=== PATIENT | male | born 2005 | race Two or more races ===

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

== ENCOUNTER 2024-02-04 14:55 | Outpatient (REF) | payer OTHER, SELFPAY ==
[2024-02-04 18:02] LABS: TSH reflex Free T4 2.79 uIU/mL (0.32-4.0)
== END 2024-02-04 14:56 | disposition home or self-care (01) ==
LOC: HO.HHCL 14:55
PROVIDERS: Visit Provider Registered Nurse
DX: R79.89 Other specified abnormal findings of blood chemistry (principal)
CPT/HCPCS: 36415; 84443

== ENCOUNTER 2024-09-30 15:37 | Outpatient (REF) | payer MEDICAID, SELFPAY ==
--- OUTSIDE RECORDS SUMMARY | 2024-09-30 16:35 | XMS_ITS | Clinical Summary ---
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 Name Role Phone Unavailable Primary Care Provider Unavailabl e Medications No known medications Social History Tobacco Use Types Packs/Day Years Used Date Smoking Tobacco: Never Assessed Sex and Gender Information Value Date Recorded Sex Assigned at Male 04/19/2023 2:28 AM EST Gender Identity Not on file Sexual Orientation Not on file Job Start Date Occupation Industry Not on file Not on file Not on file Last Filed Vital Signs Vital Sign Reading Time Taken Comments Blood Pressure 122/72 04/19/2023 12:30 AM EST Pulse 98 04/19/2023 12:30 AM EST Temperature 36.6 C (97.8 F) 04/19/2023 12:30 AM EST Respiratory Rate 18 04/19/2023 12:30 AM EST Oxygen Saturation 98% 04/19/2023 12:30 AM EST Inhaled Oxygen Concentration - - Weight - - Height - - Body Mass Index - - Plan of Treatment Not on file
--- OUTSIDE RECORDS SUMMARY | 2024-09-30 16:35 | XMS_ITS | Clinical Summary ---
Author Organization [employer] Address [address] [facility] [address] [place] [address] Care Team Providers Care Charger Tester Name Role Phone [place] Primary Care Provider [phone] Allergies Active Allergy Reactions Criticality Noted Date Comments Blueberry Flavoring Agent (Non-Screening) Unknown 12/14/2023 Triana Unknown 12/14/2023 Fish Allergy Unknown 12/14/2023 [place]aton Extract Unknown 12/14/2023 Medications * This document contains information received from the source organization and may not represent a complete record from that organization. Vraylar 3 MG capsule Take 3 mg by mouth with breakfast. 4 Active divalproex (Depakote ER) 500 MG 24 hr tablet Take 1,500 mg by mouth with evening meal. 4 Active hydrOXYzine pamoate (Vistaril) 50 MG capsule Take 50 mg by mouth every 8 (eight) hours if needed for anxiety. 4 Active lithium ER (Lithobid) 300 MG 12 hr tablet Take 1,200 mg by mouth with evening meal. 4 Active mirtazapine (Remeron) 30 MG tablet Take 30 mg by mouth at bedtime. 4 Active nicotine polacrilex (Nicorette) 2 MG gum Chew 2 mg if needed. 4 Active acetaminophen (Tylenol) 325 MG tablet Take 2 tablets (650 mg) by mouth every 8 (eight) hours if needed for fever, mild pain or moderate pain (for pain or fever over 100F). 30 tablet 3 5 Active docusate sodium (Colace) 100 MG capsule TAKE 1 CAPSULE (100 MG) BY MOUTH IN THE MORNING 90 capsule 1 5 Active docusate sodium (Colace) 100 MG capsule Take 1 capsule (100 mg) by mouth in the morning. 30 capsule 3 5 025 Discontinued Active Problems Problem Noted Date Diagnosed Date Gender dysphoria 02/04/2024 Hypothyroidism 12/17/2023 Mood disorder 10/05/2023 Suicidal ideation 10/05/2023 Homicidal ideation 10/05/2023 Cannabis use disorder 10/05/2023 Dietary counseling 09/25/2023 Class 2 obesity due to exces s calories without serious comorbidity with body mass index (BMI) of 39.0 to 39.9 in adult 09/25/2023 Assessment & Plan (09/25/2023 1:03 PM EDT): Discussed re weight reduction options including exercise, life style modifications, and diet Recommended to decrease soda and sugary beverage consumption, increase protein intake with meals (at least 1 portion of protein with each meal) to assist with satiety, increase dietary fiber Recommended at least 150 min/week of moderate intensity exercise. Exercise counseling 09/25/2023 Encounters * This document contains information received from the source organization and may not represent a complete record from that organization. Date Type Department Care Team Description 09/22/2024 Refill [facility] [address] [place] [address] YucaipaThelma FNP 09/12/2024 Telephone [facility] [address] [place] [address] YucaipaThelma FNP Results from Last 3 Months Immunizations Immunization Administration Dates Next Due DTaP / Hep B / IPV 2004,2004, 005 DTaP, 5 pertussis antigens 03/04/2008,09/01/2005 HPV 9-Valent 08/02/2016,10/06/2015,08/02/2015 Hep A, ped/adol, 2 dose 07/29/2014,07/28/2013 Hep B, Adolescent or Pediatric 2004 Hib (HbOC) 2004,2004,2004 Hib (PRP-T) 05/26/2005 IPV 03/04/2008 Influenza injectable quadriv alent IIV4 with preservative 08/02/2015 Influenza injectable quadriv alent preservative free 05/15/2022,12/15/2020,02/04/2020 Influenza, IIV3, injectable 03/31/2009,1 05/05/2007,02/18/2007,01/19,01/27/2005 Influenza, Split (incl. zachary fied surface antigen) 02/01/2012,01/11/2011,05/11/2010 MMR 03/04/2008,01/27/2005 Meningococcal MCV4P ACYW-135 12/15/2020,08/02/19 16 Novel Tbtackoyt-[id number], all formulations 04/22/2009 Pneumococcal Conjugate PCV 7 05/26/2005, 2004,2004,03/31 Tdap 04/09/2022,08/02/2015 Varicella 03/04/2008,01/27/2005 Social History Tobacco Use Types Packs/Day Years Used Date Smoking Tobacco: Former Smokeless Tobacco: Never Tobacco Cessation:Counseling Given: Not Answered Alcohol Use Standard Drinks/Week Comments Never 0 (1 standard drink = 0.6 oz pur e alcohol) Depression Answer Date Recorded Patient Health Questionnaire-9 Score 0 03/21/2024 Patient Health Questionnaire-9 Score 0 03/21/2024 Last PHQ-9: Questionnaire Data Not on file 0 03/21/2024 Housing Stability Answer Date Recorded What is your housing situation today? I have desiree spencer 12/06/[address] you li ve. Do you have problems with any of the following? None of the above 12/06/2023 Food Insecurity Answer Date Recorded Within the past 12 months, y ou worried that your food would run out before you got money to buy more: Never True 12/06/2023 Within the past 12 months,th e food you bought just didn't last and you didn't have enough money to get more: Never True Transportation Answer Date Recorded In the past 12 months, has l ack of transportation kept you from medical appts, meetings, work or from getting things needed for daily living? No 12/06/2023 Utilities Answer Date Recorded In the past 12 months, has t he electric, gas, oil or water company threatened to shut off services in your home? No 12/06/2023 Depression Answer Date Recorded Patient Health Questionnaire-2 Score 0 03/21/2024 Internet Access Answer Date Recorded Internet Access Q1 Yes 12/06/2023 Internet Access Q2 Not on file 12/06/2023 Sex and Gender Information Value Date Recorded Sex Assigned at Male 09/25/2023 9:19 AM EDT Legal Sex Male 9:29 AM EST Gender Identity Transgender Female 12/03/2023 3: 30 PM EDT Sexual Orientation Don't know 09/25/2023 9 :19 AM EDT Last Filed Vital Signs Vital Sign Reading Time Taken Comments Blood Pressure 126/80 03/27/2024 1:05 PM EST Pulse 89 03/27/2024 1:05 PM EST Temperature 36.5 C (97.7 F) 03/27/2024 1:05 PM EST Respiratory Rate 16 03/27/2024 1:05 PM EST Oxygen Saturation 98% 03/27/2024 1:05 PM EST Inhaled Oxygen Concentration - - Weight 121 kg (266 lb 9.6 oz) 03/27/2024 1:05 PM EST Height 172.7 cm (5' 8 ) 03/27/2024 1:05 PM EST Body Mass Index 40.54 03/27/2024 1:05 PM EST Plan of Treatment Upcoming Encounters Date Type Department Care Team (Late st Contact Info) Description 11/03/2024 10:00 AM EDT Office Visit [facility] [address] [place] [address] [facility] [address] [place] [address] Health Maintenance Due Date Last Done Comments Disability Screening 2004 Alcohol/Substance Use Screening 2016 Meningococcal B Vaccine (1 of 2 - Standard) 2020 COVID-19 Vaccine (3 - season) 2023 09/24/2020, 09/03/2020 Influenza Vaccine (#1) 2024 3, 12/15/2020, 02/04/2020, Additional history exists SDOH Screening 12/05/2024 12/06/2023 Chlamydia and Gonorrhea Screening 12/13/2024 12/14/2023, 05/15/2022 Family Planning (PISQ) 02/24/2025 02/25/2024 Depression Screening 03/21/2025 03/21/2024, 03/21/19 Tobacco Screening 03/27/2025 03/27/2024 Lipid Panel 12/13/2028 12/14/2023 DTaP/Tdap/Td Vaccines (8 - Td or Tdap) 04/09/2032 04/09/2022, 08/02/2015, 03/04/2008, Additional history exists Zoster Vaccines (1 of 2) 01/22/2054 RSV Patients and Patients Aged 60 years or older (1 - 1-dose 75+ series) 01/22/2079 Hepatitis B Vaccines Completed 2004, 2004, 2004, Additional history exists HIB Vaccines Completed 05/26/2005, 08/18, 2004, Additional history exists Pneumococcal Vaccine: Pediatrics (0 to 5 Years) and At-Risk Patients (6 to 49) Years Aged Out 05/26/2005, 2004, 2004, Additional history exists No longer eligible based on patient's age to complete this topic IPV Vaccines Completed 03/04/2008, 08/18, 2004, Additional history exists Hepatitis A Vaccines Completed 07/29/2014, 07/29/19 14 HPV Vaccines Completed 08/02/2016, 09/17, 08/02/2015 Meningococcal Vaccine Completed 12/15/2020, 016 HIV Screening Completed 12/14/2023 Hepatitis C Screening Completed 12/14/2023, 024 RSV under 20 months Aged Out No longe r eligible based on patient's age to complete this topic Rotavirus Vaccines Aged Out No longer eligible based on patient's age to complete this topic Procedures Procedure Name Priority Date/Time Associated Diagnosis Comments HEPATITIS C AB W/REFL TO HCV RNA, QN, PCR Routine 12/14/2023 12:34 PM EDT Screening for STD (sexually transmitted disease) HIV 1/2 ANTIGEN/ANTIBODY, FOURTH GENERATION W/RFL Routine 12/14/2023 12:34 PM EDT Bipolar disorder in partial remission, most recent episode unspecified type (CMS/HCC) LIPID PANEL WITH REFLEX TO DIRECT LDL Routine 12/14/2023 12:34 PM EDT Class 2 obesity due to excess calories without serious comorbidity with body mass index (BMI) of 39.0 to 39.9 in adult CHLAMYDIA/N. GONORRHOEAE RNA, TMA, UROGENITAL Routine 12/14/2023 12:34 PM EDT Screening for STD (sexually transmitted disease) from Last 3 Months or Most Recently Relevant to Health Maintenance Results * (ABNORMAL) Lipid Panel with Reflex to Direct LDL (12/14/2023 12:34 PM EDT) Triglycerides 350(H) <150 mg/dL [facility] Comment:Desirable Triglyceri de: less than 90 mg/dLBorderline High Triglyceride: 90-129 mg/dLHigh Triglyceride: greater than 130 mg/dL Cholesterol 166 <200 mg/dL [facility] Comment:Desirable Cholestero l: less than 170 mg/dLBorderline High Cholesterol: 170-199 mg/dLHigh Cholesterol: greater than 200 mg/dL LDL Cholesterol Calculated 70 <100 mg/dL [facility] Comment:Desirable LDL: less than 110 mg/dLBorderline LDL: 110-129 mg/dLHigh LDL: greater than or equal to 130 mg/dL HDL Cholesterol 26(L) >40 mg/dL [facility] Comment:Desirable HDL: great er than 45 mg/dLBorderline HDL: 40-45 mg/dLLow HDL: less than 40 mg/dL Note: This HDL assay may give artificially low results in patients with liver disease. Blood 12/14/2023 12:3 4 PM EDT 12/14/2023 1:19 PM EDT us Willow Butterfield MD LAB BLOOD ORDERABLES Fin al Result [facility] [address] [place] [phone] * Hepatitis C Antibody with Reflex to HCV, RNA, Quantitative, Real-Time PCR (12/14/2023 12:34 PM EDT) [facility] Hepatitis C Antibody Nonreactive Nonreactive [facility] Comment:Antibodies to HCV no t detected; does not exclude early acuteHCV infection. Blood Venous blood specimen / Unknown 12/14/2023 12:34 PM EDT 12/14/2023 1:19 PM EDT [facility] LAB BLOOD ORDERABLES Final Re sult [facility] [address] [place] [address] [phone] * Chlamydia/N. Gonorrhoeae RNA, TMA, Urogenitial (12/14/2023 12:34 PM EDT) [facility] CT PCR NOT DETECTED Not Detect. [facility] Comment:A not detected test result does not exclude the possibilityof infection because test results can be affected byimproper specimen collection, concurrent antibiotic therapy,or the number of organisms in the specimen which may bebelow the sensitivity of the test. As with many diagnostictests, results from the Xpert CT/NG assay should beinterpreted in conjunction with other laboratory andclinical data available to the clinician.Xpert CT/NG performance has not been evaluated in patientsless than 14 years of age. The assay should not be used forthe evaluationof suspected sexual abuse or for other medico-legalindications. Additional testing is recommended in anycircumstance when false positive or false negative resultscould lead to adverse medical, social or psychologicalconsequences. NG PCR NOT DETECTED Not Detect. [facility] Comment:A not detected test result does not exclude the possibilityof infection because test results can be affected byimproper specimen collection, concurrent antibiotic therapy,or the number of organisms in the specimen which may bebelow the sensitivity of the test. As with many diagnostictests, results from the Xpert CT/NG assay should beinterpreted in conjunction with other laboratory andclinical data available to the clinician.Xpert CT/NG performance has not been evaluated in patientsless than 14 years of age. The assay should not be used forthe evaluationof suspected sexual abuse or for other medico-legalindications. Additional testing is recommended in anycircumstance when false positive or false negative resultscould lead to adverse medical, social or psychologicalconsequences. Urine (Urine, Random) 12/14/2023 12:34 PM EDT 12/14/2023 1:10 PM EDT Narrative [facility] - 12/14/2023 2:52 PM EDT Urine [facility] LAB MICROBIOLOGY - GENERAL OR DERABLES Final Result Performing Organization Address [facility]/ZIP Co de Phone Number [facility] [address] [place] [address] [phone] * HIV-1/2 Antigen and Antibodies, Fourth Generation, with Reflexes (12/14/2023 12:34 PM EDT) HIV AB/AG Nonreactive Nonreactive [facility] Comment:HIV-1 p24 Ag and/or HIV-1/HIV-2 Ab not detected.A test result that is nonreactive does not exclude thepossibility of exposure to or infection with HIV-1 and/orHIV-2. Nonreactive results in this assay for individualswith prior exposure to HIV-1 and/or HIV-2 may be due toantigen and antibody levels that are below the limit ofdetection of this assay.The [employer] (now [employer]) HIV Ag/Ab Combo assay result andsupplemental assay results should be interpreted inconjunction with the patient's clinical presentation,history and other laboratory results. If the results areinconsistent with clinical evidence, additional testing issuggested to confirm the result. Blood Venous blood specimen / Unknown 12/14/2023 12:34 PM EDT 12/14/2023 1:19 PM EDT Willow Butterfield MD LAB BLOOD ORDERABLES Fin al Result [facility] [address] [place] [phone] from Last 3 Months or Most Recently Relevant to Health Maintenance Insurance [facility] Care Teams Charger Tester Relationship Specialty Start Date End Date Thelma Fatima FNP [address] [place] [phone] PCP - General Family Medicine 12/14/23
--- OUTSIDE RECORDS SUMMARY | 2024-09-30 16:35 | XMS_ITS | Clinical Summary ---
Author Organization [facility] it Address [address] [place] [address] Care Team Providers Care Guest Relations Representative Name Role Phone Unavailable Primary Care Provider Unavailabl e Social History Tobacco Use Types Packs/Day Years Used Date Smoking Tobacco: Never Assessed Sex and Gender Information Value Date Recorded Sex Assigned at Not on file Legal Sex Male 4:57 PM EDT Gender Identity Not on file Sexual Orientation Not on file Obstetrics History Plan of Treatment Health Maintenance Due Date Last Done Comments Varicella Vaccines (1 of 2 - 13+ 2-dose series) 01/22/2017 HPV Vaccines (1 - Male 3-dos e series) 01/22/2019 Meningococcal B Vaccine (1 o f 2 - Standard) 2020 DTaP,Tdap,and Td Vaccines (1 - Tdap) 01/22/2023 Hepatitis B Vaccines (1 of 3 - 19+ 3-dose series) 01/22/2023 Annual Well Child Visit (3-2 1 years old) 10/17/2023 Depression Screening 10/17/2023 HIV Screening 10/17/2023 Hepatitis C Screening 10/17/2023 Social Influencers of Health Screening 10/17/2023 COVID-19 Vaccine (1 - 2023-2 5 season) 2023 Influenza Vaccine (#1) 2024 HIB Vaccines Aged Out No longer eligi ble based on patient's age to complete this topic Hepatitis A Vaccines Aged Out No long er eligible based on patient's age to complete this topic IPV Vaccines Aged Out No longer eligi ble based on patient's age to complete this topic MMR Vaccines Aged Out No longer eligi ble based on patient's age to complete this topic Meningococcal ACWY Vaccine Aged Out N o longer eligible based on patient's age to complete this topic Pneumococcal Vaccine: Pediat rics (0 to 5 Years) and At-Risk Patients (6 to 49 Years) Aged Out No longer eligible b ased on patient's age to complete this topic RSV Immunization Patients Un brayden 20 months Aged Out No longer eligible b ased on patient's age to complete this topic
--- OUTSIDE RECORDS SUMMARY | 2024-09-30 16:35 | XMS_ITS | Encounter Summary ---
Author Organization [facility] Address [address] [place] [address] Phone Care Team Providers Care Bituminous Distributor Operator Name Role Phone Julia Blood NP Primary Care Provider [phone] Encounter Details Date Type Department Care Team (Late st Contact Info) Description 11/02/2016 Conversion Encounter [facility] [address] [place] [address] Social History Tobacco Use Types Packs/Day Years Used Date Smoking Tobacco: Never Assessed Sex and Gender Information Value Date Recorded Sex Assigned at Not on file Legal Sex Male 5:06 PM EDT Gender Identity Not on file Sexual Orientation Not on file documented as of this encounter Plan of Treatment Not on file documented as of this encounter Visit Diagnoses Not on filedocumented in this encounter Care Teams Bituminous Distributor Operator Relationship Specialty Start Date End Date Julia Blood NP [address] [place] [address] PCP - General Pediatrics 08/13/24 documented as of this encounter
[2024-09-30 18:10] LABS: Cannabinoid Screen Urine Not Detected (Not Detect)
[2024-09-30 18:17] LABS: Hemoglobin A1C 121.7792 umol/L; NRBC Abs Auto 0.000 X10*3/uL (0.0-0.012); NRBC Pct Auto 0.0 /100WBC (0.0-0.2); SCAN SMEAR FLAG 1; Total Hemoglobin (HGBA1C) 4096.9761 umol/L
[2024-09-30 18:19] LABS: Hematocrit 47.6 % (42.0-52.0); Hemoglobin 15.9 g/dl (14.0-18.0); Imm Gran Abs Auto 0.04 X10*3/uL (0.00-0.03); Imm Gran Pct Auto 0.4 % (0.0-0.4); Lymphocytes Absolute Auto 3.1 X10*3/uL (1.2-4.9); MANUAL DIFF FLAG SCAN; Mean Corpuscular HGB Conc 33.4 g/dl (31.0-36.0); Mean Corpuscular Hemoglobin 29.1 pg (27.0-33.0); Mean Corpuscular Volume 87.2 fL (80.0-98.0); PLT CLUMP 1; Red Blood Count 5.46 X10*6/uL (4.60-5.80)
[2024-09-30 18:22] LABS: PLT ABN DIST 1; White Blood Count 9.3 X10*3/uL (4.8-10.8)
[2024-09-30 18:30] LABS: Alanine Aminotransferase 23 U/L (0-40); Albumin Level 4.7 g/dL (3.5-5.0); Alkaline Phosphatase 51 U/L (39-117); Anion Gap 11 (12-20); Aspartate Amino Transferase 25 U/L (5-37); Blood Urea Nitrogen 8 mg/dL (9-16); Calcium 9.3 mg/dL (8.4-10.2); Carbon Dioxide 24 mmol/L (22-29); Chloride 111 mmol/L (96-108); Estimated Glomerular Filt Rate > 60; Potassium 3.4 mmol/L (3.3-5.1); Sodium 143 mmol/L (135-145); Total Protein 7.5 g/dL (6.5-8.0)
[2024-09-30 18:37] LABS: Platelet Count 179 X10*3/uL (160-400)
== END 2024-09-30 15:38 | disposition home or self-care (01) ==
LOC: HO.HHCL 15:37
PROVIDERS: PCP Internal Medicine; Visit Provider Nurse Practitioner Psychiatric/Mental Health
DX: F90.1 Attention-deficit hyperactivity disorder, predominantly hyperactive type (principal); F41.9 Anxiety disorder, unspecified; F32.A Depression, unspecified
CPT/HCPCS: 80053; 80164; 80307; 82248; 83036; 84146; 85025

== ENCOUNTER 2024-11-03 11:00 | Outpatient (REF) | payer MEDICAID, SELFPAY ==
--- OUTSIDE RECORDS SUMMARY | 2024-11-03 12:14 | XMS_ITS | Clinical Summary ---
Author Organization [employer] Address [address] [place] [address] [address] [place] [address] Care Team Providers Care Smash Piecer Name Role Phone Thelma Fatima METAL TURNER Primary Care Provider [phone] Allergies Active Allergy Reactions Criticality Noted Date Comments Blueberry Flavoring Agent (Non-Screening) Unknown 12/14/2023 Triana Unknown 12/14/2023 Fish Allergy Unknown 12/14/2023 Leggett Extract Unknown 12/14/2023 Medications * This document contains information received from the source organization and may not represent a complete record from that organization. Vraylar 3 MG capsule Take 3 mg by mouth with breakfast. 09/22/2023 Active divalproex (Depakote ER) 500 MG 24 hr tablet Take 1,500 mg by mouth with evening meal. 09/18/2023 Active hydrOXYzine pamoate (Vistaril) 50 MG capsule Take 50 mg by mouth every 8 (eight) hours if needed for anxiety. 09/18/2023 Active lithium ER (Lithobid) 300 MG 12 hr tablet Take 1,200 mg by mouth with evening meal. 09/18/2023 Active mirtazapine (Remeron) 30 MG tablet Take 30 mg by mouth at bedtime. 09/18/2023 Active nicotine polacrilex (Nicorette) 2 MG gum Chew 2 mg if needed. 09/18/2023 Active acetaminophen (Tylenol) 325 MG tablet Take 2 tablets (650 mg) by mouth every 8 (eight) hours if needed for fever, mild pain or moderate pain (for pain or fever over 100F). 30 tablet 3 04/04/2024 Active docusate sodium (Colace) 100 MG capsule TAKE 1 CAPSULE (100 MG) BY MOUTH IN THE MORNING 90 capsule 1 09/22/2024 Active Active Problems Problem Noted Date Diagnosed Date [...] organization. Date Type Department Care Team Description 11/03/2024 10:00 AM EDT Office Visit [address] [address] Thelma Fatima FNP Intention tremor (Primary Dx); Witnessed seizure-like activity (CMS/HCC); Foul smelling urine; Mood disorder (CMS/HCC); Thyroid dysfunction; Class 3 severe obesity due to excess calories with serious comorbidity and body mass index (BMI) of 40.0 to 44.9 in adult; Encounter for screening for infections with a predominantly sexual mode of transmission; Routine eye exam; Encounter for hearing examination, unspecified whether abnormal findings; Dietary counseling; Exercise counseling 11/03/2024 Travel 10/31/[address] [address] Thelma Fatima FNP Chart Prep 10/24/2024 Patient Outreach [address] [address] Thelma Fatima FNP Pre-visit Planning ((Unable to reach for PVP screening or LVM) to be completed in office ) 09/22/2024 Refill [facility] [address] [place] [address] [place] 09/12/2024 Telephone [facility] [address] [place] [address] [place], [facility] Results from Last 3 Months Immunizations Immunization [...] 03/04/2008,01/27/2005 Meningococcal MCV4P ACYW-135 12/15/2020,08/02/19 16 Novel [id number], all formulations 04/22/2009 Pneumococcal Conjugate PCV 7 05/26/2005, 2004,2004,03/31 Tdap 04/09/2022,08/02/2015 Varicella 03/04/2008,01/27/2005 Social History Tobacco Use Types Packs/Day Years Used Date Smoking Tobacco: Former Smokeless Tobacco: Never Tobacco Cessation:Counseling Given: Not Answered Alcohol Use Standard Drinks/Week Comments Never 0 (1 standard drink = 0.6 oz pur e alcohol) Alcohol Answer Date Recorded How often do you have a drink containing alcohol ? 4 11/03/2024 How many drinks containing a lcohol do you have on a typical day when you are drinking? 2 11/03/2024 Frequency of Binge Drinking Not on file 10/17 Depression Answer Date Recorded Patient Health Questionnaire-9 [...] PM EDT Sexual Orientation Don't know 09/25/2023 9: 19 AM EDT Last Filed Vital Signs Vital Sign Reading Time Taken Comments Blood Pressure 128/86 11/03/2024 10:16 AM EDT Pulse 90 11/03/2024 10:16 AM EDT Temperature 37.2 C (99 F) 11/03/2024 10:16 AM EDT Respiratory Rate 20 11/03/2024 10:16 AM EDT Oxygen Saturation 98% 03/27/2024 1:05 PM EST Inhaled Oxygen Concentration - - Weight 121 kg (267 lb 6.4 oz) 11/03/2024 10:16 A M EDT Height 172.7 cm (5' 8 ) 11/03/2024 10:16 AM EDT Body Mass Index 40.66 11/03/2024 10:16 AM EDT Plan of Treatment Health Maintenance Due Date Last Done Comments Disability Screening 2004 Alcohol/Substance Use Screening 2016 Meningococcal B Vaccine (1 of 2 - Standard) 2020 COVID-19 Vaccine (3 - 2023- season) 2023 09/24/2020, 09/03/2020 Influenza Vaccine (#1) 2024 , 12/15/2020, 02/04/2020, Additional history exists SDOH Screening 12/05/2024 12/06/2023 Chlamydia and Gonorrhea Screening 12/13/2024 12/14/2023, 05/15/2022 Family Planning (PISQ) 02/24/2025 02/25/2024 Depression Screening 03/21/2025 03/21/2024, 03/21/19 Tobacco Screening 11/03/2025 11/03/2024 Lipid Panel 12/13/2028 12/14/2023 DTaP/Tdap/Td Vaccines (8 [...] 12:34 PM EDT) Triglycerides 350(H) <150 mg/dL [facility] Comment:Desirable Triglyceri de: less than 90 mg/dLBorderline High Triglyceride: 90-129 mg/dLHigh Triglyceride: greater than 130 mg/dL Cholesterol 166 <200 mg/dL [facility] Comment:Desirable Cholestero l: less than 170 mg/dLBorderline High Cholesterol: 170-199 mg/dLHigh Cholesterol: greater than 200 mg/dL LDL Cholesterol Calculated 70 <100 mg/dL [facility] Comment:Desirable LDL: less than 110 mg/dLBorderline LDL: 110-129 mg/dLHigh LDL: greater than or equal to 130 mg/dL HDL Cholesterol 26(L) >40 mg/dL [facility] Comment:Desirable HDL: great er than 45 mg/dLBorderline HDL: 40-45 mg/dLLow HDL: less than 40 mg/dL Note: This HDL assay may give artificially low results in patients with liver disease. Blood 12/14/2023 12:3 4 PM EDT 12/14/2023 1:19 PM EDT Willow Butterfield MD LAB BLOOD ORDERABLES Fin al Result Performing Organization Address [facility] Co de Phone Number [facility] [address] [place] [phone] * Hepatitis C Antibody with Reflex to HCV, RNA, Quantitative, Real-Time PCR (12/14/2023 12:34 PM EDT) [facility] Hepatitis C Antibody Nonreactive Nonreactive [facility] Comment:Antibodies to HCV no t detected; does not exclude early acuteHCV infection. Blood Venous blood specimen / Unknown 12/14/2023 12:34 PM EDT 12/14/2023 1:19 PM EDT [facility] LAB BLOOD ORDERABLES Final Re sult Performing Organization Address [facility] Co de Phone Number [facility] [address] [place] [phone] * Chlamydia/N. Gonorrhoeae RNA, TMA, Urogenitial (12/14/2023 12:34 PM EDT) Pathologist [facility] CT PCR NOT DETECTED Not Detect. [facility] Comment:A not detected test result does [...] psychologicalconsequences. NG PCR NOT DETECTED Not Detect. [facility] Comment:A not detected test result does [...] PM EDT 12/14/2023 1:10 PM EDT Narrative [facility] - 12/14/2023 2:52 PM EDT Urine [facility] LAB MICROBIOLOGY - GENERAL OR DERABLES Final Result [facility] [address] [place] [phone] * HIV-1/2 Antigen and Antibodies, Fourth Generation, with Reflexes (12/14/2023 12:34 PM EDT) HIV AB/AG Nonreactive Nonreactive [facility] Comment:HIV-1 p24 Ag and/or HIV-1/HIV-2 Ab not detected.A test result that is nonreactive does not exclude thepossibility of exposure to or infection with HIV-1 and/orHIV-2. Nonreactive results in this assay for individualswith prior exposure to HIV-1 and/or HIV-2 may be due toantigen and antibody levels that are below the limit ofdetection of this assay.The DreamDrynity HIV Ag/Ab Combo assay result andsupplemental assay results should be interpreted inconjunction with the patient's clinical presentation,history and other laboratory results. If the results areinconsistent with clinical evidence, additional testing issuggested to confirm the result. Blood Venous blood specimen / Unknown 12/14/2023 12:34 PM EDT 12/14/2023 1:19 PM EDT Willow Butterfield MD LAB BLOOD ORDERABLES Fin al Result [facility] [address] [place] [phone] from Last 3 Months or Most Recently Relevant to Health Maintenance Insurance [facility] STANDARD MEDICARE Care Teams Smash Piecer Relationship Specialty Start Date End Date Thelma Fatima FNP [address] [place] [phone] PCP - General Family Medicine 12/14/23
--- OUTSIDE RECORDS SUMMARY | 2024-11-03 12:14 | XMS_ITS | Clinical Summary ---
Author Organization [employer] [facility] it Address [address] [place] [address] Care Team Providers Care Casting Inspector Name Role Phone Unavailable Primary Care Provider [...] Child Visit (3-2 1 years old) 10/17/2023 HIV Screening 10/17/2023 Hepatitis C Screening 10/17/2023 Social Influencers of Health Screening 10/17/2023 COVID-19 Vaccine (1 - 2023-2 5 season) 2023 Depression Screening 03/19/2024 Influenza Vaccine (#1) 2024 HIB Vaccines Aged [...]
--- OUTSIDE RECORDS SUMMARY | 2024-11-03 12:14 | XMS_ITS | Encounter Summary ---
Author Organization [facility] Address [address] [place] [address] Phone Care Team Providers Care Rug Layer Name Role Phone Julia Blood NP Primary Care Provider [phone] Encounter Details Date Type Department Care Team (Late st Contact Info) Description 11/02/2016 Conversion Encounter [facility] [address] [place] [address] Social History Tobacco Use Types Packs/Day Years [...] on filedocumented in this encounter Care Teams Rug Layer Relationship Specialty Start Date End Date Julia Blood NP [address] [place] [address] PCP - General Pediatrics 08/13/24 documented as of this encounter
--- OUTSIDE RECORDS SUMMARY | 2024-11-03 12:14 | XMS_ITS | Clinical Summary ---
Author Organization [facility] Address [address] [place] [address] Care Team Providers Care Supervisor [employer] Vault Name Role Phone Unavailable Primary Care Provider [...]
[2024-11-03 13:00] LABS: Appearance Urine Clear; Glucose Urine UA Negative (Negative); PH 8.0 (5.0-9.0); Specific Gravity - Urine <= 1.005 (1.005-1.025); UMIC TRIGGER UACC YES
[2024-11-03 13:03] LABS: Hematocrit 41.9 % (42.0-52.0); Hemoglobin 13.9 g/dl (14.0-18.0); Imm Gran Abs Auto 0.07 X10*3/uL (0.00-0.03); Imm Gran Pct Auto 0.7 % (0.0-0.4); Lymphocytes Absolute Auto 1.8 X10*3/uL (1.2-4.9); Mean Corpuscular HGB Conc 33.2 g/dl (31.0-36.0); Mean Corpuscular Hemoglobin 28.8 pg (27.0-33.0); Mean Corpuscular Volume 86.9 fL (80.0-98.0); NRBC Abs Auto 0.000 X10*3/uL (0.0-0.012); NRBC Pct Auto 0.0 /100WBC (0.0-0.2); Red Blood Count 4.82 X10*6/uL (4.60-5.80); UACC Culture Trigger YES
[2024-11-03 13:10] LABS: Platelet Count 270 X10*3/uL (160-400); White Blood Count 10.6 X10*3/uL (4.8-10.8)
[2024-11-03 13:26] LABS: Alanine Aminotransferase 15 U/L (0-40); Albumin Level 4.1 g/dL (3.5-5.0); Alkaline Phosphatase 72 U/L (39-117); Anion Gap 13 (12-20); Aspartate Amino Transferase 19 U/L (5-37); Blood Urea Nitrogen 13 mg/dL (9-16); Calcium 10.1 mg/dL (8.4-10.2); Carbon Dioxide 22 mmol/L (22-29); Chloride 110 mmol/L (96-108); Cholesterol 158 mg/dL (<200); Estimated Glomerular Filt Rate > 60; HDL Cholesterol 18 mg/dL (>40); Potassium 4.0 mmol/L (3.3-5.1); Sodium 141 mmol/L (135-145); Total Protein 7.6 g/dL (6.5-8.0); Triglycerides 221 mg/dL (<150)
[2024-11-03 13:42] LABS: HIV Num 1 0.10 S/CO (0.00-0.99)
[2024-11-03 13:53] LABS: Lithium 1.63 mmol/L (0.60-1.20)
[2024-11-03 14:12] LABS: Free T4 (Free Thyroxine) 0.98 ng/dL (0.71-1.85)
== END 2024-11-03 11:01 | disposition home or self-care (01) ==
LOC: HO.HHCL 11:00
PROVIDERS: PCP Internal Medicine; Visit Provider Registered Nurse
DX: Z11.3 Encounter for screening for infections with a predominantly sexual mode of transmission (principal); G25.2 Other specified forms of tremor; R82.90 Unspecified abnormal findings in urine; R79.89 Other specified abnormal findings of blood chemistry; E07.9 Disorder of thyroid, unspecified; E66.813 Obesity, class 3; Z68.41 Body mass index [BMI] 40.0-44.9, adult; Z79.899 Other long term (current) drug therapy
CPT/HCPCS: 36415; 80053; 80061; 80164; 80178; 81001; 84439; 84443; 85025; 86592; 87086; 87389

== ENCOUNTER 2024-11-03 15:59 | Emergency (ER) | payer MEDICARE, MEDICAID, SELFPAY ==
[2024-11-03 16:48] VITALS: BP 134/68; PULSE 103; RESP 18; TEMP 37; O2SAT 96; BMI 36.3
--- NOTE | 2024-11-03 16:49 | ED.GENADULT ---
HPI - General Adult General Chief complaint: Recheck/Abnormal Lab/Rx Stated complaint: irregular lab test (high lithium level) sent by dr Blue Seen by Provider: 11/03/24 17:59 Source: patient Limitations: no limitations History of Present Illness ED Provider: Makayla Paige PA-C HPI narrative: 19-year-old male with a history of bipolar disorder, anxiety, ADHD who presents from senior care with concern for lithium toxicity. Patient had routine labs drawn as an outpatient, his lithium level was noted to be 1.63. He was advised to come to the emergency room for assessment. Associated resting tremor and nausea. Denies new medication, change in dosage, or taking medications inappropriately. Related Data Home Medications ?Medication ?Instructions ?Recorded ?Confirmed guanfacine 2 mg tablet 1 tab PO BID 01/09/21 01/09/21 melatonin 5 mg tablet 5 mg PO BEDTIME 01/09/21 01/09/21 risperidone 0.5 mg tablet 0.5 mg PO BID 01/09/21 01/09/21 Previous Rx's ?Medication ?Instructions ?Recorded cephalexin 500 mg tablet 500 mg PO Q6H 7 days #28 tabs 04/09/22 amoxicillin 875 mg-potassium 1 tab PO BID 7 days #14 tabs 03/26/23 clavulanate 125 mg tablet Allergies Allergy/AdvReac Type Severity Reaction Status Date / Time blueberry Allergy Unknown Verified 11/03/24 16:49 liu (cherries) Allergy Unknown Verified 11/03/24 16:49 fish derived (fish) Allergy Unknown Verified 11/03/24 16:49 strawberry Allergy Unknown Verified 11/03/24 16:49 Review of Systems Review of Systems: Yes all other systems are reviewed and are negative Constitutional: Constitutional: Denies fatigue and Denies fever(s) Cardiovascular: Cardiovascular: Denies chest pain and Denies dyspnea Respiratory: Respiratory: Denies dyspnea Gastrointestinal: Gastrointestinal: Denies abdominal pain, Denies diarrhea, Reports nausea and Denies vomiting Endocrine: Endocrine: Denies fatigue PMFSH Past Medical History Attestation statement: The following information was validated with the patient. Medical History (Updated 11/04/24 @ 03:41 by MITCHELL Her) ADHD Social History Social History (System 04/18/23 @ 12:23 by Sinai Paz) Smoked in Last 30 Days: No Use of substances other than those prescribed or required for medical reasons: No Advance Directives: No Advance Directives Information Provided: No Physical Exam ED Exam Exam: Alert well-appearing Vital Signs: Vital Signs - 24 hr 11/03/24 16:48 11/03/24 17:07 11/03/24 18:36 Temperature 98.6 F Pulse Rate 103 H 97 82 Respiratory Rate 18 12 18 Blood Pressure 134/68 110/74 103/68 Pulse Oximetry 96 96 98 Oxygen Delivery Method Room Air Room Air Room Air BMI result Body Mass Index 36.3 Const Orientation/consciousness: patient oriented x3 Resp Effort & Inspection: normal respiratory effort Cardio Other: Normal peripheral perfusion Skin Other: Warm dry no rash Neuro General: patient oriented x3, gait normal, no focal motor deficits and CN's II-XI intact bilaterally Psych Other: Somewhat uncooperative at times Course Course Course Narrative: This is a Rapid Medical Examination (RME) performed by Derick De La Cruz PA-C in triage. Full HPI, ROS, assessment and treatment plan per primary provider in the Main ED. Hx: 19 yo M here after receiving call of elevated lithium levels (1.63). takes 1350mg lithium ER every night. no recent dose adjustments. reports increasing diffuse tremors over the last week. Plan: labs, repeat lithium levels Reevaluation(s) Reevaluation #1: calling poison control, we should repeat the lithium level every 2 hours until it is under 1, his treatment consists of supportive care, I am giving a normal saline bolus, then will give 200 cc/hour, we should repeat the EKG in 2 hours, I will report back to poison control once repeat labs are completed Time: 18:16 Reevaluation #2: Speaking with the patient's guardian, who is his mother, Connie Ortiz, she is aware that the patient had to seek medical attention in the emergency room due to his elevated lithium levels. I will reach back out to her with a more information once labs result.......[phone] Time: 19:18 Reevaluation #3: reporting back to poison control.... I relayed repeat labs, that they are improving, no further recommendation Time: 19:30 Additional Reevaluation(s): 2332 Poison control had called back, after the 3rd lithium level, the repeat can be drawn after 4 hours, it just resulted at 1.2 337 am spoke with poison control, relayed the 4th lithium level, the patient is cleared for discharge. Calling his mother again to let her know he will be discharged back to senior care, she is pleased, she will reach out to his doctor this morning. Medications Administered Discontinued Medications Generic Name Dose Route Start Last Admin Trade Name Kayla PRN Reason Stop Dose Admin Sodium Chloride 1,000 mls @ 999 mls/hr 11/03/24 18:15 11/03/24 21:00 Ns IV 11/03/24 19:15 Infused .Q1H1M HEMANT Infusion Sodium Chloride 1,000 mls @ 200 mls/hr 11/03/24 20:30 11/03/24 21:00 Ns IVCONT 11/04/24 01:29 200 mls/hr .Q5H HEMANT Administration Medical Decision Making Medical Decision Making MDM Narrative: 19-year-old male with a history of bipolar disorder, anxiety, ADHD who presents from senior care with concern for lithium toxicity. Patient had routine labs drawn as an outpatient, his lithium level was noted to be 1.63. He was advised to come to the emergency room for assessment. Associated resting tremor and nausea. Denies new medication, change in dosage, or taking medications inappropriately. Problem: The use of lithium History: Per patient caregiver I have considered the following differential diagnoses: [place] toxicity, acute kidney injury, toxic ingestion, SI, HI, decompensated psychiatric illness, drug/alcohol intoxication Plan: Patient is here due to lithium toxicity, he has a minimal symptoms. I spoke with poison control, in addition to screening labs, we should repeat the lithium level at 2:00 a.m. intervals, we should obtain a EKG, repeat it at the 2 hour shaista. I am giving a normal saline bolus, this can be followed by 200 mL/hour of normal saline. The patient was found to have elevated lithium levels on a routine basis, there was no concern for SI or HI at this time, there was no known concern for medication nonadherence. In addition to screening labs, drug screening was obtained. I have independently reviewed the following tests: EKG: Normal sinus rhythm, rate 87, no ischemic changes no ectopy QTC 452 Repeat EKG: Normal sinus rhythm, rate 88, no ischemic changes no ectopy Labs: Leukocytosis of 11.3, no anemia, creatinine subtly improved from earlier today it is 1.16, with the initial lab studies this morning it was 1.22, lithium level further improved to 1.38, earlier this morning it was 1.63, 3rd lithium level 1.2, 4th 1.12, U tox negative, Lab Data 11/03/24 18:16 11/03/24 21:09 Labs: Lab Results 11/03/24 11/03/24 11/03/24 Range/Units 18:16 18:51 19:19 WBC 11.3 H (4.8-10.8) X10*3/uL RBC 4.59 L (4.60-5.80) X10*6/uL Hgb 13.4 L (14.0-18.0) g/dl Hct 39.9 L (42.0-52.0) % MCV 86.9 (80.0-98.0) fL MCH 29.2 (27.0-33.0) pg MCHC 33.6 (31.0-36.0) g/dl RDW 12.9 (11.0-16.0) % Plt Count 287 (160-400) X10*3/uL MPV 13.0 H (9.4-12.4) fL Immature Gran % (Auto) 0.5 H (0.0-0.4) % Neut % (Auto) 63.9 (45-73) % Lymph % (Auto) 18.2 L (20-40) % [place] % (Auto) 12.0 H (2-11) % Eos % (Auto) 4.8 H (0-4) % Baso % (Auto) 0.6 (0-2) % Lymph # (Auto) 2.1 (1.2-4.9) X10*3/uL [place] # (Auto) 1.4 H (0.1-1.2) X10*3/uL Eos # (Auto) 0.5 H (0.0-0.4) X10*3/uL Baso # (Auto) 0.1 (0.0-0.2) X10*3/uL Abs Immat Gran (auto) 0.06 H (0.00-0.03) X10*3/uL Absolute Neuts (auto) 7.2 (2.0-8.3) x10*3/uL Absolute Nucleated RBC 0.000 (0.0-0.012) X10*3/uL Nucleated RBC % (auto) 0.0 (0.0-0.2) /100WBC Sodium 140 (135-145) mmol/L Potassium 3.8 (3.3-5.1) mmol/L Chloride 109 H (96-108) mmol/L Carbon Dioxide 22 (22-29) mmol/L Anion Gap 13 (12-20) BUN 12 (9-16) mg/dL Creatinine 1.16 (0.5-1.4) mg/dL Estim Creat Clear Calc 136.6 Estimated GFR > 60 Random Glucose 98 (60-115) mg/dL Calcium 9.9 (8.4-10.2) mg/dL Magnesium 2.1 (1.6-2.6) mg/dL Total Bilirubin 0.2 (0.0-1.0) mg/dL AST 17 (5-37) U/L ALT 13 (0-40) U/L Alkaline Phosphatase 71 (39-117) U/L Total Protein 7.5 (6.5-8.0) g/dL Albumin 4.1 (3.5-5.0) g/dL Hold Yellow Top See Note Urine Opiates Screen Not Detected (Not Detect) Ur Buprenorphine Scrn Not Detected (Not Detect) ng/mL Ur Oxycodone Screen Not Detected (Not Detect) ng/mL Urine Methadone Screen Not Detected (Not Detect) ng/mL Urine Fentanyl Screen Not Detected (Not Detect) Ur Barbiturates Screen Not Detected (Not Detect) Ur Phencyclidine Scrn Not Detected (Not Detect) Ur Amphetamines Screen Not Detected (Not Detect) U Benzodiazepines Scrn Not Detected (Not Detect) [place] 1.38 H (0.60-1.20) mmol/L Urine Cocaine Screen Not Detected (Not Detect) U Marijuana (THC) Screen Not Detected (Not Detect) 11/03/24 11/03/24 11/04/24 Range/Units 21:09 23:11 03:03 WBC (4.8-10.8) X10*3/uL RBC (4.60-5.80) X10*6/uL Hgb (14.0-18.0) g/dl Hct (42.0-52.0) % MCV (80.0-98.0) fL MCH (27.0-33.0) pg MCHC (31.0-36.0) g/dl RDW (11.0-16.0) % Plt Count (160-400) X10*3/uL MPV (9.4-12.4) fL Immature Gran % (Auto) (0.0-0.4) % Neut % (Auto) (45-73) % Lymph % (Auto) (20-40) % [place] % (Auto) (2-11) % Eos % (Auto) (0-4) % Baso % (Auto) (0-2) % Lymph # (Auto) (1.2-4.9) X10*3/uL [place] # (Auto) (0.1-1.2) X10*3/uL Eos # (Auto) (0.0-0.4) X10*3/uL Baso # (Auto) (0.0-0.2) X10*3/uL Abs Immat Gran (auto) (0.00-0.03) X10*3/uL Absolute Neuts (auto) (2.0-8.3) x10*3/uL Absolute Nucleated RBC (0.0-0.012) X10*3/uL Nucleated RBC % (auto) (0.0-0.2) /100WBC Sodium 141 (135-145) mmol/L Potassium 3.7 (3.3-5.1) mmol/L Chloride 110 H (96-108) mmol/L Carbon Dioxide 22 (22-29) mmol/L Anion Gap 13 (12-20) BUN 11 (9-16) mg/dL Creatinine 1.15 (0.5-1.4) mg/dL Estim Creat Clear Calc 137.7 Estimated GFR > 60 Random Glucose 112 (60-115) mg/dL Calcium 9.5 (8.4-10.2) mg/dL Magnesium (1.6-2.6) mg/dL Total Bilirubin (0.0-1.0) mg/dL AST (5-37) U/L ALT (0-40) U/L Alkaline Phosphatase (39-117) U/L Total Protein (6.5-8.0) g/dL Albumin (3.5-5.0) g/dL Hold Yellow Top Urine Opiates Screen (Not Detect) Ur Buprenorphine Scrn (Not Detect) ng/mL Ur Oxycodone Screen (Not Detect) ng/mL Urine Methadone Screen (Not Detect) ng/mL Urine Fentanyl Screen (Not Detect) Ur Barbiturates Screen (Not Detect) Ur Phencyclidine Scrn (Not Detect) Ur Amphetamines Screen (Not Detect) U Benzodiazepines Scrn (Not Detect) [place] 1.20 1.12 (0.60-1.20) mmol/L Urine Cocaine Screen (Not Detect) U Marijuana (THC) Screen (Not Detect) Critical Care Time Critical Care Time Critical Care Time: Yes Total Critical Care Time: 35 Attestation: I Makayla Paige PA-C have performed 35 minutes of critical care time not including lines and procedures; lithium toxicity, need for IV fluid therapy, repeat labs, consult with poison control Discharge Plan Discharge Clinical Impression: [place] toxicity Patient Disposition: Home, Self-Care Instructions: [place] Toxicity (ED) Additional Instructions: Your lithium level normalized prior to discharge. DO NOT TAKE ANY ADDITIONAL LITHIUM UNTIL YOU FOLLOW UP WITH YOUR PRESCRIBER, YOU MAY REQUIRE DOSE MODIFICATION. Prescriptions: No Action guanfacine 2 mg tablet 1 tab PO BID risperidone 0.5 mg tablet 0.5 mg PO BID melatonin 5 mg tablet 5 mg PO BEDTIME cephalexin 500 mg tablet 500 mg PO Q6H 7 Days Qty: 28 0RF amoxicillin-pot clavulanate 875-125 mg tablet 1 tab PO BID 7 Days Qty: 14 0RF Print Language: New Zealander
[2024-11-03 17:07] VITALS: BP 110/74; PULSE 97; RESP 12; O2SAT 96
--- NOTE | 2024-11-03 17:12 | PC.NURSE ---
19 m presents to ED with high lithium level at PCP, no other complaints. RR even and unlabored. Pt denies SOB or CP. Pt agitated and refusing IV, originally refusing labs but sts will do labs only. Pt refusing to wear gown.
--- NOTE | 2024-11-03 18:19 | ECG_ITS ---
Test Reason : ABNORMAL LABS Blood Pressure : */* mmHG Vent. Rate : 87 BPM Atrial Rate : 87 BPM P-R Int : 142 ms QRS Dur : 94 ms QT Int : 376 ms P-R-T Axes : 35 40 41 degrees QTcB Int : 452 ms Normal sinus rhythm Normal ECG No previous ECGs available Referred By: Makayla Paige Electronically Signed By: IRVING NIETO MD
[2024-11-03 18:22] LABS: MANUAL DIFF FLAG NO
[2024-11-03 18:30] LABS: Hematocrit 39.9 % (42.0-52.0); Hemoglobin 13.4 g/dl (14.0-18.0); Imm Gran Abs Auto 0.06 X10*3/uL (0.00-0.03); Imm Gran Pct Auto 0.5 % (0.0-0.4); Lymphocytes Absolute Auto 2.1 X10*3/uL (1.2-4.9); Mean Corpuscular HGB Conc 33.6 g/dl (31.0-36.0); Mean Corpuscular Hemoglobin 29.2 pg (27.0-33.0); Mean Corpuscular Volume 86.9 fL (80.0-98.0); NRBC Abs Auto 0.000 X10*3/uL (0.0-0.012); NRBC Pct Auto 0.0 /100WBC (0.0-0.2); Platelet Count 287 X10*3/uL (160-400); Red Blood Count 4.59 X10*6/uL (4.60-5.80); White Blood Count 11.3 X10*3/uL (4.8-10.8)
[2024-11-03 18:36] VITALS: BP 103/68; PULSE 82; RESP 18; O2SAT 98
[2024-11-03 18:38] LABS: Alanine Aminotransferase 13 U/L (0-40); Albumin Level 4.1 g/dL (3.5-5.0); Alkaline Phosphatase 71 U/L (39-117); Anion Gap 13 (12-20); Aspartate Amino Transferase 17 U/L (5-37); Blood Urea Nitrogen 12 mg/dL (9-16); Calcium 9.9 mg/dL (8.4-10.2); Carbon Dioxide 22 mmol/L (22-29); Chloride 109 mmol/L (96-108); Creatinine Clr Calc Pharmacy 136.6; Estimated Glomerular Filt Rate > 60; Magnesium 2.1 mg/dL (1.6-2.6); Potassium 3.8 mmol/L (3.3-5.1); Sodium 140 mmol/L (135-145); Total Protein 7.5 g/dL (6.5-8.0)
[2024-11-03 19:14] LABS: Lithium 1.38 mmol/L (0.60-1.20)
[2024-11-03 19:38] LABS: Cannabinoid Screen Urine Not Detected (Not Detect)
--- NOTE | 2024-11-03 19:38 | PC.NURSE ---
Report received and care assumed at 1900. The pt is noted to be in his room/bed awake, alert, oriented, and with a flat/odd affect. The pt offers no complaints at this time, is inquiring about when he will be able to leave. Pt was advised on the plan multiple times, IVF continue to infuse without s/s of complications noted to the LA. staff remains at bedside with patient.
--- NOTE | 2024-11-03 20:46 | ECG_ITS ---
Test Reason : arrythimia Blood Pressure : */* mmHG Vent. Rate : 88 BPM Atrial Rate : 88 BPM P-R Int : 172 ms QRS Dur : 96 ms QT Int : 366 ms P-R-T Axes : 44 40 49 degrees QTcB Int : 442 ms Normal sinus rhythm Normal ECG When compared with ECG of 03-Nov-2024 18:53, No significant change was found Referred By: Makayla Paige Electronically Signed By: IRVING NIETO MD
[2024-11-03 21:29] LABS: Anion Gap 13 (12-20); Blood Urea Nitrogen 11 mg/dL (9-16); Calcium 9.5 mg/dL (8.4-10.2); Carbon Dioxide 22 mmol/L (22-29); Chloride 110 mmol/L (96-108); Creatinine Clr Calc Pharmacy 137.7; Estimated Glomerular Filt Rate > 60; Potassium 3.7 mmol/L (3.3-5.1); Sodium 141 mmol/L (135-145)
--- NOTE | 2024-11-03 21:47 | PC.NURSE ---
RN received a call from poison control requesting an update on the pt's repeat blood work. per poison control the pt's lithium level can be drawn every 4 hours until level is below 1, with next lithium level due at 2300. Orders have been placed. The pt was provided with food and beverage per his request. [facility] staff member remains at bedside
--- NOTE | 2024-11-03 23:18 | PC.NURSE ---
RN to bedside to redraw the pt's lithium level per poison control recommendation/request. The pt was noted to get upset and began to curse at this RN threatening to take this shit out referencing his IV line. DICK made aware and came to bedside with this RN to discuss the plan of care further with the patient. He refused to make eye contact, continued to state that he wanted to leave and would not stay however the pt is not his own guardian. Per DICK, a conversation was had with the pt's mother/guardian who gave the DICK full authority to conduct and complete any interventions/tests necessary to ensure that the pt's needs are met and his wellbeing is taking into consider. The pt continued to report that he would remove the IV line, would not stay and wanted to go home. Security was called to bedside for safety in the event the pt began to escalate. He was advised that he is unable to make that decision to leave and/or dc treatment. DICK explained to the pt the plan and he seemed to remain calm and cooperative, education provided, and staff will re-evaluate the plan s/p lithium result. staff remains at bedside
[2024-11-03 23:26] LABS: Lithium 1.20 mmol/L (0.60-1.20)
[2024-11-04 03:23] LABS: Lithium 1.12 mmol/L (0.60-1.20)
--- NOTE | 2024-11-04 03:42 | PC.NURSE ---
RN spoke with DICK regarding the pt's most recent lithium level. RN placed a call to poison control to make them aware of the lab result and additional questions/concerns addressed. Per poison control the pt is cleared to be discharged home or back to his with the advisement that he should not resume his lithium until seen by his prescribing provider. DICK made aware and is outreaching mom via phone
[2024-11-04 04:30] VITALS: BP 103/68; PULSE 82; RESP 18; TEMP -17.7; TEMP 0; O2SAT 98
== END 2024-11-04 04:00 | disposition home or self-care (01) ==
PROVIDERS: Physician Assistant Medical; Emergency Provider Emergency Medicine; PCP Internal Medicine
DX: T56.891A Toxic effect of other metals, accidental (unintentional), initial encounter (principal); I49.9 Cardiac arrhythmia, unspecified; Y92.9 Unspecified place or not applicable; Z79.899 Other long term (current) drug therapy
CPT/HCPCS: 36415; 80048; 80053; 80178; 80307; 83735; 85025; 93005; 96360; 96361; 99284; 99285

== ENCOUNTER → 2024-11-03 18:19 | Outpatient (BNV) | payer MEDICARE, MEDICAID, SELFPAY | PROVIDERS: Emergency Provider Emergency Medicine; PCP Internal Medicine; Visit Provider Internal Medicine Cardiovascular Disease | DX: R79.9 Abnormal finding of blood chemistry, unspecified (principal); I49.9 Cardiac arrhythmia, unspecified | CPT/HCPCS: 93010 ==

== ENCOUNTER 2024-11-12 14:59 | Outpatient (REF) | payer MEDICARE, MEDICAID, SELFPAY ==
[2024-11-12 15:30] LABS: MANUAL DIFF FLAG NO
[2024-11-12 16:09] LABS: Hematocrit 37.2 % (42.0-52.0); Hemoglobin 12.5 g/dl (14.0-18.0); Imm Gran Abs Auto 0.02 X10*3/uL (0.00-0.03); Imm Gran Pct Auto 0.2 % (0.0-0.4); Lymphocytes Absolute Auto 2.8 X10*3/uL (1.2-4.9); Mean Corpuscular HGB Conc 33.6 g/dl (31.0-36.0); Mean Corpuscular Hemoglobin 28.3 pg (27.0-33.0); Mean Corpuscular Volume 84.4 fL (80.0-98.0); NRBC Abs Auto 0.000 X10*3/uL (0.0-0.012); NRBC Pct Auto 0.0 /100WBC (0.0-0.2); Platelet Count 249 X10*3/uL (160-400); Red Blood Count 4.41 X10*6/uL (4.60-5.80); White Blood Count 8.8 X10*3/uL (4.8-10.8)
--- OUTSIDE RECORDS SUMMARY | 2024-11-12 16:21 | XMS_ITS | Clinical Summary ---
Author Organization [facility] Address [address] [place] [address] Phone Care Team Providers Care Flame Hardening Machine Operator Name Role Phone Julia Blood NP Primary Care Provider [phone] Allergies No known active allergies Medications guanFACINE 2 MG tablet TOME KENDRICK TABLETA TODOS LOS D? EN LA MA?LIZZ 1 07/13/2017 Active risperiDONE 0.5 MG tablet Take 0.5 mg by mouth daily. 0 07/09/2017 Active Melatonin 5 MG tablet 11/16/2020 Active FLUoxetine 10 MG capsule Take 10 mg by mouth. 09/01/2021 Active risperiDONE 1 MG tablet 03/27/2022 Active Active Problems Problem Noted Date Diagnosed Date Psychosocial stressors 06/18/2020 Overview (06/18/2020): Silvana from [facility] is calling on an active 51 A. Update given. 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 Zoloft & Tenex 08/2018: Pt now on Risperidone, tenex. Zoloft stopped 3 months ago & Risperadone was started . Melatonin for sleep 07/28/21: Psych admission for SI & Auditory command hallucinations 09/02/21: Pt discharged from the hospital yesterday. He was in the hospital for SI. Pt has an apt with [facility] 09/02/21. 09/06/21: Admitted to [facility] Assessment & Plan (05/15/2022 10:42 AM EST): Followed by Shyann Shell at [facility]. Patient is on risperidone, fluoxetine and guanfacine. To see new psych provider tomorrow Therapist = patient does not know if he sees anyone Assessment & Plan (12/15/2020 11:14 AM EDT): Sees Shyann Gonzalez Q 2-3 mos. Risperidone, tenex. & melatonin patient reports that [facility] does his metabolic labs yearly - he declined them today [place] [employer]. IEP in place. Does well Assessment & Plan (09/14/2019 10:37 AM EDT): Followed at [facility] by Shyann Shell She checks routine labs on him per patient & GM On Risperidone & guanfacine - doing well Behavior much better Assessment & Plan (08/29/2018 10:58 AM EDT): Labs done on 08/24/18 by Shyann Shell & abstracted into the chart Sees Shyann Shell Q month Sees Therapist - Q 2 weeks Assessment & Plan (08/06/2017 2:45 PM EDT): In 45 day dx program at [facility] due to behavior issues. Doing better Supposed to go back to [place] but his Gmom does not want him to go back Seeing Shyann Shell monthly. On Tenex, zoloft & respiradone (added 2 months ago) No therapist while in 45 day program. Will reconnect when returns to [place] - sees therapist there from [facility] Immunizations Immunization Administration Dates Next Due DTaP / Hep B / IPV 2004,2004, 005 DTaP 5 03/04/2008,09/01/2005 H1N1 04/22/2009 HPV Vaccine 9 Valent 08/02/2016,10/06/2015,08/01 Hep A, ped/adol 07/29/2014,07/28/2013 Hep B, ped/adol 2004 Hib (HbOC) 2004,2004,2004 Hib (PRP-T) 05/26/2005 IPV 03/04/2008 Influenza Split 02/01/2012,01/11/2011,05/11/2010 Influenza, injectable, quadrivalent 08/02/2015 Influenza, injectable, quadr ivalent, preservative free 05/15/2022,12/15/2020,02/04/2020 Influenza, injectable, trivalent 010,03/04/2008,02/18/2007,01/19,01/27/2005 MMR 03/04/2008,01/27/2005 Meningococcal Conj (Menactra) MCV4P 12/15/2020,0 08/02/2015 Pneumococcal Conjugate 05/26/2005,2004,2004,03/31 Tdap 04/09/2022,08/02/2015 Varicella 03/04/2008,01/27/2005 Family History * Patient is adopted Relation Name Status Comments Brother Darren Alive Brother: Alive and well Father Alive Paternal Grandmother arthur PGGM Alive Social History Tobacco Use Types Packs/Day Years Used Date Smoking Tobacco: Never Smokeless Tobacco: Never Alcohol Use Standard Drinks/Week Comments No 0 (1 standard drink = 0.6 oz pur e alcohol) Hunger/Food Answer Date Recorded In the last 12 months, did y ou or your family ever eat less than you felt you should because there wasn't enough money for food? No 05/15/2022 Stable Housing Answer Date Recorded Are you worried that in the next 2 months you may not have stable housing? No 05/15/2022 Transportation Concerns Answer Date Rec orded In the last 12 months, have you or your family ever had to go without healthcare because you didn't have a way to get there? No 05/15/2022 Hazards in Home Answer Date Recorded Think about the place you li ve. Do you have problems with any of the following? Pests (mice or roaches), mold, no/not working smoke detectors, water leaks, no window guards. No 2022 Financing Utilities Answer Date Recorde d In the last 12 months, has t he electric, gas, oil, or water company threatened to shut off your services in your home? No 05/15/2022 Safety at Home Answer Date Recorded Are you or your family worried about feeling saf e in your home? No 05/15/2022 Outside Support Answer Date Recorded Do you feel that you need mo re support from other people or programs to help you care for yourself or your family? No 05/15/2022 Understanding Health Concerns Answer Da te Recorded Do you need help understandi ng your or your child's healthcare needs (diagnosis, medications, plan, etc.)? No 05/15/2022 Financing Health Concerns Answer Date R ecorded In the last 12 months, was t here a time when your child needed to see a doctor or get medications or supplies but could not because of cost? No 05/15/2022 Missing School or Work Answer Date Kareem rded Did you or your child miss s chool or work because of a health problem that could have been avoided? No 05/15/2022 Sex and Gender Information Value Date Recorded Sex Assigned at Not on file Legal Sex Male 5:06 PM EDT Gender Identity Not on file Sexual Orientation Not on file Last Filed Vital Signs Vital Sign Reading Time Taken Comments Blood Pressure 117/81 05/15/2022 10:13 AM EST Pulse 81 05/15/2022 10:13 AM EST Temperature 36.7 C (98.1 F) 06/27/2022 1:08 PM EDT Respiratory Rate - - Oxygen Saturation - - Inhaled Oxygen Concentration - - Weight 116 kg (256 lb) 06/27/2022 1:08 PM EDT Height 180.3 cm (5' 11 ) 05/15/2022 10:13 AM EST Body Mass Index 35.7 05/15/2022 10:13 AM EST Plan of Treatment Health Maintenance Due Date Last Done Comments Men B Vaccine (1 of 2 - Standard) 2020 Glucose/HbA1C 05/15/2023 05/15/2022, 04/20, 12/15/2019, Additional history exists COVID-19 Vaccine (3 - 2023-2 5 season) 2023 09/24/2020, 09/03/2020 LDL-C/Cholesterol 07/25/2024 07/26/2023, , 12/15/2019, Additional history exists Influenza Vaccines (#1) 2024 05/15/19 23, 12/15/2020, 02/04/2020, Additional history exists DTaP,Tdap,and Td Vaccines (8 - Td or Tdap) 04/09/2032 04/09/2022, 08/02/2015, 03/04/2008, Additional history exists Hepatitis B Vaccines Completed 2004, 2004, 2004, Additional history exists HIB Vaccines Completed 05/26/2005, 08/18, 2004, Additional history exists Pneumococcal Vaccine Completed 05/26/2005, 2004, 2004, Additional history exists IPV Vaccines Completed 03/04/2008, 08/18, 2004, Additional history exists MMR Vaccines Completed 03/04/2008, 01/27/2005 Varicella Vaccines Completed 03/04/2008, 01/27/2005 Hepatitis A Vaccines Completed 07/29/2014, 07/29/19 14 HPV Vaccines Completed 08/02/2016, 09/17, 08/02/2015 Meningococcal Vaccine Completed 12/15/2020, 016 Procedures * Due to [facility] law, this organization might not be sharing sensitive test results. Procedure Name Priority Date/Time Associated Diagnosis Comments LIPID PANEL Routine 05/15/2022 11:30 AM EST BMI greater than 95% for age [Z68.54] HEMOGLOBIN A1C Routine 05/15/2022 11:30 AM EST BMI greater than 95% for age [Z68.54] from Last 3 Months or Most Recently Relevant to Health Maintenance Results * Due to [facility] law, this organization might not be sharing sensitive test results. * Hemoglobin A1c (05/15/2022 11:30 AM EST) Hemoglobin A1C 5.1 (4.0-5.6) % [facility] Comment: MONITORING: In known diabetic patients, hemoglobin A1c targets should be discussed with health care provider. DIAGNOSTIC USE: The [place] Diabetes Association (ADA) and the World Health Organization (WHO) recommend the use of HbA1c to diagnose diabetes using a threshold of 6.5%. Patients who have an HbA1c between 5.7% and 6.4% are considered at increased risk for developing diabetes in the future. CAUTION: Falsely low HbA1c results may be observed in patients with hemolytic anemia, homozygous forms of abnormal hemoglobin (e.g. SS, CC, SC), , recent blood loss or hemoglobin F greater than 7%. Fructosamine may be used as an alternate test in these cases. REFERENCE: ADA: Standards of Medical Care in Diabetes 2020, The Journal of Clinical and Applied Research and Education Volume 43, Supplement 1 Testing performed or reported by [facility], a Service of [address] [address] Jonn Kay MD, [employer] Hand CLIA# [id number] Blood 05/15/2022 11:3 0 AM EST 05/15/2022 12:24 PM EST Kelley Arora MD LAB BLOOD ORDERABLES Final Resul t Performing Organization Address [facility] Co de Phone Number [facility] * (ABNORMAL) Lipid panel (05/15/2022 11:30 AM EST) [facility] Cholesterol, Total 145 (<170) MG/DL [facility] HDL 30(L) (>45) MG/DL [facility] Non-HDL Cholesterol 115 (<120) MG/DL [facility] Comment: Testing performed or reported by [facility], a Service of [facility], [address] [place] [address] Jonn Kay MD, [employer] Hand CLIA# [id number] Blood 05/15/2022 11:3 0 AM EST 05/15/2022 12:24 PM EST Kelley Arora MD LAB BLOOD ORDERABLES Final Resul t Performing Organization Address [facility] Co de Phone Number [facility] from Last 3 Months or Most Recently Relevant to Health Maintenance Insurance [facility] NON PCC [facility] Care Teams Flame Hardening Machine Operator Relationship Specialty Start Date End Date Julia Blood NP [address] [place] [address] PCP - General Pediatrics 08/13/24
--- OUTSIDE RECORDS SUMMARY | 2024-11-12 16:21 | XMS_ITS | Encounter Summary ---
Author Organization [employer] Address [address] [facility] [address]t [place] [address] Care Team Providers Care Drainage Inspector Name Role Phone Thelma Fatima SENIOR HEALTH CONSULTANT Primary Care Provider [phone] Reason for Visit * Reason Comments Med Refill Encounter Details Date Type Department Care Team ([facility] st Contact Info) Description 12/18/2023 Refill [facility] [address] [place], [place] [phone] Willow Butterfield MD [address] [place], [place] [phone] Social History Tobacco Use Types Packs/Day Years Used Date Smoking Tobacco: Former Cigarettes Smokeless Tobacco: Never Alcohol Use Standard Drinks/Week Comments Never 0 (1 standard drink = 0.6 oz pur e alcohol) Depression Answer Date Recorded Patient Health Questionnaire-9 Score 21 12/14/2023 Patient Health Questionnaire-9 Score 21 12/14/2023 Last PHQ-9: Questionnaire Data Not on file 0 12/14/2023 Housing Stability Answer Date Recorded What is your housing situation today? I have desiree tj 12/06/[address] you li [...] Answer Date Recorded Patient Health Questionnaire-2 Score 5 12/14/2023 Internet Access Answer Date Recorded Internet Access Q1 Yes 12/06/2023 Internet Access Q2 Not on file 12/06/2023 Sex and Gender Information Value Date Recorded Sex Assigned at Male 09/25/2023 9:19 AM EDT Legal Sex Male 9:29 AM EST Gender Identity Male 11/04/2024 9:39 AM EDT Sexual Orientation Straight 11/04/2024 9: 39 AM EDT documented as of this encounter Plan of Treatment Upcoming Encounters Date Type Department Care Team (Late st Contact Info) Description 02/19/2025 2:00 PM EST Office Visit [facility] [address] [place] [address] Tarka, Katheryn, OD [address] [place] [address] documented as of this encounter Visit Diagnoses Not on filedocumented in this encounter Additional Health Concerns Assessment Noted Time PHQ-9 Depression Total Score: 21 024 12:37 PM EDT documented as of this encounter Care Teams Drainage Inspector Relationship Specialty Start Date End Date Thelma Fatima FNP [address] [place] [address] PCP - General Family Medicine 12/14/23 documented as of this encounter
--- OUTSIDE RECORDS SUMMARY | 2024-11-12 16:21 | XMS_ITS | Encounter Summary ---
Author Organization [employer] Address [address] [facility] [address] [place] [address] Care Team Providers Care Intelligence Operations Specialist Name Role Phone Thelma Fatima GRAVES REGISTRATION SPECIALIST Primary Care Provider [phone] Reason for Visit * Reason Comments Med Change Request Encounter Details Date Type Department Care Team ([facility] st Contact Info) Description 03/23/2024 Refill [facility] [address] [place], [place] [phone] Virginia Box CNM [address] [place], [place] [phone] Social History Tobacco Use Types Packs/Day Years [...] is your housing situation today? I have desireelyle spencer 12/06/[address] you [...] AM EDT documented as of this encounter Miscellaneous Notes * Telephone Encounter - Virginia Box CNM - 03/24/2024 12:06 PM EST I received message from PCP that Declan does not want to take estradiol at this time, so rx denied.Thanks! documented in this encounter Plan of Treatment Upcoming Encounters Date Type Department Care Team (Late st Contact Info) Description 02/19/2025 2:00 PM EST Office Visit [facility] [address] [place], [place] [phone] Katheryn Duran, OD [address] [place] [address] documented as of this encounter Visit Diagnoses Not on filedocumented in this encounter Additional Health Concerns Assessment Noted Time PHQ-9 Depression Total Score: 0 03/21/19 25 2:22 PM EST documented as of this encounter Care Teams Intelligence Operations Specialist Relationship Specialty Start Date End Date Thelma Fatima FNP [address] [place] [address] PCP - General Family Medicine 12/14/23 documented as of this encounter
--- OUTSIDE RECORDS SUMMARY | 2024-11-12 16:21 | XMS_ITS | Clinical Summary ---
Author Organization [employer] [facility] it Address [address] [place] [address] Care Team Providers Care Metal Leaf Layer Name Role Phone Unavailable Primary Care Provider [...]
--- OUTSIDE RECORDS SUMMARY | 2024-11-12 16:21 | XMS_ITS | Encounter Summary ---
Author Organization [facility] Address [address] [place] [address] Phone Care Team Providers Care Inker And Opaquer Name Role Phone Julia Blood NP Primary Care Provider Encounter Details Date Type Department Care Team (Late st Contact Info) Description 11/02/2016 Conversion Encounter [facility] [address] [place] [address] Social History Tobacco Use Types Packs/Day Years [...] on filedocumented in this encounter Care Teams Inker And Opaquer Relationship Specialty Start Date End Date Julia Blood NP [address] [place] [address] PCP - General Pediatrics 08/13/24 documented as of this encounter
--- OUTSIDE RECORDS SUMMARY | 2024-11-12 16:21 | XMS_ITS | Clinical Summary ---
Author Organization [employer] [facility] Address [address] [place] [address] Care Team Providers Care Client Analyst Name Role Phone Unavailable Primary Care Provider [...]
--- OUTSIDE RECORDS SUMMARY | 2024-11-12 16:21 | XMS_ITS | Encounter Summary ---
Author Organization [employer] Address [address] [facility] [address] [place] [address] Care Team Providers Care Direct Marketing Intern Name Role Phone [facility] Primary Care Provider [phone] Reason for Visit * Reason Onset Date Comments Nurse Triage 03/14/2024 Encounter Details Date Type Department Care Team ([facility] st Contact Info) Description 03/14/2024 Telephone [facility] [address] [place], [place] [phone] [facility] [address] [place], [place] [phone] Nurse Triage Social History Tobacco Use Types Packs/Day Years [...] encounter Miscellaneous Notes * Telephone Encounter - Alissa Arroyo - 03/14/2024 2:45 PM EST Tc from provider retail account manager Symptom: Earache Outcome: Schedule a same-day appointment or talk to a nurse or provider today Reason: Caller denied all higher acuity questions The caller accepted this outcome. [phone] documented in this encounter Plan of Treatment Upcoming Encounters Date Type Department Care Team (Late st Contact Info) Description 02/19/2025 2:00 PM EST Office Visit [facility] [address] [place] [address] Katheryn Duran, OD [address] [place] [address] documented as of this encounter Visit Diagnoses Not on filedocumented in this encounter Additional Health Concerns Assessment Noted Time PHQ-9 Depression Total Score: 21 024 12:37 PM EDT documented as of this encounter Care Teams Direct Marketing Intern Relationship Specialty Start Date End Date Thelma Fatima FNP [address] [place], [place] [phone] PCP - General Family Medicine 12/14/23 documented as of this encounter
--- OUTSIDE RECORDS SUMMARY | 2024-11-12 16:21 | XMS_ITS | Encounter Summary ---
Author Organization [facility] Address [address] [place] [address] Phone Care Team Providers Care Drop Hammer Pile Driver Operator Name Role Phone Julia Blood NP Primary Care Provider [phone] Encounter Details Date Type Department Care Team (Late st Contact Info) Description 02/01/2012 Documentation [facility] Family Medicine [address] [place], [place] [phone] Family Medicine, Physician [address] [place], [place] [address] Social History Tobacco Use Types Packs/Day Years [...] on filedocumented in this encounter Care Teams Drop Hammer Pile Driver Operator Relationship Specialty Start Date End Date Julia Blood NP [address] [place] [address] PCP - General Pediatrics 08/13/24 documented as of this encounter
--- OUTSIDE RECORDS SUMMARY | 2024-11-12 16:21 | XMS_ITS | Encounter Summary ---
Author Organization [employer] Address [address] [facility] [address] [place] [address] Care Team Providers Care Domestic Maid Name Role Phone Thelma Fatima POWER GENERATION ENGINEER Primary Care Provider [phone] Reason for Visit * Reason Comments Med Refill Encounter Details Date Type Department Care Team ([facility] st Contact Info) Description 01/18/2024 Refill [facility] [address] [place], [place] [phone] Willow Butterfield MD [address] [place], [place] [phone] Social History Tobacco Use Types Packs/Day Years [...] PM EST Office Visit [facility] [address] [place] [address] Tarka, Katheryn, OD [address] [place] [address] documented as of this encounter Visit Diagnoses Not on filedocumented in this encounter Additional Health Concerns Assessment Noted Time PHQ-9 Depression Total Score: 21 024 12:37 PM EDT documented as of this encounter Care Teams Domestic Maid Relationship Specialty Start Date End Date Thelma Fatima FNP [address] [place] [address] PCP - General Family Medicine 12/14/23 documented as of this encounter
--- OUTSIDE RECORDS SUMMARY | 2024-11-12 16:21 | XMS_ITS | Encounter Summary ---
Author Organization [email or web address] Address [address] [facility] [address] [place] [address] Care Team Providers Care Food Service Name Role Phone [facility] Primary Care Provider [phone] Encounter Details Date Type Department Care Team ([facility] st Contact Info) Description 11/03/2024 Results Follow-Up [facility] [address], [place] [id number] [facility] [address] [place] [address] [place], Valproic Acid Total, CBC auto differential, Additional followed-up results: 6 Social History Tobacco Use Types Packs/Day Years Used Date Smoking Tobacco: Former Smokeless Tobacco: Never Alcohol Use Standard Drinks/Week [...] AM EDT documented as of this encounter Functional Status * Over the last 2 weeks, how often have you been bothered by any of the following problems? Question Answer Date of Assessment Author Feeling nervous, anxious, or on edge 0 11/03/2024 11:28 AM EDT Zoraida Vasquez MA Not being able to stop or control worrying 0 11/03/2024 11:28 AM EDT Zoraida Vasquez MA Worrying too much about different things 0 11/03/2024 11:28 AM EDT Zoraida Vasquez MA Trouble relaxing 0 11/03/2024 11:28 AM EDT Zoraida Vasquez MA Being so restless that it is hard to sit still 0 11/03/2024 11:28 AM EDT Zoraida Vasquez MA Becoming easily annoyed or irritable 0 11/03/2024 11:28 AM EDT Zoraida Vasquez MA Feeling afraid as if something awful might happen 0 11/03/2024 11:28 AM EDT Zoraida Perez MA KAVITHA-7 Total Score 0 11/03/2024 11:28 AM EDT Zoraida Vasquez MA documented as of this encounter Miscellaneous Notes * Addendum Note - Willow Butterfield MD - 11/07/2024 4:38 PM EDTAddended by: WILLOW BUTTERFIELD on: 11/07/2024 04:38 PM Modules accepted: Orders * Result Encounter Note - Willow Butterfield MD - 11/07/2024 4:38 PM EDT labs on 11/06/2024 show high lithium levels of 1.63 and high TSH. I called listed #[id number] (spokewith Cira, home care manager) and she tells me that lithium was held 2 days ago as he ran out of medications and psychiatry will see him in 3 days (they told her to continue off med until they see him). She tells me patient is doing much better, is more alert, has less tremor and is eating well. Hedenies having any seizure, hallucinations and sleeping well. I explained to Cira that lithium levels were high and he may need to address this with psychiatry next week so they can adjust medication dose. That that he does not have medication allergy or side effect. I told her to repeat TSH within 6 to 8 weeks and follow-up with PCP. Sent to PCP as FYI documented in this encounter Plan of Treatment Upcoming Encounters Date Type Department Care Team (Late st Contact Info) Description 02/19/2025 2:00 PM EST Office Visit [facility] [address] [place] [address] Katheryn Duran, OD [address] [place] [address] Scheduled Orders Name Type Priority Associated Diagnoses Orde r Schedule TSH with Reflex to Free T4 Lab Routine Acquired hypothyroidism Expected: 12/31/2024 (Approximate), Expires: 11/07/2025 documented as of this encounter Visit Diagnoses Diagnosis Acquired hypothyroidism- Primary Unspecified hypothyroidism documented in this encounter Additional Health Concerns Assessment Noted Time PHQ-9 Depression Total Score: 0 03/21/19 25 2:22 PM EST documented as of this encounter Care Teams Food Service Relationship Specialty Start Date End Date Thelma Fatima FNP [address] [place] [id number] PCP - General Family Medicine 12/14/23 documented as of this encounter
--- OUTSIDE RECORDS SUMMARY | 2024-11-12 16:21 | XMS_ITS | Clinical Summary ---
Author Organization [employer] Address [address] [place] [address] [address] [place] [address] Care Team Providers Care Unisaw Operator Name Role Phone Thelma Fatima HANDLE ATTACHER Primary Care Provider [phone] Allergies Active Allergy Reactions Criticality Noted Date Comments Blueberry Flavoring Agent (Non-Screening) Unknown 12/14/2023 Triana Unknown 12/14/2023 Fish Allergy Unknown 12/14/2023 Jackson Extract Unknown 12/14/2023 Medications * This document [...] organization. Date Type Department Care Team Description 11/12/2024 Orders Only [address] [address] Willow Butterfield MD 11/12/[address] [phone] Thelma Fatima FNP Call Back Request 11/05/[address] [address] Thelma Fatima FNP Care Coordination 11/04/2024 Orders Only GENERIC EXTERNAL DATA DEPARTMENT Provider, Generic External Data 11/03/2024 10:00 AM EDT Office Visit [facility] [place] [address] Thelma Fatima FNP Intention tremor (Primary Dx); [...] abnormal findings; Dietary counseling; Exercise counseling 11/03/2024 Results Follow-Up [facility] [address] [place] [phone] Thelma Fatima FNP [place], Valproic Acid Total, CBC auto differential, Additional followed-up results: 6 11/03/2024 Orders Only [facility] [address] [place] [phone] Thelma Fatima FNP 11/03/2024 Telephone [facility] [address] [place] [phone] Thelma Fatima FNP Critical [place] level 11/03/2024 Travel 10/31/[address] [address] Thelma Fatima FNP Chart Prep 10/24/2024 Patient Outreach [address] [address] Thelma Fatima FNP Pre-visit Planning ((Unable to reach for PVP screening or LVM) to be completed in office ) 09/22/[address] [address] Thelma Fatima FNP 09/12/[address] [address] Thelma Fatima FNP Results from Last 3 Months Immunizations [...] 03/04/2008,01/27/2005 Meningococcal MCV4P ACYW-135 12/15/2020,08/02/19 16 Novel [id number], all formulations 04/22/2009 Pneumococcal Conjugate PCV 7 [...] your housing situation today? I have desiree sing 12/06/[address] you li [...] Orientation Straight 11/04/2024 9: 39 AM EDT Last Filed Vital Signs Vital [...] 11/03/2024 10:16 AM EDT Plan of Treatment Upcoming Encounters Date Type Department Care Team (Late st Contact Info) Description 02/19/2025 2:00 PM EST Office Visit [facility] [address] [place] [address] Katheryn Duran, OD [address] [place] [address] Health Maintenance Due Date Last Done Comments Disability Screening 2004 Meningococcal B Vaccine (1 of 2 - Standard) 2020 COVID-19 Vaccine ( season) 2023 09/24/2020, 09/03/2020 Influenza Vaccine (#1) 2024 , 12/15/2020, 02/04/2020, Additional history exists SDOH Screening 12/05/2024 12/06/2023 Chlamydia and Gonorrhea Screening 12/13/2024 12/14/2023, 05/15/2022 Family Planning (PISQ) 02/24/2025 02/25/2024 Depression Screening 03/21/2025 03/21/2024, 03/21/19 Alcohol/Substance Use Screening 11/03/2025 11/03/2024 Tobacco Screening 11/03/2025 11/03/2024 Lipid Panel 11/03/2029 11/03/2024, 12/14/2023 DTaP/Tdap/Td Vaccines (8 - Td or [...] 09/17, 08/02/2015 Meningococcal Vaccine Completed 12/15/2020, 016 Hepatitis C Screening Completed 12/14/2023, 024 HIV Screening Completed 11/03/2024, 12/14/2023 RSV under 20 months Aged Out No longe r eligible based on patient's age to complete this topic Rotavirus Vaccines Aged Out No longer eligible based on patient's age to complete this topic Procedures Procedure Name Priority Date/Time Associated Diagnosis Comments CBC WITH AUTO DIFFERENTIAL Routine 11/12/2024 3:28 PM EDT LITHIUM Routine 11/04/2024 3:03 AM EDT LITHIUM Routine 11/03/2024 11:11 PM EDT BASIC METABOLIC PANEL Routine 11/03/2024 9:09 PM EDT DRUG MONITOR, PANEL 1, SCREEN, URINE Routine 11/03/2024 7:19 PM EDT LITHIUM Routine 11/03/2024 6:51 PM EDT MAGNESIUM Routine 11/03/2024 6:16 PM EDT COMPREHENSIVE METABOLIC PANEL Routine 11/03/2024 6:16 PM EDT SST GOLD TOP TO HOLD Routine 11/03/2024 6:16 PM EDT CBC WITH AUTO DIFFERENTIAL Routine 11/03/2024 6:16 PM EDT T4, FREE Routine 11/03/2024 11:08 AM EDT RPR (MONITOR) W/REFL TITER Routine 11/03/2024 11:08 AM EDT Encounter for screening for infections with a predominantly sexual mode of transmission HIV 1/2 ANTIGEN/ANTIBODY, FOURTH GENERATION W/RFL Routine 11/03/2024 11:08 AM EDT Encounter for screening for infections with a predominantly sexual mode of transmission URINALYSIS, COMPLETE, WITH REFLEX TO CULTURE Routine 11/03/2024 11:08 AM EDT Foul smelling urine LIPID PANEL, STANDARD Routine 11/03/2024 11:08 AM EDT Class 3 severe obesity due to excess calories with serious comorbidity and body mass index (BMI) of 40.0 to 44.9 in adult TSH W/REFLEX TO FT4 Routine 11/03/2024 1 1:08 AM EDT Thyroid dysfunction COMPREHENSIVE METABOLIC PANEL Routine 11/03/2024 11:08 AM EDT Intention tremor CBC WITH AUTO DIFFERENTIAL Routine 11/03/2024 11:08 AM EDT Intention tremor VALPROIC ACID Routine 11/03/2024 11:08 AM EDT Intention tremor LITHIUM Routine 11/03/2024 11:08 AM EDT Intention tremor CULTURE, URINE, ROUTINE Routine 11/03/2024 12:00 AM EDT HEPATITIS C AB W/REFL TO HCV RNA, QN, PCR Routine 12/14/2023 12:34 PM EDT Screening for STD (sexually transmitted disease) CHLAMYDIA/N. GONORRHOEAE RNA, TMA, UROGENITAL Routine 12/14/2023 12:34 PM EDT Screening for STD (sexually transmitted disease) from Last 3 Months or Most Recently Relevant to Health Maintenance Results * (ABNORMAL) CBC auto differential (11/12/2024 3:28 PM EDT) Only the most recent of3 resultswithin the time period is included. White Blood Count 8.8 4.8 - 10.8 X10*3/uL [facility] Red Blood Count 4.41(L) 4.60 - 5.80 X10*6/uL [facility] Hemoglobin 12.5(L) 14.0 - 18.0 g/dl [facility] Hematocrit 37.2(L) 42.0 - 52.0 % [facility] Mean Corpuscular Volume 84.4 80.0 - 98.0 fL [facility] Mean Corpuscular Hemoglobin 28.3 27.0 - 33.0 pg [facility] Mean Corpuscular HGB Conc 33.6 31.0 - 36.0 g/dl [facility] Red Cell Distribution Width 13.2 11.0 - 16.0 % [facility] Platelet Count 249 160 - 400 X10*3/uL [facility] Mean Platelet Volume 12.4 9.4 - 12.4 fL [facility] Neutrophils Percent Auto 57.0 45 - 73 % [facility] Imm Gran Pct Auto 0.2 0.0 - 0.4 % [facility] Lymphocytes Percent Auto 31.7 20 - 40 % [facility] Monocytes Percent Auto 7.7 2 - 11 % [facility] Eosinophils Percent Auto 3.1 0 - 4 % [facility] Basophils Percent Auto 0.3 0 - 2 % [facility] NRBC Pct Auto 0.0 0.0 - 0.2 /100WBC [facility] Neutrophils Absolute Auto 5.0 2.0 - 8.3 x10*3/uL [facility] Imm Gran Abs Auto 0.02 0.00 - 0.03 X10*3/uL [facility] Lymphocytes Absolute Auto 2.8 1.2 - 4.9 X10*3/uL [facility] Monocytes Absolute Auto 0.7 0.1 - 1.2 X10*3/uL [facility] Eosinophils Absolute Auto 0.3 0.0 - 0.4 X10*3/uL [facility] Basophils Absolute Auto 0.0 0.0 - 0.2 X10*3/uL [facility] NRBC Abs Auto 0.000 0.0 - 0.012 X10*3/uL [facility] 11/12/2024 3:28 PM EDT 11/12/2024 3:28 PM EDT us Willow Butterfield MD LAB BLOOD ORDERABLES Fin al Result [facility] [address] [place] [address] [phone] * [place] (11/04/2024 3:03 AM EDT) Only the most recent of4 resultswithin the time period is included. [place] 1.12 0.60 - 1.20 mmol/L [facility] 11/04/2024 3:03 AM EDT 11/04/2024 3:06 AM EDT us Generic External Data Provider LAB BLOOD ORDERAB LES Final Result [facility] [address] [place] [address] [phone] * (ABNORMAL) Basic Metabolic Panel (11/03/2024 9:09 PM EDT) Sodium 141 135 - 145 mmol/L [facility] Potassium 3.7 3.3 - 5.1 mmol/L [facility] Chloride 110(H) 96 - 108 mmol/L [facility] Carbon Dioxide 22 22 - 29 mmol/L [facility] Anion Gap 13 12 - 20 [facility] Urea Nitrogen (BUN) 11 9 - 16 mg/dL [facility] Creatinine, Serum 1.15 0.5 - 1.4 mg/dL [facility] Creatinine Clr Calc Pharmacy 137.7 [facility] Comment:eGFR (calculated fro m the MDRD study equation) and eCrCl(calculated from the Cockcroft-Gault equation) are based ondifferent parameters and may not yield comparable results.If eCrCl result is absurd, please check patient'sheight/weight. Estimated Glomerular Filt Rate >60 [facility] Comment:Chronic Kidney Disea se: Estimated GFR < 60 mL/min/[id number] Kidney Disease: Estimated GFR < 15 mL/min/1.73m2 Glucose 112 60 - 115 mg/dL [facility] Calcium 9.5 8.4 - 10.2 mg/dL [facility] 11/03/2024 9:09 PM EDT 11/03/2024 9:12 PM EDT us Generic External Data Provider LAB BLOOD ORDERAB LES Final Result [facility] [address] [place] [address] [phone] * Drug Monitoring, Panel 1, Screen, Urine (11/03/2024 7:19 PM EDT) Opiate Screen Urine Not Detected Not Detect [facility] Comment:Opiate cut-off is 30 0 ng/mL.Positive results are unconfirmed and should not be used fornon-medical purposes. Barbiturates, Urine Not Detected Not Detect [facility] Comment:Barbiturate cut-off is 200 ng/mL.Positive results are unconfirmed and should not be used fornon-medical purposes. Phencyclidine Screen Urine Not Detected Not Detect [facility] Comment:Phencyclidine cut-of f is 25 ng/mL.Positive results are unconfirmed and should not be used fornon-medical purposes. Amphetamine Screen Urine Not Detected Not Detect [facility] Comment:Amphetamine cut-off is 1000 ng/mL.Positive results are unconfirmed and should not be used fornon-medical purposes. Benzodiazepines Screen Urine Not Detected Not Detect [facility] Comment:Benzodiazepine cut-o ff is 200 ng/mL.Positive results are unconfirmed and should not be used fornon-medical purposes. Cocaine Screen Urine Not Detected Not Detect [facility] Comment:Cocaine cut-off is 3 00 ng/mL.Positive results are unconfirmed and should not be used fornon-medical purposes. Cannabinoid Screen Urine Not Detected Not Detect [facility] Comment:Cannabinoid cut-off is 50 ng/mL.Positive results are unconfirmed and should not be used fornon-medical purposes. Methadone Screen, Urine Not Detected Not Detect ng/mL [facility] Comment:Methadone cut-off is 300 ng/mL.Positive results are unconfirmed and should not be used fornon-medical purposes. FENTANYL URINE Not Detected Not Detect [facility] Comment:Fentanyl cut-off is 1 ng/mL.Positive results are unconfirmed and should not be used fornon-medical purposes. Oxycodone Urine Screen Not Detected Not Detect ng/mL [facility] Comment:Oxycodone cut-off is 100 ng/mL.Positive results are unconfirmed and should not be used fornon-medical purposes. Buprenorphine Screen Not Detected Not Detect ng/mL [facility] Comment:Buprenorphine cut-of f is 5 ng/mL.Positive results are unconfirmed and should not be used fornon-medical purposes. 11/03/2024 7:19 PM EDT 11/03/2024 7:23 PM EDT us Generic External Data Provider LAB URINE ORDERAB LES Final Result Performing Organization Address [facility] Co de Phone Number [facility] [address] [place] [phone] * SST GOLD TOP TO HOLD (11/03/2024 6:16 PM EDT) Hold Gold See Note [facility] Comment:Specimen held untest ed for 24 hours; Call to requestChemistry testing. 11/03/2024 6:16 PM EDT 11/03/2024 6:31 PM EDT Generic External Data Provider LAB BLOOD ORDERAB LES Final Result Performing Organization Address [facility] de Phone Number [facility] [address] [place] [phone] * Magnesium (11/03/2024 6:16 PM EDT) Magnesium 2.1 1.6 - 2.6 mg/dL [facility] 11/03/2024 6:16 PM EDT 11/03/2024 6:21 PM EDT Generic External Data Provider LAB BLOOD ORDERAB LES Final Result Performing Organization Address [facility] Co de Phone Number [facility] [address] [place] [phone] * (ABNORMAL) Comprehensive Metabolic Panel (11/03/2024 6:16 PM EDT) Only the most recent of2 resultswithin the time period is included. Sodium 140 135 - 145 mmol/L [facility] Potassium 3.8 3.3 - 5.1 mmol/L [facility] Chloride 109(H) 96 - 108 mmol/L [facility] Carbon Dioxide 22 22 - 29 mmol/L [facility] Anion Gap 13 12 - 20 [facility] Urea Nitrogen (BUN) 12 9 - 16 mg/dL [facility] Creatinine, Serum 1.16 0.5 - 1.4 mg/dL [facility] Creatinine Clr Calc Pharmacy 136.6 [facility] Comment:eGFR (calculated fro m the MDRD study equation) and eCrCl(calculated from the Cockcroft-Gault equation) are based ondifferent parameters and may not yield comparable results.If eCrCl result is absurd, please check patient'sheight/weight. Estimated Glomerular Filt Rate >60 [facility] Comment:Chronic Kidney Disea se: Estimated GFR < 60 mL/min/1.57j8Cgvdry Kidney Disease: Estimated GFR < 15 mL/min/1.73m2 Glucose 98 60 - 115 mg/dL [facility] Calcium 9.9 8.4 - 10.2 mg/dL [facility] Bilirubin, Total 0.2 0.0 - 1.0 mg/dL [facility] Aspartate Amino Transferase 17 5 - 37 U/L [facility] Alanine Aminotransferase 13 0 - 40 U/L [facility] Total Protein 7.5 6.5 - 8.0 g/dL [facility] Albumin Level 4.1 3.5 - 5.0 g/dL [facility] Alkaline Phosphatase 71 39 - 117 U/L [facility] 11/03/2024 6:16 PM EDT 11/03/2024 6:21 PM EDT us Generic External Data Provider LAB BLOOD ORDERAB LES Final Result [facility] [address] [place] [address] [phone] * (ABNORMAL) Urinalysis, Complete, with Reflex to Culture (11/03/2024 11:08 AM EDT) Color Urine Yellow [facility] Appearance Urine Clear [facility] PH 8.0 5.0 - 9.0 [facility] Glucose Urine UA Negative Negative mg/dL [facility] Urine Blood Negative Negative [facility] Specific Guston - Urine <=1.005 1.005 - 1.025 [facility] Urine Protein Trace Neg-Trace mg/dL [facility] Urine Ketones Negative Negative mg/dL [facility] Nitrite Urine Negative Negative [facility] Leukocyte Esterase Urine Moderate (2+)(A) Negative [facility] RBC Urine 0-2 0 - 2 /HPF [facility] Urine WBC 11-20(A) 0 - 5 /HPF [facility] Urine Squamous Epithelial Cell 0-2 0 - 2 /HPF [facility] Urine Bacteria None Seen None Seen [facility] Hyaline Casts, Urine 3-5 0 - 2 /LPF [facility] Urine 11/03/2024 11:0 8 AM EDT 11/03/2024 12:49 PM EDT Narrative [facility] - 11/03/2024 1:04 PM EDT Urine, Clean Catch [facility] HANDLE ATTACHER LAB URINE ORDERABLES Final Re sult [facility] [address] [place] [address] [phone] * (ABNORMAL) TSH W/Reflex to FT4 (11/03/2024 11:08 AM EDT) TSH reflex Free T4 7.90(H) 0.32 - 4.0 uIU/mL [facility] Blood Venous blood specimen / Unknown 11/03/2024 11:08 AM EDT 11/03/2024 12:55 PM EDT [employer] [facility] [employer] LAB BLOOD ORDERABLES Final Re sult Performing Organization Address [facility] Co de Phone Number [facility] [address] [place] [address] [phone] * RPR (Monitor) with Reflex to??Titer (11/03/2024 11:08 AM EDT) RPR (Monitor) w/Refl Titer NON-REACTI VE NON-REACT JAX [facility] Comment:THIS TEST WAS PERFOR MED AT:[email or web address] [place] [phone] CISNEROS MD Rapid Plasma Reagin Ab Titer TNP [facility] Blood Venous blood specimen / Unknown 11/03/2024 11:08 AM EDT 11/03/2024 12:55 PM EDT [facility] [employer] [facility] LAB BLOOD ORDERABLES Final Re sult Performing Organization Address [facility] Co de Phone Number [facility] [address] [place] [address] [phone] * HIV-1/2 Antigen and Antibodies, Fourth Generation, with Reflexes (11/03/2024 11:08 AM EDT) HIV AB/AG Nonreactive Nonreactive [facility] Comment:HIV-1 p24 Ag and/or HIV-1/HIV-2 Ab not detected.A test result that is nonreactive does not exclude thepossibility of exposure to or infection with HIV-1 and/orHIV-2. Nonreactive results in this assay for individualswith prior exposure to HIV-1 and/or HIV-2 may be due toantigen and antibody levels that are below the limit ofdetection of this assay.The [employer] HIV Ag/Ab Combo assay result andsupplemental assay results should be interpreted inconjunction with the patient's clinical presentation,history and other laboratory results. If the results areinconsistent with clinical evidence, additional testing issuggested to confirm the result. Blood Venous blood specimen / Unknown 11/03/2024 11:08 AM EDT 11/03/2024 12:55 PM EDT [facility] LAB BLOOD ORDERABLES Final Re sult Performing Organization Address [facility] Co de Phone Number [facility] [address] [place] [phone] * T4, Free (11/03/2024 11:08 AM EDT) Free T4 (Free Thyroxine) 0.98 0.71 - 1.85 ng/dL [facility] 11/03/2024 11:0 8 AM EDT 11/03/2024 12:55 PM EDT [facility] LAB BLOOD ORDERABLES Final Re sult Performing Organization Address [facility] Co de Phone Number [facility] [address] [place] [phone] * Valproic Acid Total (11/03/2024 11:08 AM EDT) Pathologist [facility] Valproate 57.4 50.0 - 100.0 mcg/mL [facility] Blood Venous blood specimen / Unknown 11/03/2024 11:08 AM EDT 11/03/2024 12:55 PM EDT [facility] LAB BLOOD ORDERABLES Final Re sult Performing Organization Address [facility] Co de Phone Number [facility] [address] [place] [phone] * (ABNORMAL) Lipid Panel, Standard (11/03/2024 11:08 AM EDT) Triglycerides 221(H) <150 mg/dL [facility] Comment:Desirable Triglyceri de: less than 150 mg/dLBorderline High Triglyceride 150-199 mg/dLHigh Triglyceride: 200-499 mg/dLVery High Triglyceride: greater than or equal to 5OO mg/dL Cholesterol 158 <200 mg/dL [facility] Comment:Desirable Cholestero l: less than 200 mg/dLBorderline High Cholesterol: 200-239 mg/dLHigh Cholesterol: greater than 239 mg/dL LDL Cholesterol Calculated 96 <100 mg/dL [facility] Comment:Desirable LDL: less than 100 mg/dLNear Optimal/Above Optimal LDL: 110- 129 mg/dLBorderline High LDL: 130-159 mg/dLHigh LDL: 160-189 mg/dLVery High LDL: greater than or equal to 190 mg/dL HDL Cholesterol 18(L) >40 mg/dL [facility] Comment:Desirable HDL: great er than 40 mg/dL Note: This HDL assay may give artificially low results in patients with liver disease. Blood Venous blood specimen / Unknown 11/03/2024 11:08 AM EDT 11/03/2024 12:55 PM EDT [employer] [employer] [facility] [employer] LAB BLOOD ORDERABLES Final Re sult Performing Organization Address City/[facility]/ZIP Co de Phone Number [facility] [address] [place] [phone] * Culture, Urine, Routine (11/03/2024 12:00 AM EDT) Urine Urine specimen obtained by clean catch procedure / Unknown 11/03/2024 11/03/2024 Comment:UACC Narrative [facility] - 11/04/2024 8:53 AM EDT Urine Culture No growth. Specimen Source: Urine clean catch [facility] MICROBIOLOGY - GENERAL OR DERABLES Final Result Performing Organization Address City/[facility]/ZIP Co de Phone Number [facility] [address] [place] [phone] * Hepatitis C Antibody with Reflex to HCV, RNA, Quantitative, Real-Time PCR (12/14/2023 12:34 PM EDT) Hepatitis C Antibody Nonreactive Nonreactive [facility] Comment:Antibodies to HCV no t detected; does not exclude early acuteHCV infection. Blood Venous blood specimen / Unknown 12/14/2023 12:34 PM EDT 12/14/2023 1:19 PM EDT [facility] LAB BLOOD ORDERABLES Final Re sult [facility] [address] [place] [phone] * Chlamydia/N. Gonorrhoeae RNA, TMA, Urogenitial (12/14/2023 12:34 PM EDT) [facility] CT PCR NOT DETECTED Not Detect. [facility] Comment:A not detected test result does [...] psychologicalconsequences. NG PCR NOT DETECTED Not Detect. [facility] Comment:A not detected test result does [...] PM EDT 12/14/2023 1:10 PM EDT Narrative [facility] - 12/14/2023 2:52 PM EDT Urine [facility] MICROBIOLOGY - GENERAL OR DERABLES Final Result [facility] [address] [place] [phone] from Last 3 Months or Most Recently Relevant to Health Maintenance Insurance [facility] STANDARD MEDICARE Care Teams Unisaw Operator Relationship Specialty Start Date End Date Thelma Fatima FNP [address] [place] [phone] PCP - General Family Medicine 12/14/23
--- OUTSIDE RECORDS SUMMARY | 2024-11-12 16:21 | XMS_ITS | Encounter Summary ---
Author Organization [employer] Address [address] [place] [address] 7t [place] [address] Care Team Providers Care Drying And Winding Supervisor Name Role Phone [facility] Primary Care Provider [phone] Reason for Visit * Reason Onset Date Comments Call Back Request 11/12/2024 Encounter Details Date Type Department Care Team ([facility] st Contact Info) Description 11/12/[address] [facility] MEDICINE [address] [place], [place] [phone] [facility] [address] [place], [place] [phone] Call Back Request Social History Tobacco Use Types Packs/Day Years [...] encounter Miscellaneous Notes * Telephone Encounter - Li Alexis RN - 11/12/2024 12:43 PM EDT TC placed to [facility] neuropsych office at [phone], transferred to direct office at [phone], no answer, and left VM inquiring on status of referral from (Office confirmed receipt at that time). Will reattempt Sunday if no c/b * Telephone Encounter - Yudi Issa - 11/12/2024 10:52 AM EDT Tc from Miley luncheonette manager at [facility] pt resides in , requesting a call back to discuss neuropsychology referral . Wants to ge clarification on what next steps are Contact Miley at [phone] documented in this encounter Plan of Treatment Upcoming Encounters Date Type Department Care Team (Late st Contact Info) Description 02/19/2025 2:00 PM EST Office Visit [facility] OPTOMETRY [address] [place] [address] Renee Katheryn, OD [address] [place] [address] documented as of this encounter Visit Diagnoses Not on filedocumented in this encounter Additional Health Concerns Assessment Noted Time PHQ-9 Depression Total Score: 0 03/21/19 25 2:22 PM EST documented as of this encounter Care Teams Drying And Winding Supervisor Relationship Specialty Start Date End Date Thelma Fatima FNP [address] [place] [address] PCP - General Family Medicine 12/14/23 documented as of this encounter
--- OUTSIDE RECORDS SUMMARY | 2024-11-12 16:21 | XMS_ITS | Encounter Summary ---
Author Organization [employer] Address [address] [facility] 7t [place] [address] Care Team Providers Care Graphics Software Engineer Name Role Phone Thelma Fatima ASSET MANAGEMENT ANALYST Primary Care Provider [phone] Reason for Visit * Reason Onset Date Comments Med Refill 02/25/2024 Encounter Details Date Type Department Care Team (Late st Contact Info) Description 02/25/2024 Refill [facility] MEDICINE [address] [place], [place] [phone] [address] [place], [place] [phone] Social History Tobacco Use Types Packs/Day Years [...] PM EST Office Visit [facility]RY [address] [place] [address] Katheryn Duran, OD [address] [place] [address] documented as of this encounter Visit Diagnoses Not on filedocumented in this encounter Additional Health Concerns Assessment Noted Time PHQ-9 Depression Total Score: 21 024 12:37 PM EDT documented as of this encounter Care Teams Graphics Software Engineer Relationship Specialty Start Date End Date Thelma Fatima FNP [address] [place] [id number] PCP - General Family Medicine 12/14/23 documented as of this encounter
--- OUTSIDE RECORDS SUMMARY | 2024-11-12 16:21 | XMS_ITS | Encounter Summary ---
Author Organization [facility] Address [address] [place] [address] Phone Care Team Providers Care Senior Data Warehouse Architect Name Role Phone Julia Blood NP Primary Care Provider [phone] Encounter Details Date Type Department Care Team (Late st Contact Info) Description 09/01/2015 Documentation [facility] Family Medicine [address] [place], [place] [phone] Family Medicine, Physician [address] [place], [place] [address] Social History Tobacco Use Types Packs/Day Years [...] on filedocumented in this encounter Care Teams Senior Data Warehouse Architect Relationship Specialty Start Date End Date Julia Blood NP [address] [place] [address] PCP - General Pediatrics 08/13/24 documented as of this encounter
[2024-11-12 17:06] LABS: Alanine Aminotransferase 25 U/L (0-40); Albumin Level 3.9 g/dL (3.5-5.0); Alkaline Phosphatase 56 U/L (39-117); Anion Gap 14 (12-20); Aspartate Amino Transferase 26 U/L (5-37); Blood Urea Nitrogen 6 mg/dL (9-16); Calcium 9.5 mg/dL (8.4-10.2); Carbon Dioxide 27 mmol/L (22-29); Chloride 104 mmol/L (96-108); Estimated Glomerular Filt Rate > 60; Potassium 3.5 mmol/L (3.3-5.1); Sodium 141 mmol/L (135-145); Total Protein 6.6 g/dL (6.5-8.0)
[2024-11-12 17:14] LABS: Thyroid Stimulating Hormone 4.67 uIU/mL (0.32-4.0)
[2024-11-12 18:20] LABS: Lithium 0.19 mmol/L (0.60-1.20)
[2024-11-12 19:02] LABS: Free T4 (Free Thyroxine) 0.79 ng/dL (0.71-1.85)
[2024-11-12 20:39] LABS: Renal w Reflex Lab Use Only Order verified
== END 2024-11-12 15:00 | disposition home or self-care (01) ==
LOC: HO.LAB 14:59
PROVIDERS: PCP Internal Medicine
DX: F31.81 Bipolar II disorder (principal)
CPT/HCPCS: 36415; 80051; 80053; 80164; 80178; 82248; 82310; 82565; 84100; 84439; 84443; 84481; 84520; 85025

== ENCOUNTER 2024-11-13 10:36 | Outpatient (REF) | payer MEDICARE, MEDICAID, SELFPAY ==
[2024-11-13 11:07] LABS: Appearance Urine Clear; Glucose Urine UA Negative (Negative); PH 7.0 (5.0-9.0); Specific Gravity - Urine <= 1.005 (1.005-1.025); UMIC TRIGGER UACC YES
[2024-11-13 11:10] LABS: UACC Culture Trigger YES
--- OUTSIDE RECORDS SUMMARY | 2024-11-13 12:08 | XMS_ITS | Encounter Summary ---
Author Organization [facility] Address [address] [place] [address] Phone Care Team Providers Care Industrial Engineering Manager Name Role Phone Julia Blood NP Primary Care Provider [phone] Encounter Details Date Type Department Care Team (Late st Contact Info) Description 11/02/2016 Conversion Encounter [facility] [address] [place] [address] Social History Tobacco Use Types Packs/Day Years [...] on filedocumented in this encounter Care Teams Industrial Engineering Manager Relationship Specialty Start Date End Date Julia Blood NP [address] [place] [address] PCP - General Pediatrics 08/13/24 documented as of this encounter
--- OUTSIDE RECORDS SUMMARY | 2024-11-13 12:08 | XMS_ITS | Clinical Summary ---
Author Organization [employer] [facility] it Address [address] [place] [address] Care Team Providers Care Pneumatic Systems Operator Name Role Phone Unavailable Primary Care Provider [...]
--- OUTSIDE RECORDS SUMMARY | 2024-11-13 12:08 | XMS_ITS | Encounter Summary ---
Author Organization [employer] Address [address] [place] [address] 7[address] [place] [address] Care Team Providers Care Combiner Name Role Phone [facility] Primary Care Provider [phone] Reason for Visit * Reason Onset Date Comments Call Back Request 11/12/2024 Encounter Details Date Type Department Care Team ([facility] st Contact Info) Description 11/12/2024 Telephone [facility] MEDICINE [address] [place], [place] [phone] [facility] [address] [place], [place] [phone] Call Back Request Social History Tobacco Use [...] 11/12/2024 12:43 PM EDT TC placed to [facility] neuropsych office at [phone], transferred to direct office at [phone], no answer, and left VM inquiring on status of referral from (Office confirmed receipt at that time). Will reattempt Sunday if no c/b * Telephone Encounter - Yudi Issa - 11/12/2024 10:52 AM EDT Tc from Miley manager video games at [facility] pt resides in , requesting a call back to discuss neuropsychology referral . Wants to ge clarification on what next steps are Contact Miley at [phone] documented in this encounter Plan of Treatment Upcoming Encounters Date Type Department Care Team (Late st Contact Info) Description 02/19/2025 2:00 PM EST Office Visit [facility] OPTOMETRY [address] [place] [address] Renee Katheryn, OD [address] [place] [address] documented as of this encounter Visit Diagnoses Not on filedocumented in this encounter Additional Health Concerns Assessment Noted Time PHQ-9 Depression Total Score: 0 03/21/19 25 2:22 PM EST documented as of this encounter Care Teams Combiner Relationship Specialty Start Date End Date Thelma Fatima FNP [address] [place] [address] PCP - General Family Medicine 12/14/23 documented as of this encounter
--- OUTSIDE RECORDS SUMMARY | 2024-11-13 12:08 | XMS_ITS | Encounter Summary ---
Author Organization [facility] Address [address] [place] [address] Phone Care Team Providers Care Sales And Marketing Assistant Name Role Phone Jluia Blood NP Primary Care Provider [phone] Encounter Details Date Type Department Care Team (Late st Contact Info) Description 09/01/2015 Documentation [facility] Family Medicine [address] [place], [place] [phone] Family Medicine, Physician [address] [place], [place] [address] Social History Tobacco Use Types Packs/Day Years [...] on filedocumented in this encounter Care Teams Sales And Marketing Assistant Relationship Specialty Start Date End Date Julia Blood NP [address] [place] [address] PCP - General Pediatrics 08/13/24 documented as of this encounter
--- OUTSIDE RECORDS SUMMARY | 2024-11-13 12:08 | XMS_ITS | Clinical Summary ---
Author Organization [employer] Address [address] [place] [address] [address] [place] [address] Care Team Providers Care Nylon Winder Name Role Phone Thelma Fatima TRACTOR TRAILER OPERATOR Primary Care Provider [phone] Allergies Active Allergy Reactions Criticality Noted Date Comments Blueberry Flavoring Agent (Non-Screening) Unknown 12/14/2023 Triana Unknown 12/14/2023 Fish Allergy Unknown 12/14/2023 Fentress Extract Unknown 12/14/2023 Medications * This document [...] Department Care Team Description 11/12/2024 Orders Only [address] [address] Willow Butterfield MD 11/12/[address] [address] Thelma Fatima FNP Call Back Request 11/05/[address] [address] Thelma Fatima FNP Care Coordination 11/04/2024 Orders Only GENERIC EXTERNAL DATA DEPARTMENT Provider, Generic External Data 11/03/2024 10:00 AM EDT Office Visit [facility] [place] [address] Thelma Fatima FNP Intention tremor (Primary Dx); [...] Dietary counseling; Exercise counseling 11/03/2024 Results Follow-Up [facility] [address] [place] [address] Thelma Fatima FNP [place], Valproic Acid Total, CBC auto differential, Additional followed-up results: 6 11/03/2024 Orders Only [facility] [address] [place] [phone] Thelma Fatima FNP 11/03/2024 Telephone [facility] [address] [place] [phone] Thelma Fatima FNP Critical [place] level 11/03/2024 Travel 10/31/[address] [address] Thelma Fatima FNP Chart Prep 10/24/2024 Patient Outreach [address] [address] Thelma Fatima FNP Pre-visit Planning ((Unable to reach for PVP screening or LVM) to be completed in office ) 09/22/[address] [address] Thelma Fatima FNP 09/12/[address] [address] Thelma Fatima FNP Results from Last 3 [...] 03/04/2008,01/27/2005 Meningococcal MCV4P ACYW-135 12/15/2020,08/02/19 16 Novel Icxvsvzod-[id number], all formulations 04/22/2009 Pneumococcal Conjugate PCV 7 [...] Description 02/19/2025 2:00 PM EST Office Visit [facility] [address] [place] [address] Katheryn Duran, OD [address] [place] [address] Health Maintenance Due Date Last Done Comments [...] Procedure Name Priority Date/Time Associated Diagnosis Comments T3, FREE Routine 11/12/2024 3:28 PM EDT T4, FREE Routine 11/12/2024 3:28 PM EDT VALPROIC ACID Routine 11/12/2024 3:28 PM EDT LITHIUM Routine 11/12/2024 3:28 PM EDT TSH Routine 11/12/2024 3:28 PM EDT RENAL PANEL W/REFLEX Routine 11/12/2024 3:28 PM EDT HEPATIC FUNCTION PANEL Routine 11/12/2024 3:28 PM EDT COMPREHENSIVE METABOLIC PANEL Routine 11/12/2024 3:28 PM EDT CBC WITH AUTO DIFFERENTIAL Routine 11/12/2024 3:28 [...] Recently Relevant to Health Maintenance Results * Renal Panel w/Reflex (11/12/2024 3:28 PM EDT) Pathologist [facility] Phosphorus 4.2 2.7 - 4.5 mg/dL [facility] 11/12/2024 3:28 PM EDT 11/12/2024 3:28 PM EDT us Willow Butterfield MD LAB BLOOD ORDERABLES Fin al Result [facility] [address] [place] [phone] * (ABNORMAL) CBC auto differential (11/12/2024 3:28 PM EDT) Only the most recent of3 resultswithin the time period is included. [facility] White Blood Count 8.8 4.8 - 10.8 X10*3/uL [facility] Red Blood Count 4.41(L) 4.60 - 5.80 X10*6/uL [facility] Hemoglobin 12.5(L) 14.0 - 18.0 g/dl [facility] Hematocrit 37.2(L) 42.0 - 52.0 % [facility] Mean Corpuscular Volume 84.4 80.0 - 98.0 fL [facility] Mean Corpuscular Hemoglobin 28.3 27.0 - 33.0 pg [facility] Mean Corpuscular HGB Conc 33.6 31.0 - 36.0 g/dl [facility] Red Cell Distribution Width 13.2 11.0 - 16.0 % [facility] Platelet Count 249 160 - 400 X10*3/uL [facility] Mean Platelet Volume 12.4 9.4 - 12.4 fL [facility] Neutrophils Percent Auto 57.0 45 - 73 % [facility] Imm Gran Pct Auto 0.2 0.0 - 0.4 % [facility] Lymphocytes Percent Auto 31.7 20 - 40 % [facility] Monocytes Percent Auto 7.7 2 - 11 % [facility] Eosinophils Percent Auto 3.1 0 - 4 % [facility] Basophils Percent Auto 0.3 0 - 2 % [facility] NRBC Pct Auto 0.0 0.0 - 0.2 /100WBC [facility] Neutrophils Absolute Auto 5.0 2.0 - 8.3 x10*3/uL [facility] Imm Gran Abs Auto 0.02 0.00 - 0.03 X10*3/uL [facility] Lymphocytes Absolute Auto 2.8 1.2 - 4.9 X10*3/uL [facility] Monocytes Absolute Auto 0.7 0.1 - 1.2 X10*3/uL [facility] Eosinophils Absolute Auto 0.3 0.0 - 0.4 X10*3/uL [facility] Basophils Absolute Auto 0.0 0.0 - 0.2 X10*3/uL [facility] NRBC Abs Auto 0.000 0.0 - 0.012 X10*3/uL [facility] 11/12/2024 3:28 PM EDT 11/12/2024 3:28 PM EDT Willow Butterfield MD LAB BLOOD ORDERABLES Fin al Result [facility] [address] [place] [phone] * T3, Free (11/12/2024 3:28 PM EDT) T3, Free 3.9 3.0 - 4.7 pg/mL [facility] Comment:THIS TEST WAS PERFOR MED AT:[employer] [place] [phone] CISNEROS MD 11/12/2024 3:28 PM EDT 11/12/2024 3:28 PM EDT Willow Butterfield MD LAB BLOOD ORDERABLES Fin al Result Performing Organization Address [facility] de Phone Number [facility] [address] [place] [phone] * (ABNORMAL) TSH (11/12/2024 3:28 PM EDT) Thyroid Stimulating Hormone 4.67(H) 0.32 - 4.0 uIU/mL [facility] Comment:Note: A sustained TS H level above 2.5 uIU/mL may warrant further investigation. TSH 3rd Generation ([facility]) 11/12/2024 3:28 PM EDT 11/12/2024 3:28 PM EDT Willow Butterfield MD LAB BLOOD ORDERABLES Fin al Result Performing Organization Address [facility] de Phone Number [facility] [address] [place] [phone] * T4, Free (11/12/2024 3:28 PM EDT) Only the most recent of2 resultswithin the time period is included. Free T4 (Free Thyroxine) 0.79 0.71 - 1.85 ng/dL [facility] 11/12/2024 3:28 PM EDT 11/12/2024 3:28 PM EDT Willow Butterfield MD LAB BLOOD ORDERABLES Fin al Result Performing Organization Address [facility] Co de Phone Number [facility] [address] [place] [phone] * (ABNORMAL) [place] (11/12/2024 3:28 PM EDT) Only the most recent of5 resultswithin the time period is included. [place] 0.19(L) 0.60 - 1.20 mmol/L [facility] 11/12/2024 3:28 PM EDT 11/12/2024 3:28 PM EDT Willow Butterfield MD LAB BLOOD ORDERABLES Fin al Result Performing Organization Address [facility] de Phone Number [facility] [address] [place] [phone] * Valproic Acid Total (11/12/2024 3:28 PM EDT) Only the most recent of2 resultswithin the time period is included. Valproate 79.0 50.0 - 100.0 mcg/mL [facility] 11/12/2024 3:28 PM EDT 11/12/2024 3:28 PM EDT Willow Butterfield MD LAB BLOOD ORDERABLES Fin al Result Performing Organization Address [facility] Number [facility] [address] [place] [phone] * Hepatic Function Panel (11/12/2024 3:28 PM EDT) Pathologist [facility] Bilirubin, Direct <0.2 0.0 - 0.5 mg/dL [facility] 11/12/2024 3:28 PM EDT 11/12/2024 3:28 PM EDT Willow Butterfield MD LAB BLOOD ORDERABLES Fin al Result Performing Organization Address [facility] de Phone Number [facility] [address] [place] [phone] * (ABNORMAL) Comprehensive Metabolic Panel (11/12/2024 3:28 PM EDT) Only the most recent of3 resultswithin the time period is included. Sodium 141 135 - 145 mmol/L [facility] Potassium 3.5 3.3 - 5.1 mmol/L [facility] Chloride 104 96 - 108 mmol/L [facility] Carbon Dioxide 27 22 - 29 mmol/L [facility] Anion Gap 14 12 - 20 [facility] Urea Nitrogen (BUN) 6(L) 9 - 16 mg/dL [facility] Creatinine, Serum 0.78 0.5 - 1.4 mg/dL [facility] Estimated Glomerular Filt Rate >60 [facility] Comment:Chronic Kidney Disea se: Estimated GFR < 60 mL/min/[id number] Kidney Disease: Estimated GFR < 15 mL/min/1.73m2 Glucose 91 60 - 115 mg/dL [facility] Calcium 9.5 8.4 - 10.2 mg/dL [facility] Bilirubin, Total 0.2 0.0 - 1.0 mg/dL [facility] Aspartate Amino Transferase 26 5 - 37 U/L [facility] Alanine Aminotransferase 25 0 - 40 U/L [facility] Total Protein 6.6 6.5 - 8.0 g/dL [facility] Albumin Level 3.9 3.5 - 5.0 g/dL [facility] Alkaline Phosphatase 56 39 - 117 U/L [facility] 11/12/2024 3:28 PM EDT 11/12/2024 3:28 PM EDT us Willow Butterfield MD LAB BLOOD ORDERABLES Fin al Result [facility] [address] [place] [phone] * (ABNORMAL) Basic Metabolic Panel (11/03/2024 9:09 PM EDT) Sodium 141 135 - 145 mmol/L [facility] Potassium 3.7 3.3 - 5.1 mmol/L [facility] Chloride 110(H) 96 - 108 mmol/L [facility] Carbon Dioxide 22 22 - 29 mmol/L [facility] Anion Gap 13 12 - 20 [facility] Urea Nitrogen (BUN) 11 9 - 16 mg/dL [facility] Creatinine, Serum 1.15 0.5 - 1.4 mg/dL [facility] Creatinine Clr Calc Pharmacy 137.7 [facility] Comment:eGFR (calculated fro m the MDRD study equation) and eCrCl(calculated from the Cockcroft-Gault equation) are based ondifferent parameters and may not yield comparable results.If eCrCl result is absurd, please check patient'sheight/weight. Estimated Glomerular Filt Rate >60 [facility] Comment:Chronic Kidney Disea se: Estimated GFR < 60 mL/min/1.07t5Eghwwh Kidney Disease: Estimated GFR < 15 mL/min/1.73m2 Glucose 112 60 - 115 mg/dL [facility] Calcium 9.5 8.4 - 10.2 mg/dL [facility] 11/03/2024 9:09 PM EDT 11/03/2024 9:12 PM EDT us Generic External Data Provider LAB BLOOD ORDERAB LES Final Result [facility] [address] [place] [phone] * Drug Monitoring, Panel 1, Screen, Urine (11/03/2024 7:19 PM EDT) Opiate Screen Urine Not Detected Not Detect [facility] Comment:Opiate cut-off is 30 0 ng/mL.Positive results are unconfirmed and should not be used fornon-medical purposes. Barbiturates, Urine Not Detected Not Detect [facility] Comment:Barbiturate cut-off is 200 ng/mL.Positive results are unconfirmed and should not be used fornon-medical purposes. Phencyclidine Screen Urine Not Detected Not Detect [facility] Comment:Phencyclidine cut-of f is 25 ng/mL.Positive results are unconfirmed and should not be used fornon-medical purposes. Amphetamine Screen Urine Not Detected Not Detect [facility] Comment:Amphetamine cut-off is 1000 ng/mL.Positive results are unconfirmed and should not be used fornon-medical purposes. Benzodiazepines Screen Urine Not Detected Not Detect [facility] Comment:Benzodiazepine cut-o ff is 200 ng/mL.Positive results are unconfirmed and should not be used fornon-medical purposes. Cocaine Screen Urine Not Detected Not Detect [facility] Comment:Cocaine cut-off is 3 00 ng/mL.Positive results are unconfirmed and should not be used fornon-medical purposes. Cannabinoid Screen Urine Not Detected Not Detect [facility] Comment:Cannabinoid cut-off is 50 ng/mL.Positive results are unconfirmed and should not be used fornon-medical purposes. Methadone Screen, Urine Not Detected Not Detect ng/mL [facility] Comment:Methadone cut-off is 300 ng/mL.Positive results are unconfirmed and should not be used fornon-medical purposes. FENTANYL URINE Not Detected Not Detect [facility] Comment:Fentanyl cut-off is 1 ng/mL.Positive results are unconfirmed and should not be used fornon-medical purposes. Oxycodone Urine Screen Not Detected Not Detect ng/mL [facility] Comment:Oxycodone cut-off is 100 ng/mL.Positive results are unconfirmed and should not be used fornon-medical purposes. Buprenorphine Screen Not Detected Not Detect ng/mL [facility] Comment:Buprenorphine cut-of f is 5 ng/mL.Positive results are unconfirmed and should not be used fornon-medical purposes. 11/03/2024 7:19 PM EDT 11/03/2024 7:23 PM EDT Generic External Data Provider LAB URINE ORDERAB LES Final Result [facility] [address] [place] [phone] * SST GOLD TOP TO HOLD (11/03/2024 6:16 PM EDT) Hold Gold See Note [facility] Comment:Specimen held untest ed for 24 hours; Call to requestChemistry testing. 11/03/2024 6:16 PM EDT 11/03/2024 6:31 PM EDT us Generic External Data Provider LAB BLOOD ORDERAB LES Final Result Performing Organization Address City/[facility]/ZIP Co de Phone Number [facility] [address] [place] [phone] * Magnesium (11/03/2024 6:16 PM EDT) Magnesium 2.1 1.6 - 2.6 mg/dL [facility] 11/03/2024 6:16 PM EDT 11/03/2024 6:21 PM EDT Generic External Data Provider LAB BLOOD ORDERAB LES Final Result Performing Organization Address [facility] Co de Phone Number [facility] [address] [place] [phone] * (ABNORMAL) Urinalysis, Complete, with Reflex to Culture (11/03/2024 11:08 AM EDT) Color Urine Yellow [facility] Appearance Urine Clear [facility] PH 8.0 5.0 - 9.0 [facility] Glucose Urine UA Negative Negative mg/dL [facility] Urine Blood Negative Negative [facility] Specific [place] - Urine <=1.005 1.005 - 1.025 [facility] Urine Protein Trace Neg-Trace mg/dL [facility] Urine Ketones Negative Negative mg/dL [facility] Nitrite Urine Negative Negative [facility] Leukocyte Esterase Urine Moderate (2+)(A) Negative [facility] RBC Urine 0-2 0 - 2 /HPF [facility] Urine WBC 11-20(A) 0 - 5 /HPF [facility] Urine Squamous Epithelial Cell 0-2 0 - 2 /HPF [facility] Urine Bacteria None Seen None Seen [facility] Hyaline Casts, Urine 3-5 0 - 2 /LPF [facility] Urine 11/03/2024 11:0 8 AM EDT 11/03/2024 12:49 PM EDT Narrative [facility] - 11/03/2024 1:04 PM EDT Urine, Clean Catch [facility] LAB URINE ORDERABLES Final Re sult Performing Organization Address [facility]/ZIP Co de Phone Number [facility] [address] [place] [phone] [phone] * (ABNORMAL) TSH W/Reflex to FT4 (11/03/2024 11:08 AM EDT) TSH reflex Free T4 7.90(H) 0.32 - 4.0 uIU/mL [facility] Blood Venous blood specimen / Unknown 11/03/2024 11:08 AM EDT 11/03/2024 12:55 PM EDT [facility] LAB BLOOD ORDERABLES Final Re sult Performing Organization Address [facility] Co de Phone Number [facility] [address] [place] [phone] * RPR (Monitor) with Reflex to??Titer (11/03/2024 11:08 AM EDT) RPR (Monitor) w/Refl Titer NON-REACTI VE NON-REACT JAX [facility] Comment:THIS TEST WAS PERFOR MED AT:[employer] [address] [phone] CISNEROS MD Rapid Plasma Reagin Ab Titer TNP [facility] Blood Venous blood specimen / Unknown 11/03/2024 11:08 AM EDT 11/03/2024 12:55 PM EDT [facility] LAB BLOOD ORDERABLES Final Re sult Performing Organization Address [facility] Co de Phone Number [facility] [address] [place] [phone] * HIV-1/2 Antigen and Antibodies, Fourth Generation, with Reflexes (11/03/2024 11:08 AM EDT) HIV AB/AG Nonreactive Nonreactive [facility] Comment:HIV-1 p24 Ag and/or HIV-1/HIV-2 Ab not detected.A test result that is nonreactive does not exclude thepossibility of exposure to or infection with HIV-1 and/orHIV-2. Nonreactive results in this assay for individualswith prior exposure to HIV-1 and/or HIV-2 may be due toantigen and antibody levels that are below the limit ofdetection of this assay.[employer] HIV Ag/Ab Combo assay result andsupplemental assay results should be interpreted inconjunction with the patient's clinical presentation,history and other laboratory results. If the results areinconsistent with clinical evidence, additional testing issuggested to confirm the result. Blood Venous blood specimen / Unknown 11/03/2024 11:08 AM EDT 11/03/2024 12:55 PM EDT [facility] TRACTOR TRAILER OPERATOR LAB BLOOD ORDERABLES Final Re sult [facility] [address] [place] [phone] * (ABNORMAL) Lipid Panel, Standard (11/03/2024 11:08 AM EDT) Triglycerides 221(H) <150 mg/dL [facility] Comment:Desirable Triglyceri de: less than 150 mg/dLBorderline High Triglyceride 150-199 mg/dLHigh Triglyceride: 200-499 mg/dLVery High Triglyceride: greater than or equal to 5OO mg/dL Cholesterol 158 <200 mg/dL [facility] Comment:Desirable Cholestero l: less than 200 mg/dLBorderline High Cholesterol: 200-239 mg/dLHigh Cholesterol: greater than 239 mg/dL LDL Cholesterol Calculated 96 <100 mg/dL [facility] Comment:Desirable LDL: less than 100 mg/dLNear Optimal/Above Optimal LDL: 110- 129 mg/dLBorderline High LDL: 130-159 mg/dLHigh LDL: 160-189 mg/dLVery High LDL: greater than or equal to 190 mg/dL HDL Cholesterol 18(L) >40 mg/dL [facility] Comment:Desirable HDL: great er than 40 mg/dL Note: This HDL assay may give artificially low results in patients with liver disease. Blood Venous blood specimen / Unknown 11/03/2024 11:08 AM EDT 11/03/2024 12:55 PM EDT [facility] LAB BLOOD ORDERABLES Final Re sult Performing Organization Address [facility] Co de Phone Number [facility] [address] [place] [phone] * Culture, Urine, Routine (11/03/2024 12:00 AM EDT) Urine Urine specimen obtained by clean catch procedure / Unknown 11/03/2024 11/03/2024 Comment:UACC Narrative [facility] - 11/04/2024 8:53 AM EDT Urine Culture No growth. Specimen Source: Urine clean catch [facility] LAB MICROBIOLOGY - GENERAL OR DERABLES Final Result Performing Organization Address [facility] de Phone Number [facility] [address] [place] [phone] * Hepatitis C Antibody with Reflex to HCV, RNA, Quantitative, Real-Time PCR (12/14/2023 12:34 PM EDT) Hepatitis C Antibody Nonreactive Nonreactive [facility] Comment:Antibodies to HCV no t detected; does not exclude early acuteHCV infection. Blood Venous blood specimen / Unknown 12/14/2023 12:34 PM EDT 12/14/2023 1:19 PM EDT [facility] LAB BLOOD ORDERABLES Final Re sult Performing Organization Address [facility] Co de Phone Number [facility] [address] [place] [phone] * Chlamydia/N. Gonorrhoeae RNA, TMA, Urogenitial (12/14/2023 12:34 PM EDT) CT PCR NOT DETECTED Not Detect. [facility] Comment:A not detected test result [...] psychologicalconsequences. NG PCR NOT DETECTED Not Detect. [facility] Comment:A not detected test result [...] PM EDT 12/14/2023 1:10 PM EDT Narrative [facility] - 12/14/2023 2:52 PM EDT Urine [facility] LAB MICROBIOLOGY - GENERAL OR DERABLES Final Result [facility] [address] [place] [phone] from Last 3 Months or Most Recently Relevant to Health Maintenance Insurance [facility] MEDICARE Care Teams Nylon Winder Relationship Specialty Start Date End Date Thelma Fatima FNP [address] [place] [phone] PCP - General Family Medicine 12/14/23
--- OUTSIDE RECORDS SUMMARY | 2024-11-13 12:09 | XMS_ITS | Clinical Summary ---
Author Organization [employer] [facility] Address [address] [place] [address] Care Team Providers Care Loader Operator Name Role Phone Unavailable Primary Care [...]
--- OUTSIDE RECORDS SUMMARY | 2024-11-13 12:09 | XMS_ITS | Clinical Summary ---
Author Organization [facility] Address [address] [place] [phone] Phone Care Team Providers Care Car Refinisher Name Role Phone Julia Blood NP Primary Care Provider [phone] Allergies No known active allergies Medications guanFACINE [...] Psychosocial stressors 06/18/2020 Overview (06/18/2020): Silvana from [facility] is calling on an active 51 A. Update given. 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 Zoloft & Tenex 08/2018: Pt now on Risperidone, tenex. Zoloft stopped 3 months ago & Risperadone was started . Melatonin for sleep 07/28/21: Psych admission for SI & Auditory command hallucinations 09/02/21: Pt discharged from the hospital yesterday. He was in the hospital for SI. Pt has an apt with [facility] 09/02/21. 09/06/21: Admitted to [facility] Assessment & Plan (05/15/2022 10:42 AM EST): Followed by Shyann Shell at [facility]. Patient is on risperidone, fluoxetine and guanfacine. To see new psych provider tomorrow Therapist = patient does not know if he sees anyone Assessment & Plan (12/15/2020 11:14 AM EDT): Sees Shyann Gonzalez Q 2-3 mos. Risperidone, tenex. & melatonin patient reports that [facility] does his metabolic labs yearly - he declined them today [place]. IEP in place. Does well Assessment & Plan (09/14/2019 10:37 AM EDT): Followed at [facility] by Shyann Shell She checks routine labs [...] EDT): In 45 day dx program at [facility] due to behavior issues. Doing better Supposed to go back to [place] but his Gmom does not want him to go back Seeing Shyann Shell monthly. On Tenex, zoloft & respiradone (added 2 months ago) No therapist while in 45 day program. Will reconnect when returns to [place] - sees therapist there from [facility] Immunizations Immunization Administration Dates Next Due DTaP [...] Completed 12/15/2020, 016 Procedures * Due to [facility] law, this organization might not be sharing sensitive test results. Procedure Name Priority Date/Time Associated Diagnosis Comments LIPID PANEL Routine 05/15/2022 11:30 AM EST BMI greater than 95% for age [Z68.54] HEMOGLOBIN A1C Routine 05/15/2022 11:30 AM EST BMI greater than 95% for age [Z68.54] from Last 3 Months or Most Recently Relevant to Health Maintenance Results * Due to [facility] law, this organization might not be sharing sensitive test results. * Hemoglobin A1c (05/15/2022 11:30 AM EST) Hemoglobin A1C 5.1 (4.0-5.6) % [facility] Comment: MONITORING: In known diabetic patients, hemoglobin A1c targets should be discussed with health care provider. DIAGNOSTIC USE: The [place] Diabetes Association (ADA) and the World Health [...] Supplement 1 Testing performed or reported by [facility], a Service of [address] [address] Jonn Kay MD, Ict Teacher CLIA# [id number] Blood 05/15/2022 11:3 0 AM EST 05/15/2022 12:24 PM EST Kelley Arora MD LAB BLOOD ORDERABLES Final Resul t Performing Organization Address [facility] Co de Phone Number [facility] * (ABNORMAL) Lipid panel (05/15/2022 11:30 AM EST) [facility] Cholesterol, Total 145 (<170) MG/DL [facility] HDL 30(L) (>45) MG/DL [facility] Non-HDL Cholesterol 115 (<120) MG/DL [facility] Comment: Testing performed or reported by [facility], a Service of [facility], [address] [place] [address] Jonn Kay MD, Ict Teacher CLIA# [id number] Blood 05/15/2022 11:3 0 AM EST 05/15/2022 12:24 PM EST Kelley Arora MD LAB BLOOD ORDERABLES Final Resul t Performing Organization Address City/[facility] Co de Phone Number [facility] from Last 3 Months or Most Recently Relevant to Health Maintenance Insurance [facility] NON PCC [facility] Care Teams Car Refinisher Relationship Specialty Start Date End Date Julia Blood NP [address] [place] [address] PCP - General Pediatrics 08/13/24
--- OUTSIDE RECORDS SUMMARY | 2024-11-13 12:09 | XMS_ITS | Encounter Summary ---
Author Organization [employer] Address [address] [facility] 7t [place] [address] Care Team Providers Care Circle Shear Operator Name Role Phone Thelma Fatima EMPLOYMENT ADVISOR Primary Care Provider [phone] Reason for Visit * Reason Comments Med Change Request Encounter Details Date Type Department Care Team ([facility] st Contact Info) Description 03/23/2024 Refill [facility] MEDICINE [address] [place], [place] [phone] Virginia Box CNM [address] [place], [place] [phone] Social History Tobacco Use Types Packs/Day Years [...] Description 02/19/2025 2:00 PM EST Office Visit [facility] OPTOMETRY [address] [place], [place] [phone] Katheryn Duran, OD [address] [place] [address] documented as of this encounter Visit Diagnoses Not on filedocumented in this encounter Additional Health Concerns Assessment Noted Time PHQ-9 Depression Total Score: 0 03/21/19 25 2:22 PM EST documented as of this encounter Care Teams Circle Shear Operator Relationship Specialty Start Date End Date Thelma Fatima FNP [address] [place] [address] PCP - General Family Medicine 12/14/23 documented as of this encounter
--- OUTSIDE RECORDS SUMMARY | 2024-11-13 12:09 | XMS_ITS | Encounter Summary ---
Author Organization [employer] Address [address] [facility] 7t [place] [address] Care Team Providers Care Ivf Embryologist Name Role Phone Thelma Fatima PHOTO MANAGER Primary Care Provider [phone] Reason for Visit * Reason Comments Med Refill Encounter Details Date Type Department Care Team ([facility] st Contact Info) Description 01/18/2024 Refill [facility] MEDICINE [address] [place], [place] [phone] Willow Butterfield MD [address] [place], [place] [phone] Social History Tobacco Use Types Packs/Day Years [...] PM EST Office Visit [facility] OPTOMETRY [address] [place] [address] Tarka, Katheryn, OD [address] [place] [address] documented as of this encounter Visit Diagnoses Not on filedocumented in this encounter Additional Health Concerns Assessment Noted Time PHQ-9 Depression Total Score: 21 024 12:37 PM EDT documented as of this encounter Care Teams Ivf Embryologist Relationship Specialty Start Date End Date Thelma Fatima FNP [address] [place] [address] PCP - General Family Medicine 12/14/23 documented as of this encounter
--- OUTSIDE RECORDS SUMMARY | 2024-11-13 12:09 | XMS_ITS | Encounter Summary ---
Author Organization [facility] Address [address] [place] [address] Phone Care Team Providers Care Guard Dance Hall Name Role Phone Julia Blood NP Primary Care Provider [phone] Encounter Details Date Type Department Care Team (Late st Contact Info) Description 02/01/2012 Documentation [facility] Family Medicine [address] [place], [place] [phone] Family Medicine, Physician [address] [place], [place] [phone] Social History Tobacco Use Types Packs/Day Years [...] on filedocumented in this encounter Care Teams Guard Dance Hall Relationship Specialty Start Date End Date Julia Blood NP [address] [place] [address] PCP - General Pediatrics 08/13/24 documented as of this encounter
--- OUTSIDE RECORDS SUMMARY | 2024-11-13 12:09 | XMS_ITS | Encounter Summary ---
Author Organization [employer] Address 75 [facility] 7t [place] [address] Care Team Providers Care Shellfish Bed Worker Name Role Phone Thelma Fatima WOOD SCALER Primary Care Provider [phone] Reason for Visit * Reason Onset Date Comments Med Refill 02/25/2024 Encounter Details Date Type Department Care Team (Late st Contact Info) Description 02/25/2024 Refill [facility] MEDICINE [address] [place], [place] [phone] Virginia Box CN [address] [place], [place] [phone] Social History Tobacco Use Types Packs/Day Years [...] PM EST Office Visit [facility] [address] [place] [address] Katheryn Duran, OD [address] [place] [address] documented as of this encounter Visit Diagnoses Not on filedocumented in this encounter Additional Health Concerns Assessment Noted Time PHQ-9 Depression Total Score: 21 024 12:37 PM EDT documented as of this encounter Care Teams Shellfish Bed Worker Relationship Specialty Start Date End Date Thelma Fatima FNP [address] [place] [phone] PCP - General Family Medicine 12/14/23 documented as of this encounter
--- OUTSIDE RECORDS SUMMARY | 2024-11-13 12:09 | XMS_ITS | Encounter Summary ---
Author Organization [employer] Address 75 [facility] 7t [place] [address] Care Team Providers Care Apartment Leasing Agent Name Role Phone Thelma Fatima EP SPECIALIST Primary Care Provider [phone] Reason for Visit * Reason Comments Med Refill Encounter Details Date Type Department Care Team ([facility] st Contact Info) Description 12/18/2023 Refill [facility] [address] [place], [place] [phone] Willow Butterfield MD [address] [place], [place] [phone] Social History Tobacco Use Types Packs/Day Years [...] PM EST Office Visit [facility] OPT[facility]ETRY [address] [place] [address] Tarka, Katheryn, OD [address] [place] [address] documented as of this encounter Visit Diagnoses Not on filedocumented in this encounter Additional Health Concerns Assessment Noted Time PHQ-9 Depression Total Score: 21 024 12:37 PM EDT documented as of this encounter Care Teams Apartment Leasing Agent Relationship Specialty Start Date End Date Thelma Fatima FNP [address] [place] [address] PCP - General Family Medicine 12/14/23 documented as of this encounter
--- OUTSIDE RECORDS SUMMARY | 2024-11-13 12:09 | XMS_ITS | Encounter Summary ---
Author Organization [employer] Address 75 [facility] 7t [place] [address] Care Team Providers Care Home Worker Name Role Phone Thelma Fatima COSMETOLOGY TEACHER Primary Care Provider [phone] Encounter Details Date Type Department Care Team ([facility] st Contact Info) Description 11/12/2024 Orders Only [facility] MEDICINE [address] [place], [place] [phone] Willow Butterfield MD [address] [place], [place] [phone] Social History Tobacco Use Types Packs/Day Years [...] the past 12 months, has t he [employer]ledgest[employer], gas, oil or water company threatened to [...] Description 02/19/2025 2:00 PM EST Office Visit [facility] OPTOMETRY [address] [place] [address] Katheryn Duran, OD [address] [place] [address] documented as of this encounter Procedures Procedure Name Priority Date/Time Associated Diagnosis Comments RENAL PANEL W/REFLEX Routine 11/12/2024 3:28 PM EDT CBC WITH AUTO DIFFERENTIAL Routine 11/12/2024 3:28 PM EDT T3, FREE Routine 11/12/2024 3:28 PM EDT TSH Routine 11/12/2024 3:28 PM EDT T4, FREE Routine 11/12/2024 3:28 PM EDT LITHIUM Routine 11/12/2024 3:28 PM EDT VALPROIC ACID Routine 11/12/2024 3:28 PM EDT HEPATIC FUNCTION PANEL Routine 3:28 PM EDT COMPREHENSIVE METABOLIC PANEL Routine 11/12/2024 3:28 PM EDT documented in this encounter Results * T3, Free (11/12/2024 3:28 PM EDT) T3, Free 3.9 3.0 - 4.7 pg/mL [facility] Comment:THIS TEST WAS PERFOR MED AT:[employer] [place] [id number] CISNEROS MD 11/12/2024 3:28 PM EDT 11/12/2024 3:28 PM EDT us Willow Butterfield MD LAB BLOOD ORDERABLES Fin al Result Performing Organization Address City/[facility]/ZIP Co de Phone Number [facility] [address] [place] [address] [phone] * T4, Free (11/12/2024 3:28 PM EDT) Free T4 (Free Thyroxine) 0.79 0.71 - 1.85 ng/dL [facility] 11/12/2024 3:28 PM EDT 11/12/2024 3:28 PM EDT Willow Butterfield MD LAB BLOOD ORDERABLES Fin al Result Performing Organization Address City/[facility]/ZIP Co de Phone Number [facility] [address] [place] [address] [phone] * Valproic Acid Total (11/12/2024 3:28 PM EDT) Pathologist [facility] Valproate 79.0 50.0 - 100.0 mcg/mL [facility] 11/12/2024 3:28 PM EDT 11/12/2024 3:28 PM EDT Willow Butterfield MD LAB BLOOD ORDERABLES Fin al Result Performing Organization Address [facility] de Phone Number [facility] [address] [place] [phone] * (ABNORMAL) Pella (11/12/2024 3:28 PM EDT) Pathologist [facility] Pella 0.19(L) 0.60 - 1.20 mmol/L [facility] 11/12/2024 3:28 PM EDT 11/12/2024 3:28 PM EDT Willow Butterfield MD LAB BLOOD ORDERABLES Fin al Result Performing Organization Address [facility] de Phone Number [facility] [address] [place] [phone] * (ABNORMAL) TSH (11/12/2024 3:28 PM EDT) Pathologist [facility] Thyroid Stimulating Hormone 4.67(H) 0.32 - 4.0 uIU/mL [facility] Comment:Note: A sustained TS H level above 2.5 uIU/mL may warrant further investigation. TSH 3rd Generation ([facility]) 11/12/2024 3:28 PM EDT 11/12/2024 3:28 PM EDT Willow Butterfield MD LAB BLOOD ORDERABLES Fin al Result Performing Organization Address [facility] Co de Phone Number [facility] [address] [place] [phone] * Renal Panel w/Reflex (11/12/2024 3:28 PM EDT) Phosphorus 4.2 2.7 - 4.5 mg/dL [facility] 11/12/2024 3:28 PM EDT 11/12/2024 3:28 PM EDT Willow Butterfield MD LAB BLOOD ORDERABLES Fin al Result Performing Organization Address [facility] Co de Phone Number [facility] [address] [place] [phone] * Hepatic Function Panel (11/12/2024 3:28 PM EDT) Bilirubin, Direct <0.2 0.0 - 0.5 mg/dL [facility] 11/12/2024 3:28 PM EDT 11/12/2024 3:28 PM EDT us Willow Butterfield MD LAB BLOOD ORDERABLES Fin al Result Performing Organization Address [facility] de Phone Number [facility] [address] [place] [phone] * (ABNORMAL) Comprehensive Metabolic Panel (11/12/2024 3:28 PM EDT) Sodium 141 135 - 145 mmol/L [facility] Potassium 3.5 3.3 - 5.1 mmol/L [facility] Chloride 104 96 - 108 mmol/L [facility] Carbon Dioxide 27 22 - 29 mmol/L [facility] Anion Gap 14 12 - 20 [facility] Urea Nitrogen (BUN) 6(L) 9 - 16 mg/dL [facility] Creatinine, Serum 0.78 0.5 - 1.4 mg/dL [facility] Estimated Glomerular Filt Rate >60 [facility] Comment:Chronic Kidney Disea se: Estimated GFR < 60 mL/min/1.29q1Rklacu Kidney Disease: Estimated GFR < 15 mL/min/1.73m2 Glucose 91 60 - 115 mg/dL [facility] Calcium 9.5 8.4 - 10.2 mg/dL [facility] Bilirubin, Total 0.2 0.0 - 1.0 mg/dL [facility] Aspartate Amino Transferase 26 5 - 37 U/L [facility] Alanine Aminotransferase 25 0 - 40 U/L [facility] Total Protein 6.6 6.5 - 8.0 g/dL [facility] Albumin Level 3.9 3.5 - 5.0 g/dL [facility] Alkaline Phosphatase 56 39 - 117 U/L [facility] 11/12/2024 3:28 PM EDT 11/12/2024 3:28 PM EDT us Willow Butterfield MD LAB BLOOD ORDERABLES Fin al Result [facility] [address] [place] [phone] * (ABNORMAL) CBC auto differential (11/12/2024 3:28 PM EDT) White Blood Count 8.8 4.8 - 10.8 X10*3/uL [facility] Red Blood Count 4.41(L) 4.60 - 5.80 X10*6/uL [facility] Hemoglobin 12.5(L) 14.0 - 18.0 g/dl [facility] Hematocrit 37.2(L) 42.0 - 52.0 % [facility] Mean Corpuscular Volume 84.4 80.0 - 98.0 fL [facility] Mean Corpuscular Hemoglobin 28.3 27.0 - 33.0 pg [facility] Mean Corpuscular HGB Conc 33.6 31.0 - 36.0 g/dl [facility] Red Cell Distribution Width 13.2 11.0 - 16.0 % [facility] Platelet Count 249 160 - 400 X10*3/uL [facility] Mean Platelet Volume 12.4 9.4 - 12.4 fL [facility] Neutrophils Percent Auto 57.0 45 - 73 % [facility] Imm Gran Pct Auto 0.2 0.0 - 0.4 % [facility] Lymphocytes Percent Auto 31.7 20 - 40 % [facility] Monocytes Percent Auto 7.7 2 - 11 % [facility] Eosinophils Percent Auto 3.1 0 - 4 % [facility] Basophils Percent Auto 0.3 0 - 2 % [facility] NRBC Pct Auto 0.0 0.0 - 0.2 /100WBC [facility] Neutrophils Absolute Auto 5.0 2.0 - 8.3 x10*3/uL [facility] Imm Gran Abs Auto 0.02 0.00 - 0.03 X10*3/uL [facility] Lymphocytes Absolute Auto 2.8 1.2 - 4.9 X10*3/uL [facility] Monocytes Absolute Auto 0.7 0.1 - 1.2 X10*3/uL [facility] Eosinophils Absolute Auto 0.3 0.0 - 0.4 X10*3/uL [facility] Basophils Absolute Auto 0.0 0.0 - 0.2 X10*3/uL [facility] NRBC Abs Auto 0.000 0.0 - 0.012 X10*3/uL [facility] 11/12/2024 3:28 PM EDT 11/12/2024 3:28 PM EDT us Willow Butterfield MD LAB BLOOD ORDERABLES Fin al Result Performing Organization Address City/State/[facility] Co de Phone Number [facility] [address] [place] [phone] documented in this encounter Visit Diagnoses Not on filedocumented in this encounter Additional Health Concerns Assessment Noted Time PHQ-9 Depression Total Score: 0 03/21/19 25 2:22 PM EST documented as of this encounter Care Teams Home Worker Relationship Specialty Start Date End Date Thelma Fatima FNP [address] [place] [address] PCP - General Family Medicine 12/14/23 documented as of this encounter
--- OUTSIDE RECORDS SUMMARY | 2024-11-13 12:09 | XMS_ITS | Encounter Summary ---
Author Organization [employer] Address 75 [facility] 7t [place] [address] Care Team Providers Care Lead Sql Developer Name Role Phone [facility] Primary Care Provider [phone] Reason for Visit * Reason Onset Date Comments Nurse Triage 03/14/2024 Encounter Details Date Type Department Care Team ([facility] st Contact Info) Description 03/14/2024 Telephone [facility] MEDICINE [address] [place], [place] [phone] [facility] [address] [place], [place] [phone] Nurse Triage Social History Tobacco Use Types [...] 03/14/2024 2:45 PM EST Tc from provider publications manager Symptom: Earache Outcome: Schedule a same-day appointment or talk to a nurse or provider today Reason: Caller denied all higher acuity questions The caller accepted this outcome. documented in this encounter Plan of Treatment Upcoming Encounters Date Type Department Care Team (Late st Contact Info) Description 02/19/2025 2:00 PM EST Office Visit [facility] OPTOMETRY [address] [place] [address] Katheryn Duran, OD [address] [place] [address] documented as of this encounter Visit Diagnoses Not on filedocumented in this encounter Additional Health Concerns Assessment Noted Time PHQ-9 Depression Total Score: 21 024 12:37 PM EDT documented as of this encounter Care Teams Lead Sql Developer Relationship Specialty Start Date End Date Thelma Fatima FNP [address] [place], [place] [phone] PCP - General Family Medicine 12/14/23 documented as of this encounter
== END 2024-11-13 10:37 | disposition home or self-care (01) ==
LOC: HO.LNP 10:36
DX: F31.81 Bipolar II disorder (principal)
CPT/HCPCS: 81001; 81003; 87086

== ENCOUNTER 2024-11-27 09:53 | Outpatient (REF) | payer MEDICARE, MEDICAID, SELFPAY ==
--- NOTE | 2024-11-27 10:02 | EEG_ITS ---
[facility] REASON: SEIZURE-LIKE ACTIVITY HISTORY; MEDICATIONS; TECHNICAL COMMENTS: PHOTIC STIMUALTION: COMPLETED HYPERVENTIATION: COMPLETED BEHAVORIAL STATE STATE OF CONCIOUSNESS: AWAKE SKULL DEECT: SEDATION: NONE HANDEDNESS: UNKNOWN This is a 16 channel EEG with an EKG lead. Patient is reported awake during the tracing. Background EEG rhythm is 7-8 hertz 5-50 microvolt posteriorly and lower amplitude fast anteriorly. Photic stimulation does not produce any significant driving. Hyperventilation is unremarkable. Cardiac lead does not reveal any significant abnormality. One possible bifrontal sharp wave was noted. Impression: Mildly abnormal EEG. If seizure disorder is strongly suspected further EEG monitoring with 48 hour EEG is recommended. MTDD
--- OUTSIDE RECORDS SUMMARY | 2024-11-27 11:46 | XMS_ITS | Clinical Summary ---
Author Organization [employer] Address [address] [place] [address] 7[address] [place] [address] Care Team Providers Care Cad Design Engineer Name Role Phone [facility] Primary Care Provider [phone] Allergies Active Allergy Reactions Criticality Noted Date Comments Blueberry Flavoring Agent (Non-Screening) Unknown 12/14/2023 Triana Unknown 12/14/2023 Fish Allergy Unknown 12/14/2023 Sutherland Extract Unknown 12/14/2023 Medications * This document [...] organization. Date Type Department Care Team Description 11/21/2024 Telephone [facility] [place] [address] Thelma Fatima FNP Care Coordination 11/20/2024 Telephone [facility] [place] [address] [place] [facility] Telephone Call 11/19/2024 Results Follow-Up [facility] [place] [address] Willow Butterfield MD CBC auto differential, Comprehensive Metabolic Panel, Hepatic Function Panel, Additional followed-up results: 6 11/12/2024 Orders Only [facility] [place] [address] Willow Butterfield MD 11/12/2024 Telephone [facility] [place] [address] BrazilThe[place]ma [facility] Call Back Request 11/05/[address] [place] [address] Thelma Fatima FNP Care Coordination 11/04/2024 Orders Only GENERIC EXTERNAL DATA DEPARTMENT Provider, Generic External Data 11/03/2024 10:00 AM EDT Office Visit [facility] [place] [address] Thelma Fatima FNP Intention tremor (Primary Dx); [...] Dietary counseling; Exercise counseling 11/03/2024 Results Follow-Up [facility] [address] [place] [phone] Thelma Fatima FNP [place], Valproic Acid Total, CBC auto differential, Additional followed-up results: 6 11/03/2024 Orders Only [address] [place] [address] Thelma Fatima FNP 11/03/2024 Telephone [facility] [address] [place] [address] Thelma Fatima FNP Critical [place] level 11/03/2024 Travel 10/31/[address] [address] Thelma Fatima FNP Chart Prep 10/24/2024 Patient Outreach [address] [address] Thelma Fatima FNP Pre-visit Planning ((Unable to reach for PVP screening or LVM) to be completed in office ) 09/22/20[address] [facility] [place] [address] Thelma Fatima FNP 09/12/[address] [address] Thelma Fatima FNP Results from Last 3 [...] 03/04/2008,01/27/2005 Meningococcal MCV4P [id number]-135 12/15/2020,08/02/19 16 Novel Asisvbdod-[id number], all formulations 04/22/2009 Pneumococcal Conjugate PCV 7 [...] is your housing situation today? I have desriee spencer 12/06/[address] you [...] Description 02/19/2025 2:00 PM EST Office Visit [facility] OPTOMETRY [address] [place] [address] Katheryn Duran, OD [address] [place] [address] Health Maintenance Due Date Last Done Comments Disability Screening 2004 Meningococcal B Vaccine (1 of 2 - Standard) 2020 COVID-19 Vaccine (3 - season) 2024 09/24/2020, 09/03/2020 Influenza Vaccine (#1) 2024 , [...] Renal Panel w/Reflex (11/12/2024 3:28 PM EDT) [facility] Phosphorus 4.2 2.7 - 4.5 mg/dL [facility] 11/12/2024 3:28 PM EDT 11/12/2024 3:28 PM EDT us Willow Butterfield MD LAB BLOOD ORDERABLES Fin al Result [facility] [address] [place] [phone] * (ABNORMAL) CBC auto differential (11/12/2024 3:28 PM EDT) Only the most recent of3 resultswithin the time period is included. [facility] White Blood Count 8.8 4.8 - 10.8 X10*3/uL [facility] Red Blood Count 4.41(L) 4.60 - 5.80 X10*6/uL [facility] Hemoglobin 12.5(L) 14.0 - 18.0 g/dl [facility] Hematocrit 37.2(L) 42.0 - 52.0 % [facility] Mean Corpuscular Volume 84.4 80.0 - 98.0 fL [facility] Mean Corpuscular Hemoglobin 28.3 27.0 - 33.0 pg [facility] Mean Corpuscular HGB Conc 33.6 31.0 - 36.0 g/dl [facility] Red Cell Distribution Width 13.2 11.0 - 16.0 % [facility] Platelet Count 249 160 - 400 X10*3/uL [facility] Mean Platelet Volume 12.4 9.4 - 12.4 fL [facility] Neutrophils Percent Auto 57.0 45 - 73 % [facility] Imm Gran Pct Auto 0.2 0.0 - 0.4 % [facility] Lymphocytes Percent Auto 31.7 20 - 40 % [facility] Monocytes Percent Auto 7.7 2 - 11 % [facility] Eosinophils Percent Auto 3.1 0 - 4 % [facility] Basophils Percent Auto 0.3 0 - 2 % [facility] NRBC Pct Auto 0.0 0.0 - 0.2 /100WBC [facility] Neutrophils Absolute Auto 5.0 2.0 - 8.3 x10*3/uL [facility] Imm Gran Abs Auto 0.02 0.00 - 0.03 X10*3/uL [facility] Lymphocytes Absolute Auto 2.8 1.2 - 4.9 X10*3/uL [facility] Monocytes Absolute Auto 0.7 0.1 - 1.2 X10*3/uL [facility] Eosinophils Absolute Auto 0.3 0.0 - 0.4 X10*3/uL [facility] Basophils Absolute Auto 0.0 0.0 - 0.2 X10*3/uL [facility] NRBC Abs Auto 0.000 0.0 - 0.012 X10*3/uL [facility] 11/12/2024 3:28 PM EDT 11/12/2024 3:28 PM EDT us Willow Butterfield MD LAB BLOOD ORDERABLES Fin al Result [facility] [address] [place] [address] [phone] * T3, Free (11/12/2024 3:28 PM EDT) T3, Free 3.9 3.0 - 4.7 pg/mL [facility] Comment:THIS TEST WAS PERFOR MED AT:[facility] [place] [phone] CISNEROS MD 11/12/2024 3:28 PM EDT 11/12/2024 3:28 PM EDT Willow Butterfield MD LAB BLOOD ORDERABLES Fin al Result Performing Organization Address [facility]/ZIP Co de Phone Number [facility] [address] [place] [phone] * (ABNORMAL) TSH (11/12/2024 3:28 PM EDT) Thyroid Stimulating Hormone 4.67(H) 0.32 - 4.0 uIU/mL [facility] Comment:Note: A sustained TS H level above 2.5 uIU/mL may warrant further investigation. TSH 3rd Generation ([facility]) 11/12/2024 3:28 PM EDT 11/12/2024 3:28 PM EDT Willow Butterfield MD LAB BLOOD ORDERABLES Fin al Result [facility] [address] [place] [phone] * T4, Free (11/12/2024 3:28 PM EDT) Only the most recent of2 resultswithin the time period is included. Free T4 (Free Thyroxine) 0.79 0.71 - 1.85 ng/dL [facility] 11/12/2024 3:28 PM EDT 11/12/2024 3:28 PM EDT Willow Butterfield MD LAB BLOOD ORDERABLES Fin al Result Performing Organization Address [facility] de Phone Number [facility] [address] [place] [phone] * (ABNORMAL) [place] (11/12/2024 3:28 PM EDT) Only the most recent of5 resultswithin the time period is included. [place] 0.19(L) 0.60 - 1.20 mmol/L [facility] 11/12/2024 3:28 PM EDT 11/12/2024 3:28 PM EDT Willow Butterfield MD LAB BLOOD ORDERABLES Fin al Result Performing Organization Address [facility] de Phone Number [facility] [address] [place] [phone] * Valproic Acid Total (11/12/2024 3:28 PM EDT) Only the most recent of2 resultswithin the time period is included. Valproate 79.0 50.0 - 100.0 mcg/mL [facility] 11/12/2024 3:28 PM EDT 11/12/2024 3:28 PM EDT Willow Butterfield MD LAB BLOOD ORDERABLES Fin al Result Performing Organization Address [facility] de Phone Number [facility] [address] [place] [phone] * Hepatic Function Panel (11/12/2024 3:28 PM EDT) Bilirubin, Direct <0.2 0.0 - 0.5 mg/dL [facility] 11/12/2024 3:28 PM EDT 11/12/2024 3:28 PM EDT Willow Butterfield MD LAB BLOOD ORDERABLES Fin al Result Performing Organization Address [facility]/ZIP Co de Phone Number [facility] [address] [place] [address] [phone] * (ABNORMAL) Comprehensive Metabolic Panel (11/12/2024 3:28 PM EDT) Only the most recent of3 resultswithin the time period is included. Sodium 141 135 - 145 mmol/L [facility] Potassium 3.5 3.3 - 5.1 mmol/L [facility] Chloride 104 96 - 108 mmol/L [facility] Carbon Dioxide 27 22 - 29 mmol/L [facility] Anion Gap 14 12 - 20 [facility] Urea Nitrogen (BUN) 6(L) 9 - 16 mg/dL [facility] Creatinine, Serum 0.78 0.5 - 1.4 mg/dL [facility] Estimated Glomerular Filt Rate >60 [facility] Comment:Chronic Kidney Disea se: Estimated GFR < 60 mL/min/[id number] Kidney Disease: Estimated GFR < 15 mL/min/1.73m2 Glucose 91 60 - 115 mg/dL [facility] Calcium 9.5 8.4 - 10.2 mg/dL [facility] Bilirubin, Total 0.2 0.0 - 1.0 mg/dL [facility] Aspartate Amino Transferase 26 5 - 37 U/L [facility] Alanine Aminotransferase 25 0 - 40 U/L [facility] Total Protein 6.6 6.5 - 8.0 g/dL [facility] Albumin Level 3.9 3.5 - 5.0 g/dL [facility] Alkaline Phosphatase 56 39 - 117 U/L [facility] 11/12/2024 3:28 PM EDT 11/12/2024 3:28 PM EDT us Willow Butterfield MD LAB BLOOD ORDERABLES Fin al Result Performing Organization Address City/[facility]/ZIP Co de Phone Number [facility] [address] [place] [phone] [phone] * (ABNORMAL) Basic Metabolic Panel (11/03/2024 9:09 PM EDT) Sodium 141 135 - 145 mmol/L [facility] Potassium 3.7 3.3 - 5.1 mmol/L [facility] Chloride 110(H) 96 - 108 mmol/L [facility] Carbon Dioxide 22 22 - 29 mmol/L [facility] Anion Gap 13 12 - 20 [facility] Urea Nitrogen (BUN) 11 9 - 16 mg/dL [facility] Creatinine, Serum 1.15 0.5 - 1.4 mg/dL [facility] Creatinine Clr Calc Pharmacy 137.7 [facility] Comment:eGFR (calculated fro m the MDRD study equation) and eCrCl(calculated from the Cockcroft-Gault equation) are based ondifferent parameters and may not yield comparable results.If eCrCl result is absurd, please check patient'sheight/weight. Estimated Glomerular Filt Rate >60 [facility] Comment:Chronic Kidney Disea se: Estimated GFR < 60 mL/min/[id number] Kidney Disease: Estimated GFR < 15 mL/min/1.73m2 Glucose 112 60 - 115 mg/dL [facility] Calcium 9.5 8.4 - 10.2 mg/dL [facility] 11/03/2024 9:09 PM EDT 11/03/2024 9:12 PM EDT Generic External Data Provider LAB BLOOD ORDERAB LES Final Result [facility] [address] [place] [address] [phone] * Drug Monitoring, Panel 1, Screen, Urine (11/03/2024 7:19 PM EDT) Opiate Screen Urine Not Detected Not Detect [facility] Comment:Opiate cut-off is 30 0 ng/mL.Positive results are unconfirmed and should not be used fornon-medical purposes. Barbiturates, Urine Not Detected Not Detect [facility] Comment:Barbiturate cut-off is 200 ng/mL.Positive results are unconfirmed and should not be used fornon-medical purposes. Phencyclidine Screen Urine Not Detected Not Detect [facility] Comment:Phencyclidine cut-of f is 25 ng/mL.Positive results are unconfirmed and should not be used fornon-medical purposes. Amphetamine Screen Urine Not Detected Not Detect [facility] Comment:Amphetamine cut-off is 1000 ng/mL.Positive results are unconfirmed and should not be used fornon-medical purposes. Benzodiazepines Screen Urine Not Detected Not Detect [facility] Comment:Benzodiazepine cut-o ff is 200 ng/mL.Positive results are unconfirmed and should not be used fornon-medical purposes. Cocaine Screen Urine Not Detected Not Detect [facility] Comment:Cocaine cut-off is 3 00 ng/mL.Positive results are unconfirmed and should not be used fornon-medical purposes. Cannabinoid Screen Urine Not Detected Not Detect [facility] Comment:Cannabinoid cut-off is 50 ng/mL.Positive results are unconfirmed and should not be used fornon-medical purposes. Methadone Screen, Urine Not Detected Not Detect ng/mL [facility] Comment:Methadone cut-off is 300 ng/mL.Positive results are unconfirmed and should not be used fornon-medical purposes. FENTANYL URINE Not Detected Not Detect [facility] Comment:Fentanyl cut-off is 1 ng/mL.Positive results are unconfirmed and should not be used fornon-medical purposes. Oxycodone Urine Screen Not Detected Not Detect ng/mL [facility] Comment:Oxycodone cut-off is 100 ng/mL.Positive results are unconfirmed and should not be used fornon-medical purposes. Buprenorphine Screen Not Detected Not Detect ng/mL [facility] Comment:Buprenorphine cut-of f is 5 ng/mL.Positive results are unconfirmed and should not be used fornon-medical purposes. 11/03/2024 7:19 PM EDT 11/03/2024 7:23 PM EDT us Generic External Data Provider LAB URINE ORDERAB LES Final Result [facility] [address] [place] [phone] * SST GOLD TOP TO HOLD (11/03/2024 6:16 PM EDT) Hold Gold See Note [facility] Comment:Specimen held untest ed for 24 hours; Call to requestChemistry testing. 11/03/2024 6:16 PM EDT 11/03/2024 6:31 PM EDT Generic External Data Provider LAB BLOOD ORDERAB LES Final Result Performing Organization Address [facility] Co de Phone Number [facility] [address] [place] [phone] * Magnesium (11/03/2024 6:16 PM EDT) Magnesium 2.1 1.6 - 2.6 mg/dL [facility] 11/03/2024 6:16 PM EDT 11/03/2024 6:21 PM EDT Generic External Data Provider LAB BLOOD ORDERAB LES Final Result Performing Organization Address [facility] de Phone Number [facility] [address] [place] [phone] * (ABNORMAL) Urinalysis, Complete, with Reflex to Culture (11/03/2024 11:08 AM EDT) Color Urine Yellow [facility] Appearance Urine Clear [facility] PH 8.0 5.0 - 9.0 [facility] Glucose Urine UA Negative Negative mg/dL [facility] Urine Blood Negative Negative [facility] Specific Dickinson - Urine <=1.005 1.005 - 1.025 [facility] Urine Protein Trace Neg-Trace mg/dL [facility] Urine Ketones Negative Negative mg/dL [facility] Nitrite Urine Negative Negative [facility] Leukocyte Esterase Urine Moderate (2+)(A) Negative [facility] RBC Urine 0-2 0 - 2 /HPF [facility] Urine WBC 11-20(A) 0 - 5 /HPF [facility] Urine Squamous Epithelial Cell 0-2 0 - 2 /HPF [facility] Urine Bacteria None Seen None Seen [facility] Hyaline Casts, Urine 3-5 0 - 2 /LPF [facility] Urine 11/03/2024 11:0 8 AM EDT 11/03/2024 12:49 PM EDT Narrative [facility] - 11/03/2024 1:04 PM EDT Urine, Clean Catch [facility] LAB URINE ORDERABLES Final Re sult Performing Organization Address [facility] Co de Phone Number [facility] [address] [place] [phone] * (ABNORMAL) TSH W/Reflex to FT4 (11/03/2024 11:08 AM EDT) TSH reflex Free T4 7.90(H) 0.32 - 4.0 uIU/mL [facility] Blood Venous blood specimen / Unknown 11/03/2024 11:08 AM EDT 11/03/2024 12:55 PM EDT [facility] LAB BLOOD ORDERABLES Final Re sult Performing Organization Address [facility] de Phone Number [facility] [address] [place] [phone] * RPR (Monitor) with Reflex to??Titer (11/03/2024 11:08 AM EDT) RPR (Monitor) w/Refl Titer NON-REACTI VE NON-REACT JAX [facility] Comment:THIS TEST WAS PERFOR MED AT:[address] [place] [phone] CISNEROS MD Rapid Plasma Reagin Ab Titer TNP [facility] Blood Venous blood specimen / Unknown 11/03/2024 11:08 AM EDT 11/03/2024 12:55 PM EDT [facility] LAB BLOOD ORDERABLES Final Re sult Performing Organization Address [facility]/ZIP Co de Phone Number [facility] [address] [place] [address] [phone] * HIV-1/2 Antigen and Antibodies, Fourth Generation, with Reflexes (11/03/2024 11:08 AM EDT) HIV AB/AG Nonreactive Nonreactive [facility] Comment:HIV-1 p24 Ag and/or HIV-1/HIV-2 Ab not detected.A test result that is nonreactive does not exclude thepossibility of exposure to or infection with HIV-1 and/orHIV-2. Nonreactive results in this assay for individualswith prior exposure to HIV-1 and/or HIV-2 may be due toantigen and antibody levels that are below the limit ofdetection of this assay.The [employer] HIV Ag/Ab Combo assay result andsupplemental assay results should be interpreted inconjunction with the patient's clinical presentation,history and other laboratory results. If the results areinconsistent with clinical evidence, additional testing issuggested to confirm the result. Blood Venous blood specimen / Unknown 11/03/2024 11:08 AM EDT 11/03/2024 12:55 PM EDT [facility] LAB BLOOD ORDERABLES Final Re sult Performing Organization Address City/[facility]/ZIP Co de Phone Number [facility] [address] [place] [address] [phone] * (ABNORMAL) Lipid Panel, Standard (11/03/2024 11:08 AM EDT) Triglycerides 221(H) <150 mg/dL [facility] Comment:Desirable Triglyceri de: less than 150 mg/dLBorderline High Triglyceride 150-199 mg/dLHigh Triglyceride: 200-499 mg/dLVery High Triglyceride: greater than or equal to 5OO mg/dL Cholesterol 158 <200 mg/dL [facility] Comment:Desirable Cholestero l: less than 200 mg/dLBorderline High Cholesterol: 200-239 mg/dLHigh Cholesterol: greater than 239 mg/dL LDL Cholesterol Calculated 96 <100 mg/dL [facility] Comment:Desirable LDL: less than 100 mg/dLNear Optimal/Above Optimal LDL: 110- 129 mg/dLBorderline High LDL: 130-159 mg/dLHigh LDL: 160-189 mg/dLVery High LDL: greater than or equal to 190 mg/dL HDL Cholesterol 18(L) >40 mg/dL [facility] Comment:Desirable HDL: great er than 40 mg/dL Note: This HDL assay may give artificially low results in patients with liver disease. Blood Venous blood specimen / Unknown 11/03/2024 11:08 AM EDT 11/03/2024 12:55 PM EDT [facility] LAB BLOOD ORDERABLES Final Re sult [facility] [address] [place] [phone] * Culture, Urine, Routine (11/03/2024 12:00 AM EDT) Urine Urine specimen obtained by clean catch procedure / Unknown 11/03/2024 11/03/2024 Comment:UACC Narrative [facility] - 11/04/2024 8:53 AM EDT Urine Culture No growth. Specimen Source: Urine clean catch [facility] LAB MICROBIOLOGY - GENERAL OR DERABLES Final Result Performing Organization Address City/[facility]/ZIP Co de Phone Number [facility] [address] [place] [phone] * Hepatitis C Antibody with Reflex to HCV, RNA, Quantitative, Real-Time PCR (12/14/2023 12:34 PM EDT) Hepatitis C Antibody Nonreactive Nonreactive [facility] Comment:Antibodies to HCV no t detected; does not exclude early acuteHCV infection. Blood Venous blood specimen / Unknown 12/14/2023 12:34 PM EDT 12/14/2023 1:19 PM EDT [facility] LAB BLOOD ORDERABLES Final Re sult [facility] [address] [place] [address] [phone] * Chlamydia/N. Gonorrhoeae RNA, TMA, Urogenitial (12/14/2023 12:34 PM EDT) [facility] CT PCR NOT DETECTED Not Detect. [facility] Comment:A not detected test result [...] psychologicalconsequences. NG PCR NOT DETECTED Not Detect. [facility] Comment:A not detected test result [...] PM EDT 12/14/2023 1:10 PM EDT Narrative [facility] - 12/14/2023 2:52 PM EDT Urine [facility] LAB MICROBIOLOGY - GENERAL OR DERABLES Final Result [facility] [address] [place] [address] [phone] from Last 3 Months or Most Recently Relevant to Health Maintenance Insurance [facility] STANDARD MEDICARE Care Teams Cad Design Engineer Relationship Specialty Start Date End Date Thelma Fatima FNP [address] [place] [phone] PCP - General Family Medicine 12/14/23
--- OUTSIDE RECORDS SUMMARY | 2024-11-27 11:46 | XMS_ITS | Encounter Summary ---
Author Organization [employer] Address [address] [facility] [address] [place] [address] Care Team Providers Care Turbine Operator Name Role Phone [facility] Primary Care Provider [phone] Reason for Visit * Reason Onset Date Comments Med Refill 02/25/2024 Encounter Details Date Type Department Care Team (Late st Contact Info) Description 02/25/[address] [facility] MEDICINE [address] [place], [place] [phone] Virginia Box CNM [address] [place], [place] [phone] Social History Tobacco Use Types Packs/Day Years [...] Description 02/19/2025 2:00 PM EST Office Visit [facility] [address] [place] [address] Katheryn Duran, OD [address] [place] [address] documented as of this encounter Visit Diagnoses Not on filedocumented in this encounter Additional Health Concerns Assessment Noted Time PHQ-9 Depression Total Score: 21 024 12:37 PM EDT documented as of this encounter Care Teams Turbine Operator Relationship Specialty Start Date End Date Thelma Fatima FNP [address] [place] [phone] PCP - General Family Medicine 12/14/23 documented as of this encounter
--- OUTSIDE RECORDS SUMMARY | 2024-11-27 11:46 | XMS_ITS | Encounter Summary ---
Author Organization [employer] Address [address] [facility] [address] [place] [address] Care Team Providers Care Metal Sponge Making Machine Operator Name Role Phone [facility] Primary Care Provider Reason for Visit * Reason Comments Med Refill Encounter Details Date Type Department Care Team ([facility] st Contact Info) Description 01/18/2024 Refill [facility] MEDICINE [address] [place], [place] [phone] Willow Butterfield MD [address] [place], [place] [phone] Social History Tobacco Use Types Packs/Day Years [...] PM EST Office Visit [facility] [address] [place] [address] Tarka, Katheryn, OD [address] [place] [address] documented as of this encounter Visit Diagnoses Not on filedocumented in this encounter Additional Health Concerns Assessment Noted Time PHQ-9 Depression Total Score: 21 024 12:37 PM EDT documented as of this encounter Care Teams Metal Sponge Making Machine Operator Relationship Specialty Start Date End Date Thelma Fatima FNP [address] [place] [phone] PCP - General Family Medicine 12/14/23 documented as of this encounter
--- OUTSIDE RECORDS SUMMARY | 2024-11-27 11:46 | XMS_ITS | Clinical Summary ---
Author Organization [facility] Address [address] [place] [phone] Phone Care Team Providers Care Chief Solution Architect Name Role Phone Julia Blood NP Primary Care Provider Allergies No known active allergies Medications guanFACINE [...] Psychosocial stressors 06/18/2020 Overview (06/18/2020): Silvana from [facility] is calling on an active 50 A. Update given. 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 Zoloft & Tenex 08/2018: Pt now on Risperidone, tenex. Zoloft stopped 3 months ago & Risperadone was started . Melatonin for sleep 07/28/21: Psych admission for SI & Auditory command hallucinations 09/02/21: Pt discharged from the hospital yesterday. He was in the hospital for SI. Pt has an apt with [facility] 09/02/21. 09/06/21: Admitted to [facility] Assessment & Plan (05/15/2022 10:42 AM EST): Followed by Shyann Shell at [facility]. Patient is on risperidone, fluoxetine and guanfacine. To see new psych provider tomorrow Therapist = patient does not know if he sees anyone Assessment & Plan (12/15/2020 11:14 AM EDT): Sees Shyann Gonzalez Q 2-3 mos. Risperidone, tenex. & melatonin patient reports that [facility] does his metabolic labs yearly - he declined them today [place] [employer]. IEP in place. Does well Assessment & Plan (09/14/2019 10:37 AM EDT): Followed at [facility] by Shyann Shell She checks routine labs [...] EDT): In 45 day dx program at [facility] due to behavior issues. Doing better Supposed to go back to [place] but his Gmom does not want him to go back Seeing Shyann Shell monthly. On Tenex, zoloft & respiradone (added 2 months ago) No therapist while in 45 day program. Will reconnect when returns to [place] - sees therapist there from [facility] Immunizations Immunization Administration Dates Next Due DTaP [...] 05/15/2023 05/15/2022, 04/20, 12/15/2019, Additional history exists LDL-C/Cholesterol 07/25/2024 07/26/2023, , 12/15/2019, Additional history exists Influenza Vaccines (#1) 2024 05/15/19 23, 12/15/2020, 02/04/2020, Additional history exists COVID-19 Vaccine (3 - 2024-2 6 season) 2024 09/24/2020, 09/03/2020 DTaP,Tdap,and Td Vaccines (8 - Td or [...] Completed 12/15/2020, 016 Procedures * Due to [facility] law, this organization might not be sharing sensitive test results. Procedure Name Priority Date/Time Associated Diagnosis Comments LIPID PANEL Routine 05/15/2022 11:30 AM EST BMI greater than 95% for age [Z68.54] HEMOGLOBIN A1C Routine 05/15/2022 11:30 AM EST BMI greater than 95% for age [Z68.54] from Last 3 Months or Most Recently Relevant to Health Maintenance Results * Due to [facility] law, this organization might not be sharing sensitive test results. * Hemoglobin A1c (05/15/2022 11:30 AM EST) Hemoglobin A1C 5.1 (4.0-5.6) % [facility] Comment: MONITORING: In known diabetic patients, hemoglobin A1c targets should be discussed with health care provider. DIAGNOSTIC USE: The [place] Diabetes Association (ADA) and the World Health [...] Supplement 1 Testing performed or reported by [facility], a Service of [address] [address] Jonn Kay MD, Ore Puncher CLIA# [id number] Blood 05/15/2022 11:3 0 AM EST 05/15/2022 12:24 PM EST Kelley Arora MD LAB BLOOD ORDERABLES Final Resul t Performing Organization Address [facility] Co de Phone Number [facility] * (ABNORMAL) Lipid panel (05/15/2022 11:30 AM EST) [facility] Cholesterol, Total 145 (<170) MG/DL [facility] HDL 30(L) (>45) MG/DL [facility] Non-HDL Cholesterol 115 (<120) MG/DL [facility] Comment: Testing performed or reported by [facility], a Service of [facility], [address] [place] [address] Jonn Kay MD, Ore Puncher CLIA# [id number] Blood 05/15/2022 11:3 0 AM EST 05/15/2022 12:24 PM EST Kelley Arora MD LAB BLOOD ORDERABLES Final Resul t Performing Organization Address City/[facility] Co de Phone Number [facility] from Last 3 Months or Most Recently Relevant to Health Maintenance Insurance [facility] NON PCC [facility] A[facility] Care Teams Chief Solution Architect Relationship Specialty Start Date End Date Julia Blood NP [address] [place] [address] PCP - General Pediatrics 08/13/24
--- OUTSIDE RECORDS SUMMARY | 2024-11-27 11:46 | XMS_ITS | Encounter Summary ---
Author Organization [employer] Address [address] [facility] 7t [place] [address] Care Team Providers Care Barrel Straightener Name Role Phone [facility] Primary Care Provider [phone] Reason for Visit * Reason Onset Date Comments Nurse Triage 03/14/2024 Encounter Details Date Type Department Care Team (Late st Contact Info) Description 03/14/2024 Telephone [facility] MEDICINE [address] [place], [place] [phone] [facility] [address] [place], [place] [phone] Nurse Triage Social History Tobacco Use Types [...] 03/14/2024 2:45 PM EST Tc from provider manager statistics Symptom: Earache Outcome: Schedule a same-day appointment or talk to a nurse or provider today Reason: Caller denied all higher acuity questions The caller accepted this outcome. documented in this encounter Plan of Treatment Upcoming Encounters Date Type Department Care Team (Late st Contact Info) Description 02/19/2025 2:00 PM EST Office Visit [facility] OPTOMETRY [address] [place] [address] TarKatheryn shannon, OD [address] [place] [address] documented as of this encounter Visit Diagnoses Not on filedocumented in this encounter Additional Health Concerns Assessment Noted Time PHQ-9 Depression Total Score: 21 024 12:37 PM EDT documented as of this encounter Care Teams Barrel Straightener Relationship Specialty Start Date End Date Thelma Fatima FNP [address] [place] [address] PCP - General Family Medicine 12/14/23 documented as of this encounter
--- OUTSIDE RECORDS SUMMARY | 2024-11-27 11:46 | XMS_ITS | Encounter Summary ---
Author Organization [facility] Address [address] [place] [address] Phone Care Team Providers Care Public Health Officer Name Role Phone Julia Blood NP Primary Care Provider [phone] Encounter Details Date Type Department Care Team (Late st Contact Info) Description 02/01/2012 Documentation [facility] Family Medicine [address] [place], [place] [phone] Family Medicine, Physician [address] [place], [place] [phone] Social History Tobacco Use Types Packs/Day Years [...] on filedocumented in this encounter Care Teams Public Health Officer Relationship Specialty Start Date End Date Julia Blood NP [address] [place] [address] PCP - General Pediatrics 08/13/24 documented as of this encounter
--- OUTSIDE RECORDS SUMMARY | 2024-11-27 11:46 | XMS_ITS | Encounter Summary ---
Author Organization [email or web address] Address [address] [facility] 7t [place] [address] Care Team Providers Care Census Enumerator Name Role Phone Akua [facility] Primary Care Provider [phone] Reason for Visit * Reason Comments Med Change Request Encounter Details Date Type Department Care Team ([facility] st Contact Info) Description 03/23/2024 Refill [facility] MEDICINE [address] [place], [place] [phone] Virginia Box CNM [address] [place], [place] [phone] Social History Tobacco Use Types Packs/Day Years [...] Description 02/19/2025 2:00 PM EST Office Visit [facility] OPTOMETRY [address] [place] [address] Katheryn Duran, OD [address] [place] [address] documented as of this encounter Visit Diagnoses Not on filedocumented in this encounter Additional Health Concerns Assessment Noted Time PHQ-9 Depression Total Score: 0 03/21/19 25 2:22 PM EST documented as of this encounter Care Teams Census Enumerator Relationship Specialty Start Date End Date Thelma Fatima FNP [address] [place] [address] PCP - General Family Medicine 12/14/23 documented as of this encounter
--- OUTSIDE RECORDS SUMMARY | 2024-11-27 11:46 | XMS_ITS | Encounter Summary ---
Author Organization [facility] Address [address] [place] [address] Phone Care Team Providers Care Healthcare Analyst Name Role Phone Julia Blood NP Primary Care Provider [phone] Encounter Details Date Type Department Care Team (Late st Contact Info) Description 09/01/2015 Documentation [facility] Medicine [address] [place], [place] [phone] Family Medicine, Physician [address] [place], [place] [address] Social History Tobacco Use Types Packs/Day Years [...] on filedocumented in this encounter Care Teams Healthcare Analyst Relationship Specialty Start Date End Date Julia Blood NP [address] [place] [address] PCP - General Pediatrics 08/13/24 documented as of this encounter
--- OUTSIDE RECORDS SUMMARY | 2024-11-27 11:46 | XMS_ITS | Encounter Summary ---
Author Organization [employer] Address [address] [facility] 7t [place] [address] Care Team Providers Care Fraud Analyst Name Role Phone Thelma Fatima [facility] Primary Care Provider [phone] Encounter Details Date Type Department Care Team (Latest Contact Info) Description 11/19/2024 Results Follow-Up [facility] MEDICINE [address] [place] [address] Willow Butterfield MD 230 [place] [address] CBC auto differential, Comprehensive Metabolic Panel, Hepatic Function Panel, Additional followed-up results: 6 Social History Tobacco [...] as of this encounter Miscellaneous Notes * Result Encounter Note - Willow Butterfield MD - 11/19/2024 1:52 PM EDT Patient has minimal elevation of TSH, he's on lithium. I will continue to monitor levels and fu at next appt, no need to start meds for now. documented in this encounter Plan of Treatment Upcoming Encounters Date Type Department Care Team (Late st Contact Info) Description 02/19/2025 2:00 PM EST Office Visit [facility] OPTOMETRY [address] [place], [place] [phone] TarkaKatheryn, OD [address] [place] [address] documented as of this encounter Visit Diagnoses Not on filedocumented in this encounter Additional Health Concerns Assessment Noted Time PHQ-9 Depression Total Score: 0 03/21/19 25 2:22 PM EST documented as of this encounter Care Teams Fraud Analyst Relationship Specialty Start Date End Date Thelma Fatima FNP [address] [place] [phone] PCP - General Family Medicine 12/14/23 documented as of this encounter
--- OUTSIDE RECORDS SUMMARY | 2024-11-27 11:46 | XMS_ITS | Encounter Summary ---
Author Organization [facility] Address [address] [place] [address] Phone Care Team Providers Care Etcher Electrolytic Name Role Phone Julia Blood NP Primary Care Provider [phone] Encounter Details Date Type Department Care Team (Late st Contact Info) Description 11/02/2016 Conversion Encounter [facility] [address] [place] [address] Social History Tobacco Use Types Packs/Day Years [...] on filedocumented in this encounter Care Teams Etcher Electrolytic Relationship Specialty Start Date End Date Julia Blood NP [address] [place] [address] PCP - General Pediatrics 08/13/24 documented as of this encounter
--- OUTSIDE RECORDS SUMMARY | 2024-11-27 11:46 | XMS_ITS | Encounter Summary ---
Author Organization [employer] Address [address] [facility] 7t [place] [address] Care Team Providers Care Wood Machinist Name Role Phone [facility] Primary Care Provider [phone] Reason for Visit * Reason Comments Med Refill Encounter Details Date Type Department Care Team ([facility] st Contact Info) Description 12/18/2023 Refill [facility] MEDICINE 230 [place], [place] [phone] Willow Butterfield MD [address] [place], [place] [phone] Social History Tobacco Use Types Packs/Day Years [...] PM EST Office Visit [facility] OPT[facility]ETRY [address] [place] [address] Tarka, Katheryn, OD [address] [place] [address] documented as of this encounter Visit Diagnoses Not on filedocumented in this encounter Additional Health Concerns Assessment Noted Time PHQ-9 Depression Total Score: 21 024 12:37 PM EDT documented as of this encounter Care Teams Wood Machinist Relationship Specialty Start Date End Date Thelma Fatima FNP [address] [place] [address] PCP - General Family Medicine 12/14/23 documented as of this encounter
== END 2024-11-27 09:54 | disposition home or self-care (01) ==
LOC: HO.NEURO 09:53
PROVIDERS: PCP Internal Medicine; Visit Provider Registered Nurse
DX: R56.9 Unspecified convulsions (principal); R94.01 Abnormal electroencephalogram [EEG]
CPT/HCPCS: 95816

== ENCOUNTER → 2024-11-27 10:02 | Outpatient (BNV) | payer MEDICARE, MEDICAID, SELFPAY | PROVIDERS: PCP Internal Medicine; Visit Provider Psychiatry & Neurology Neurology | DX: R56.9 Unspecified convulsions (principal) | CPT/HCPCS: 95816 ==

== ENCOUNTER 2024-12-09 17:21 | Outpatient (REF) | payer MEDICARE, MEDICAID, SELFPAY ==
--- OUTSIDE RECORDS SUMMARY | 2024-12-09 11:45 | XMS_ITS | Encounter Summary ---
Author Organization [employer] Address [address] [facility] 7t [place] [address] Care Team Providers Care Aviation Project Manager Name Role Phone [employer] [facility] Primary Care Provider [phone] Reason for Visit * Reason Comments sick visit Encounter Details Date Type Department Care Team (Late st Contact Info) Description 12/09/2024 11:45 AM EDT Office Visit [facility] MEDICINE 230 [place], [place] [phone] Niki Bar DO [address] [place], [place] [phone] Dysuria Social History Tobacco Use Types Packs/Day [...] Description 02/19/2025 2:00 PM EST Office Visit [facility] OPTOMETRY [address] [place] [address] Katheryn Duran, OD [address] [place] [address] Scheduled Orders Name Type Priority Associated Diagnoses Orde r Schedule Culture, Urine, Routine Microbiology Routine Dysuria Ordered: 12/09/2024 Chlamydia/N. Gonorrhoeae, PCR, Urine Lab Routine Dysuria Ordered: 12/09/2024 documented as of this encounter Procedures Procedure Name Priority Date/Time Associated Diagnosis Comments POCT URINALYSIS DIPSTICK Routine 12/09/2024 12:01 PM EDT Dysuria documented in this encounter Results [...] CARE TEST ENTER/LOIS T ORDERABLES Final Result documented in this encounter Visit Diagnoses Diagnosis Dysuria documented in this encounter Additional Health Concerns Assessment Noted Time PHQ-9 Depression Total Score: 0 03/21/19 25 2:22 PM EST documented as of this encounter Care Teams Aviation Project Manager Relationship Specialty Start Date End Date Thelma Fatima FNP [address] [place] [address] PCP - General Family Medicine 12/14/23 documented as of this encounter
--- OUTSIDE RECORDS SUMMARY | 2024-12-09 18:49 | XMS_ITS | Clinical Summary ---
Author Organization [facility] Address [address] [place] [address] Phone Care Team Providers Care Bush And Vine Fruit Crop Farmer Name Role Phone Julia Blood NP Primary Care Provider [phone] Allergies No known active allergies Medications guanFACINE [...] Psychosocial stressors 06/18/2020 Overview (06/18/2020): Silvana from [facility] is calling on an active 51 A. Update given. 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 Zoloft & Tenex 08/2018: Pt now on Risperidone, tenex. Zoloft stopped 3 months ago & Risperadone was started . Melatonin for sleep 07/28/21: Psych admission for SI & Auditory command hallucinations 09/02/21: Pt discharged from the hospital yesterday. He was in the hospital for SI. Pt has an apt with [facility] 09/02/21. 09/06/21: Admitted to [facility] Assessment & Plan (05/15/2022 10:42 AM EST): Followed by Shyann Shell at [facility]. Patient is on risperidone, fluoxetine and guanfacine. To see new psych provider tomorrow Therapist = patient does not know if he sees anyone Assessment & Plan (12/15/2020 11:14 AM EDT): Sees Shyann Gonzalez Q 2-3 mos. Risperidone, tenex. & melatonin patient reports that [facility] does his metabolic labs yearly - he declined them today [place]. IEP in place. Does well Assessment & Plan (09/14/2019 10:37 AM EDT): Followed at [facility] by Shyann Shell She checks routine labs [...] EDT): In 45 day dx program at [facility] due to behavior issues. Doing better Supposed to go back to [place] but his Gmom does not want him to go back Seeing Shyann Shell monthly. On Tenex, zoloft & respiradone (added 2 months ago) No therapist while in 45 day program. Will reconnect when returns to [place] - sees therapist there from [facility] Immunizations Immunization Administration Dates Next Due DTaP [...] Completed 12/15/2020, 016 Procedures * Due to [facility] law, this organization might not be sharing sensitive test results. Procedure Name Priority Date/Time Associated Diagnosis Comments LIPID PANEL Routine 05/15/2022 11:30 AM EST BMI greater than 95% for age [Z68.54] HEMOGLOBIN A1C Routine 05/15/2022 11:30 AM EST BMI greater than 95% for age [Z68.54] from Last 3 Months or Most Recently Relevant to Health Maintenance Results * Due to [facility] law, this organization might not be sharing sensitive test results. * Hemoglobin A1c (05/15/2022 11:30 AM EST) Hemoglobin A1C 5.1 (4.0-5.6) % [facility] Comment: MONITORING: In known diabetic patients, hemoglobin A1c targets should be discussed with health care provider. DIAGNOSTIC USE: The [place] Diabetes Association (ADA) and the World Health [...] Supplement 1 Testing performed or reported by [facility], a Service of [address] [address] Jonn Kay MD, Head Of English CLIA# [id number] Blood 05/15/2022 11:3 0 AM EST 05/15/2022 12:24 PM EST Kelley Arora MD LAB BLOOD ORDERABLES Final Resul t Performing Organization Address [facility] Co de Phone Number [facility] * (ABNORMAL) Lipid panel (05/15/2022 11:30 AM EST) [facility] Cholesterol, Total 145 (<170) MG/DL [facility] HDL 30(L) (>45) MG/DL [facility] Non-HDL Cholesterol 115 (<120) MG/DL [facility] Comment: Testing performed or reported by [facility], a Service of [facility], [address] [place] [address] Jonn Kay MD, Head Of English CLIA# [id number] Blood 05/15/2022 11:3 0 AM EST 05/15/2022 12:24 PM EST Kelley Arora MD LAB BLOOD ORDERABLES Final Resul t Performing Organization Address City/[facility] Co de Phone Number [facility] from Last 3 Months or Most Recently Relevant to Health Maintenance Insurance [facility] NON PCC [facility] ACO Care Teams Bush And Vine Fruit Crop Farmer Relationship Specialty Start Date End Date Julia Blood NP [address] [place] [address] PCP - General Pediatrics 08/13/24
--- OUTSIDE RECORDS SUMMARY | 2024-12-09 18:49 | XMS_ITS | Encounter Summary ---
Author Organization [employer] Address [address] [facility] 7t [place] [address] Care Team Providers Care Media Monitor Name Role Phone [facility] Primary Care Provider Reason for Visit * Reason Onset Date Comments Nurse Triage 03/14/2024 Encounter Details Date Type Department Care Team (Late st Contact Info) Description 03/14/2024 Telephone [facility] MEDICINE [address] [place], [place] [phone] [facility] [address] [place], [place] [phone] Nurse Triage Social History Tobacco Use Types [...] 03/14/2024 2:45 PM EST Tc from provider cadd manager Symptom: Earache Outcome: Schedule a same-day appointment or talk to a nurse or provider today Reason: Caller denied all higher acuity questions The caller accepted this outcome. [phone] documented in this encounter Plan of Treatment Upcoming Encounters Date Type Department Care Team (Late st Contact Info) Description 02/19/2025 2:00 PM EST Office Visit [facility] OPTOMETRY [address] [place] [address] TarKatheryn shannon, OD [address] [place] [address] documented as of this encounter Visit Diagnoses Not on filedocumented in this encounter Additional Health Concerns Assessment Noted Time PHQ-9 Depression Total Score: 21 024 12:37 PM EDT documented as of this encounter Care Teams Media Monitor Relationship Specialty Start Date End Date Thelma Fatima FNP [address] [place] [address] PCP - General Family Medicine 12/14/23 documented as of this encounter
--- OUTSIDE RECORDS SUMMARY | 2024-12-09 18:49 | XMS_ITS | Encounter Summary ---
Author Organization [employer] Address [address] [facility] 7t [place] [address] Care Team Providers Care Flux Core Welder Name Role Phone [employer] [facility] Primary Care Provider [phone] Reason for Visit * Reason Onset Date Comments Med Refill 02/25/2024 Encounter Details Date Type Department Care Team (Late st Contact Info) Description 02/25/2024 Refill [facility] MEDICINE [address] [place], [place] [phone] Virginia Box CNM [address] [place], [place] [phone] Social History Tobacco Use Types Packs/Day Years [...] PM EST Office Visit [facility] OPTOMETRY [address] [place] [address] Katheryn Duran, OD [address] [place] [address] documented as of this encounter Visit Diagnoses Not on filedocumented in this encounter Additional Health Concerns Assessment Noted Time PHQ-9 Depression Total Score: 21 024 12:37 PM EDT documented as of this encounter Care Teams Flux Core Welder Relationship Specialty Start Date End Date Thelma Fatima FNP [address] [place] [address] PCP - General Family Medicine 12/14/23 documented as of this encounter
--- OUTSIDE RECORDS SUMMARY | 2024-12-09 18:49 | XMS_ITS | Encounter Summary ---
Author Organization [employer] Address [address] [facility] 7t [place] [address] Care Team Providers Care Fisher Net Name Role Phone [facility] Primary Care Provider [phone] Reason for Visit * Reason Comments Med Refill Encounter Details Date Type Department Care Team ([facility] st Contact Info) Description 12/18/2023 Refill [facility] MEDICINE [address] [place], [place] [phone] Willow Butterfield MD [address] [place], [place] [phone] Social History Tobacco Use Types Packs/Day Years [...] PM EST Office Visit [facility] OPTOMETRY [address] [place] [address] Tarka, Katheryn, OD [address] [place] [address] documented as of this encounter Visit Diagnoses Not on filedocumented in this encounter Additional Health Concerns Assessment Noted Time PHQ-9 Depression Total Score: 21 024 12:37 PM EDT documented as of this encounter Care Teams Fisher Net Relationship Specialty Start Date End Date Thelma Fatima FNP [address] [place] [address] PCP - General Family Medicine 12/14/23 documented as of this encounter
--- OUTSIDE RECORDS SUMMARY | 2024-12-09 18:49 | XMS_ITS | Encounter Summary ---
Author Organization [employer] Address [address] [facility] 7t [place] [address] Care Team Providers Care Meteorology Instructor Name Role Phone Akua [facility] Primary Care Provider [phone] Reason for Visit * Reason Comments Med Refill Encounter Details Date Type Department Care Team ([facility] st Contact Info) Description 01/18/2024 Refill [facility] MEDICINE [address] [place], [place] [phone] Willow Butterfield MD [address] [place], [place] [phone] Social History Tobacco Use Types Packs/Day Years [...] PM EST Office Visit [facility] OPTOMETRY [address] [place] [address] Tarka, Katheryn, OD [address] [place] [address] documented as of this encounter Visit Diagnoses Not on filedocumented in this encounter Additional Health Concerns Assessment Noted Time PHQ-9 Depression Total Score: 21 024 12:37 PM EDT documented as of this encounter Care Teams Meteorology Instructor Relationship Specialty Start Date End Date Thelma Fatima FNP [address] [place] [address] PCP - General Family Medicine 12/14/23 documented as of this encounter
--- OUTSIDE RECORDS SUMMARY | 2024-12-09 18:49 | XMS_ITS | Encounter Summary ---
Author Organization [employer] Address [address] [facility] 7t [place] [address] Care Team Providers Care Consumer Recruiter Name Role Phone Akua [facility] Primary Care Provider [phone] Encounter Details Date Type Department Care Team (Latest Contact Info) Description 12/09/2024 Travel Social History Tobacco Use Types Packs/Day Years [...] Description 02/19/2025 2:00 PM EST Office Visit [facility] OPTOMETRY [address] [place] [address] Tarka, Katheryn, OD [address] [place] [address] documented as of this encounter Visit Diagnoses Not on filedocumented in this encounter Additional Health Concerns Assessment Noted Time PHQ-9 Depression Total Score: 0 03/21/19 25 2:22 PM EST documented as of this encounter Care Teams Consumer Recruiter Relationship Specialty Start Date End Date Thelma Fatima FNP [address] [place] [address] PCP - General Family Medicine 12/14/23 documented as of this encounter
--- OUTSIDE RECORDS SUMMARY | 2024-12-09 18:49 | XMS_ITS | Encounter Summary ---
Author Organization [employer] Address [address] [facility] 7t [place] [address] Care Team Providers Care Chemical Treatment Plant Technician Name Role Phone Akua [facility] Primary Care Provider [phone] Reason for Visit * Reason Comments Med Change Request Encounter Details Date Type Department Care Team ([facility] st Contact Info) Description 03/23/2024 Refill [facility] MEDICINE [address] [place], [place] [phone] Virginia Box CNM [address] [place], [place] [phone] Social History Tobacco Use Types Packs/Day Years [...] Visit [facility] OPTOMETRY [address] [place] [address] Katheryn Duran, OD [address] [place] [address] documented as of this encounter Visit Diagnoses Not on filedocumented in this encounter Additional Health Concerns Assessment Noted Time PHQ-9 Depression Total Score: 0 03/21/19 25 2:22 PM EST documented as of this encounter Care Teams Chemical Treatment Plant Technician Relationship Specialty Start Date End Date Thelma Fatima FNP [address] [place] [address] PCP - General Family Medicine 12/14/23 documented as of this encounter
--- OUTSIDE RECORDS SUMMARY | 2024-12-09 18:49 | XMS_ITS | Encounter Summary ---
Author Organization [employer] Address [address] [facility] 7t [place] [address] Care Team Providers Care Casino Manager Name Role Phone [facility] Primary Care Provider [phone] Reason for Visit * Reason Onset Date Comments Nurse Triage 12/03/2024 Encounter Details Date Type Department Care Team (Late st Contact Info) Description 12/03/2024 Telephone [facility] MEDICINE [address] [place], [place] [phone] [facility] [address] [place], [place] [phone] Nurse Triage Social History Tobacco Use Types [...] Telephone Encounter - Li Alexis RN - 12/04/2024 9:46 AM EDT TC returned to mom. Mom reports from what she has learned from the program, UTI symptoms have been for a few days now. Recommended to come to walk in clinic as UTI can progress into a kidney infection however she reports the program needs a set appt date and time. Mom agrees to appt. 12/09/24 at 11:45am with Dr. Bar. Advised mom if symptoms were to worsen or for blood in urine, fever/ chills or flank pain, pt. Should seek emergency care in the meantime and mom verbalizes understanding. * Telephone Encounter - Kaci Jackson RN - 12/03/2024 2:42 PM EDT Triage call Pt mother reports that Pt is in a [facility] and there is concern that Pt is incontinentof urine and possibly has a UTI. Pt had some blood work done at recent apt [place] [facility] [place]. sutton requested that Pt follow up with PCP due to WBC count is higher than normal. Neg for pain with urination. Pt has obvious incontinence and strong odor to the urine and neg for blood. Pt is reported to be drinking plenty of liquid. Pt does report some abdominal pain at times neg for low back pain. Pt mother lives in [place] and will transport Pt for apt. [facility] is offered but, declined requesting an apt in Office. Pt mother is advised feature writer will forward this request to team nurses to follow up prn.Mother agrees with this plan and disposition. Protocol Used: Urinary Symptoms (Adult) Protocol-Based Disposition: See in Office or Video Visit within 2 Weeks Positive Triage Questions: * Can't control passage of urine (i.e., urinary incontinence, wetting self) and present > 2 weeks * Dribbling (losing urine) just after finishing urination (i.e., post-void dribbling) * All other urine symptoms * All higher-acuity triage questions were negative Care Advice Discussed: * Reasons To Call Back - Fever occurs - Pain or burning with urination - You become worse * Telephone Encounter - John Turcios - 12/03/2024 2:13 PM EDT Symptom: Urination Pain Outcome: Schedule a same-day appointment or talk to a nurse or provider today Reason: Caller denied all higher acuity questions Please contact mom at [phone]. documented in this encounter Plan of Treatment Upcoming Encounters Date Type Department Care Team (Late st Contact Info) Description 02/19/2025 2:00 PM EST Office Visit [facility] OPTOMETRY [address] [place] [address] Katheryn Duran, OD [address] [place] [address] documented as of this encounter Visit Diagnoses Not on filedocumented in this encounter Additional Health Concerns Assessment Noted Time PHQ-9 Depression Total Score: 0 03/21/19 25 2:22 PM EST documented as of this encounter Care Teams Casino Manager Relationship Specialty Start Date End Date Thelma Fatima FNP [address] [place] [address] PCP - General Family Medicine 12/14/23 documented as of this encounter
--- OUTSIDE RECORDS SUMMARY | 2024-12-09 18:49 | XMS_ITS | Encounter Summary ---
Author Organization [facility] Address [address] [place] [address] Phone Care Team Providers Care Gallery Or Museum Guide Name Role Phone Julia Blood NP Primary Care Provider [phone] Encounter Details Date Type Department Care Team (Late st Contact Info) Description 09/01/2015 Documentation [facility] Family Medicine [address] [place], [place] [phone] Family Medicine, Physician [address] [place], [place] [address] Social History Tobacco Use Types Packs/Day Years [...] on filedocumented in this encounter Care Teams Gallery Or Museum Guide Relationship Specialty Start Date End Date Julia Blood NP [address] [place] [address] PCP - General Pediatrics 08/13/24 documented as of this encounter
--- OUTSIDE RECORDS SUMMARY | 2024-12-09 18:49 | XMS_ITS | Encounter Summary ---
Author Organization [facility] Address [address] [place] [address] Phone Care Team Providers Care Dog Behaviorist Name Role Phone Julia Blood NP Primary Care Provider [phone] Encounter Details Date Type Department Care Team (Late st Contact Info) Description 02/01/2012 Documentation [facility] Family Medicine [address] [place], [place] [phone] Family Medicine, Physician [address] [place], [place] [address] Social History Tobacco Use Types Packs/Day Years [...] on filedocumented in this encounter Care Teams Dog Behaviorist Relationship Specialty Start Date End Date Julia Blood NP [address] [place] [address] PCP - General Pediatrics 08/13/24 documented as of this encounter
--- OUTSIDE RECORDS SUMMARY | 2024-12-09 18:49 | XMS_ITS | Clinical Summary ---
Author Organization [employer] Address [address] [place] [address] [address] [place] [address] Care Team Providers Care [employer]ide [employer]or Name Role Phone [place] [facility] Primary Care Provider Allergies Active Allergy Reactions Criticality Noted Date Comments Blueberry Flavoring Agent (Non-Screening) Unknown 12/14/2023 Triana Unknown 12/14/2023 Fish Allergy Unknown 12/14/2023 [place] Extract Unknown 12/14/2023 Medications * This document contains information received from the source organization and may not represent a complete record from that organization. divalproex (Depakote ER) 500 MG 24 hr tablet Take 1,500 mg by mouth with evening meal. 09/18/19 24 Active hydrOXYzine pamoate (Vistaril) 50 MG capsule Take 50 mg by mouth every 8 (eight) hours if needed for anxiety. 09/18/19 24 Active nicotine polacrilex (Nicorette) 2 MG gum Chew 2 mg if needed. 09/18/19 24 Active acetaminophen (Tylenol) 325 MG tablet Take 2 tablets (650 mg) by mouth every 8 (eight) hours if needed for fever, mild pain or moderate pain (for pain or fever over 100F). 30 tablet 3 04/04/19 25 Active docusate sodium (Colace) 100 MG capsule TAKE 1 CAPSULE (100 MG) BY MOUTH IN THE MORNING 90 capsule 1 09/23/19 25 Active cloZAPine (Clozaril) 50 MG tablet 12/03/19 25 Active mirtazapine (Remeron) 45 MG tablet 12/05/19 Active Vraylar 3 MG capsule Take 3 mg by mouth with breakfast. 09/22/19 025 Discontinued(Me d list cleanup (will not trigger notification to Pharmacy)) lithium ER (Lithobid) 300 MG 12 hr tablet Take 1,200 mg by mouth with evening meal. 09/18/19 025 Discontinued(Si de effects) mirtazapine (Remeron) 30 MG tablet Take 30 mg by mouth at bedtime. 09/18/19 025 Discontinued(Do se adjustment) Active Problems Problem Noted Date Diagnosed Date [...] moderate intensity exercise. Exercise counseling 09/25/2023 Encounters Date Type Department Care Team Description 12/09/2024 11:45 AM EDT Office Visit [facility] [address] [place] [address] Niki Bar DO Dysuria 12/09/2024 Travel 12/03/2024 Telephone [facility] [address] [place] [address] Thelma Fatima FNP Nurse Triage 12/01/2024 Telephone [facility] [address], [place] [phone] Thelma Fatima FNP 11/21/2024 Telephone [facility] [address] [place] [address] Thelma Fatima FNP Care Coordination 11/20/2024 Telephone [facility] [place] [address] Thelma Fatima FNP Telephone Call 11/19/2024 Results Follow-Up [facility] [place] [place] [address] Willow Butterfield MD CBC auto differential, Comprehensive Metabolic Panel, Hepatic Function Panel, Additional followed-up results: 6 11/12/2024 Orders Only [facility] [place] [address] Willow Butterfield MD 11/12/2024 Telephone [facility] [place] [address] Thelma Fatima FNP Call Back Request 11/05/2024 Telephone [facility] [place] [address] Thelma Fatima FNP Care Coordination 11/04/2024 Orders Only GENERIC EXTERNAL DATA DEPARTMENT Provider, Generic External Data 11/03/2024 10:00 AM EDT Office Visit [facility] [place] [address] Thelma Fatima FNP Intention tremor (Primary Dx); [...] Dietary counseling; Exercise counseling 11/03/2024 Results Follow-Up [facility] [place] [address] Thelma Fatima FNP [place], Valproic Acid Total, CBC auto differential, Additional followed-up results: 6 11/03/2024 Orders Only [facility] [place] [address] Thelma Fatima FNP 11/03/2024 Telephone [facility] [place] [address] Thelma Fatima FNP Critical [place] level 11/03/2024 Travel 10/31/2024 Telephone [facility] [address] [place] [address] Thelma Fatima FNP Chart Prep 10/24/2024 Patient Outreach [facility] [address] [place] [address] Thelma Fatima FNP Pre-visit Planning ((Unable to reach for PVP screening or LVM) to be completed in office ) 09/22/2024 Refill [facility] [address] [place] [address] Thelma Fatima FNP 09/12/[address] [address] Thelma Fatima FNP Results from Last 3 [...] 03/04/2008,01/27/2005 Meningococcal MCV4P [id number]-135 12/15/2020,08/02/19 16 Novel [id number], all formulations 04/22/2009 Pneumococcal Conjugate PCV 7 [...] Mass Index 40.6 12/09/2024 12:07 PM EDT Plan of Treatment Upcoming Encounters Date Type Department Care Team (Late st Contact Info) Description 02/19/2025 2:00 PM EST Office Visit [facility] OPTOMETRY [address], [place] [phone] Katheryn Duran, OD [address] [place] [address] Health Maintenance Due Date Last Done Comments Disability Screening 2004 Meningococcal B Vaccine (1 of 2 - Standard) 2020 COVID-19 Vaccine (3 - season) 2024 09/24/2020, 09/03/2020 Influenza Vaccine (#1) 2024 , 12/15/2020, 02/04/2020, Additional history exists SDOH Screening 12/05/2024 12/06/2023 Chlamydia and Gonorrhea Screening 12/13/2024 12/14/2023, 05/15/2022, 09/14/2019 Family Planning (PISQ) 02/24/2025 02/25/2024 Depression Screening 03/21/2025 03/21/2024, 03/21/19 25 Alcohol/Substance Use Screening 11/03/2025 11/03/2024 Tobacco Screening 12/09/2025 12/09/2024 Lipid Panel 11/03/2029 11/03/2024, 12/14/2023 DTaP/Tdap/Td Vaccines [...] DIPSTICK Routine 12/09/2024 12:01 PM EDT Dysuria T3, FREE Routine 11/12/2024 3:28 PM EDT [...] Recently Relevant to Health Maintenance Results * POCT Urinalysis (12/09/2024 12:01 PM [...] clear Urine 12/09/2024 12:0 1 PM EDT us Niki Bar DO POINT OF CARE TEST ENTER/LOIS T ORDERABLES Final Result * Renal Panel w/Reflex (11/12/2024 3:28 PM EDT) Pathologist [facility] Phosphorus 4.2 2.7 - 4.5 mg/dL [facility] 11/12/2024 3:28 PM EDT 11/12/2024 3:28 PM EDT us Willow Butterfield MD LAB BLOOD ORDERABLES Fin al Result [facility] [address] [place] [phone] * (ABNORMAL) CBC auto differential (11/12/2024 3:28 PM EDT) Only the most recent of3 resultswithin the time period is included. [facility] White Blood Count 8.8 4.8 - 10.8 X10*3/uL [facility] Red Blood Count 4.41(L) 4.60 - 5.80 X10*6/uL [facility] Hemoglobin 12.5(L) 14.0 - 18.0 g/dl [facility] Hematocrit 37.2(L) 42.0 - 52.0 % [facility] Mean Corpuscular Volume 84.4 80.0 - 98.0 fL [facility] Mean Corpuscular Hemoglobin 28.3 27.0 - 33.0 pg [facility] Mean Corpuscular HGB Conc 33.6 31.0 - 36.0 g/dl [facility] Red Cell Distribution Width 13.2 11.0 - 16.0 % [facility] Platelet Count 249 160 - 400 X10*3/uL [facility] Mean Platelet Volume 12.4 9.4 - 12.4 fL [facility] Neutrophils Percent Auto 57.0 45 - 73 % [facility] Imm Gran Pct Auto 0.2 0.0 - 0.4 % [facility] Lymphocytes Percent Auto 31.7 20 - 40 % [facility] Monocytes Percent Auto 7.7 2 - 11 % [facility] Eosinophils Percent Auto 3.1 0 - 4 % [facility] Basophils Percent Auto 0.3 0 - 2 % [facility] NRBC Pct Auto 0.0 0.0 - 0.2 /100WBC [facility] Neutrophils Absolute Auto 5.0 2.0 - 8.3 x10*3/uL [facility] Imm Gran Abs Auto 0.02 0.00 - 0.03 X10*3/uL [facility] Lymphocytes Absolute Auto 2.8 1.2 - 4.9 X10*3/uL [facility] Monocytes Absolute Auto 0.7 0.1 - 1.2 X10*3/uL [facility] Eosinophils Absolute Auto 0.3 0.0 - 0.4 X10*3/uL [facility] Basophils Absolute Auto 0.0 0.0 - 0.2 X10*3/uL [facility] NRBC Abs Auto 0.000 0.0 - 0.012 X10*3/uL [facility] 11/12/2024 3:28 PM EDT 11/12/2024 3:28 PM EDT us Willow Butterfield MD LAB BLOOD ORDERABLES Fin al Result [facility] [address] [place] [phone] * T3, Free (11/12/2024 3:28 PM EDT) T3, Free 3.9 3.0 - 4.7 pg/mL [facility] Comment:THIS TEST WAS PERFOR MED AT:[facility] [place] [phone] CISNEROS MD 11/12/2024 3:28 PM EDT 11/12/2024 3:28 PM EDT Willow Butterfield MD LAB BLOOD ORDERABLES Fin al Result Performing Organization Address [facility] de Phone Number [facility] [address] [place] [phone] * (ABNORMAL) TSH (11/12/2024 3:28 PM EDT) Thyroid Stimulating Hormone 4.67(H) 0.32 - 4.0 uIU/mL [facility] Comment:Note: A sustained TS H level above 2.5 uIU/mL may warrant further investigation. TSH 3rd Generation ([facility]) 11/12/2024 3:28 PM EDT 11/12/2024 3:28 PM EDT Willow Butterfield MD LAB BLOOD ORDERABLES Fin al Result Performing Organization Address [facility] Phone Number [facility] [address] [place] [phone] * T4, Free (11/12/2024 3:28 PM EDT) Only the most recent of2 resultswithin the time period is included. Free T4 (Free Thyroxine) 0.79 0.71 - 1.85 ng/dL [facility] 11/12/2024 3:28 PM EDT 11/12/2024 3:28 PM EDT Willow Butterfield MD LAB BLOOD ORDERABLES Fin al Result Performing Organization Address [facility] de Phone Number [facility] [address] [place] [phone] * (ABNORMAL) [place] (11/12/2024 3:28 PM EDT) Only the most recent of5 resultswithin the time period is included. [place] 0.19(L) 0.60 - 1.20 mmol/L [facility] 11/12/2024 3:28 PM EDT 11/12/2024 3:28 PM EDT Willow Butterfield MD LAB BLOOD ORDERABLES Fin al Result Performing Organization Address [facility] Co de Phone Number [facility] [address] [place] [phone] * Valproic Acid Total (11/12/2024 3:28 PM EDT) Only the most recent of2 resultswithin the time period is included. Valproate 79.0 50.0 - 100.0 mcg/mL [facility] 11/12/2024 3:28 PM EDT 11/12/2024 3:28 PM EDT Willow Butterfield MD LAB BLOOD ORDERABLES Fin al Result Performing Organization Address [facility] Co de Phone Number [facility] [address] [place] [phone] * Hepatic Function Panel (11/12/2024 3:28 PM EDT) Bilirubin, Direct <0.2 0.0 - 0.5 mg/dL [facility] 11/12/2024 3:28 PM EDT 11/12/2024 3:28 PM EDT Willow Butterfield MD LAB BLOOD ORDERABLES Fin al Result Performing Organization Address [facility] Co de Phone Number [facility] [address] [place] [phone] * (ABNORMAL) Comprehensive Metabolic Panel (11/12/2024 3:28 PM EDT) Only the most recent of3 resultswithin the time period is included. Sodium 141 135 - 145 mmol/L [facility] Potassium 3.5 3.3 - 5.1 mmol/L [facility] Chloride 104 96 - 108 mmol/L [facility] Carbon Dioxide 27 22 - 29 mmol/L [facility] Anion Gap 14 12 - 20 [facility] Urea Nitrogen (BUN) 6(L) 9 - 16 mg/dL [facility] Creatinine, Serum 0.78 0.5 - 1.4 mg/dL [facility] Estimated Glomerular Filt Rate >60 [facility] Comment:Chronic Kidney Disea se: Estimated GFR < 60 mL/min/[id number] Kidney Disease: Estimated GFR < 15 mL/min/1.73m2 Glucose 91 60 - 115 mg/dL [facility] Calcium 9.5 8.4 - 10.2 mg/dL [facility] Bilirubin, Total 0.2 0.0 - 1.0 mg/dL [facility] Aspartate Amino Transferase 26 5 - 37 U/L [facility] Alanine Aminotransferase 25 0 - 40 U/L [facility] Total Protein 6.6 6.5 - 8.0 g/dL [facility] Albumin Level 3.9 3.5 - 5.0 g/dL [facility] Alkaline Phosphatase 56 39 - 117 U/L [facility] 11/12/2024 3:28 PM EDT 11/12/2024 3:28 PM EDT us Willow Butterfield MD LAB BLOOD ORDERABLES Fin al Result [facility] [address] [place] [phone] * (ABNORMAL) Basic Metabolic Panel (11/03/2024 9:09 PM EDT) Sodium 141 135 - 145 mmol/L [facility] Potassium 3.7 3.3 - 5.1 mmol/L [facility] Chloride 110(H) 96 - 108 mmol/L [facility] Carbon Dioxide 22 22 - 29 mmol/L [facility] Anion Gap 13 12 - 20 [facility] Urea Nitrogen (BUN) 11 9 - 16 mg/dL [facility] Creatinine, Serum 1.15 0.5 - 1.4 mg/dL [facility] Creatinine Clr Calc Pharmacy 137.7 [facility] Comment:eGFR (calculated fro m the MDRD study equation) and eCrCl(calculated from the Cockcroft-Gault equation) are based ondifferent parameters and may not yield comparable results.If eCrCl result is absurd, please check patient'sheight/weight. Estimated Glomerular Filt Rate >60 [facility] Comment:Chronic Kidney Disea se: Estimated GFR < 60 mL/min/[id number] Kidney Disease: Estimated GFR < 15 mL/min/1.73m2 Glucose 112 60 - 115 mg/dL [facility] Calcium 9.5 8.4 - 10.2 mg/dL [facility] 11/03/2024 9:09 PM EDT 11/03/2024 9:12 PM EDT us Generic External Data Provider LAB BLOOD ORDERAB LES Final Result [facility] [address] [place] [phone] * Drug Monitoring, Panel 1, Screen, Urine (11/03/2024 7:19 PM EDT) Opiate Screen Urine Not Detected Not Detect [facility] Comment:Opiate cut-off is 30 0 ng/mL.Positive results are unconfirmed and should not be used fornon-medical purposes. Barbiturates, Urine Not Detected Not Detect [facility] Comment:Barbiturate cut-off is 200 ng/mL.Positive results are unconfirmed and should not be used fornon-medical purposes. Phencyclidine Screen Urine Not Detected Not Detect [facility] Comment:Phencyclidine cut-of f is 25 ng/mL.Positive results are unconfirmed and should not be used fornon-medical purposes. Amphetamine Screen Urine Not Detected Not Detect [facility] Comment:Amphetamine cut-off is 1000 ng/mL.Positive results are unconfirmed and should not be used fornon-medical purposes. Benzodiazepines Screen Urine Not Detected Not Detect [facility] Comment:Benzodiazepine cut-o ff is 200 ng/mL.Positive results are unconfirmed and should not be used fornon-medical purposes. Cocaine Screen Urine Not Detected Not Detect [facility] Comment:Cocaine cut-off is 3 00 ng/mL.Positive results are unconfirmed and should not be used fornon-medical purposes. Cannabinoid Screen Urine Not Detected Not Detect [facility] Comment:Cannabinoid cut-off is 50 ng/mL.Positive results are unconfirmed and should not be used fornon-medical purposes. Methadone Screen, Urine Not Detected Not Detect ng/mL [facility] Comment:Methadone cut-off is 300 ng/mL.Positive results are unconfirmed and should not be used fornon-medical purposes. FENTANYL URINE Not Detected Not Detect [facility] Comment:Fentanyl cut-off is 1 ng/mL.Positive results are unconfirmed and should not be used fornon-medical purposes. Oxycodone Urine Screen Not Detected Not Detect ng/mL [facility] Comment:Oxycodone cut-off is 100 ng/mL.Positive results are unconfirmed and should not be used fornon-medical purposes. Buprenorphine Screen Not Detected Not Detect ng/mL [facility] Comment:Buprenorphine cut-of f is 5 ng/mL.Positive results are unconfirmed and should not be used fornon-medical purposes. 11/03/2024 7:19 PM EDT 11/03/2024 7:23 PM EDT Generic External Data Provider LAB URINE ORDERAB LES Final Result [facility] [address] [place] [phone] * SST GOLD TOP TO HOLD (11/03/2024 6:16 PM EDT) Hold Gold See Note [facility] Comment:Specimen held untest ed for 24 hours; Call to requestChemistry testing. 11/03/2024 6:16 PM EDT 11/03/2024 6:31 PM EDT us Generic External Data Provider LAB BLOOD ORDERAB LES Final Result Performing Organization Address [facility]/ZIP Co de Phone Number [facility] [address] [place] [phone] * Magnesium (11/03/2024 6:16 PM EDT) Magnesium 2.1 1.6 - 2.6 mg/dL [facility] 11/03/2024 6:16 PM EDT 11/03/2024 6:21 PM EDT Generic External Data Provider LAB BLOOD ORDERAB LES Final Result Performing Organization Address [facility] de Phone Number [facility] [address] [place] [phone] * (ABNORMAL) Urinalysis, Complete, with Reflex to Culture (11/03/2024 11:08 AM EDT) Color Urine Yellow [facility] Appearance Urine Clear [facility] PH 8.0 5.0 - 9.0 [facility] Glucose Urine UA Negative Negative mg/dL [facility] Urine Blood Negative Negative [facility] Specific [place] - Urine <=1.005 1.005 - 1.025 [facility] Urine Protein Trace Neg-Trace mg/dL [facility] Urine Ketones Negative Negative mg/dL [facility] Nitrite Urine Negative Negative [facility] Leukocyte Esterase Urine Moderate (2+)(A) Negative [facility] RBC Urine 0-2 0 - 2 /HPF [facility] Urine WBC 11-20(A) 0 - 5 /HPF [facility] Urine Squamous Epithelial Cell 0-2 0 - 2 /HPF [facility] Urine Bacteria None Seen None Seen [facility] Hyaline Casts, Urine 3-5 0 - 2 /LPF [facility] Urine 11/03/2024 11:0 8 AM EDT 11/03/2024 12:49 PM EDT Narrative [facility] - 11/03/2024 1:04 PM EDT Urine, Clean Catch [facility] LAB URINE ORDERABLES Final Re sult Performing Organization Address [facility] Co de Phone Number [facility] [address] [place] [phone] * (ABNORMAL) TSH W/Reflex to FT4 (11/03/2024 11:08 AM EDT) TSH reflex Free T4 7.90(H) 0.32 - 4.0 uIU/mL [facility] Blood Venous blood specimen / Unknown 11/03/2024 11:08 AM EDT 11/03/2024 12:55 PM EDT [facility] LAB BLOOD ORDERABLES Final Re sult Performing Organization Address [facility] de Phone Number [facility] [address] [place] [phone] * RPR (Monitor) with Reflex to??Titer (11/03/2024 11:08 AM EDT) RPR (Monitor) w/Refl Titer NON-REACTI VE NON-REACT JAX [facility] Comment:THIS TEST WAS PERFOR MED AT:[facility] [place] [phone] CISNEROS MD Rapid Plasma Reagin Ab Titer TNP [facility] Blood Venous blood specimen / Unknown 11/03/2024 11:08 AM EDT 11/03/2024 12:55 PM EDT [facility] LAB BLOOD ORDERABLES Final Re sult Performing Organization Address [facility] Co de Phone Number [facility] [address] [place] [phone] * HIV-1/2 Antigen and Antibodies, Fourth Generation, with Reflexes (11/03/2024 11:08 AM EDT) Pathologist [facility] HIV AB/AG Nonreactive Nonreactive [facility] Comment:HIV-1 p24 Ag and/or HIV-1/HIV-2 Ab not detected.A test result that is nonreactive does not exclude thepossibility of exposure to or infection with HIV-1 and/orHIV-2. Nonreactive results in this assay for individualswith prior exposure to HIV-1 and/or HIV-2 may be due toantigen and antibody levels that are below the limit ofdetection of this assay.The [employer] HIV Ag/Ab Combo assay result andsupplemental assay results should be interpreted inconjunction with the patient's clinical presentation,history and other laboratory results. If the results areinconsistent with clinical evidence, additional testing issuggested to confirm the result. Blood Venous blood specimen / Unknown 11/03/2024 11:08 AM EDT 11/03/2024 12:55 PM EDT [facility] LAB BLOOD ORDERABLES Final Re sult [facility] [address] [place] [phone] * (ABNORMAL) Lipid Panel, Standard (11/03/2024 11:08 AM EDT) Pathologist [facility] Triglycerides 221(H) <150 mg/dL [facility] Comment:Desirable Triglyceri de: less than 150 mg/dLBorderline High Triglyceride 150-199 mg/dLHigh Triglyceride: 200-499 mg/dLVery High Triglyceride: greater than or equal to 5OO mg/dL Cholesterol 158 <200 mg/dL [facility] Comment:Desirable Cholestero l: less than 200 mg/dLBorderline High Cholesterol: 200-239 mg/dLHigh Cholesterol: greater than 239 mg/dL LDL Cholesterol Calculated 96 <100 mg/dL [facility] Comment:Desirable LDL: less than 100 mg/dLNear Optimal/Above Optimal LDL: 110- 129 mg/dLBorderline High LDL: 130-159 mg/dLHigh LDL: 160-189 mg/dLVery High LDL: greater than or equal to 190 mg/dL HDL Cholesterol 18(L) >40 mg/dL [facility] Comment:Desirable HDL: great er than 40 mg/dL Note: This HDL assay may give artificially low results in patients with liver disease. Blood Venous blood specimen / Unknown 11/03/2024 11:08 AM EDT 11/03/2024 12:55 PM EDT [facility] LAB BLOOD ORDERABLES Final Re sult Performing Organization Address [facility] Co de Phone Number [facility] [address] [place] [phone] * Culture, Urine, Routine (11/03/2024 12:00 AM EDT) Urine Urine specimen obtained by clean catch procedure / Unknown 11/03/2024 11/03/2024 Comment:UACC Narrative [facility] - 11/04/2024 8:53 AM EDT Urine Culture No growth. Specimen Source: Urine clean catch [facility] MICROBIOLOGY - GENERAL OR DERABLES Final Result Performing Organization Address [facility] de Phone Number [facility] [address] [place] [phone] * Hepatitis C Antibody with Reflex to HCV, RNA, Quantitative, Real-Time PCR (12/14/2023 12:34 PM EDT) Hepatitis C Antibody Nonreactive Nonreactive [facility] Comment:Antibodies to HCV no t detected; does not exclude early acuteHCV infection. Blood Venous blood specimen / Unknown 12/14/2023 12:34 PM EDT 12/14/2023 1:19 PM EDT [facility] LAB BLOOD ORDERABLES Final Re sult [facility] [address] [place] [phone] * Chlamydia/N. Gonorrhoeae RNA, TMA, Urogenitial (12/14/2023 12:34 PM EDT) CT PCR NOT DETECTED Not Detect. [facility] Comment:A not detected test result [...] psychologicalconsequences. NG PCR NOT DETECTED Not Detect. [facility] Comment:A not detected test result [...] PM EDT 12/14/2023 1:10 PM EDT Narrative [facility] - 12/14/2023 2:52 PM EDT Urine [facility] MICROBIOLOGY - GENERAL OR DERABLES Final Result [facility] [address] [place] [phone] from Last 3 Months or Most Recently Relevant to Health Maintenance Insurance [facility] [id number] Care Teams [employer] Relationship Specialty Start Date End Date AkuaThelma young FNP [address] [place], [place] [id number] PCP - General Family Medicine 12/14/23
--- OUTSIDE RECORDS SUMMARY | 2024-12-09 18:49 | XMS_ITS | Encounter Summary ---
Author Organization [employer] Address [address] [place] [address] Care Team Providers Care School Curriculum Developer Name Role Phone Thelma Fatima [facility] Primary Care Provider [phone] Encounter Details Date Type Department Care Team (Latest Contact Info) Description 11/19/2024 Results Follow-Up [facility] MEDICINE [address] [place] [address] Willow Butterfield MD [address] [place] [address] CBC auto differential, Comprehensive Metabolic Panel, Hepatic [...] Description 02/19/2025 2:00 PM EST Office Visit [facility] OPTOMETRY [address] [place], [place] [phone] TarkaKatheryn, OD [address] [place] [address] documented as of this encounter Visit Diagnoses Not on filedocumented in this encounter Additional Health Concerns Assessment Noted Time PHQ-9 Depression Total Score: 0 03/21/19 25 2:22 PM EST documented as of this encounter Care Teams School Curriculum Developer Relationship Specialty Start Date End Date Thelma Fatima FNP [address] [place] [id number] PCP - General Family Medicine 12/14/23 documented as of this encounter
--- OUTSIDE RECORDS SUMMARY | 2024-12-09 18:49 | XMS_ITS | Encounter Summary ---
Author Organization [facility] Address [address] [place] [address] Phone Care Team Providers Care Pediatric Audiologist Name Role Phone Julia Blood NP Primary Care Provider [phone] Encounter Details Date Type Department Care Team (Late st Contact Info) Description 11/02/2016 Conversion Encounter [facility] [address] [place] [address] Social History Tobacco Use Types Packs/Day Years [...] on filedocumented in this encounter Care Teams Pediatric Audiologist Relationship Specialty Start Date End Date Julia Blood NP [address] [place] [address] PCP - General Pediatrics 08/13/24 documented as of this encounter
[2024-12-10 02:37] LABS: CT PCR Urine NOT DETECTED (Not Detect.); NG PCR Urine NOT DETECTED (Not Detect.)
== END 2024-12-09 17:22 | disposition home or self-care (01) ==
LOC: HO.LNP 17:21
PROVIDERS: Visit Provider Family Medicine
DX: R30.0 Dysuria (principal)
CPT/HCPCS: 87086; 87491; 87591

== ENCOUNTER 2024-12-11 12:03 | Outpatient (REF) | payer MEDICARE, MEDICAID, SELFPAY ==
[2024-12-11 12:56] LABS: MANUAL DIFF FLAG NO
[2024-12-11 13:40] LABS: Hematocrit 42.0 % (42.0-52.0); Hemoglobin 14.2 g/dl (14.0-18.0); Imm Gran Abs Auto 0.01 X10*3/uL (0.00-0.03); Imm Gran Pct Auto 0.2 % (0.0-0.4); Lymphocytes Absolute Auto 2.7 X10*3/uL (1.2-4.9); Mean Corpuscular HGB Conc 33.8 g/dl (31.0-36.0); Mean Corpuscular Hemoglobin 29.0 pg (27.0-33.0); Mean Corpuscular Volume 85.9 fL (80.0-98.0); NRBC Abs Auto 0.000 X10*3/uL (0.0-0.012); NRBC Pct Auto 0.0 /100WBC (0.0-0.2); Platelet Count 185 X10*3/uL (160-400); Red Blood Count 4.89 X10*6/uL (4.60-5.80); White Blood Count 5.9 X10*3/uL (4.8-10.8)
[2024-12-11 13:55] LABS: Lithium < 0.10 mmol/L (0.60-1.20)
[2024-12-11 14:07] LABS: Alanine Aminotransferase 31 U/L (0-40); Albumin Level 4.3 g/dL (3.5-5.0); Alkaline Phosphatase 51 U/L (39-117); Anion Gap 11 (12-20); Aspartate Amino Transferase 31 U/L (5-37); Blood Urea Nitrogen 7 mg/dL (9-16); Calcium 9.6 mg/dL (8.4-10.2); Carbon Dioxide 26 mmol/L (22-29); Chloride 113 mmol/L (96-108); Estimated Glomerular Filt Rate > 60; Potassium 4.0 mmol/L (3.3-5.1); Sodium 146 mmol/L (135-145); Total Protein 6.9 g/dL (6.5-8.0)
== END 2024-12-11 12:04 | disposition home or self-care (01) ==
LOC: HO.LAB 12:03
PROVIDERS: PCP Internal Medicine; Visit Provider Nurse Practitioner
DX: R40.4 Transient alteration of awareness (principal); R25.1 Tremor, unspecified; F31.81 Bipolar II disorder; Z79.899 Other long term (current) drug therapy
CPT/HCPCS: 36415; 80053; 80164; 80178; 82248; 85025; 99202

== ENCOUNTER 2024-12-11 12:03 | Outpatient (AMB) | payer MEDICARE, MEDICAID, SELFPAY ==
--- OUTSIDE RECORDS SUMMARY | 2024-12-09 11:45 | XMS_ITS | Encounter Summary ---
Author Organization [employer] Address [address] [facility] 7t [place] [address] Care Team Providers Care Director Of Accounting Name Role Phone [employer] [facility] Primary Care Provider [phone] Reason for Visit * Reason Comments sick visit Encounter Details Date Type Department Care Team (Late st Contact Info) Description 12/09/2024 11:45 AM EDT Office Visit [facility] MEDICINE 230 [place], [place] [phone] Niki Bar DO [address] [place], [place] [phone] Dysuria Social History Tobacco Use Types Packs/Day Years [...] AM EDT documented as of this encounter Last Filed Vital Signs Vital Sign Reading Time Taken Comments Blood Pressure 120/84 12/09/2024 12:07 PM EDT Pulse 92 12/09/2024 12:07 PM EDT Temperature 36.9 C (98.4 F) 12/09/2024 12:07 PM EDT Respiratory Rate 20 12/09/2024 12:07 PM EDT Oxygen Saturation 96% 12/09/2024 12:07 PM EDT Inhaled Oxygen Concentration - - Weight 121 kg (267 lb) 12/09/2024 12:07 PM EDT Height 172.7 cm (5' 8 ) 12/09/2024 12:07 PM EDT Body Mass Index 40.6 12/09/2024 12:07 PM EDT documented in this encounter Plan of Treatment Upcoming Encounters Date Type Department Care Team (Late st Contact Info) Description 02/19/2025 2:00 PM EST Office Visit [facility] OPTOMETRY [address] [place] [address] Katheryn Duran, OD [address] [place] [address] documented as of this encounter Procedures Procedure Name Priority Date/Time Associated Diagnosis Comments POCT URINALYSIS DIPSTICK Routine 12/09/2024 12:01 PM EDT Dysuria CHLAMYDIA/TRICHOMONA S/NEISSERIA GONORRHOEAE, PCR, URINE Routine 12/09/2024 12:00 PM EDT Dysuria CULTURE, URINE, ROUTINE Routine 12/09/2024 11:45 AM EDT Dysuria documented in this encounter Results * POCT Urinalysis (12/09/2024 12:01 PM EDT) Color, UA Light Yellow Clarity, UA Clear Glucose, UA Negative Bilirubin, UA Negative Ketones, UA Negative Spec Grav, UA 1.010 Blood, UA Negative Negative, None Detected pH, UA 7.0 Protein, UA Negative Urobilinogen, UA 0.2 Leukocytes, UA Negative Negative, Rare, Trace Nitrite, UA Negative Negative, None Detected Appearance, UA light yellow clear Urine 12/09/2024 12:0 1 PM EDT Niki Bar DO POINT OF CARE TEST ENTER/LOIS T ORDERABLES Final Result * Chlamydia/N. Gonorrhoeae, PCR, Urine (12/09/2024 12:00 PM EDT) CT PCR, Urine NOT DETECTED Not Detect. [facility] Comment:A not detected test result does not exclude the possibilityof infection because test results can be affected byimproper specimen collection, concurrent antibiotic therapy,or the number of organisms in the specimen which may bebelow the sensitivity of the test. As with many diagnostictests, results from the Xpert CT/NG assay should beinterpreted in conjunction with other laboratory andclinical data available to the clinician.The Xpert CT/NG assay should not be used for the evaluationof suspected sexual abuse or for other medico-legalindications. Additional testing is recommended in anycircumstance when false positive or false negative resultscould lead to adverse medical, social or psychologicalconsequences. NG PCR, Urine NOT DETECTED Not Detect. [facility] Comment:A not detected test result does not exclude the possibilityof infection because test results can be affected byimproper specimen collection, concurrent antibiotic therapy,or the number of organisms in the specimen which may bebelow the sensitivity of the test. As with many diagnostictests, results from the Xpert CT/NG assay should beinterpreted in conjunction with other laboratory andclinical data available to the clinician.The Xpert CT/NG assay should not be used for the evaluationof suspected sexual abuse or for other medico-legalindications. Additional testing is recommended in anycircumstance when false positive or false negative resultscould lead to adverse medical, social or psychologicalconsequences. Urine (Urine, Random) 12/09/2024 12:00 PM EDT 12/09/2024 7:12 PM EDT Niki Bar DO LAB URINE ORDERABLES Final R esult Performing Organization Address [facility] Co de Phone Number [facility] [address] [place] [phone] * Culture, Urine, Routine (12/09/2024 11:45 AM EDT) Urine Urine specimen obtained by clean catch procedure / Unknown 12/09/2024 11:45 AM EDT 12/09/2024 5:22 PM EDT Comment:CC Narrative [facility] - 12/11/2024 10:10 AM EDT Urine Culture No growth. Specimen Source: Urine clean catch Niki Bar DO LAB MICROBIOLOGY - GENERAL O RDERABLES Final Result Performing Organization Address [facility] Co de Phone Number [facility] [address] [place] [phone] documented in this encounter Visit Diagnoses Diagnosis Dysuria documented in this encounter Additional Health Concerns Assessment Noted Time PHQ-9 Depression Total Score: 0 03/21/19 25 2:22 PM EST documented as of this encounter Care Teams Director Of Accounting Relationship Specialty Start Date End Date Chambers SETH Renee [address] [place] [phone] PCP - General Family Medicine 12/14/23 documented as of this encounter
[2024-12-11 12:12] VITALS: BP 124/86; PULSE 97; RESP 16; O2SAT 97; BMI 39.9
--- NOTE | 2024-12-11 12:12 | A.OFFVIS_ITS ---
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 He presents today for evaluation of tremor and possible seizure-like activity. Himanshu presents to the clinic today accompanied by a staff member from his alf. According to the alf staff member who provides much of his history today, he has been experiencing a tremor for many years though has been potentially slightly worse over the course of the last year or so. Recently, he was on lithium for treatment of his mood disorder and it was noted to be a toxic levels. This has been discontinued in hopes that the tremor would have been resolved however his tremor did continue with discontinuation of the lithium. He is also on Depakote 1500 mg daily for treatment of his moods which he has been on since at least June of last year. It is believed that the tremor possibly predated the use of Depakote though it is not clear. There was no known family history of tremor that Himanshu is aware of. His tremor is more notable when he is doing things with his hands or feeling more anxious. It resolves with rest. [facility] staff also has some concerns regarding him ?spacing out? and having some episodes of staring. It is sometimes difficult to get his attention during these episodes and Himanshu has a hard time recalling these events when they occur. He does not have any shaking or abnormal movements during these events. Himanshu also does report awakening from sleep at times having had been his tongue. [facility] staff has also noted some intermittent episodes of urinary incontinence during the day. This is a new finding/behavior. There was no known history of seizure in his family that she is aware of. He can not recall if he had any traumatic history or prematurity. He does not recall any significant illnesses as a child or hospitalizations for acute illnesses that he is aware of. Prior workup: Valproic acid level 11/12/2024: 79 Valproic acid level 12/11/2024: 61.5 Routine EEG 12/02/2024: Mildly abnormal EEG. One possible bifrontal sharp wave noted. Social: Currently living in a alf Attends a school program during the week Denies use of alcohol Admits to intermittent use of marijuana Reports using nicotine gum but does not smoke tobacco [facility] Medical History (Updated 12/12/24 @ 09:59 by Niurka Montaño CNP) Seizures ADHD Review of Systems Const All systems reviewed & are unremarkable except as noted in HPI and below Physical Exam Exam Exam: PT declined physical exam Vital Signs: Last Vital Signs Pulse 97 12/11/24 12:12 Resp 16 12/11/24 12:12 BP 124/86 12/11/24 12:12 Pulse Ox 97 12/11/24 12:12 BMI result Body Mass Index 39.9 Const General: healthy appearing, no acute distress, alert and awake Psych Affect: Irritable affect present Attitude: Guarded attititude/behavior present and Refuses to answer (attititude/behavior) Assessment & Plan Assessment & Plan (1) Tremor: Code(s): R25.1 - Tremor, unspecified Category: Medical (2) Staring episodes: Code(s): R40.4 - Transient alteration of awareness Category: Medical Plan Himanshu is a 19-year-old male patient with a past medical history of mood disorder for which he is on a combination of lithium and valproic acid. He presents today for evaluation of tremor and possible seizure-like activity. Himanshu was nonverbal today only participating in his history by shaking his head yes or no with direct questions. His alf staff member does provide most of the history today. He does have an ongoing tremor to his bilateral upper extremities with activity which was only mildly present on exam today though he did decline an in-depth exam today. There was no tremor at rest. He has been on lithium in the past and he is currently on Depakote. His prior medication use and longevity of the tremor are somewhat unknown. I suspect that his tremor is either an essential tremor or possibly drug-induced. Other concerns include staring episodes intermittently noticed by alf staff, tongue biting during sleep, and episodes of urinary incontinence. His EEG earlier this month was only mildly abnormal without any clear evidence of seizure activity or epileptiform discharges. I am recommending he have a longer study. We should also obtain an MRI of the brain with and without contrast. The patient is agreeable if the study is performed with an open MRI machine. I will have him follow up in 3 months once these studies are performed to review and discuss any need for further workup or treatment. For now, he can continue Depakote 1500 mg daily taken for his moods. - 48hr ambulatory EEG -MRI brain with and without contrast and with seizure protocol -open [facility] at [facility] -Follow-up in 3 months Coding Level of Care Code New Pt Level 4 (77996) Diagnoses Tremor R25.1 Staring episodes R40.4
--- OUTSIDE RECORDS SUMMARY | 2024-12-11 17:03 | XMS_ITS | Encounter Summary ---
Author Organization [employer] Address [address] [place] [address] Care Team Providers Care Sales Receptionist Name Role Phone Thelma Fatima [facility] Primary Care Provider [phone] Encounter Details Date Type Department Care Team (Latest Contact Info) Description 11/19/2024 Results Follow-Up [facility] MEDICINE [address] [place] [address] Willow Butterfield MD [address] [place] [address] CBC auto differential, Comprehensive Metabolic Panel, Hepatic [...] 2:00 PM EST Office Visit [facility] OPTOMETRY [address] [place], [place] [id number] TarkaKatheryn, OD [address] [place] [address] documented as of this encounter Visit Diagnoses Not on filedocumented in this encounter Additional Health Concerns Assessment Noted Time PHQ-9 Depression Total Score: 0 03/21/19 25 2:22 PM EST documented as of this encounter Care Teams Sales Receptionist Relationship Specialty Start Date End Date Thelma Fatima FNP [address] [place] [id number] PCP - General Family Medicine 12/14/23 documented as of this encounter
--- OUTSIDE RECORDS SUMMARY | 2024-12-11 17:03 | XMS_ITS | Clinical Summary ---
Author Organization [employer] Address [address] [place] [address] [address] [place] [address] Care Team Providers Care Video Poker Floorman Name Role Phone [place] [facility] Primary Care Provider Allergies Active Allergy Reactions Criticality Noted Date Comments Blueberry Flavoring Agent (Non-Screening) Unknown 12/14/2023 Triana Unknown 12/14/2023 Fish Allergy Unknown 12/14/2023 [place] Extract Unknown 12/14/2023 Medications * This document [...] Encounters Date Type Department Care Team Description 12/11/2024 Orders Only GENERIC EXTERNAL DATA DEPARTMENT Provider, Generic External Data 12/09/2024 11:45 AM EDT Office Visit [facility] [address] [place] [address] Niki Bar DO Dysuria 12/09/2024 Travel 12/03/2024 Telephone [facility] [address] [place] [address] Thelma Fatima FNP Nurse Triage 12/01/2024 Telephone [facility] [address] [place] [address] Thelma Fatima FNP 11/21/2024 Telephone [facility] [address] [place] [address] Thelma Fatima FNP Care Coordination 11/20/2024 Telephone [facility] [place] [address] Thelma Fatima FNP Telephone Call 11/19/2024 Results Follow-Up [facility] [place] [place] [address] Willow Butterfield MD CBC auto differential, Comprehensive Metabolic Panel, Hepatic Function Panel, Additional followed-up results: 6 11/12/2024 Orders Only [facility] [place] [address] Willow Butterfield MD 11/12/2024 Telephone [facility] [place] [address] Thelma Fatima FNP Call Back Request 11/05/2024 Telephone [facility] [place] [address] Thelma Fatima FNP Care Coordination 11/04/2024 Orders Only GENERIC EXTERNAL DATA DEPARTMENT Provider, Generic External Data 11/03/2024 10:00 AM EDT Office Visit [facility] [place] [address] Thelma Fatima FNP Intention tremor (Primary Dx); [...] Dietary counseling; Exercise counseling 11/03/2024 Results Follow-Up [facility] [place] [address] Thelma Fatima FNP Pitman, Valproic Acid Total, CBC auto differential, Additional followed-up results: 6 11/03/2024 Orders Only [facility] [place] [address] Thelma Fatima FNP 11/03/2024 Telephone [facility] [place] [address] Thelma Fatima FNP Critical Pitman level 11/03/2024 Travel 10/31/2024 Telephone [facility] [address], [place] [phone] Thelma Fatima FNP Chart Prep 10/24/2024 Patient Outreach [facility] [address], [place] [phone] Thelma Fatima FNP Pre-visit Planning ((Unable to reach for PVP screening or LVM) to be completed in office ) 09/22/2024 Refill [facility] [address] [place] [address] Thelma Fatima FNP 09/12/2024 Telephone [facility] [address], [place] [phone] Thelma Fatima FNP Results from Last 3 [...] 03/04/2008,01/27/2005 Meningococcal MCV4P ACYW-135 12/15/2020,08/02/19 16 Novel [id number], all formulations 04/22/2009 Pneumococcal Conjugate PCV 7 [...] Description 02/19/2025 2:00 PM EST Office Visit [facility] OPTOMETRY [address] [place] [address] Katheryn Duran, OD [address] [place] [address] Health Maintenance Due Date Last Done Comments [...] Procedure Name Priority Date/Time Associated Diagnosis Comments HEPATIC FUNCTION PANEL Routine 12/11/2024 12:53 PM EDT COMPREHENSIVE METABOLIC PANEL Routine 12/11/2024 12:53 PM EDT VALPROIC ACID Routine 12/11/2024 12:53 PM EDT LITHIUM Routine 12/11/2024 12:53 PM EDT CBC WITH AUTO DIFFERENTIAL Routine 12/11/2024 12:53 PM EDT POCT URINALYSIS DIPSTICK Routine 12/09/2024 12:01 PM EDT Dysuria CHLAMYDIA/TRICHOMONAS /NEISSERIA GONORRHOEAE, PCR, URINE Routine 12/09/2024 12:00 PM EDT Dysuria CULTURE, URINE, ROUTINE Routine 12/09/2024 11:45 AM EDT Dysuria T3, FREE Routine 11/12/2024 3:28 [...] Maintenance Results * (ABNORMAL) CBC auto differential (12/11/2024 12:53 PM EDT) Only the most recent of4 resultswithin the time period is included. White Blood Count 5.9 4.8 - 10.8 X10*3/uL [facility] Red Blood Count 4.89 4.60 - 5.80 X10*6/uL [facility] Hemoglobin 14.2 14.0 - 18.0 g/dl [facility] Hematocrit 42.0 42.0 - 52.0 % [facility] Mean Corpuscular Volume 85.9 80.0 - 98.0 fL [facility] Mean Corpuscular Hemoglobin 29.0 27.0 - 33.0 pg [facility] Mean Corpuscular HGB Conc 33.8 31.0 - 36.0 g/dl [facility] Red Cell Distribution Width 13.7 11.0 - 16.0 % [facility] Platelet Count 185 160 - 400 X10*3/uL [facility] Mean Platelet Volume 12.3 9.4 - 12.4 fL [facility] Neutrophils Percent Auto 36.8(L) 45 - 73 % [facility] Imm Gran Pct Auto 0.2 0.0 - 0.4 % [facility] Lymphocytes Percent Auto 46.1(H) 20 - 40 % [facility] Monocytes Percent Auto 9.9 2 - 11 % [facility] Eosinophils Percent Auto 6.1(H) 0 - 4 % [facility] Basophils Percent Auto 0.9 0 - 2 % [facility] NRBC Pct Auto 0.0 0.0 - 0.2 /100WBC [facility] Neutrophils Absolute Auto 2.2 2.0 - 8.3 x10*3/uL [facility] Imm Gran Abs Auto 0.01 0.00 - 0.03 X10*3/uL [facility] Lymphocytes Absolute Auto 2.7 1.2 - 4.9 X10*3/uL [facility] Monocytes Absolute Auto 0.6 0.1 - 1.2 X10*3/uL [facility] Eosinophils Absolute Auto 0.4 0.0 - 0.4 X10*3/uL [facility] Basophils Absolute Auto 0.1 0.0 - 0.2 X10*3/uL [facility] NRBC Abs Auto 0.000 0.0 - 0.012 X10*3/uL [facility] 12/11/2024 12:5 3 PM EDT 12/11/2024 12:53 PM EDT us Generic External Data Provider LAB BLOOD ORDERAB LES Final Result Performing Organization Address City/Va Hospital/ZIP Co de Phone Number [facility] [address] [place] [phone] * (ABNORMAL) Pitman (12/11/2024 12:53 PM EDT) Only the most recent of6 resultswithin the time period is included. Pitman <0.10(L) 0.60 - 1.20 mmol/L [facility] 12/11/2024 12:5 3 PM EDT 12/11/2024 12:53 PM EDT us Generic External Data Provider LAB BLOOD ORDERAB LES Final Result Performing Organization Address City/[facility] Hospital/ZIP Co de Phone Number [facility] [address] [place] [address] [phone] * Valproic Acid Total (12/11/2024 12:53 PM EDT) Only the most recent of3 resultswithin the time period is included. Valproate 61.5 50.0 - 100.0 mcg/mL [facility] 12/11/2024 12:5 3 PM EDT 12/11/2024 12:53 PM EDT Generic External Data Provider LAB BLOOD ORDERAB LES Final Result Performing Organization Address City/Va Hospital/ZIP Co de Phone Number [facility] [address] [place] [address] [phone] * Hepatic Function Panel (12/11/2024 12:53 PM EDT) Only the most recent of2 resultswithin the time period is included. Pathologist [facility] Bilirubin, Direct <0.2 0.0 - 0.5 mg/dL [facility] 12/11/2024 12:5 3 PM EDT 12/11/2024 12:53 PM EDT Generic External Data Provider LAB BLOOD ORDERAB LES Final Result Performing Organization Address [place]/[facility] Co de Phone Number [facility] [address] [place] [phone] * (ABNORMAL) Comprehensive Metabolic Panel (12/11/2024 12:53 PM EDT) Only the most recent of4 resultswithin the time period is included. Sodium 146(H) 135 - 145 mmol/L [facility] Potassium 4.0 3.3 - 5.1 mmol/L [facility] Chloride 113(H) 96 - 108 mmol/L [facility] Carbon Dioxide 26 22 - 29 mmol/L [facility] Anion Gap 11(L) 12 - 20 [facility] Urea Nitrogen (BUN) 7(L) 9 - 16 mg/dL [facility] Creatinine, Serum 0.73 0.5 - 1.4 mg/dL [facility] Estimated Glomerular Filt Rate >60 [facility] Comment:Chronic Kidney Disea se: Estimated GFR < 60 mL/min/[id number] Kidney Disease: Estimated GFR < 15 mL/min/1.73m2 Glucose 84 60 - 115 mg/dL [facility] Calcium 9.6 8.4 - 10.2 mg/dL [facility] Bilirubin, Total 0.2 0.0 - 1.0 mg/dL [facility] Aspartate Amino Transferase 31 5 - 37 U/L [facility] Alanine Aminotransferase 31 0 - 40 U/L [facility] Total Protein 6.9 6.5 - 8.0 g/dL [facility] Albumin Level 4.3 3.5 - 5.0 g/dL [facility] Alkaline Phosphatase 51 39 - 117 U/L [facility] 12/11/2024 12:5 3 PM EDT 12/11/2024 12:53 PM EDT us Generic External Data Provider LAB BLOOD ORDERAB LES Final Result Performing Organization Address City/State/[facility] Co de Phone Number [facility] [address] [place] [address] [phone] * POCT Urinalysis (12/09/2024 12:01 PM EDT) [...] CT PCR, Urine NOT DETECTED Not Detect. [facility] Comment:A not detected test result [...] NG PCR, Urine NOT DETECTED Not Detect. [facility] Comment:A not detected test result [...] 12:00 PM EDT 12/09/2024 7:12 PM EDT us Niki Bar DO LAB URINE ORDERABLES Final R esult [facility] [address] [place] [address] [phone] * Culture, Urine, Routine (12/09/2024 11:45 AM EDT) Only the most recent of2 resultswithin the time period is included. Urine Urine specimen obtained by clean catch procedure / Unknown 12/09/2024 11:45 AM EDT 12/09/2024 5:22 PM EDT Comment:UACC Narrative [facility] - 12/11/2024 10:10 AM EDT Urine Culture No growth. Specimen Source: Urine clean catch Niki Bar DO LAB MICROBIOLOGY - GENERAL O RDERABLES Final Result Performing Organization Address [place] Co de Phone Number [facility] [address] [place] [address] [phone] * Renal Panel w/Reflex (11/12/2024 3:28 PM EDT) Phosphorus 4.2 2.7 - 4.5 mg/dL [facility] 11/12/2024 3:28 PM EDT 11/12/2024 3:28 PM EDT Willow Butterfield MD LAB BLOOD ORDERABLES Fin al Result Performing Organization Address [facility] Co de Phone Number [facility] [address] [place] [address] [phone] * T3, Free (11/12/2024 3:28 PM EDT) T3, Free 3.9 3.0 - 4.7 pg/mL [facility] Comment:THIS TEST WAS PERFOR MED AT:[employer] [address] [id number] CISNEROS MD 11/12/2024 3:28 PM EDT 11/12/2024 3:28 PM EDT Willow Butterfield MD LAB BLOOD ORDERABLES Fin al Result Performing Organization Address [place] Co de Phone Number [facility] [address] [place] [address] [phone] * (ABNORMAL) TSH (11/12/2024 3:28 PM EDT) Thyroid Stimulating Hormone 4.67(H) 0.32 - 4.0 uIU/mL [facility] Comment:Note: A sustained TS H level above 2.5 uIU/mL may warrant further investigation. TSH 3rd Generation ([facility]) 11/12/2024 3:28 PM EDT 11/12/2024 3:28 PM EDT Willow Butterfield MD LAB BLOOD ORDERABLES Fin al Result Performing Organization Address [place]/[facility]/ZIP Co de Phone Number [facility] [address] [place] [address] [phone] * T4, Free (11/12/2024 3:28 PM EDT) Only the most recent of2 resultswithin the time period is included. Free T4 (Free Thyroxine) 0.79 0.71 - 1.85 ng/dL [facility] 11/12/2024 3:28 PM EDT 11/12/2024 3:28 PM EDT Willow Butterfield MD LAB BLOOD ORDERABLES Fin al Result Performing Organization Address [place] Co de Phone Number [facility] [address] [place] [phone] * (ABNORMAL) Basic Metabolic Panel (11/03/2024 9:09 PM EDT) Pathologist [facility] Sodium 141 135 - 145 mmol/L [facility] Potassium 3.7 3.3 - 5.1 mmol/L [facility] Chloride 110(H) 96 - 108 mmol/L [facility] Carbon Dioxide 22 22 - 29 mmol/L [facility] Anion Gap 13 12 - 20 [facility] Urea Nitrogen (BUN) 11 9 - 16 mg/dL [facility] Creatinine, Serum 1.15 0.5 - 1.4 mg/dL [facility] Creatinine Clr Calc Pharmacy 137.7 [facility] Comment:eGFR (calculated fro m the MDRD study equation) and eCrCl(calculated from the Cockcroft-Gault equation) are based ondifferent parameters and may not yield comparable results.If eCrCl result is absurd, please check patient'sheight/weight. Estimated Glomerular Filt Rate >60 [facility] Comment:Chronic Kidney Disea se: Estimated GFR < 60 mL/min/1.80k9Ufaafs Kidney Disease: Estimated GFR < 15 mL/min/1.73m2 Glucose 112 60 - 115 mg/dL [facility] Calcium 9.5 8.4 - 10.2 mg/dL [facility] 11/03/2024 9:09 PM EDT 11/03/2024 9:12 PM EDT us Generic External Data Provider LAB BLOOD ORDERAB LES Final Result [facility] [address] [place] [phone] * Drug Monitoring, Panel 1, Screen, Urine (11/03/2024 7:19 PM EDT) Opiate Screen Urine Not Detected Not Detect [facility] Comment:Opiate cut-off is 30 0 ng/mL.Positive results are unconfirmed and should not be used fornon-medical purposes. Barbiturates, Urine Not Detected Not Detect [facility] Comment:Barbiturate cut-off is 200 ng/mL.Positive results are unconfirmed and should not be used fornon-medical purposes. Phencyclidine Screen Urine Not Detected Not Detect [facility] Comment:Phencyclidine cut-of f is 25 ng/mL.Positive results are unconfirmed and should not be used fornon-medical purposes. Amphetamine Screen Urine Not Detected Not Detect [facility] Comment:Amphetamine cut-off is 1000 ng/mL.Positive results are unconfirmed and should not be used fornon-medical purposes. Benzodiazepines Screen Urine Not Detected Not Detect [facility] Comment:Benzodiazepine cut-o ff is 200 ng/mL.Positive results are unconfirmed and should not be used fornon-medical purposes. Cocaine Screen Urine Not Detected Not Detect [facility] Comment:Cocaine cut-off is 3 00 ng/mL.Positive results are unconfirmed and should not be used fornon-medical purposes. Cannabinoid Screen Urine Not Detected Not Detect [facility] Comment:Cannabinoid cut-off is 50 ng/mL.Positive results are unconfirmed and should not be used fornon-medical purposes. Methadone Screen, Urine Not Detected Not Detect ng/mL [facility] Comment:Methadone cut-off is 300 ng/mL.Positive results are unconfirmed and should not be used fornon-medical purposes. FENTANYL URINE Not Detected Not Detect [facility] Comment:Fentanyl cut-off is 1 ng/mL.Positive results are unconfirmed and should not be used fornon-medical purposes. Oxycodone Urine Screen Not Detected Not Detect ng/mL [facility] Comment:Oxycodone cut-off is 100 ng/mL.Positive results are unconfirmed and should not be used fornon-medical purposes. Buprenorphine Screen Not Detected Not Detect ng/mL [facility] Comment:Buprenorphine cut-of f is 5 ng/mL.Positive results are unconfirmed and should not be used fornon-medical purposes. 11/03/2024 7:19 PM EDT 11/03/2024 7:23 PM EDT us Generic External Data Provider LAB URINE ORDERAB LES Final Result Performing Organization Address City/Va Hospital/ZIP Co de Phone Number [facility] [address] [place] [address] [phone] * SST GOLD TOP TO HOLD (11/03/2024 6:16 PM EDT) Hold Gold See Note [facility] Comment:Specimen held untest ed for 24 hours; Call to requestChemistry testing. 11/03/2024 6:16 PM EDT 11/03/2024 6:31 PM EDT us Generic External Data Provider LAB BLOOD ORDERAB LES Final Result Performing Organization Address City/Va Hospital/ZIP Co de Phone Number [facility] [address] [place] [phone] * Magnesium (11/03/2024 6:16 PM EDT) Magnesium 2.1 1.6 - 2.6 mg/dL [facility] 11/03/2024 6:16 PM EDT 11/03/2024 6:21 PM EDT us Generic External Data Provider LAB BLOOD ORDERAB LES Final Result Performing Organization Address [place]/[facility]/ZIP Co de Phone Number [facility] [address] [place] [address] [phone] * (ABNORMAL) Urinalysis, Complete, with Reflex to Culture (11/03/2024 11:08 AM EDT) Color Urine Yellow [facility] Appearance Urine Clear [facility] PH 8.0 5.0 - 9.0 [facility] Glucose Urine UA Negative Negative mg/dL [facility] Urine Blood Negative Negative [facility] Specific [place] - Urine <=1.005 1.005 - 1.025 [facility] Urine Protein Trace Neg-Trace mg/dL [facility] Urine Ketones Negative Negative mg/dL [facility] Nitrite Urine Negative Negative [facility] Leukocyte Esterase Urine Moderate (2+)(A) Negative [facility] RBC Urine 0-2 0 - 2 /HPF [facility] Urine WBC 11-20(A) 0 - 5 /HPF [facility] Urine Squamous Epithelial Cell 0-2 0 - 2 /HPF [facility] Urine Bacteria None Seen None Seen [facility] Hyaline Casts, Urine 3-5 0 - 2 /LPF [facility] Urine 11/03/2024 11:0 8 AM EDT 11/03/2024 12:49 PM EDT Narrative [facility] - 11/03/2024 1:04 PM EDT Urine, Clean Catch [facility] [employer] LAB URINE ORDERABLES Final Re sult Performing Organization Address [place]/[facility]/ZIP Co de Phone Number [facility] [address] [place] [address] [place] [phone] * (ABNORMAL) TSH W/Reflex to FT4 (11/03/2024 11:08 AM EDT) Pathologist [facility] TSH reflex Free T4 7.90(H) 0.32 - 4.0 uIU/mL [facility] Blood Venous blood specimen / Unknown 11/03/2024 11:08 AM EDT 11/03/2024 12:55 PM EDT [employer] LAB BLOOD ORDERABLES Final Re sult Performing Organization Address [place]/[facility]/ZIP Co de Phone Number [facility] [address] [place] [address] [phone] * RPR (Monitor) with Reflex to??Titer (11/03/2024 11:08 AM EDT) [facility] RPR (Monitor) w/Refl Titer NON-REACTI VE NON-REACT JAX [facility] Comment:THIS TEST WAS PERFOR MED AT:[email or web address] [place] [id number] CISNEROS MD Rapid Plasma Reagin Ab Titer TNP [facility] Blood Venous blood specimen / Unknown 11/03/2024 11:08 AM EDT 11/03/2024 12:55 PM EDT [employer] LAB BLOOD ORDERABLES Final Re sult Performing Organization Address City/[facility] Hospital/ZIP Co de Phone Number [facility] [address] [place] [phone] * HIV-1/2 Antigen and Antibodies, Fourth Generation, with Reflexes (11/03/2024 11:08 AM EDT) Pathologist [facility] HIV AB/AG Nonreactive Nonreactive [facility] Comment:HIV-1 p24 Ag and/or HIV-1/HIV-2 Ab not detected.A test result that is nonreactive does not exclude thepossibility of exposure to or infection with HIV-1 and/orHIV-2. Nonreactive results in this assay for individualswith prior exposure to HIV-1 and/or HIV-2 may be due toantigen and antibody levels that are below the limit ofdetection of this assay.The [employer] HIV Ag/Ab Combo assay result andsupplemental assay results should be interpreted inconjunction with the patient's clinical presentation,history and other laboratory results. If the results areinconsistent with clinical evidence, additional testing issuggested to confirm the result. Blood Venous blood specimen / Unknown 11/03/2024 11:08 AM EDT 11/03/2024 12:55 PM EDT [employer] LAB BLOOD ORDERABLES Final Re sult [facility] [address] [place] [address] [phone] * (ABNORMAL) Lipid Panel, Standard (11/03/2024 11:08 AM EDT) Triglycerides 221(H) <150 mg/dL [facility] Comment:Desirable Triglyceri de: less than 150 mg/dLBorderline High Triglyceride 150-199 mg/dLHigh Triglyceride: 200-499 mg/dLVery High Triglyceride: greater than or equal to 5OO mg/dL Cholesterol 158 <200 mg/dL [facility] Comment:Desirable Cholestero l: less than 200 mg/dLBorderline High Cholesterol: 200-239 mg/dLHigh Cholesterol: greater than 239 mg/dL LDL Cholesterol Calculated 96 <100 mg/dL [facility] Comment:Desirable LDL: less than 100 mg/dLNear Optimal/Above Optimal LDL: 110- 129 mg/dLBorderline High LDL: 130-159 mg/dLHigh LDL: 160-189 mg/dLVery High LDL: greater than or equal to 190 mg/dL HDL Cholesterol 18(L) >40 mg/dL [facility] Comment:Desirable HDL: great er than 40 mg/dL Note: This HDL assay may give artificially low results in patients with liver disease. Blood Venous blood specimen / Unknown 11/03/2024 11:08 AM EDT 11/03/2024 12:55 PM EDT [employer] LAB BLOOD ORDERABLES Final Re sult [facility] [address] [place] [phone] * Hepatitis C Antibody with Reflex to HCV, RNA, Quantitative, Real-Time PCR (12/14/2023 12:34 PM EDT) Hepatitis C Antibody Nonreactive Nonreactive [facility] Comment:Antibodies to HCV no t detected; does not exclude early acuteHCV infection. Blood Venous blood specimen / Unknown 12/14/2023 12:34 PM EDT 12/14/2023 1:19 PM EDT [employer] [facility] [employer] LAB BLOOD ORDERABLES Final Re sult Performing Organization Address City/Va Hospital/ZIP Co de Phone Number [facility] [address] [place] [phone] * Chlamydia/N. Gonorrhoeae RNA, TMA, Urogenitial (12/14/2023 12:34 PM EDT) CT PCR NOT DETECTED Not Detect. [facility] Comment:A not detected test result [...] psychologicalconsequences. NG PCR NOT DETECTED Not Detect. [facility] Comment:A not detected test result [...] PM EDT 12/14/2023 1:10 PM EDT Narrative [facility] - 12/14/2023 2:52 PM EDT Urine [employer] LAB MICROBIOLOGY - GENERAL OR DERABLES Final Result [facility] [address] [place] [phone] from Last 3 Months or Most Recently Relevant to Health Maintenance Insurance [facility] STANDARD MEDICARE Care Teams Video Poker Floorman Relationship Specialty Start Date End Date Akua SETH Renee [address] [place] [address] PCP - General Family Medicine 12/14/23
--- OUTSIDE RECORDS SUMMARY | 2024-12-11 17:03 | XMS_ITS | Encounter Summary ---
Author Organization [email or web address] Address [address] [facility] 7t [place] [address] Care Team Providers Care Visor Installer Name Role Phone Akua [facility] Primary Care Provider [phone] Reason for Visit * Reason Comments Med Change Request Encounter Details Date Type Department Care Team ([facility] st Contact Info) Description 03/23/2024 Refill [facility] MEDICINE [address] [place], [place] [phone] Virginia Box CNM [address] [place], [place] [phone] Social History Tobacco Use Types Packs/Day Years [...] Description 02/19/2025 2:00 PM EST Office Visit [facility] OPTOMETRY [address] [place] [address] Katheryn Duran, OD [address] [place] [address] documented as of this encounter Visit Diagnoses Not on filedocumented in this encounter Additional Health Concerns Assessment Noted Time PHQ-9 Depression Total Score: 0 03/21/19 25 2:22 PM EST documented as of this encounter Care Teams Visor Installer Relationship Specialty Start Date End Date Thelma Fatima FNP [address] [place] [address] PCP - General Family Medicine 12/14/23 documented as of this encounter
--- OUTSIDE RECORDS SUMMARY | 2024-12-11 17:03 | XMS_ITS | Encounter Summary ---
Author Organization [employer] Address [address] [facility] 7t [place] [address] Care Team Providers Care Tray Server Name Role Phone Akua [facility] Primary Care Provider [phone] Reason for Visit * Reason Onset Date Comments Med Refill 02/25/2024 Encounter Details Date Type Department Care Team (Late st Contact Info) Description 02/25/2024 Refill [facility] MEDICINE [address] [place], [place] [phone] Virginia Box CNM [address] [place], [place] [phone] Social History Tobacco Use Types Packs/Day Years [...] PM EST Office Visit [facility] OPTOMETRY [address] [place] [address] Katheryn Duran, OD [address] [place] [address] documented as of this encounter Visit Diagnoses Not on filedocumented in this encounter Additional Health Concerns Assessment Noted Time PHQ-9 Depression Total Score: 21 024 12:37 PM EDT documented as of this encounter Care Teams Tray Server Relationship Specialty Start Date End Date Thelma Fatima FNP [address] [place] [address] PCP - General Family Medicine 12/14/23 documented as of this encounter
--- OUTSIDE RECORDS SUMMARY | 2024-12-11 17:03 | XMS_ITS | Encounter Summary ---
Author Organization [facility] Address [address] [place] [address] Phone Care Team Providers Care Aoc Director Combat Operations Officer Name Role Phone Julia Blood NP Primary Care Provider [phone] Encounter Details Date Type Department Care Team (Late st Contact Info) Description 02/01/2012 Documentation [facility] Family Medicine [address] [place], [place] [phone] Family Medicine, Physician [address] [place], [place] [address] Social History Tobacco Use Types Packs/Day Years [...] on filedocumented in this encounter Care Teams Aoc Director Combat Operations Officer Relationship Specialty Start Date End Date Julia Blood NP [address] [place] [address] PCP - General Pediatrics 08/13/24 documented as of this encounter
--- OUTSIDE RECORDS SUMMARY | 2024-12-11 17:03 | XMS_ITS | Clinical Summary ---
Author Organization [facility] Address [address] [place] [phone] Phone Care Team Providers Care Res Habilitation Assistant Name Role Phone Julia Blood NP Primary Care Provider [phone] Allergies No known active allergies Medications guanFACINE [...] Psychosocial stressors 06/18/2020 Overview (06/18/2020): Silvana from [facility] is calling on an active 51 A. Update given. 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 Zoloft & Tenex 08/2018: Pt now on Risperidone, tenex. Zoloft stopped 3 months ago & Risperadone was started . Melatonin for sleep 07/28/21: Psych admission for SI & Auditory command hallucinations 09/02/21: Pt discharged from the hospital yesterday. He was in the hospital for SI. Pt has an apt with [facility] 09/02/21. 09/06/21: Admitted to [facility] Assessment & Plan (05/15/2022 10:42 AM EST): Followed by Shyann Shell at [facility]. Patient is on risperidone, fluoxetine and guanfacine. To see new psych provider tomorrow Therapist = patient does not know if he sees anyone Assessment & Plan (12/15/2020 11:14 AM EDT): Sees Shyann Gonzalez Q 2-3 mos. Risperidone, tenex. & melatonin patient reports that [facility] does his metabolic labs yearly - he declined them today [place]. IEP in place. Does well Assessment & Plan (09/14/2019 10:37 AM EDT): Followed at [facility] by Shyann Shell She checks routine [...] EDT): In 45 day dx program at [facility] due to behavior issues. Doing better Supposed to go back to [place] but his Gmom does not want him to go back Seeing Shyann Shell monthly. On Tenex, zoloft & respiradone (added 2 months ago) No therapist while in 45 day program. Will reconnect when returns to [place] - sees therapist there from [facility] Immunizations Immunization Administration Dates Next Due [...] Completed 12/15/2020, 016 Procedures * Due to [facility] law, this organization might not be sharing sensitive test results. Procedure Name Priority Date/Time Associated Diagnosis Comments LIPID PANEL Routine 05/15/2022 11:30 AM EST BMI greater than 95% for age [Z68.54] HEMOGLOBIN A1C Routine 05/15/2022 11:30 AM EST BMI greater than 95% for age [Z68.54] from Last 3 Months or Most Recently Relevant to Health Maintenance Results * Due to [facility] law, this organization might not be sharing sensitive test results. * Hemoglobin A1c (05/15/2022 11:30 AM EST) Hemoglobin A1C 5.1 (4.0-5.6) % [facility] Comment: MONITORING: In known diabetic patients, hemoglobin A1c targets should be discussed with health care provider. DIAGNOSTIC USE: The [place] Diabetes Association (ADA) and the World Health [...] Supplement 1 Testing performed or reported by [facility], a Service of [address] [address] Jonn Kay MD, [place] CLIA# [id number] Blood 05/15/2022 11:3 0 AM EST 05/15/2022 12:24 PM EST Kelley Arora MD LAB BLOOD ORDERABLES Final Resul t Performing Organization Address [facility] Co de Phone Number [facility] * (ABNORMAL) Lipid panel (05/15/2022 11:30 AM EST) [facility] Cholesterol, Total 145 (<170) MG/DL [facility] HDL 30(L) (>45) MG/DL [facility] Non-HDL Cholesterol 115 (<120) MG/DL [facility] Comment: Testing performed or reported by [facility], a Service of [facility], [address] [place] [address] Jonn Kay MD, [place] CLIA# [id number] Blood 05/15/2022 11:3 0 AM EST 05/15/2022 12:24 PM EST Kelley Arora MD LAB BLOOD ORDERABLES Final Resul t Performing Organization Address City/[facility] Co de Phone Number [facility] from Last 3 Months or Most Recently Relevant to Health Maintenance Insurance [facility] NON PCC [facility] ACO Care Teams Res Habilitation Assistant Relationship Specialty Start Date End Date Julia Blood NP [address] [place] [address] PCP - General Pediatrics 08/13/24
--- OUTSIDE RECORDS SUMMARY | 2024-12-11 17:03 | XMS_ITS | Encounter Summary ---
Author Organization [employer] Address [address] [facility] 7t [place] [address] Care Team Providers Care Management Lead Name Role Phone Akua [facility] Primary Care Provider [phone] Reason for Visit * Reason Comments Med Refill Encounter Details Date Type Department Care Team ([facility] st Contact Info) Description 01/18/2024 Refill [facility] MEDICINE [address] [place], [place] [phone] Willow Butterfield MD [address] [place], [place] [phone] Social History Tobacco Use Types Packs/Day Years [...] PM EST Office Visit [facility] OPTOMETRY [address] [place] [address] Tarka, Katheryn, OD [address] [place] [address] documented as of this encounter Visit Diagnoses Not on filedocumented in this encounter Additional Health Concerns Assessment Noted Time PHQ-9 Depression Total Score: 21 024 12:37 PM EDT documented as of this encounter Care Teams Management Lead Relationship Specialty Start Date End Date Thelma Fatima FNP [address] [place] [address] PCP - General Family Medicine 12/14/23 documented as of this encounter
--- OUTSIDE RECORDS SUMMARY | 2024-12-11 17:03 | XMS_ITS | Encounter Summary ---
Author Organization [employer] Address [address] [facility] 7t [place] [address] Care Team Providers Care Boat Tester Name Role Phone Akua [facility] Primary Care Provider Encounter Details Date Type Department Care Team (Late st Contact Info) Description 12/11/2024 Orders Only GENERIC EXTERNAL DATA DEPARTMENT Provider, Generic External Data Social History Tobacco Use Types Packs/Day Years [...] Description 02/19/2025 2:00 PM EST Office Visit [facility] OPTOMETRY [address] [place] [address] TarkaKatheryn, OD [address] [place] [address] documented as of this encounter Procedures Procedure Name Priority Date/Time Associated Diagnosis Comments CBC WITH AUTO DIFFERENTIAL Routine 12/11/2024 12:53 PM EDT LITHIUM Routine 12/11/2024 12:53 PM EDT VALPROIC ACID Routine 12/11/2024 12:53 PM EDT HEPATIC FUNCTION PANEL Routine 12:53 PM EDT COMPREHENSIVE METABOLIC PANEL Routine 12/11/2024 12:53 PM EDT documented in this encounter Results * Hepatic Function Panel (12/11/2024 12:53 PM EDT) Bilirubin, Direct <0.2 0.0 - 0.5 mg/dL [facility] 12/11/2024 12:5 3 PM EDT 12/11/2024 12:53 PM EDT us Generic External Data Provider LAB BLOOD ORDERAB LES Final Result [facility] [address] [place] [address] [phone] * (ABNORMAL) Comprehensive Metabolic Panel (12/11/2024 12:53 PM EDT) Sodium 146(H) 135 - 145 mmol/L [facility] Potassium 4.0 3.3 - 5.1 mmol/L [facility] Chloride 113(H) 96 - 108 mmol/L [facility] Carbon Dioxide 26 22 - 29 mmol/L [facility] Anion Gap 11(L) 12 - 20 [facility] Urea Nitrogen (BUN) 7(L) 9 - 16 mg/dL [facility] Creatinine, Serum 0.73 0.5 - 1.4 mg/dL [facility] Estimated Glomerular Filt Rate >60 [facility] Comment:Chronic Kidney Disea se: Estimated GFR < 60 mL/min/1.21m3Lwkjex Kidney Disease: Estimated GFR < 15 mL/min/1.73m2 Glucose 84 60 - 115 mg/dL [facility] Calcium 9.6 8.4 - 10.2 mg/dL [facility] Bilirubin, Total 0.2 0.0 - 1.0 mg/dL [facility] Aspartate Amino Transferase 31 5 - 37 U/L [facility] Alanine Aminotransferase 31 0 - 40 U/L [facility] Total Protein 6.9 6.5 - 8.0 g/dL [facility] Albumin Level 4.3 3.5 - 5.0 g/dL [facility] Alkaline Phosphatase 51 39 - 117 U/L [facility] 12/11/2024 12:5 3 PM EDT 12/11/2024 12:53 PM EDT us Generic External Data Provider LAB BLOOD ORDERAB LES Final Result Performing Organization Address [facility]/ZIP Co de Phone Number [facility] [address] [place] [phone] * Valproic Acid Total (12/11/2024 12:53 PM EDT) Pathologist [facility] Valproate 61.5 50.0 - 100.0 mcg/mL [facility] 12/11/2024 12:5 3 PM EDT 12/11/2024 12:53 PM EDT Generic External Data Provider LAB BLOOD ORDERAB LES Final Result Performing Organization Address [facility] Co de Phone Number [facility] [address] [place] [phone] * (ABNORMAL) [place] (12/11/2024 12:53 PM EDT) [facility] [place] <0.10(L) 0.60 - 1.20 mmol/L [facility] 12/11/2024 12:5 3 PM EDT 12/11/2024 12:53 PM EDT Generic External Data Provider LAB BLOOD ORDERAB LES Final Result Performing Organization Address [facility] Co de Phone Number [facility] [address] [place] [phone] * (ABNORMAL) CBC auto differential (12/11/2024 12:53 PM EDT) [facility] White Blood Count 5.9 4.8 - 10.8 X10*3/uL [facility] Red Blood Count 4.89 4.60 - 5.80 X10*6/uL [facility] Hemoglobin 14.2 14.0 - 18.0 g/dl [facility] Hematocrit 42.0 42.0 - 52.0 % [facility] Mean Corpuscular Volume 85.9 80.0 - 98.0 fL [facility] Mean Corpuscular Hemoglobin 29.0 27.0 - 33.0 pg [facility] Mean Corpuscular HGB Conc 33.8 31.0 - 36.0 g/dl [facility] Red Cell Distribution Width 13.7 11.0 - 16.0 % [facility] Platelet Count 185 160 - 400 X10*3/uL [facility] Mean Platelet Volume 12.3 9.4 - 12.4 fL [facility] Neutrophils Percent Auto 36.8(L) 45 - 73 % [facility] Imm Gran Pct Auto 0.2 0.0 - 0.4 % [facility] Lymphocytes Percent Auto 46.1(H) 20 - 40 % [facility] Monocytes Percent Auto 9.9 2 - 11 % [facility] Eosinophils Percent Auto 6.1(H) 0 - 4 % [facility] Basophils Percent Auto 0.9 0 - 2 % [facility] NRBC Pct Auto 0.0 0.0 - 0.2 /100WBC [facility] Neutrophils Absolute Auto 2.2 2.0 - 8.3 x10*3/uL [facility] Imm Gran Abs Auto 0.01 0.00 - 0.03 X10*3/uL [facility] Lymphocytes Absolute Auto 2.7 1.2 - 4.9 X10*3/uL [facility] Monocytes Absolute Auto 0.6 0.1 - 1.2 X10*3/uL [facility] Eosinophils Absolute Auto 0.4 0.0 - 0.4 X10*3/uL [facility] Basophils Absolute Auto 0.1 0.0 - 0.2 X10*3/uL [facility] NRBC Abs Auto 0.000 0.0 - 0.012 X10*3/uL [facility] 12/11/2024 12:5 3 PM EDT 12/11/2024 12:53 PM EDT us Generic External Data Provider LAB BLOOD ORDERAB LES Final Result [facility] [address] [place] [address] [phone] documented in this encounter Visit Diagnoses Not on filedocumented in this encounter Additional Health Concerns Assessment Noted Time PHQ-9 Depression Total Score: 0 03/21/19 25 2:22 PM EST documented as of this encounter Care Teams Boat Tester Relationship Specialty Start Date End Date Thelma Fatima FNP [address] [place] [phone] PCP - General Family Medicine 12/14/23 documented as of this encounter
--- OUTSIDE RECORDS SUMMARY | 2024-12-11 17:03 | XMS_ITS | Encounter Summary ---
Author Organization [facility] Address [address] [place] [address] Phone Care Team Providers Care Hat Steamer Name Role Phone Julia Blood NP Primary Care Provider [phone] Encounter Details Date Type Department Care Team (Late st Contact Info) Description 11/02/2016 Conversion Encounter [facility] [address] [place] [address] Social History Tobacco Use Types Packs/Day Years [...] on filedocumented in this encounter Care Teams Hat Steamer Relationship Specialty Start Date End Date Julia Blood NP [address] [place] [address] PCP - General Pediatrics 08/13/24 documented as of this encounter
--- OUTSIDE RECORDS SUMMARY | 2024-12-11 17:03 | XMS_ITS | Encounter Summary ---
Author Organization [employer] Address [address] [facility] 7t [place] [address] Care Team Providers Care Gravity Prospecting Observer Name Role Phone Akua [facility] Primary Care Provider [phone] Encounter Details Date Type Department Care Team [...] Description 02/19/2025 2:00 PM EST Office Visit [facility] OPTOMETRY [address] [place] [address] Tarka, Katheryn, OD [address] [place] [address] documented as of this encounter Visit Diagnoses Not on filedocumented in this encounter Additional Health Concerns Assessment Noted Time PHQ-9 Depression Total Score: 0 03/21/19 25 2:22 PM EST documented as of this encounter Care Teams Gravity Prospecting Observer Relationship Specialty Start Date End Date Thelma Fatima FNP [address] [place] [address] PCP - General Family Medicine 12/14/23 documented as of this encounter
--- OUTSIDE RECORDS SUMMARY | 2024-12-11 17:03 | XMS_ITS | Encounter Summary ---
Author Organization [employer] Address [address] [facility] 7t [place] [address] Care Team Providers Care Supervisor Sound Technician Name Role Phone Akua [facility] Primary Care Provider [phone] Reason for Visit * Reason Comments Med Refill Encounter Details Date Type Department Care Team ([facility] st Contact Info) Description 12/18/2023 Refill [facility] MEDICINE [address] [place], [place] [phone] Willow Butterfield MD [address] [place], [place] [phone] Social History Tobacco Use Types Packs/Day Years [...] your housing situation today? I have desiree spenecr 12/06/[address] you li [...] PM EST Office Visit [facility] OPTOMETRY [address] [place] [address] Tarka, Katheryn, OD [address] [place] [address] documented as of this encounter Visit Diagnoses Not on filedocumented in this encounter Additional Health Concerns Assessment Noted Time PHQ-9 Depression Total Score: 21 024 12:37 PM EDT documented as of this encounter Care Teams Supervisor Sound Technician Relationship Specialty Start Date End Date Thelma Fatima FNP [address] [place] [address] PCP - General Family Medicine 12/14/23 documented as of this encounter
--- OUTSIDE RECORDS SUMMARY | 2024-12-11 17:03 | XMS_ITS | Encounter Summary ---
Author Organization [facility] Address [address] [place] [address] Phone Care Team Providers Care Customer Data Technician Name Role Phone Julia Blood NP Primary Care Provider [phone] Encounter Details Date Type Department Care Team (Late st Contact Info) Description 09/01/2015 Documentation [facility] Family Medicine [address] [place], [place] [phone] Family Medicine, Physician [address] [place], [place] [address] Social History Tobacco Use Types Packs/Day Years [...] on filedocumented in this encounter Care Teams Customer Data Technician Relationship Specialty Start Date End Date Julia Blood NP [address] [place] [address] PCP - General Pediatrics 08/13/24 documented as of this encounter
--- OUTSIDE RECORDS SUMMARY | 2024-12-11 17:03 | XMS_ITS | Encounter Summary ---
Author Organization [employer] Address [address] [facility] 7t [place] [address] Care Team Providers Care Travel Professional Name Role Phone [facility] Primary Care Provider [phone] Reason for Visit * Reason Onset Date Comments Nurse Triage 03/14/2024 Encounter Details Date Type Department Care Team (Late st Contact Info) Description 03/14/2024 Telephone [facility] MEDICINE [address] [place], [place] [phone] [facility] [address] [place], [place] [phone] Nurse Triage Social History Tobacco Use Types [...] 2:45 PM EST Tc from provider manager quality improvement Symptom: Earache Outcome: Schedule a same-day appointment or talk to a nurse or provider today Reason: Caller denied all higher acuity questions The caller accepted this outcome. documented in this encounter Plan of Treatment Upcoming Encounters Date Type Department Care Team (Late st Contact Info) Description 02/19/2025 2:00 PM EST Office Visit [facility] OPTOMETRY [address] [place] [address] TarKatheryn shannon, OD [address] [place] [address] documented as of this encounter Visit Diagnoses Not on filedocumented in this encounter Additional Health Concerns Assessment Noted Time PHQ-9 Depression Total Score: 21 024 12:37 PM EDT documented as of this encounter Care Teams Travel Professional Relationship Specialty Start Date End Date Thelma Fatima FNP [address] [place] [address] PCP - General Family Medicine 12/14/23 documented as of this encounter
== END 2024-12-11 12:35 | disposition home or self-care (01) ==
LOC: HO.HSM 12:04
PROVIDERS: PCP Internal Medicine; Visit Provider Nurse Practitioner
DX: R25.1 Tremor, unspecified (principal); R40.4 Transient alteration of awareness
CPT/HCPCS: 99203

== ENCOUNTER 2024-12-31 18:20 | Emergency (ER) | payer MEDICARE, MEDICAID, SELFPAY ==
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
[2024-12-31 18:48] VITALS: BMI 39.0
[2024-12-31 19:09] LABS: MANUAL DIFF FLAG NO
[2024-12-31 19:14] LABS: Hematocrit 43.6 % (42.0-52.0); Hemoglobin 14.5 g/dl (14.0-18.0); Imm Gran Abs Auto 0.01 X10*3/uL (0.00-0.03); Imm Gran Pct Auto 0.2 % (0.0-0.4); Lymphocytes Absolute Auto 2.5 X10*3/uL (1.2-4.9); Mean Corpuscular HGB Conc 33.3 g/dl (31.0-36.0); Mean Corpuscular Hemoglobin 28.4 pg (27.0-33.0); Mean Corpuscular Volume 85.3 fL (80.0-98.0); NRBC Abs Auto 0.000 X10*3/uL (0.0-0.012); NRBC Pct Auto 0.0 /100WBC (0.0-0.2); Platelet Count 225 X10*3/uL (160-400); Red Blood Count 5.11 X10*6/uL (4.60-5.80); White Blood Count 6.1 X10*3/uL (4.8-10.8)
[2024-12-31 19:26] VITALS: BP 120/74; PULSE 74; RESP 14; O2SAT 99
--- NOTE | 2024-12-31 19:40 | PC.NURSE ---
Himanshu is coming in by ambulance due to increasing aggression at long term, apparently upon arrival to the ED he was very agitated, required PD assistance at long term. After speaking with this RN, pt calmed down, allowed for blood work and urine sample. Pt aware of plan of care for CARE team. Pt reports being frustrated with long term but denies SI/HI at this time
--- OUTSIDE RECORDS SUMMARY | 2024-12-31 19:40 | XMS_ITS | Encounter Summary ---
Author Organization [facility] Address [address] [place] [address] Phone Care Team Providers Care Cloth Mercerizer Back Tender Name Role Phone Julia Blood NP Primary Care Provider [phone] Encounter Details Date Type Department Care Team (Late st Contact Info) Description 11/02/2016 Conversion Encounter [facility] [address] [place] [address] Social History Tobacco Use Types Packs/Day Years [...] on filedocumented in this encounter Care Teams Cloth Mercerizer Back Tender Relationship Specialty Start Date End Date Julia Blood NP [address] [place] [address] PCP - General Pediatrics 08/13/24 documented as of this encounter
--- OUTSIDE RECORDS SUMMARY | 2024-12-31 19:40 | XMS_ITS | Encounter Summary ---
Author Organization [facility] Address [address] [place] [address] Phone Care Team Providers Care Drop Board Man Name Role Phone Julia Blood NP Primary Care Provider [phone] Encounter Details Date Type Department Care Team (Late st Contact Info) Description 02/01/2012 Documentation [facility] [facility] [address] [place], [place] [id number] Family Medicine, Physician [address] [place], [place] [address] Social History Tobacco Use Types Packs/Day Years [...] filedocumented in this encounter Care Teams Drop Board Man Relationship Specialty Start Date End Date Julia Blood NP [address] [place] [address] PCP - General Pediatrics 08/13/24 documented as of this encounter
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
--- OUTSIDE RECORDS SUMMARY | 2024-12-31 19:40 | XMS_ITS | Encounter Summary ---
Author Organization [facility] Address [address] [facility] [address] [place] [address] Care Team Providers Care Operations Vocational Instructor Name Role Phone [facility] Primary Care Provider [phone] Reason for Visit * Reason Comments Med Refill Encounter Details Date Type Department Care Team ([facility] st Contact Info) Description 12/18/2023 Refill [facility] MEDICINE [address] [place], [place] [phone] Willow Butterfield MD [address] [place], [place] [phone] Social History Tobacco Use Types Packs/Day Years [...] PM EST Office Visit [facility] [address] [place] [address] Tarka, Katheryn, OD [address] [place] [address] documented as of this encounter Visit Diagnoses Not on filedocumented in this encounter Additional Health Concerns Assessment Noted Time PHQ-9 Depression Total Score: 21 024 12:37 PM EDT documented as of this encounter Care Teams Operations Vocational Instructor Relationship Specialty Start Date End Date Thelma Fatima FNP [address] [place] [phone] PCP - General Family Medicine 12/14/23 documented as of this encounter
--- OUTSIDE RECORDS SUMMARY | 2024-12-31 19:40 | XMS_ITS | Encounter Summary ---
Author Organization [facility] Address [address] [facility] [address] [place] [address] Care Team Providers Care Disability Services Coordinator Name Role Phone Thelma Fatima [facility] Primary Care Provider [phone] Encounter Details Date Type Department Care Team (Latest Contact Info) Description 11/19/2024 Results Follow-Up [facility] MEDICINE [address] [place] [address] Willow Buttrefield MD [address] [place] [address] CBC auto differential, Comprehensive Metabolic Panel, Hepatic [...] Description 02/19/2025 2:00 PM EST Office Visit [facility] [address] [place], [place] [phone] TarkaKatheryn, OD [address] [place] [address] documented as of this encounter Visit Diagnoses Not on filedocumented in this encounter Additional Health Concerns Assessment Noted Time PHQ-9 Depression Total Score: 0 03/21/19 25 2:22 PM EST documented as of this encounter Care Teams Disability Services Coordinator Relationship Specialty Start Date End Date Tehlma Fatima FNP [address] [place] [id number] PCP - General Family Medicine 12/14/23 documented as of this encounter
--- OUTSIDE RECORDS SUMMARY | 2024-12-31 19:40 | XMS_ITS | Clinical Summary ---
Author Organization [employer] Address [address] [place] [address] [address] [place] [address] Care Team Providers Care Health Information Managers Name Role Phone Akua [facility] Primary Care Provider [phone] Allergies Active Allergy Reactions Criticality Noted Date Comments Blueberry Flavoring Agent (Non-Screening) Unknown 12/14/2023 Triana Unknown 12/14/2023 Fish Allergy Unknown 12/14/2023 [facility] Extract Unknown 12/14/2023 Medications * This document [...] Encounters Date Type Department Care Team Description 12/12/2024 Results Follow-Up [facility] [address] [place] [phone] Willow Butterfield MD CBC auto differential, Pyote, Valproic Acid Total, Additional followed-up results: 2 12/11/2024 Orders Only GENERIC EXTERNAL DATA DEPARTMENT Provider, Generic External Data 12/09/2024 11:45 AM EDT Office Visit [facility] [address] [place] [phone] Niki Bar, Dysuria 12/09/2024 Travel 12/03/2024 Telephone [facility] [address] [place] [phone] Thelma Fatima FNP Nurse Triage 12/01/2024 Telephone [facility] [place] [address] Thelma Fatima FNP 11/21/2024 Telephone [facility] [place] [address] Thelma Fatima [facility] Care Coordination 11/20/2024 Telephone [facility] [place] [address] Thelma Fatima [facility] Telephone Call 11/19/2024 Results Follow-Up [facility] [place] [address] Willow Butterfield MD CBC auto differential, Comprehensive Metabolic Panel, Hepatic Function Panel, Additional followed-up results: 6 11/12/2024 Orders Only [facility] [place] [address] Willow Butterfield MD 11/12/[address] [address] Thelma Fatima FNP Call Back Request 11/05/2024 Telephone [facility] [place] [address] Thelma Fatima [facility] Care Coordination 11/04/2024 Orders Only GENERIC EXTERNAL DATA DEPARTMENT Provider, Generic External Data 11/03/2024 10:00 AM EDT Office Visit [facility] [place] [address] Thelma Fatima [facility] Intention tremor (Primary Dx); Witnessed seizure-like activity [...] Exercise counseling 11/03/2024 Results Follow-Up [facility] [place] [address] Thelma Fatima MARKETING AND OUTREACH COORDINATOR Pyote, Valproic Acid Total, CBC auto differential, Additional followed-up results: 6 11/03/2024 Orders Only [address] [place] [address] AkuaThelma FNP 11/03/2024 Telephone [facility] [address] [place] [address] AkuaThelma FNP Critical Pyote level 11/03/2024 Travel 10/31/2024 Telephone [facility] [address] [place] [address] AkuaThelma FNP Chart Prep 10/24/2024 Patient Outreach [facility] [address] [place] [address] AkuaThelma young FNP Pre-visit Planning ((Unable to reach for PVP screening or LVM) to be completed in office ) from Last 3 Months Immunizations Immunization Administration [...] 03/04/2008,01/27/2005 Meningococcal MCV4P ACYW-135 12/15/2020,08/02/19 16 Novel [id number], all formulations 04/22/2009 Pneumococcal Conjugate PCV 7 [...] Upcoming Encounters Date Type Department Care Team ([facility] st Contact Info) Description 02/19/2025 2:00 PM EST Office Visit [facility] [address] [place], [place] [phone] Katheryn Duran, OD [address] [place] [address] Health Maintenance Due Date Last Done Comments [...] Blood Count 5.9 4.8 - 10.8 X10*3/uL [facility] Red Blood Count 4.89 4.60 - 5.80 X10*6/uL [facility] Hemoglobin 14.2 14.0 - 18.0 g/dl [facility] Hematocrit 42.0 42.0 - 52.0 % [facility] Mean Corpuscular Volume 85.9 80.0 - 98.0 fL [facility] Mean Corpuscular Hemoglobin 29.0 27.0 - 33.0 pg [facility] Mean Corpuscular HGB Conc 33.8 31.0 - 36.0 g/dl [facility] Red Cell Distribution Width 13.7 11.0 - 16.0 % [facility] Platelet Count 185 160 - 400 X10*3/uL [facility] Mean Platelet Volume 12.3 9.4 - 12.4 fL [facility] Neutrophils Percent Auto 36.8(L) 45 - 73 % [facility] Imm Gran Pct Auto 0.2 0.0 - 0.4 % [facility] Lymphocytes Percent Auto 46.1(H) 20 - 40 % [facility] Monocytes Percent Auto 9.9 2 - 11 % [facility] Eosinophils Percent Auto 6.1(H) 0 - 4 % [facility] Basophils Percent Auto 0.9 0 - 2 % [facility] NRBC Pct Auto 0.0 0.0 - 0.2 /100WBC [facility] Neutrophils Absolute Auto 2.2 2.0 - 8.3 x10*3/uL [facility] Imm Gran Abs Auto 0.01 0.00 - 0.03 X10*3/uL [facility] Lymphocytes Absolute Auto 2.7 1.2 - 4.9 X10*3/uL [facility] Monocytes Absolute Auto 0.6 0.1 - 1.2 X10*3/uL [facility] Eosinophils Absolute Auto 0.4 0.0 - 0.4 X10*3/uL [facility] Basophils Absolute Auto 0.1 0.0 - 0.2 X10*3/uL [facility] NRBC Abs Auto 0.000 0.0 - 0.012 X10*3/uL [facility] 12/11/2024 12:5 3 PM EDT 12/11/2024 12:53 PM EDT Generic External Data Provider LAB BLOOD ORDERAB LES Final Result Performing Organization Address City/[facility]/ZIP Co de Phone Number [facility] [address] [place] [phone] * (ABNORMAL) Pyote (12/11/2024 12:53 PM EDT) Only the most recent of6 resultswithin the time period is included. Pyote <0.10(L) 0.60 - 1.20 mmol/L [facility] 12/11/2024 12:5 3 PM EDT 12/11/2024 12:53 PM EDT Generic External Data Provider LAB BLOOD ORDERAB LES Final Result Performing Organization Address City/[facility]/ZIP Co de Phone Number [facility] [address] [place] [phone] * Valproic Acid Total (12/11/2024 12:53 PM EDT) Only the most recent of3 resultswithin the time period is included. Valproate 61.5 50.0 - 100.0 mcg/mL [facility] 12/11/2024 12:5 3 PM EDT 12/11/2024 12:53 PM EDT Generic External Data Provider LAB BLOOD ORDERAB LES Final Result Performing Organization Address [facility] de Phone Number [facility] [address] [place] [phone] * Hepatic Function Panel (12/11/2024 12:53 PM EDT) Only the most recent of2 resultswithin the time period is included. Bilirubin, Direct <0.2 0.0 - 0.5 mg/dL [facility] 12/11/2024 12:5 3 PM EDT 12/11/2024 12:53 PM EDT Generic External Data Provider LAB BLOOD ORDERAB LES Final Result Performing Organization Address [facility] de Phone Number [facility] [address] [place] [phone] * (ABNORMAL) Comprehensive Metabolic Panel (12/11/2024 12:53 PM EDT) Only the most recent of4 resultswithin the time period is included. Sodium 146(H) 135 - 145 mmol/L [facility] Potassium 4.0 3.3 - 5.1 mmol/L [facility] Chloride 113(H) 96 - 108 mmol/L [facility] Carbon Dioxide 26 22 - 29 mmol/L [facility] Anion Gap 11(L) 12 - 20 [facility] Urea Nitrogen (BUN) 7(L) 9 - 16 mg/dL [facility] Creatinine, Serum 0.73 0.5 - 1.4 mg/dL [facility] Estimated Glomerular Filt Rate >60 [facility] Comment:Chronic Kidney Disea se: Estimated GFR < 60 mL/min/1.65t1Vehvcm Kidney Disease: Estimated GFR < 15 mL/min/1.73m2 Glucose 84 60 - 115 mg/dL [facility] Calcium 9.6 8.4 - 10.2 mg/dL [facility] Bilirubin, Total 0.2 0.0 - 1.0 mg/dL [facility] Aspartate Amino Transferase 31 5 - 37 U/L [facility] Alanine Aminotransferase 31 0 - 40 U/L [facility] Total Protein 6.9 6.5 - 8.0 g/dL [facility] Albumin Level 4.3 3.5 - 5.0 g/dL [facility] Alkaline Phosphatase 51 39 - 117 U/L [facility] 12/11/2024 12:5 3 PM EDT 12/11/2024 12:53 PM EDT us Generic External Data Provider LAB BLOOD ORDERAB LES Final Result Performing Organization Address City/State/[facility] Co de Phone Number [facility] [address] [place] [phone] * POCT Urinalysis (12/09/2024 12:01 PM [...] CT PCR, Urine NOT DETECTED Not Detect. [facility] Comment:A not detected test result [...] NG PCR, Urine NOT DETECTED Not Detect. [facility] Comment:A not detected test result [...] DO LAB URINE ORDERABLES Final R esult [facility] [address] [place] [phone] * Culture, Urine, Routine (12/09/2024 11:45 AM EDT) Only the most recent of2 resultswithin the time period is included. Urine Urine specimen obtained by clean catch procedure / Unknown 12/09/2024 11:45 AM EDT 12/09/2024 5:22 PM EDT Comment:UACC Narrative [facility] - 12/11/2024 10:10 AM EDT Urine Culture No growth. Specimen Source: Urine clean catch Niki Bar DO LAB MICROBIOLOGY - GENERAL O RDERABLES Final Result Performing Organization Address [facility]/ZIP Co de Phone Number [facility] [address] [place] [phone] * Renal Panel w/Reflex (11/12/2024 3:28 PM EDT) Phosphorus 4.2 2.7 - 4.5 mg/dL [facility] 11/12/2024 3:28 PM EDT 11/12/2024 3:28 PM EDT Willow Butterfield MD LAB BLOOD ORDERABLES Fin al Result Performing Organization Address [facility] Co de Phone Number [facility] [address] [place] [address] [phone] * T3, Free (11/12/2024 3:28 PM EDT) T3, Free 3.9 3.0 - 4.7 pg/mL [facility] Comment:THIS TEST WAS PERFOR MED AT:[facility] [place] [phone] CISNEROS MD 11/12/2024 3:28 PM EDT 11/12/2024 3:28 PM EDT Willow Butterfield MD LAB BLOOD ORDERABLES Fin al Result Performing Organization Address [facility] Co de Phone Number [facility] [address] [place] [address] [phone] * (ABNORMAL) TSH (11/12/2024 3:28 PM EDT) Thyroid Stimulating Hormone 4.67(H) 0.32 - 4.0 uIU/mL [facility] Comment:Note: A sustained TS H level above 2.5 uIU/mL may warrant further investigation. TSH 3rd Generation ([facility]) 11/12/2024 3:28 PM EDT 11/12/2024 3:28 PM EDT Willow Butterfield MD LAB BLOOD ORDERABLES Fin al Result Performing Organization Address City/[facility]/ZIP Co de Phone Number [facility] [address] [place] [phone] [phone] * T4, Free (11/12/2024 3:28 PM EDT) Only the most recent of2 resultswithin the time period is included. Free T4 (Free Thyroxine) 0.79 0.71 - 1.85 ng/dL [facility] 11/12/2024 3:28 PM EDT 11/12/2024 3:28 PM EDT Willow Butterfield MD LAB BLOOD ORDERABLES Fin al Result Performing Organization Address [facility]/ZIP Co de Phone Number [facility] [address] [place] [phone] * (ABNORMAL) Basic Metabolic Panel (11/03/2024 9:09 PM EDT) [facility] Sodium 141 135 - 145 mmol/L [facility] Potassium 3.7 3.3 - 5.1 mmol/L [facility] Chloride 110(H) 96 - 108 mmol/L [facility] Carbon Dioxide 22 22 - 29 mmol/L [facility] Anion Gap 13 12 - 20 [facility] Urea Nitrogen (BUN) 11 9 - 16 mg/dL [facility] Creatinine, Serum 1.15 0.5 - 1.4 mg/dL [facility] Creatinine Clr Calc Pharmacy 137.7 [facility] Comment:eGFR (calculated fro m the MDRD study equation) and eCrCl(calculated from the Cockcroft-Gault equation) are based ondifferent parameters and may not yield comparable results.If eCrCl result is absurd, please check patient'sheight/weight. Estimated Glomerular Filt Rate >60 [facility] Comment:Chronic Kidney Disea se: Estimated GFR < 60 mL/min/1.91q1Eneiix Kidney Disease: Estimated GFR < 15 mL/min/1.73m2 Glucose 112 60 - 115 mg/dL [facility] Calcium 9.5 8.4 - 10.2 mg/dL [facility] 11/03/2024 9:09 PM EDT 11/03/2024 9:12 PM EDT us Generic External Data Provider LAB BLOOD ORDERAB LES Final Result [facility] [address] [place] [phone] * Drug Monitoring, Panel 1, Screen, Urine (11/03/2024 7:19 PM EDT) Opiate Screen Urine Not Detected Not Detect [facility] Comment:Opiate cut-off is 30 0 ng/mL.Positive results are unconfirmed and should not be used fornon-medical purposes. Barbiturates, Urine Not Detected Not Detect [facility] Comment:Barbiturate cut-off is 200 ng/mL.Positive results are unconfirmed and should not be used fornon-medical purposes. Phencyclidine Screen Urine Not Detected Not Detect [facility] Comment:Phencyclidine cut-of f is 25 ng/mL.Positive results are unconfirmed and should not be used fornon-medical purposes. Amphetamine Screen Urine Not Detected Not Detect [facility] Comment:Amphetamine cut-off is 1000 ng/mL.Positive results are unconfirmed and should not be used fornon-medical purposes. Benzodiazepines Screen Urine Not Detected Not Detect [facility] Comment:Benzodiazepine cut-o ff is 200 ng/mL.Positive results are unconfirmed and should not be used fornon-medical purposes. Cocaine Screen Urine Not Detected Not Detect [facility] Comment:Cocaine cut-off is 3 00 ng/mL.Positive results are unconfirmed and should not be used fornon-medical purposes. Cannabinoid Screen Urine Not Detected Not Detect [facility] Comment:Cannabinoid cut-off is 50 ng/mL.Positive results are unconfirmed and should not be used fornon-medical purposes. Methadone Screen, Urine Not Detected Not Detect ng/mL [facility] Comment:Methadone cut-off is 300 ng/mL.Positive results are unconfirmed and should not be used fornon-medical purposes. FENTANYL URINE Not Detected Not Detect [facility] Comment:Fentanyl cut-off is 1 ng/mL.Positive results are unconfirmed and should not be used fornon-medical purposes. Oxycodone Urine Screen Not Detected Not Detect ng/mL [facility] Comment:Oxycodone cut-off is 100 ng/mL.Positive results are unconfirmed and should not be used fornon-medical purposes. Buprenorphine Screen Not Detected Not Detect ng/mL [facility] Comment:Buprenorphine cut-of f is 5 ng/mL.Positive results are unconfirmed and should not be used fornon-medical purposes. 11/03/2024 7:19 PM EDT 11/03/2024 7:23 PM EDT Generic External Data Provider LAB URINE ORDERAB LES Final Result Performing Organization Address City/[facility]/ZIP Co de Phone Number [facility] [address] [place] [phone] [phone] * SST GOLD TOP TO HOLD (11/03/2024 6:16 PM EDT) Hold Gold See Note [facility] Comment:Specimen held untest ed for 24 hours; Call to requestChemistry testing. 11/03/2024 6:16 PM EDT 11/03/2024 6:31 PM EDT Generic External Data Provider LAB BLOOD ORDERAB LES Final Result Performing Organization Address [facility] Co de Phone Number [facility] [address] [place] [phone] * Magnesium (11/03/2024 6:16 PM EDT) Magnesium 2.1 1.6 - 2.6 mg/dL [facility] 11/03/2024 6:1 6 PM EDT 11/03/2024 6:21 PM EDT Generic External Data Provider LAB BLOOD ORDERAB LES Final Result Performing Organization Address [facility]/ZIP Co de Phone Number [facility] [address] [place] [phone] * (ABNORMAL) Urinalysis, Complete, with Reflex to Culture (11/03/2024 11:08 AM EDT) Color Urine Yellow [facility] Appearance Urine Clear [facility] PH 8.0 5.0 - 9.0 [facility] Glucose Urine UA Negative Negative mg/dL [facility] Urine Blood Negative Negative [facility] Specific [place] - Urine <=1.005 1.005 - 1.025 [facility] Urine Protein Trace Neg-Trace mg/dL [facility] Urine Ketones Negative Negative mg/dL [facility] Nitrite Urine Negative Negative [facility] Leukocyte Esterase Urine Moderate (2+)(A) Negative [facility] RBC Urine 0-2 0 - 2 /HPF [facility] Urine WBC 11-20(A) 0 - 5 /HPF [facility] Urine Squamous Epithelial Cell 0-2 0 - 2 /HPF [facility] Urine Bacteria None Seen None Seen [facility] Hyaline Casts, Urine 3-5 0 - 2 /LPF [facility] Urine 11/03/2024 11:0 8 AM EDT 11/03/2024 12:49 PM EDT Narrative [facility] - 11/03/2024 1:04 PM EDT Urine, Clean Catch [facility] MARKETING AND OUTREACH COORDINATOR LAB URINE ORDERABLES Final Re sult Performing Organization Address [facility]/ZIP Co de Phone Number [facility] [address] [place] [phone] * (ABNORMAL) TSH W/Reflex to FT4 (11/03/2024 11:08 AM EDT) Pathologist [facility] TSH reflex Free T4 7.90(H) 0.32 - 4.0 uIU/mL [facility] Blood Venous blood specimen / Unknown 11/03/2024 11:08 AM EDT 11/03/2024 12:55 PM EDT [facility] LAB BLOOD ORDERABLES Final Re sult Performing Organization Address [facility] Co de Phone Number [facility] [address] [place] [phone] * RPR (Monitor) with Reflex to??Titer (11/03/2024 11:08 AM EDT) Pathologist [facility] RPR (Monitor) w/Refl Titer NON-REACTI VE NON-REACT JAX [facility] Comment:THIS TEST WAS PERFOR MED AT:[facility] [place] [phone] CISNEROS MD Rapid Plasma Reagin Ab Titer TNP [facility] Blood Venous blood specimen / Unknown 11/03/2024 11:08 AM EDT 11/03/2024 12:55 PM EDT [facility] LAB BLOOD ORDERABLES Final Re sult Performing Organization Address [facility] Co de Phone Number [facility] [address] [place] [phone] * HIV-1/2 Antigen and Antibodies, Fourth Generation, with Reflexes (11/03/2024 11:08 AM EDT) Pathologist [facility] HIV AB/AG Nonreactive Nonreactive [facility] Comment:HIV-1 p24 Ag and/or HIV-1/HIV-2 Ab not detected.A test result that is nonreactive does not exclude thepossibility of exposure to or infection with HIV-1 and/orHIV-2. Nonreactive results in this assay for individualswith prior exposure to HIV-1 and/or HIV-2 may be due toantigen and antibody levels that are below the limit ofdetection of this assay.[email or web address] HIV Ag/Ab Combo assay result andsupplemental assay results should be interpreted inconjunction with the patient's clinical presentation,history and other laboratory results. If the results areinconsistent with clinical evidence, additional testing issuggested to confirm the result. Blood Venous blood specimen / Unknown 11/03/2024 11:08 AM EDT 11/03/2024 12:55 PM EDT [facility] LAB BLOOD ORDERABLES Final Re sult [facility] [address] [place] [phone] * (ABNORMAL) Lipid Panel, Standard (11/03/2024 11:08 AM EDT) Triglycerides 221(H) <150 mg/dL [facility] Comment:Desirable Triglyceri de: less than 150 mg/dLBorderline High Triglyceride 150-199 mg/dLHigh Triglyceride: 200-499 mg/dLVery High Triglyceride: greater than or equal to 5OO mg/dL Cholesterol 158 <200 mg/dL [facility] Comment:Desirable Cholestero l: less than 200 mg/dLBorderline High Cholesterol: 200-239 mg/dLHigh Cholesterol: greater than 239 mg/dL LDL Cholesterol Calculated 96 <100 mg/dL [facility] Comment:Desirable LDL: less than 100 mg/dLNear Optimal/Above Optimal LDL: 110- 129 mg/dLBorderline High LDL: 130-159 mg/dLHigh LDL: 160-189 mg/dLVery High LDL: greater than or equal to 190 mg/dL HDL Cholesterol 18(L) >40 mg/dL [facility] Comment:Desirable HDL: great er than 40 mg/dL Note: This HDL assay may give artificially low results in patients with liver disease. Blood Venous blood specimen / Unknown 11/03/2024 11:08 AM EDT 11/03/2024 12:55 PM EDT [facility] LAB BLOOD ORDERABLES Final Re sult Performing Organization Address [facility]/ZIP Co de Phone Number [facility] [address] [place] [phone] * Hepatitis C Antibody with Reflex to HCV, RNA, Quantitative, Real-Time PCR (12/14/2023 12:34 PM EDT) [facility] Hepatitis C Antibody Nonreactive Nonreactive [facility] Comment:Antibodies to HCV no t detected; does not exclude early acuteHCV infection. Blood Venous blood specimen / Unknown 12/14/2023 12:34 PM EDT 12/14/2023 1:19 PM EDT [facility] LAB BLOOD ORDERABLES Final Re sult Performing Organization Address [facility] Co de Phone Number [facility] [address] [place] [phone] * Chlamydia/N. Gonorrhoeae RNA, TMA, Urogenitial (12/14/2023 12:34 PM EDT) [facility] CT PCR NOT DETECTED Not Detect. [facility] Comment:A not detected test result [...] psychologicalconsequences. NG PCR NOT DETECTED Not Detect. [facility] Comment:A not detected test result [...] PM EDT 12/14/2023 1:10 PM EDT Narrative [facility] - 12/14/2023 2:52 PM EDT Urine [facility] LAB MICROBIOLOGY - GENERAL OR DERABLES Final Result [facility] [address] [place] [phone] from Last 3 Months or Most Recently Relevant to Health Maintenance Insurance [facility] STANDARD MEDICARE Care Teams Health Information Managers Relationship Specialty Start Date End Date Thelma Fatima FNP [address] [place] [address] PCP - General Family Medicine 12/14/23
--- OUTSIDE RECORDS SUMMARY | 2024-12-31 19:40 | XMS_ITS | Encounter Summary ---
Author Organization [employer] Address [address] [facility] [address] [place] [address] Care Team Providers Care Nurse First Aid Name Role Phone Akua [facility] Primary Care Provider [phone] Reason for Visit * Reason Comments Med Refill Encounter Details Date Type Department Care Team ([facility] st Contact Info) Description 01/18/2024 Refill [facility] MEDICINE [address] [place], [place] [phone] Willow Butterfield MD [address] [place], [place] [phone] Social History Tobacco Use Types Packs/Day Years [...] PM EST Office Visit [facility] [address] [place] [address] Tarka, Katheryn, OD [address] [place] [address] documented as of this encounter Visit Diagnoses Not on filedocumented in this encounter Additional Health Concerns Assessment Noted Time PHQ-9 Depression Total Score: 21 024 12:37 PM EDT documented as of this encounter Care Teams Nurse First Aid Relationship Specialty Start Date End Date Thelma Fatima FNP [address] [place] [address] PCP - General Family Medicine 12/14/23 documented as of this encounter
--- OUTSIDE RECORDS SUMMARY | 2024-12-31 19:40 | XMS_ITS | Encounter Summary ---
Author Organization [facility] Address [address] [place] [address] Phone Care Team Providers Care Stretcher Operator Name Role Phone Julia Blood NP Primary Care Provider [phone] Encounter Details Date Type Department Care Team (Late st Contact Info) Description 09/01/2015 Documentation [facility] Family Medicine [address] [place], [place] [phone] Family Medicine, Physician [address] [place], [place] [address]181 Social History Tobacco Use Types Packs/Day Years [...] on filedocumented in this encounter Care Teams Stretcher Operator Relationship Specialty Start Date End Date Julia Blood NP [address] [place] [address] PCP - General Pediatrics 08/13/24 documented as of this encounter
[2024-12-31 19:41] LABS: Alanine Aminotransferase 22 U/L (0-40); Albumin Level 4.1 g/dL (3.5-5.0); Alkaline Phosphatase 46 U/L (39-117); Anion Gap 10 (12-20); Aspartate Amino Transferase 25 U/L (5-37); Blood Urea Nitrogen 11 mg/dL (9-16); Calcium 9.5 mg/dL (8.4-10.2); Carbon Dioxide 24 mmol/L (22-29); Chloride 114 mmol/L (96-108); Creatinine Clr Calc Pharmacy 190.4; Estimated Glomerular Filt Rate > 60; Potassium 3.9 mmol/L (3.3-5.1); Sodium 144 mmol/L (135-145); Total Protein 6.7 g/dL (6.5-8.0)
--- OUTSIDE RECORDS SUMMARY | 2024-12-31 19:41 | XMS_ITS | Encounter Summary ---
Author Organization [employer] Address [address] [facility] [address] [place] [address] Care Team Providers Care Mortgage Processing Manager Name Role Phone Akua [facility] Primary Care Provider [phone] Reason for Visit * Reason Onset Date Comments Med Refill 02/25/2024 Encounter Details Date Type Department Care Team (Late st Contact Info) Description 02/25/2024 Refill [facility] MEDICINE [address] [place], [place] [phone] Virginia Box CNM [address] [place], [place] [phone] Social History Tobacco Use Types Packs/Day Years [...] PM EST Office Visit [facility] [address] [place] [address] Katheryn Duran, OD [address] [place] [address] documented as of this encounter Visit Diagnoses Not on filedocumented in this encounter Additional Health Concerns Assessment Noted Time PHQ-9 Depression Total Score: 21 024 12:37 PM EDT documented as of this encounter Care Teams Mortgage Processing Manager Relationship Specialty Start Date End Date Thelma Fatima FNP [address] [place] [id number] PCP - General Family Medicine 12/14/23 documented as of this encounter
--- OUTSIDE RECORDS SUMMARY | 2024-12-31 19:41 | XMS_ITS | Encounter Summary ---
Author Organization [employer] Address [address] [facility] 7t [place] [address] Care Team Providers Care Tax Analyst Name Role Phone Akua [facility] Primary Care Provider Reason for Visit * Reason Comments Med Change Request Encounter Details Date Type Department Care Team ([facility] st Contact Info) Description 03/23/2024 Refill [facility] MEDICINE [address] [place], [place] [phone] Virginia Box CNM [address] [place], [place] [phone] Social History Tobacco Use Types Packs/Day Years [...] Description 02/19/2025 2:00 PM EST Office Visit [facility] OPTOMETRY [address] [place] [address] Katheryn Duran, OD [address] [place] [address] documented as of this encounter Visit Diagnoses Not on filedocumented in this encounter Additional Health Concerns Assessment Noted Time PHQ-9 Depression Total Score: 0 03/21/19 25 2:22 PM EST documented as of this encounter Care Teams Tax Analyst Relationship Specialty Start Date End Date Thelma Fatima FNP [address] [place] [address] PCP - General Family Medicine 12/14/23 documented as of this encounter
--- OUTSIDE RECORDS SUMMARY | 2024-12-31 19:41 | XMS_ITS | Encounter Summary ---
Author Organization [employer] Address [address] [facility] [address] [place] [address] Care Team Providers Care Exotic Dancer Name Role Phone [facility] Primary Care Provider [phone] Reason for Visit * Reason Onset Date Comments Nurse Triage 03/14/2024 Encounter Details Date Type Department Care Team (Late st Contact Info) Description 03/14/2024 Telephone [facility] MEDICINE [address] [place], [place] [phone] [facility] [address] [place], [place] [phone] Nurse Triage Social History Tobacco Use Types [...] 03/14/2024 2:45 PM EST Tc from provider sales strategy manager Symptom: Earache Outcome: Schedule a same-day appointment or talk to a nurse or provider today Reason: Caller denied all higher acuity questions The caller accepted this outcome. documented in this encounter Plan of Treatment Upcoming Encounters Date Type Department Care Team (Late st Contact Info) Description 02/19/2025 2:00 PM EST Office Visit [facility] OPTOMETRY [address] [place] [address] TarKatheryn shannon, OD [address] [place] [address] documented as of this encounter Visit Diagnoses Not on filedocumented in this encounter Additional Health Concerns Assessment Noted Time PHQ-9 Depression Total Score: 21 024 12:37 PM EDT documented as of this encounter Care Teams Exotic Dancer Relationship Specialty Start Date End Date Thelma Fatima FNP [address] [place] [address] PCP - General Family Medicine 12/14/23 documented as of this encounter
[2024-12-31 19:42] LABS: Appearance Urine Clear; Glucose Urine UA Negative (Negative); PH 7.0 (5.0-9.0); Specific Gravity - Urine 1.020 (1.005-1.025); UMIC TRIGGER UACC YES
[2024-12-31 19:51] LABS: Cannabinoid Screen Urine Not Detected (Not Detect)
--- NOTE | 2024-12-31 19:58 | PC.NURSE ---
Pt reporting to this RN that he does not want to stay the night here, he wants to return to skilled nursing. correction worker present at bedside
--- NOTE | 2024-12-31 20:06 | PC.NURSE ---
RE: med rec This RN completed med rec with verbal confirmation from both patient and willow worker as well as list provided by nursing home
[2024-12-31 22:00] VITALS: RESP 16
--- NOTE | 2024-12-31 22:36 | PC.NURSE ---
Phone Numbers: Connie Ortiz (Mom, legal guardian): [phone] Ana Bocanegra (Psychiatrist): [phone] ([facility]) Cira Manager Line): [phone] Celia (group product manager): [phone]
[2025-01-01 06:00] VITALS: RESP 14
--- NOTE | 2025-01-01 09:25 | PC.NURSE ---
Assumed car, report received. Pt is currently sleeping, he is provided breakfast. safety maintained.
--- NOTE | 2025-01-01 10:17 | MHC.EDTECH ---
Patient unable to participate with EKG at this time. RN aware.
--- NOTE | 2025-01-01 11:53 | PC.NURSE ---
Pt woke and ate some of his breakfast, he refused his AM medication after multiple attempts, Pt stating I want to go home, I didn't do anything EKG machine brought in to room, Pt refused to move onto his back for the test and continued to say I want to go home Pt not answering any of this writes questions.
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
--- NOTE | 2025-01-01 13:12 | PC.NURSE ---
Pt when using the bathroom asks this promotion writer what he waiting for, he is told he is waiting for an IP bed and he is offered food, he states im going to starve myself
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
[2025-01-01 17:00] VITALS: BP 140/80; PULSE 97; RESP 18; TEMP 36.8; O2SAT 97
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
[2025-01-01 21:35] VITALS: BP 119/72; PULSE 85; RESP 16; TEMP 36.8; O2SAT 97
--- NOTE | 2025-01-02 07:11 | PC.NURSE ---
Assumed care, report received. Pt is currently sleeping, safety maintanied.
--- NOTE | 2025-01-02 14:58 | PC.NURSE ---
Pt has remained calm and cooperative. He has taken his medications and eaten meals. He spends time pacing the unit and on the phone. He continues to ask when he will be getting a bed.
[2025-01-02 15:46] VITALS: BP 122/68; PULSE 80; RESP 17; TEMP 36.7; O2SAT 97
[2025-01-02 15:51] LABS: Alanine Aminotransferase 26 U/L (0-40); Albumin Level 4.3 g/dL (3.5-5.0); Alkaline Phosphatase 47 U/L (39-117); Anion Gap 11 (12-20); Aspartate Amino Transferase 40 U/L (5-37); Blood Urea Nitrogen 11 mg/dL (9-16); Calcium 9.4 mg/dL (8.4-10.2); Carbon Dioxide 26 mmol/L (22-29); Chloride 110 mmol/L (96-108); Cholesterol 181 mg/dL (<200); Creatinine Clr Calc Pharmacy 199.9; Estimated Glomerular Filt Rate > 60; HDL Cholesterol 24 mg/dL (>40); Potassium 4.2 mmol/L (3.3-5.1); Sodium 143 mmol/L (135-145); Total Protein 7.0 g/dL (6.5-8.0); Triglycerides 259 mg/dL (<150)
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
--- NOTE | 2025-01-02 23:08 | PC.NURSE ---
assumed care of pt, laying on couch in common area. calm cooperative.
--- NOTE | 2025-01-03 06:58 | PC.NURSE ---
Assumed care of patient at 0645, patient appears to be in no apparent distress at this time, resting on couch in common area, respirations even and unlabored. Continue plan of care for IPLOC
[2025-01-03 10:15] VITALS: RESP 14
[2025-01-03 10:30] VITALS: BP 134/84; PULSE 84; RESP 16; O2SAT 98
[2025-01-03 10:45] VITALS: RESP 18
[2025-01-03 11:15] VITALS: RESP 16
[2025-01-03 13:48] VITALS: RESP 16
--- NOTE | 2025-01-03 13:53 | PC.NURSE ---
Pt remains calm and cooperative, now resting in bed
--- NOTE | 2025-01-03 20:29 | PC.NURSE ---
Assumed care of patient at 1900, patient appears to be in no apparent distress at this time, resting on couch in common area, respirations even and unlabored. Continue plan of care.
--- NOTE | 2025-01-04 | ECG_ITS ---
Test Reason : rule out qtc Blood Pressure : */* mmHG Vent. Rate : 85 BPM Atrial Rate : 85 BPM P-R Int : 150 ms QRS Dur : 102 ms QT Int : 354 ms P-R-T Axes : 41 62 44 degrees QTcB Int : 421 ms Normal sinus rhythm Normal ECG When compared with ECG of 03-Nov-2024 20:54, No significant change was found Referred By: Latonia Solo Electronically Signed By: IRVING NIETO MD
--- NOTE | 2025-01-04 03:26 | PC.NURSE ---
Report received and care assumed at approx 0245. Pt has been noted to be resting comfortably on the couch in the common area without distress noted.
--- NOTE | 2025-01-04 06:31 | MHC.EDTECH ---
per previous tech report, patient has been refusing the EKG
--- NOTE | 2025-01-04 06:38 | PC.NURSE ---
pt has continued to sleep on the couch through the night without issue or distress noted. Pt has shifted and/or changed position throughout the night but he has not fully waken to converse with staff and/or use the restroom.
[2025-01-04 07:03] VITALS: BP 126/88; PULSE 76; RESP 16; TEMP 36.7; O2SAT 99
--- NOTE | 2025-01-04 07:03 | PC.NURSE ---
Assumed care of patient at 0645, patient resting on couch in the common area, eating breakfast at this time. Pt remains advocating to go home, citing that he has been calm and cooperative and has thought about his actions many times and regrets them. Pt offers no complaints to this RN at this time. continue plan of care for IPLOC
--- NOTE | 2025-01-04 16:02 | PC.NURSE ---
Pt continues to advocate to go home, citing that he really wants to be home for Halloween to dress up for the first time in a few years. Pt continues to remain in good behavioral control, calm and cooperative despite being put in a disruptive milieu, he has been extremely pleasant to work with. he cites being frustrated that he is still stuck here but reports that he understands why. He continues to advocate for not going inpatient. Pt has been interacting well with peers, helping an elderly patient on the unit. Staying to himself and listening to music when appropriate as well
--- NOTE | 2025-01-04 18:50 | PHA.MEDREC ---
Pharmacy Consult ? Medication Reconciliation rn has completed the medication reconciliation. rph reviewed
--- NOTE | 2025-01-04 18:58 | PC.NURSE ---
This RN assumed pt care @ 1845 Pt pacing the unit, a&ox4, no signs of distress. Pt playing with cards. Plan of care ongoing.
--- NOTE | 2025-01-04 19:08 | PC.NURSE ---
Pt requested and given items to shower with. Plan of care ongoing.
--- NOTE | 2025-01-04 19:38 | PC.NURSE ---
Pt requested and given drink Pt pacing the unit listening to music on the headphones Plan of care ongoing.
[2025-01-04 19:47] VITALS: BP 117/69; PULSE 100; RESP 20; TEMP 36.1; O2SAT 96
--- NOTE | 2025-01-04 20:10 | MHC.EDTECH ---
Had the nurse put in a new order for the EKG because it wasn't coming up in the system. Pt was cooperative during the EKG
--- NOTE | 2025-01-04 21:08 | PC.NURSE ---
Pt medicated per [facility] Plan of care ongoing.
--- NOTE | 2025-01-04 23:30 | PC.NURSE ---
took over care ar 23:00, pt sleeping at this time.
--- NOTE | 2025-01-05 01:21 | PC.NURSE ---
pt sleeping at this time.
--- NOTE | 2025-01-05 04:40 | PC.NURSE ---
pt is sleeping, no sign of distress.
--- NOTE | 2025-01-05 07:00 | PC.NURSE ---
Assumed care, report received. Pt is currently sleeping, safety is maintained.
[2025-01-05 11:22] VITALS: BP 110/61; PULSE 93; RESP 18; TEMP 36.6; O2SAT 98
--- NOTE | 2025-01-05 11:46 | PC.NURSE ---
Pt is calm and cooperative. He has been walking around the unit and talking with peers.
--- NOTE | 2025-01-05 16:00 | P.CNPS_ITS ---
History of Present Illness Date of Service: 01/05/25 Chief Complaint: aggressive behavior Reason for Consult: Request by Dr. Chong. Contacted over the weekend by CARE Requesting physician: Sangeeta Nugent Sources of Information: patient interviewed, chart reviewed and crisis/core team assessment reviewed HPI Narrative: 19 yo male, history of PTSD, Bipolar Disorder, to ER on 12/31 for aggressive behaviors in his new retirement. Since boarding in the ER, pt has experienced no symptoms of aggression, dyscontrol, or behavioral discord per team. On 01/02 Clozapine was increased to 75 mg daily, Clonidine 0.1 mg bid prn was added and has been used x 1 on 01/02 and 01/03. Pt has tolerated these changes. Pt's care has been discussed today with team and discharge is being planned. Pt's out pt [facility] COLLECTION [facility] suggests Pierceton be re-started if the plan is for pt to return home. Met with pt who reports he is OK, but bored . He again asks to return home. He denies SI,HI,AH,VH. He has no symptoms of acute psychosis or jael. Discussed with pt recommendations from his out pt DATA COLLECTION INTERVIEWER. He states I told my therapist I did not want to do that because the last time I had to go to the hospital. Discussed low dose, cautious titration and recommendation of bi-weekly levels. He agrees those parameters would be acceptable to him. Agrees to have TSH,FT4 levels today to make sure he is in range to re-trial. Medical Evaluation Reviewed: Yes Review of Systems Review of Systems Denies today [facility] Medical History PTSD (post-traumatic stress disorder) Seizures ADHD Trauma History: affirms Diagnostics Vital Signs (24Hr): Vital Signs - 24 hr 01/04/25 19:47 01/05/25 11:22 Temperature 97 F 97.9 F Pulse Rate 100 93 Respiratory Rate 20 18 Blood Pressure 117/69 110/61 Pulse Oximetry 96 98 Oxygen Delivery Method Room Air Room Air BMI result Body Mass Index 39.0 Labs 12/31/24 19:06 01/02/25 15:27 EKG EKG: reviewed EKG Comment: 01/04- NSR rate 85, QTc 421 Medications Medications Current Medications Clonidine HCl (Clonidine Hcl 0.1 Mg Tablet) 0.1 mg PO BID PRN; Protocol PRN Reason: anxiety Last Admin: 01/03/25 09:52 Dose: 0.1 mg Clozapine (Clozapine 25 Mg Tablet) 75 mg PO BEDTIME [facility] Last Admin: 01/04/25 21:06 Dose: 75 mg Divalproex Sodium (Divalproex Sodium Er 500 Mg Tab.Er.24h) 1,500 mg PO BEDTIME [facility] Last Admin: 01/04/25 21:05 Dose: 1,500 mg Docusate Sodium (Docusate Sodium 100 Mg Capsule) 100 mg PO DAILY [facility] Last Admin: 01/05/25 09:30 Dose: 100 mg Hydroxyzine HCl (Hydroxyzine Hcl 50 Mg Tablet) 50 mg PO TID [facility] Last Admin: 01/05/25 15:21 Dose: 50 mg Mirtazapine (Mirtazapine 30 Mg Tablet) 30 mg PO BEDTIME [facility] Last Admin: 01/04/25 21:06 Dose: 30 mg Nicotine Polacrilex (Nicotine Polacrilex Lozenge 4 Mg Lozenge) 4 mg BUCCAL Q4H PRN PRN Reason: Nicotine Cravings Polyethylene Glycol (Polyethylene Glycol 3350 17 Gm Powd.Pack) 17 gm PO DAILY [facility] Last Admin: 01/05/25 09:30 Dose: Not Given Allergies Allergies Allergy/AdvReac Type Severity Reaction Status Date / Time blueberry Allergy Unknown Verified 12/31/24 18:49 liu (cherries) Allergy Unknown Verified 12/31/24 18:49 fish derived (fish) Allergy Unknown Verified 12/31/24 18:49 strawberry Allergy Unknown Verified 12/31/24 18:49 Assessment & Plan Assessment & Plan (1) Bipolar disorder: Status: Acute Code(s): F31.9 - Bipolar disorder, unspecified (2) PTSD (post-traumatic stress disorder): Status: Acute Code(s): F43.10 - Post-traumatic stress disorder, unspecified Plan 19 yo male, history of PTSD, Bipolar Disorder, to ER on 12/31 for aggressive behaviors in his new retirement. Since boarding in the ER, pt has experienced no symptoms of aggression, dyscontrol, or behavioral discord per team. On 01/02 Clozapine was increased to 75 mg daily, Clonidine 0.1 mg bid prn was added and has been used x 1 on 01/02 and 01/03. Pt has tolerated these changes. Pt's care has been discussed today with team and discharge is being planned. Pt's out pt DATA COLLECTION INTERVIEWER from [facility] suggests Pierceton be re-started if the plan is for pt to return home. Met with pt who reports he is OK, but bored . He again asks to return home. He denies SI,HI,AH,VH. He has no symptoms of acute psychosis or jael. Discussed with pt recommendations from his out pt DATA COLLECTION INTERVIEWER. He states I told my therapist I did not want to do that because the last time I had to go to the hospital. Discussed low dose, cautious titration and recommendation of bi-weekly levels. He agrees those parameters would be acceptable to him. Agrees to have TSH,FT4 levels today to make sure he is in range to re-trial. Plan: TSH,T4 ordered, chemistry panel wnl on 01/02 If WNL suggest Pierceton 150 mg bid In continuing Pierceton suggest cautious titration~ 300 mg weekly with levels q 14 days until a consistent level is reached. Team has discussed discharge which tw concurs is appropriate as pt has had five days of medication compliance, no behaviors of concern, no sx of acute jael or psychosis and is accepting of treatment planning. Suggest return to program, out patient therapy and psychopharmacology. Total time managing care of this patient today ____ minutes. Patient educated on: medication risk/benefits and therapeutic strategies Informed Consent: further education needed
[2025-01-05 17:37] LABS: Thyroid Stimulating Hormone 2.34 uIU/mL (0.32-4.0)
[2025-01-05 20:00] VITALS: RESP 18
--- NOTE | 2025-01-06 00:12 | PC.NURSE ---
Visible on the unit, watching tv in the milieu. A&Ox4. Presents as calm and cooperative. Appropriate eye contact and clear speech. Adherent to HS scheduled medications, no PRN's utilized. Mouth checks completed. Agreeable to alert staff if feeling unsafe. Hygiene intact, showered before bed. Utilized unit headphones x1. 15 min safety checks ongoing. Plan of care ongoing.
[2025-01-06 06:14] VITALS: RESP 16
--- NOTE | 2025-01-06 07:16 | PC.NURSE ---
Assumed care, report received. Pt is awake, calm and cooperative. He is currently eating breakfast.
--- NOTE | 2025-01-06 14:09 | MHC.CARE ---
Himanshu was referred by the CARE TEAM to [facility] for individual therapists only; he already has med prescriber with [facility]. This referral has been generated and emailed to [facility].
[2025-01-06 14:11] VITALS: BP 116/65; PULSE 98; RESP 16; TEMP 36.5; O2SAT 99
[2025-01-06 16:40] VITALS: BP 116/65; PULSE 98; RESP 16; TEMP 36.5; O2SAT 99
== END 2025-01-06 17:00 | disposition home or self-care (01) ==
PROVIDERS: Clinical Nurse Specialist Psychiatric/Mental Health, Adult; Psychiatry & Neurology Psychiatry; Emergency Provider Emergency Medicine
DX: F43.12 Post-traumatic stress disorder, chronic (principal); F90.9 Attention-deficit hyperactivity disorder, unspecified type; F84.0 Autistic disorder; F31.9 Bipolar disorder, unspecified; Z79.899 Other long term (current) drug therapy
CPT/HCPCS: 36415; 80053; 80061; 80164; 80307; 81001; 83036; 84443; 85025; 93005; 99285; S9485

== ENCOUNTER → 2024-12-31 19:28 | Outpatient (BNV) | payer MEDICARE, MEDICAID, SELFPAY | PROVIDERS: Emergency Provider Emergency Medicine; Visit Provider Clinical Nurse Specialist Psychiatric/Mental Health, Adult | DX: F31.9 Bipolar disorder, unspecified (principal); F43.10 Post-traumatic stress disorder, unspecified | CPT/HCPCS: 99283 ==

== ENCOUNTER → 2025-01-04 20:03 | Outpatient (BNV) | payer MEDICARE, MEDICAID, SELFPAY | PROVIDERS: Emergency Provider Emergency Medicine; Visit Provider Internal Medicine Cardiovascular Disease | DX: Z13.6 Encounter for screening for cardiovascular disorders (principal) | CPT/HCPCS: 93010 ==

== ENCOUNTER 2025-01-15 15:15 | Outpatient (REF) | payer MEDICARE, MEDICAID, SELFPAY ==
[2025-01-15 16:15] LABS: MANUAL DIFF FLAG NO
[2025-01-15 16:20] LABS: Hematocrit 44.6 % (42.0-52.0); Hemoglobin 14.9 g/dl (14.0-18.0); Imm Gran Abs Auto 0.02 X10*3/uL (0.00-0.03); Imm Gran Pct Auto 0.3 % (0.0-0.4); Lymphocytes Absolute Auto 2.3 X10*3/uL (1.2-4.9); Mean Corpuscular HGB Conc 33.4 g/dl (31.0-36.0); Mean Corpuscular Hemoglobin 28.3 pg (27.0-33.0); Mean Corpuscular Volume 84.6 fL (80.0-98.0); NRBC Abs Auto 0.000 X10*3/uL (0.0-0.012); NRBC Pct Auto 0.0 /100WBC (0.0-0.2); Platelet Count 184 X10*3/uL (160-400); Red Blood Count 5.27 X10*6/uL (4.60-5.80); White Blood Count 7.4 X10*3/uL (4.8-10.8)
[2025-01-15 16:53] LABS: INTERNATIONAL NORM RATIO 1.1 (0.9-1.1); Prothrombin Time 12.4 SEC (10.9-12.4)
[2025-01-15 16:56] LABS: Partial Thromboplastin Time 34.8 SEC (26.7-34.1)
[2025-01-15 17:47] LABS: Lithium 0.12 mmol/L (0.60-1.20)
--- OUTSIDE RECORDS SUMMARY | 2025-01-15 17:57 | XMS_ITS | Encounter Summary ---
Author Organization [employer] Address [address] [place] [address] Care Team Providers Care Photographic Spotter Name Role Phone [facility] Primary Care Provider Reason for Visit * Reason Comments Med Change Request Encounter Details Date Type Department Care Team ([facility] st Contact Info) Description 03/23/2024 Refill [facility] [address], [place] [phone] Virginia Box CNM [address], [place] [phone] Social History Tobacco Use Types Packs/Day Years [...] Office Visit [facility] [address] [place] [address] Katheryn Duran, OD [address] [place] [address] documented as of this encounter Visit Diagnoses Not on filedocumented in this encounter Additional Health Concerns Assessment Noted Time PHQ-9 Depression Total Score: 0 03/21/19 25 2:22 PM EST documented as of this encounter Care Teams Photographic Spotter Relationship Specialty Start Date End Date Thelma Fatima FNP [address] [place] [address] PCP - General Family Medicine 12/14/23 documented as of this encounter
--- OUTSIDE RECORDS SUMMARY | 2025-01-15 17:57 | XMS_ITS | Encounter Summary ---
Author Organization [employer] Address [address] [facility] 7t [place] [address] Care Team Providers Care Lens Molding Equipment Operator Name Role Phone [facility] Primary Care Provider [phone] Reason for Visit * Reason Comments Med Refill Encounter Details Date Type Department Care Team ([facility] st Contact Info) Description 01/18/2024 Refill [facility] MEDICINE [address] [place], [place] [phone] Willow Butterfield MD [address] [place], [place] [phone] Social History Tobacco Use Types Packs/Day Years [...] PM EST Office Visit [facility] [address] [place] [address] Tarka, Katheryn, OD [address] [place] [address] documented as of this encounter Visit Diagnoses Not on filedocumented in this encounter Additional Health Concerns Assessment Noted Time PHQ-9 Depression Total Score: 21 024 12:37 PM EDT documented as of this encounter Care Teams Lens Molding Equipment Operator Relationship Specialty Start Date End Date Thelma Fatima FNP [address] [place] [address] PCP - General Family Medicine 12/14/23 documented as of this encounter
--- OUTSIDE RECORDS SUMMARY | 2025-01-15 17:57 | XMS_ITS | Encounter Summary ---
Author Organization [facility] Address [address] [place] [address] Phone Care Team Providers Care Spar Machine Operator Helper Name Role Phone Julia Blood NP Primary Care Provider [phone] Encounter Details Date Type Department Care Team (Late st Contact Info) Description 09/01/2015 Documentation [facility] [place] [facility] [address] [place], [place] [phone] Family Medicine, Physician [address] [place], [place] [address] Social History Tobacco Use Types Packs/Day Years [...] on filedocumented in this encounter Care Teams Spar Machine Operator Helper Relationship Specialty Start Date End Date Julia Blood NP [address] [place] [address] PCP - General Pediatrics 08/13/24 documented as of this encounter
--- OUTSIDE RECORDS SUMMARY | 2025-01-15 17:57 | XMS_ITS | Encounter Summary ---
Author Organization [employer] Address [address] [facility] 7t [place] [address] Care Team Providers Care Delivery And Mail Sorter Name Role Phone [facility] Primary Care Provider [phone] Reason for Visit * Reason Onset Date Comments Nurse Triage 03/14/2024 Encounter Details Date Type Department Care Team (Late st Contact Info) Description 03/14/2024 Telephone [facility] MEDICINE [address] [place], [place] [phone] [facility] 230 [place], [place] [phone] Nurse Triage Social History Tobacco Use Types [...] 03/14/2024 2:45 PM EST Tc from provider celebrity manager Symptom: Earache Outcome: Schedule a same-day appointment or talk to a nurse or provider today Reason: Caller denied all higher acuity questions The caller accepted this outcome. [phone] documented in this encounter Plan of Treatment Upcoming Encounters Date Type Department Care Team (Late st Contact Info) Description 02/19/2025 2:00 PM EST Office Visit [facility] OPTOMETRY [address] [place] [address] TarKatheryn shannon, OD [address] [place] [address] documented as of this encounter Visit Diagnoses Not on filedocumented in this encounter Additional Health Concerns Assessment Noted Time PHQ-9 Depression Total Score: 21 024 12:37 PM EDT documented as of this encounter Care Teams Delivery And Mail Sorter Relationship Specialty Start Date End Date Thelma Fatima FNP [address] [place] [address] PCP - General Family Medicine 12/14/23 documented as of this encounter
--- OUTSIDE RECORDS SUMMARY | 2025-01-15 17:57 | XMS_ITS | Encounter Summary ---
Author Organization [employer] Address [address] [facility] [address] [place] [address] Care Team Providers Care Care Navigator Name Role Phone [facility] Primary Care Provider [phone] Encounter Details Date Type Department Care Team (Latest Contact Info) Description 11/19/2024 Results Follow-Up [facility] MEDICINE [address] [place] [address] Willow Butterfield MD [address] [place] [address] CBC auto differential, Comprehensive Metabolic Panel, Hepatic [...] Office Visit [facility] OPTOMETRY [address] [place], [place] [phone] TarkaKatheryn, OD [address] [place] [address] documented as of this encounter Visit Diagnoses Not on filedocumented in this encounter Additional Health Concerns Assessment Noted Time PHQ-9 Depression Total Score: 0 03/21/19 25 2:22 PM EST documented as of this encounter Care Teams Care Navigator Relationship Specialty Start Date End Date Thelma Fatima FNP [address] [place] [address] PCP - General Family Medicine 12/14/23 documented as of this encounter
--- OUTSIDE RECORDS SUMMARY | 2025-01-15 17:57 | XMS_ITS | Encounter Summary ---
Author Organization [facility] Address [address] [place] [address] Phone Care Team Providers Care Door Tender Name Role Phone Julia Blood NP Primary Care Provider [phone] Encounter Details Date Type Department Care Team (Late st Contact Info) Description 11/02/2016 Conversion Encounter [facility] [address] [place] [address] Social History Tobacco Use Types Packs/Day Years [...] on filedocumented in this encounter Care Teams Door Tender Relationship Specialty Start Date End Date Julia Blood NP [address] [place] [address] PCP - General Pediatrics 08/13/24 documented as of this encounter
--- OUTSIDE RECORDS SUMMARY | 2025-01-15 17:57 | XMS_ITS | Encounter Summary ---
Author Organization [facility] Address [address] [place] [address] Phone Care Team Providers Care Stock Dealer Name Role Phone Julia Blood NP Primary Care Provider Encounter Details Date Type Department Care Team (Late st Contact Info) Description 02/01/2012 Documentation [facility] [place] [address] [place], [place] [phone] Family Medicine, Physician [address] [place], [place] [address] Social History Tobacco Use Types Packs/Day Years [...] on filedocumented in this encounter Care Teams Stock Dealer Relationship Specialty Start Date End Date Julia Blood NP [address] [place] [address] PCP - General Pediatrics 08/13/24 documented as of this encounter
--- OUTSIDE RECORDS SUMMARY | 2025-01-15 17:57 | XMS_ITS | Clinical Summary ---
Author Organization [facility] Address [address] [place] [address] Phone Care Team Providers Care Compliance Testing Analyst Name Role Phone Julia Blood NP Primary Care Provider [phone] Allergies No known active allergies Medications guanFACINE [...] Psychosocial stressors 06/18/2020 Overview (06/18/2020): Silvana from [facility] is calling on an active 51 A. Update given. 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 Zoloft & Tenex 08/2018: Pt now on Risperidone, tenex. Zoloft stopped 3 months ago & Risperadone was started . Melatonin for sleep 07/28/21: Psych admission for SI & Auditory command hallucinations 09/02/21: Pt discharged from the hospital yesterday. He was in the hospital for SI. Pt has an apt with [facility] 09/02/21. 09/06/21: Admitted to [facility] Assessment & Plan (05/15/2022 10:42 AM EST): Followed by Shyann Shell at [facility]. Patient is on risperidone, fluoxetine and guanfacine. To see new psych provider tomorrow Therapist = patient does not know if he sees anyone Assessment & Plan (12/15/2020 11:14 AM EDT): Sees Shyann Gonzalez Q 2-3 mos. Risperidone, tenex. & melatonin patient reports that [facility] does his metabolic labs yearly - he declined them today [place] [facility]. IEP in place. Does well Assessment & Plan (09/14/2019 10:37 AM EDT): Followed at [facility] by Shyann Shell She checks routine labs [...] EDT): In 45 day dx program at [facility] due to behavior issues. Doing better Supposed to go back to [place] but his Gmom does not want him to go back Seeing Shyann Shell monthly. On Tenex, zoloft & respiradone (added 2 months ago) No therapist while in 45 day program. Will reconnect when returns to [place] - sees therapist there from [facility] Immunizations Immunization Administration Dates Next Due DTaP [...] Completed 12/15/2020, 016 Procedures * Due to [facility] law, this organization might not be sharing sensitive test results. Procedure Name Priority Date/Time Associated Diagnosis Comments LIPID PANEL Routine 05/15/2022 11:30 AM EST BMI greater than 95% for age [Z68.54] HEMOGLOBIN A1C Routine 05/15/2022 11:30 AM EST BMI greater than 95% for age [Z68.54] from Last 3 Months or Most Recently Relevant to Health Maintenance Results * Due to [facility] law, this organization might not be sharing sensitive test results. * Hemoglobin A1c (05/15/2022 11:30 AM EST) Hemoglobin A1C 5.1 (4.0-5.6) % [facility] Comment: MONITORING: In known diabetic patients, hemoglobin A1c targets should be discussed with health care provider. DIAGNOSTIC USE: The [place] Diabetes [employer] (ADA) and the World Health [...] Supplement 1 Testing performed or reported by [facility], a Service of [address] [address] Jonn Kay MD, Supervisor Finishing Room CLIA# [id number] Blood 05/15/2022 11:3 0 AM EST 05/15/2022 12:24 PM EST Kelley Arora MD LAB BLOOD ORDERABLES Final Resul t Performing Organization Address [facility] Co de Phone Number [facility] * (ABNORMAL) Lipid panel (05/15/2022 11:30 AM EST) [facility] Cholesterol, Total 145 (<170) MG/DL [facility] HDL 30(L) (>45) MG/DL [facility] Non-HDL Cholesterol 115 (<120) MG/DL [facility] Comment: Testing performed or reported by [facility], a Service of [facility], [address] [place] [address] Jonn Kay MD, Supervisor Finishing Room CLIA# [id number] Blood 05/15/2022 11:3 0 AM EST 05/15/2022 12:24 PM EST Kelley Arora MD LAB BLOOD ORDERABLES Final Resul t Performing Organization Address City/[facility] Co de Phone Number [facility] from Last 3 Months or Most Recently Relevant to Health Maintenance Insurance [facility] NON PCC [facility] Care Teams Compliance Testing Analyst Relationship Specialty Start Date End Date Julia Blood NP [address] [place] [address] PCP - General Pediatrics 08/13/24
--- OUTSIDE RECORDS SUMMARY | 2025-01-15 17:57 | XMS_ITS | Encounter Summary ---
Author Organization [employer] Address [address] [facility] 7t [place] [address] Care Team Providers Care Range Ecologist Name Role Phone Ak[facility] Primary Care Provider [phone] Reason for Visit * Reason Onset Date Comments Med Refill 02/25/2024 Encounter Details Date Type Department Care Team (Late st Contact Info) Description 02/25/2024 Refill [facility] MEDICINE [address] [place], [place] [phone] Virginia Box CNM [address] [place], [place] [phone] Social History Tobacco Use Types Packs/Day Years [...] PM EST Office Visit [facility] [address] [place] [address] Katheryn Duran, OD [address] [place] [address] documented as of this encounter Visit Diagnoses Not on filedocumented in this encounter Additional Health Concerns Assessment Noted Time PHQ-9 Depression Total Score: 21 024 12:37 PM EDT documented as of this encounter Care Teams Range Ecologist Relationship Specialty Start Date End Date Thelma Fatima FNP [address] [place] [address] PCP - General Family Medicine 12/14/23 documented as of this encounter
--- OUTSIDE RECORDS SUMMARY | 2025-01-15 17:57 | XMS_ITS | Clinical Summary ---
Author Organization [employer] Address [address] [place] [address] 7[address] [place] [address] Care Team Providers Care Oil Lease Operator Name Role Phone [facility] Primary Care Provider [phone] Allergies Active Allergy Reactions Criticality Noted Date Comments Blueberry Flavoring Agent (Non-Screening) Unknown 12/14/2023 Triana Unknown 12/14/2023 Fish Allergy Unknown 12/14/2023 [place] Extract Unknown 12/14/2023 Medications * This document contains information received from the source organization and may not represent a complete record from that organization. divalproex (Depakote ER) 500 MG 24 hr tablet Take 1,500 mg by mouth with evening meal. 09/18/2023 Active hydrOXYzine pamoate (Vistaril) 50 MG capsule Take 50 mg by mouth every 8 (eight) hours if needed for anxiety. 09/18/2023 Active nicotine polacrilex (Nicorette) 2 MG [...] THE MORNING 90 capsule 1 09/22/2024 Active cloZAPine (Clozaril) 50 MG tablet 12/02/2024 Active mirtazapine (Remeron) 45 MG tablet 12/04/2024 Active Active Problems Problem Noted Date Diagnosed [...] Department Care Team Description 12/12/2024 Results Follow-Up [facility] [address] [place] [phone] Willow Butterfield MD CBC auto differential, Traer, Valproic Acid Total, Additional followed-up results: 2 12/11/2024 Orders Only GENERIC EXTERNAL DATA DEPARTMENT Provider, Generic External Data 12/09/2024 11:45 AM EDT Office Visit [facility] [address] [place] [phone] Niki Bar DO Dysuria 12/09/2024 Travel 12/03/2024 Telephone [facility] [address] [place] [address] Thelma Fatima FNP Nurse Triage 12/01/2024 Telephone [facility] [address] [place] [address] Thelma Fatima FNP 11/21/2024 Telephone [facility] [address] [place] [address] Thelma Fatima FNP Care Coordination 11/20/2024 Telephone [facility] [address] [place] [address] Thelma Fatima FNP Telephone Call 11/19/2024 Results Follow-Up [facility] [address] [place] [address] Willow Butterfield MD CBC auto differential, Comprehensive Metabolic Panel, Hepatic Function Panel, Additional followed-up results: 6 11/12/2024 Orders Only [facility] [place] [address] Willow Butterfield MD 11/12/2024 Telephone [facility] [place] [address] Thelma Fatima FNP Call Back Request 11/05/2024 Telephone [facility] [place] [address] Thelma Fatima FNP Care Coordination 11/04/2024 Orders Only GENERIC EXTERNAL DATA DEPARTMENT Provider, Generic External Data 11/03/2024 10:00 AM EDT Office Visit [facility] [place] [address] Thelma Fatima FNP Intention tremor (Primary Dx); [...] Dietary counseling; Exercise counseling 11/03/2024 Results Follow-Up [facility] [address] Thelma Fatima FNP Traer, Valproic Acid Total, CBC auto differential, Additional followed-up results: 6 11/03/2024 Orders Only [facility] [place] [address] Thelma Fatima FNP 11/03/2024 Telephone [facility] [place] [facility] [place] [address] Thelma Fatima FNP Critical Traer level 11/03/2024 Travel 10/31/[address] [address] Thelma Fatima FNP Chart Prep 10/24/2024 Patient Outreach [address] [place] [address] [facility] Pre-visit Planning ((Unable to reach for PVP [...] 03/04/2008,01/27/2005 Meningococcal MCV4P [id number]-135 12/15/2020,08/02/19 16 Novel Bepzebzze-[id number], all formulations 04/22/2009 Pneumococcal Conjugate PCV 7 [...] Upcoming Encounters Date Type Department Care Team ([facility] st Contact Info) Description 02/19/2025 2:00 PM EST Office Visit [facility] OPTOMETRY [address] [place] [address] Katheryn Duran, OD [address] [place] [address] Health Maintenance Due Date Last Done Comments Disability Screening 2004 Meningococcal B Vaccine (1 of 2 - Standard) 2020 COVID-19 Vaccine (3 - season) 2024 09/24/2020, 09/03/2020 Influenza Vaccine (#1) 2024 , 12/15/2020, 02/04/2020, Additional history exists SDOH Screening 12/05/2024 12/06/2023 Family Planning (PISQ) 02/24/2025 02/25/2024 Depression Screening 03/21/2025 03/21/2024, 03/21/19 Alcohol/Substance Use Screening 11/03/2025 11/03/2024 Chlamydia and Gonorrhea Screening 12/09/2025 12/09/2024, 12/14/2023, 05/15/2022, Additional history exists Tobacco Screening 12/09/2025 12/09/2024 Lipid Panel 11/03/2029 [...] Blood Count 5.9 4.8 - 10.8 X10*3/uL [facility] Red Blood Count 4.89 4.60 - 5.80 X10*6/uL [facility] Hemoglobin 14.2 14.0 - 18.0 g/dl [facility] Hematocrit 42.0 42.0 - 52.0 % [facility] Mean Corpuscular Volume 85.9 80.0 - 98.0 fL [facility] Mean Corpuscular Hemoglobin 29.0 27.0 - 33.0 pg [facility] Mean Corpuscular HGB Conc 33.8 31.0 - 36.0 g/dl [facility] Red Cell Distribution Width 13.7 11.0 - 16.0 % [facility] Platelet Count 185 160 - 400 X10*3/uL [facility] Mean Platelet Volume 12.3 9.4 - 12.4 fL [facility] Neutrophils Percent Auto 36.8(L) 45 - 73 % [facility] Imm Gran Pct Auto 0.2 0.0 - 0.4 % [facility] Lymphocytes Percent Auto 46.1(H) 20 - 40 % [facility] Monocytes Percent Auto 9.9 2 - 11 % [facility] Eosinophils Percent Auto 6.1(H) 0 - 4 % [facility] Basophils Percent Auto 0.9 0 - 2 % [facility] NRBC Pct Auto 0.0 0.0 - 0.2 /100WBC [facility] Neutrophils Absolute Auto 2.2 2.0 - 8.3 x10*3/uL [facility] Imm Gran Abs Auto 0.01 0.00 - 0.03 X10*3/uL [facility] Lymphocytes Absolute Auto 2.7 1.2 - 4.9 X10*3/uL [facility] Monocytes Absolute Auto 0.6 0.1 - 1.2 X10*3/uL [facility] Eosinophils Absolute Auto 0.4 0.0 - 0.4 X10*3/uL [facility] Basophils Absolute Auto 0.1 0.0 - 0.2 X10*3/uL [facility] NRBC Abs Auto 0.000 0.0 - 0.012 X10*3/uL [facility] 12/11/2024 12:5 3 PM EDT 12/11/2024 12:53 PM EDT Generic External Data Provider LAB BLOOD ORDERAB LES Final Result Performing Organization Address [facility] Co de Phone Number [facility] [address] [place] [phone] * (ABNORMAL) Traer (12/11/2024 12:53 PM EDT) Only the most recent of6 resultswithin the time period is included. Traer <0.10(L) 0.60 - 1.20 mmol/L [facility] 12/11/2024 12:5 3 PM EDT 12/11/2024 12:53 PM EDT Generic External Data Provider LAB BLOOD ORDERAB LES Final Result Performing Organization Address [facility] de Phone Number [facility] [address] [place] [phone] * Valproic Acid Total (12/11/2024 12:53 PM EDT) Only the most recent of3 resultswithin the time period is included. Valproate 61.5 50.0 - 100.0 mcg/mL [facility] 12/11/2024 12:5 3 PM EDT 12/11/2024 12:53 PM EDT Generic External Data Provider LAB BLOOD ORDERAB LES Final Result Performing Organization Address [facility] de Phone Number [facility] [address] [place] [phone] * Hepatic Function Panel (12/11/2024 12:53 PM EDT) Only the most recent of2 resultswithin the time period is included. Bilirubin, Direct <0.2 0.0 - 0.5 mg/dL [facility] 12/11/2024 12:5 3 PM EDT 12/11/2024 12:53 PM EDT us Generic External Data Provider LAB BLOOD ORDERAB LES Final Result [facility] [address] [place] [address] [phone] * (ABNORMAL) Comprehensive Metabolic Panel (12/11/2024 12:53 PM EDT) Only the most recent of4 resultswithin the time period is included. Sodium 146(H) 135 - 145 mmol/L [facility] Potassium 4.0 3.3 - 5.1 mmol/L [facility] Chloride 113(H) 96 - 108 mmol/L [facility] Carbon Dioxide 26 22 - 29 mmol/L [facility] Anion Gap 11(L) 12 - 20 [facility] Urea Nitrogen (BUN) 7(L) 9 - 16 mg/dL [facility] Creatinine, Serum 0.73 0.5 - 1.4 mg/dL [facility] Estimated Glomerular Filt Rate >60 [facility] Comment:Chronic Kidney Disea se: Estimated GFR < 60 mL/min/[id number] Kidney Disease: Estimated GFR < 15 mL/min/1.73m2 Glucose 84 60 - 115 mg/dL [facility] Calcium 9.6 8.4 - 10.2 mg/dL [facility] Bilirubin, Total 0.2 0.0 - 1.0 mg/dL [facility] Aspartate Amino Transferase 31 5 - 37 U/L [facility] Alanine Aminotransferase 31 0 - 40 U/L [facility] Total Protein 6.9 6.5 - 8.0 g/dL [facility] Albumin Level 4.3 3.5 - 5.0 g/dL [facility] Alkaline Phosphatase 51 39 - 117 U/L [facility] 12/11/2024 12:5 3 PM EDT 12/11/2024 12:53 PM EDT Generic External Data Provider LAB BLOOD ORDERAB LES Final Result [facility] [address] [place] [address] [phone] * POCT Urinalysis (12/09/2024 12:01 PM [...] CT PCR, Urine NOT DETECTED Not Detect. [facility] Comment:A not detected test [...] NG PCR, Urine NOT DETECTED Not Detect. [facility] Comment:A not detected test [...] ORDERABLES Final R esult Performing Organization Address [facility] Co de Phone Number [facility] [address] [place] [phone] * Culture, Urine, Routine (12/09/2024 11:45 AM EDT) Only the most recent of2 resultswithin the time period is included. Urine Urine specimen obtained by clean catch procedure / Unknown 12/09/2024 11:45 AM EDT 12/09/2024 5:22 PM EDT Comment:UACC Narrative [facility] - 12/11/2024 10:10 AM EDT Urine Culture No growth. Specimen Source: Urine clean catch Niki Bar DO LAB MICROBIOLOGY - GENERAL O RDERABLES Final Result Performing Organization Address City/[facility]/ZIP Co de Phone Number [facility] [address] [place] [phone] * Renal Panel w/Reflex (11/12/2024 3:28 PM EDT) Phosphorus 4.2 2.7 - 4.5 mg/dL [facility] 11/12/2024 3:28 PM EDT 11/12/2024 3:28 PM EDT Willow Butterfield MD LAB BLOOD ORDERABLES Fin al Result Performing Organization Address [facility] Co de Phone Number [facility] [address] [place] [phone] * T3, Free (11/12/2024 3:28 PM EDT) T3, Free 3.9 3.0 - 4.7 pg/mL [facility] Comment:THIS TEST WAS PERFOR MED AT:[id number] [place] [phone] CISNEROS MD 11/12/2024 3:28 PM EDT 11/12/2024 3:28 PM EDT Willow Butterfield MD LAB BLOOD ORDERABLES Fin al Result Performing Organization Address [facility] Co de Phone Number [facility] [address] [place] [phone] * (ABNORMAL) TSH (11/12/2024 3:28 PM EDT) Pathologist [facility] Thyroid Stimulating Hormone 4.67(H) 0.32 - 4.0 uIU/mL [facility] Comment:Note: A sustained TS H level above 2.5 uIU/mL may warrant further investigation. TSH 3rd Generation ([facility]) 11/12/2024 3:28 PM EDT 11/12/2024 3:28 PM EDT Willow Butterfield MD LAB BLOOD ORDERABLES Fin al Result Performing Organization Address [facility] Co de Phone Number [facility] [address] [place] [phone] * T4, Free (11/12/2024 3:28 PM EDT) Only the most recent of2 resultswithin the time period is included. Free T4 (Free Thyroxine) 0.79 0.71 - 1.85 ng/dL [facility] 11/12/2024 3:28 PM EDT 11/12/2024 3:28 PM EDT us Willow Butterfield MD LAB BLOOD ORDERABLES Fin al Result Performing Organization Address [facility]/ZIP Co de Phone Number [facility] [address] [place] [phone] * (ABNORMAL) Basic Metabolic Panel (11/03/2024 9:09 PM EDT) Sodium 141 135 - 145 mmol/L [facility] Potassium 3.7 3.3 - 5.1 mmol/L [facility] Chloride 110(H) 96 - 108 mmol/L [facility] Carbon Dioxide 22 22 - 29 mmol/L [facility] Anion Gap 13 12 - 20 [facility] Urea Nitrogen (BUN) 11 9 - 16 mg/dL [facility] Creatinine, Serum 1.15 0.5 - 1.4 mg/dL [facility] Creatinine Clr Calc Pharmacy 137.7 [facility] Comment:eGFR (calculated fro m the MDRD study equation) and eCrCl(calculated from the Cockcroft-Gault equation) are based ondifferent parameters and may not yield comparable results.If eCrCl result is absurd, please check patient'sheight/weight. Estimated Glomerular Filt Rate >60 [facility] Comment:Chronic Kidney Disea se: Estimated GFR < 60 mL/min/[id number] Kidney Disease: Estimated GFR < 15 mL/min/1.73m2 Glucose 112 60 - 115 mg/dL [facility] Calcium 9.5 8.4 - 10.2 mg/dL [facility] 11/03/2024 9:09 PM EDT 11/03/2024 9:12 PM EDT us Generic External Data Provider LAB BLOOD ORDERAB LES Final Result Performing Organization Address City/[facility]/ZIP Co de Phone Number [facility] [address] [place] [phone] * Drug Monitoring, Panel 1, Screen, Urine (11/03/2024 7:19 PM EDT) Opiate Screen Urine Not Detected Not Detect [facility] Comment:Opiate cut-off is 30 0 ng/mL.Positive results are unconfirmed and should not be used fornon-medical purposes. Barbiturates, Urine Not Detected Not Detect [facility] Comment:Barbiturate cut-off is 200 ng/mL.Positive results are unconfirmed and should not be used fornon-medical purposes. Phencyclidine Screen Urine Not Detected Not Detect [facility] Comment:Phencyclidine cut-of f is 25 ng/mL.Positive results are unconfirmed and should not be used fornon-medical purposes. Amphetamine Screen Urine Not Detected Not Detect [facility] Comment:Amphetamine cut-off is 1000 ng/mL.Positive results are unconfirmed and should not be used fornon-medical purposes. Benzodiazepines Screen Urine Not Detected Not Detect [facility] Comment:Benzodiazepine cut-o ff is 200 ng/mL.Positive results are unconfirmed and should not be used fornon-medical purposes. Cocaine Screen Urine Not Detected Not Detect [facility] Comment:Cocaine cut-off is 3 00 ng/mL.Positive results are unconfirmed and should not be used fornon-medical purposes. Cannabinoid Screen Urine Not Detected Not Detect [facility] Comment:Cannabinoid cut-off is 50 ng/mL.Positive results are unconfirmed and should not be used fornon-medical purposes. Methadone Screen, Urine Not Detected Not Detect ng/mL [facility] Comment:Methadone cut-off is 300 ng/mL.Positive results are unconfirmed and should not be used fornon-medical purposes. FENTANYL URINE Not Detected Not Detect [facility] Comment:Fentanyl cut-off is 1 ng/mL.Positive results are unconfirmed and should not be used fornon-medical purposes. Oxycodone Urine Screen Not Detected Not Detect ng/mL [facility] Comment:Oxycodone cut-off is 100 ng/mL.Positive results are unconfirmed and should not be used fornon-medical purposes. Buprenorphine Screen Not Detected Not Detect ng/mL [facility] Comment:Buprenorphine cut-of f is 5 ng/mL.Positive results are unconfirmed and should not be used fornon-medical purposes. 11/03/2024 7:19 PM EDT 11/03/2024 7:23 PM EDT us Generic External Data Provider LAB URINE ORDERAB LES Final Result Performing Organization Address [facility] Co de Phone Number [facility] [address] [place] [phone] * SST GOLD TOP TO HOLD (11/03/2024 6:16 PM EDT) Hold Gold See Note [facility] Comment:Specimen held untest ed for 24 hours; Call to requestChemistry testing. 11/03/2024 6:16 PM EDT 11/03/2024 6:31 PM EDT Generic External Data Provider LAB BLOOD ORDERAB LES Final Result Performing Organization Address [facility] de Phone Number [facility] [address] [place] [phone] * Magnesium (11/03/2024 6:16 PM EDT) Magnesium 2.1 1.6 - 2.6 mg/dL [facility] 11/03/2024 6:16 PM EDT 11/03/2024 6:21 PM EDT Generic External Data Provider LAB BLOOD ORDERAB LES Final Result Performing Organization Address [facility] de Phone Number [facility] [address] [place] [phone] * (ABNORMAL) Urinalysis, Complete, with Reflex to Culture (11/03/2024 11:08 AM EDT) Color Urine Yellow [facility] Appearance Urine Clear [facility] PH 8.0 5.0 - 9.0 [facility] Glucose Urine UA Negative Negative mg/dL [facility] Urine Blood Negative Negative [facility] Specific [place] - Urine <=1.005 1.005 - 1.025 [facility] Urine Protein Trace Neg-Trace mg/dL [facility] Urine Ketones Negative Negative mg/dL [facility] Nitrite Urine Negative Negative [facility] Leukocyte Esterase Urine Moderate (2+)(A) Negative [facility] RBC Urine 0-2 0 - 2 /HPF [facility] Urine WBC 11-20(A) 0 - 5 /HPF [facility] Urine Squamous Epithelial Cell 0-2 0 - 2 /HPF [facility] Urine Bacteria None Seen None Seen [facility] Hyaline Casts, Urine 3-5 0 - 2 /LPF [facility] Urine 11/03/2024 11:0 8 AM EDT 11/03/2024 12:49 PM EDT Narrative [facility] - 11/03/2024 1:04 PM EDT Urine, Clean Catch [facility] LAB URINE ORDERABLES Final Re sult Performing Organization Address [facility] Co de Phone Number [facility] [address] [place] [phone] * (ABNORMAL) TSH W/Reflex to FT4 (11/03/2024 11:08 AM EDT) TSH reflex Free T4 7.90(H) 0.32 - 4.0 uIU/mL [facility] Blood Venous blood specimen / Unknown 11/03/2024 11:08 AM EDT 11/03/2024 12:55 PM EDT [facility] LAB BLOOD ORDERABLES Final Re sult Performing Organization Address City/[facility]/ZIP Co de Phone Number [facility] [address] [place] [phone] * RPR (Monitor) with Reflex to??Titer (11/03/2024 11:08 AM EDT) RPR (Monitor) w/Refl Titer NON-REACTI VE NON-REACT JAX [facility] Comment:THIS TEST WAS PERFOR MED AT:[id number] [place] [phone] CISNEROS MD Rapid Plasma Reagin Ab Titer TNP [facility] Blood Venous blood specimen / Unknown 11/03/2024 11:08 AM EDT 11/03/2024 12:55 PM EDT [facility] LAB BLOOD ORDERABLES Final Re sult [facility] [address] [place] [phone] * HIV-1/2 Antigen and Antibodies, Fourth Generation, with Reflexes (11/03/2024 11:08 AM EDT) HIV AB/AG Nonreactive Nonreactive [facility] Comment:HIV-1 p24 Ag and/or HIV-1/HIV-2 Ab not detected.A test result that is nonreactive does not exclude thepossibility of exposure to or infection with HIV-1 and/orHIV-2. Nonreactive results in this assay for individualswith prior exposure to HIV-1 and/or HIV-2 may be due toantigen and antibody levels that are below the limit ofdetection of this assay.The [employer] HIV Ag/Ab Combo assay result andsupplemental assay results should be interpreted inconjunction with the patient's clinical presentation,history and other laboratory results. If the results areinconsistent with clinical evidence, additional testing issuggested to confirm the result. Blood Venous blood specimen / Unknown 11/03/2024 11:08 AM EDT 11/03/2024 12:55 PM EDT [facility] LAB BLOOD ORDERABLES Final Re sult Performing Organization Address City/[facility]/ZIP Co de Phone Number [facility] [address] [place] [phone] * (ABNORMAL) Lipid Panel, Standard (11/03/2024 11:08 AM EDT) Triglycerides 221(H) <150 mg/dL [facility] Comment:Desirable Triglyceri de: less than 150 mg/dLBorderline High Triglyceride 150-199 mg/dLHigh Triglyceride: 200-499 mg/dLVery High Triglyceride: greater than or equal to 5OO mg/dL Cholesterol 158 <200 mg/dL [facility] Comment:Desirable Cholestero l: less than 200 mg/dLBorderline High Cholesterol: 200-239 mg/dLHigh Cholesterol: greater than 239 mg/dL LDL Cholesterol Calculated 96 <100 mg/dL [facility] Comment:Desirable LDL: less than 100 mg/dLNear Optimal/Above Optimal LDL: 110- 129 mg/dLBorderline High LDL: 130-159 mg/dLHigh LDL: 160-189 mg/dLVery High LDL: greater than or equal to 190 mg/dL HDL Cholesterol 18(L) >40 mg/dL [facility] Comment:Desirable HDL: great er than 40 mg/dL Note: This HDL assay may give artificially low results in patients with liver disease. Blood Venous blood specimen / Unknown 11/03/2024 11:08 AM EDT 11/03/2024 12:55 PM EDT [facility] LAB BLOOD ORDERABLES Final Re sult Performing Organization Address City/[facility]/ZIP Co de Phone Number [facility] [address] [place] [address] [phone] * Hepatitis C Antibody with Reflex to HCV, RNA, Quantitative, Real-Time PCR (12/14/2023 12:34 PM EDT) Hepatitis C Antibody Nonreactive Nonreactive [facility] Comment:Antibodies to HCV no t detected; does not exclude early acuteHCV infection. Blood Venous blood specimen / Unknown 12/14/2023 12:34 PM EDT 12/14/2023 1:19 PM EDT [facility] LAB BLOOD ORDERABLES Final Re sult [facility] [address] [place] [phone] from Last 3 Months or Most Recently Relevant to Health Maintenance Insurance [facility] [place]ANDARD [place] [address] [place] [phone] Care Teams Oil Lease Operator Relationship Specialty Start Date End Date [place] Thelma [facility] [address] [place] [address] PCP - General Family Medicine 12/14/23
--- OUTSIDE RECORDS SUMMARY | 2025-01-15 17:57 | XMS_ITS | Encounter Summary ---
Author Organization [employer] Address [address] [facility] [address] [place] [address] Care Team Providers Care Control Systems Technician Name Role Phone [facility] Primary Care Provider [phone] Reason for Visit * Reason Comments Med Refill Encounter Details Date Type Department Care Team ([facility] st Contact Info) Description 12/18/2023 Refill [facility] MEDICINE [address] [place], [place] [phone] Willow Butterfield MD [address] [place], [place] [phone] Social History Tobacco Use Types Packs/Day Years [...] PM EST Office Visit [facility] [address] [place] [address] Tarka, Katheryn, OD [address] [place] [address] documented as of this encounter Visit Diagnoses Not on filedocumented in this encounter Additional Health Concerns Assessment Noted Time PHQ-9 Depression Total Score: 21 024 12:37 PM EDT documented as of this encounter Care Teams Control Systems Technician Relationship Specialty Start Date End Date Thelma Fatima FNP [address] [place] [id number] PCP - General Family Medicine 12/14/23 documented as of this encounter
[2025-01-15 18:14] LABS: Alanine Aminotransferase 21 U/L (0-40); Albumin Level 4.3 g/dL (3.5-5.0); Alkaline Phosphatase 47 U/L (39-117); Anion Gap 12 (12-20); Aspartate Amino Transferase 28 U/L (5-37); Blood Urea Nitrogen 9 mg/dL (9-16); Calcium 9.4 mg/dL (8.4-10.2); Carbon Dioxide 25 mmol/L (22-29); Chloride 110 mmol/L (96-108); Estimated Glomerular Filt Rate > 60; Potassium 3.5 mmol/L (3.3-5.1); Sodium 143 mmol/L (135-145); Total Protein 7.1 g/dL (6.5-8.0)
== END 2025-01-15 15:16 | disposition home or self-care (01) ==
LOC: HO.HMGCLDS 15:15
PROVIDERS: Internal Medicine
DX: Z51.81 Encounter for therapeutic drug level monitoring (principal); F31.81 Bipolar II disorder; E03.9 Hypothyroidism, unspecified
CPT/HCPCS: 36415; 80051; 80053; 80164; 80178; 82248; 82310; 82565; 84100; 84443; 84520; 85025; 85610; 85730

== ENCOUNTER 2025-01-27 11:25 | Outpatient (REF) | payer MEDICARE, MEDICAID, SELFPAY ==
--- OUTSIDE RECORDS SUMMARY | 2025-01-27 13:34 | XMS_ITS | Encounter Summary ---
Author Organization [employer] Address [address] [facility] [address] [place] [address] Care Team Providers Care Mechanical Energy Engineer Name Role Phone [facility] Primary Care Provider [phone] Encounter Details Date Type Department Care Team ([facility] st Contact Info) Description 01/26/2025 Telephone [facility] MEDICINE [address] [place], [place] [phone] [facility] [address] [place], [place] [phone] Social History Tobacco Use Types Packs/Day Years [...] encounter Miscellaneous Notes * Telephone Encounter - Alma Hewitt - 01/26/2025 9:39 AM EST Mailed stable lab letter. documented in this encounter Plan of Treatment Upcoming Encounters Date Type Department Care Team (Late st Contact Info) Description 02/19/2025 2:00 PM EST Office Visit [facility] [address] [place] [address] EmersonkaKatheryn, OD [address] [place] [address] documented as of this encounter Visit Diagnoses Not on filedocumented in this encounter Additional Health Concerns Assessment Noted Time PHQ-9 Depression Total Score: 0 03/21/19 25 2:22 PM EST documented as of this encounter Care Teams Mechanical Energy Engineer Relationship Specialty Start Date End Date Thelma Fatima FNP [address] [place] [id number] PCP - General Family Medicine 12/14/23 documented as of this encounter
--- OUTSIDE RECORDS SUMMARY | 2025-01-27 13:34 | XMS_ITS | Encounter Summary ---
Author Organization [facility] Address [address] [place] [address] Phone Care Team Providers Care Hydraulic Spinner Name Role Phone Julia Blood NP Primary Care Provider [phone] Encounter Details Date Type Department Care Team (Late st Contact Info) Description 09/01/2015 Documentation [facility] [place] Family Medicine [address] [place], [place] [phone] Family Medicine, Physician [address] [place], [place] [phone] Social History Tobacco Use Types Packs/Day Years [...] on filedocumented in this encounter Care Teams Hydraulic Spinner Relationship Specialty Start Date End Date Julia Blood NP [address] [place] [address] PCP - General Pediatrics 08/13/24 documented as of this encounter
--- OUTSIDE RECORDS SUMMARY | 2025-01-27 13:34 | XMS_ITS | Clinical Summary ---
Author Organization [employer] Address [address] [place] [address] [address] [place] [address] Care Team Providers Care Regional Facilities Manager Name Role Phone [facility] Primary Care Provider [phone] Allergies Active Allergy Reactions Criticality Noted Date Comments Blueberry Flavoring Agent (Non-Screening) Unknown 12/14/2023 Triana Unknown 12/14/2023 Fish Allergy Unknown 12/14/2023 [place] Extract Unknown 12/14/2023 Medications * This document [...] Encounters Date Type Department Care Team Description 01/26/2025 Telephone [facility] [address] [place] [phone] Thelma Fatima FNP 12/12/2024 Results Follow-Up [facility] [address] [place] [address] Willow Butterfield MD CBC auto differential, Prosser, Valproic Acid Total, Additional followed-up results: 2 12/11/2024 Orders Only GENERIC EXTERNAL DATA DEPARTMENT Provider, Generic External Data 12/09/2024 11:45 AM EDT Office Visit [facility] [address] [place] [phone] Niki Bar DO Dysuria 12/09/2024 Travel 12/03/2024 Telephone [facility] [address] [place] [address] Thelma Fatima FNP Nurse Triage 12/01/2024 Telephone [facility] [address] [place] [address] Thelma Fatima FNP 11/21/2024 Telephone [facility] [address] [place] [address] Thelma Fatima FNP Care Coordination 11/20/2024 Telephone [facility] [place] [address] Thelma Fatima [facility] Telephone Call 11/19/2024 Results Follow-Up [facility] JULIA Godinez [phone] Willow Butterfield MD CBC auto differential, Comprehensive Metabolic Panel, Hepatic Function Panel, Additional followed-up results: 6 11/12/2024 Orders Only [facility] [place] [address] Willow Butterfield MD 11/12/2024 Telephone [facility] [place] [address] [address] [facility] Call Back Request 11/05/2024 Telephone [facility] [place] [address] Thelma Fatima [facility] Care Coordination 11/04/2024 Orders Only GENERIC EXTERNAL DATA DEPARTMENT Provider, Generic External Data 11/03/2024 10:00 AM EDT Office Visit [facility] [place] [address] Thelma Fatima [facility] Intention tremor (Primary Dx); Witnessed seizure-like activity [...] Dietary counseling; Exercise counseling 11/03/2024 Results Follow-Up [facility] [place] [address] Thelma Fatima [facility] Prosser, Valproic Acid Total, CBC auto differential, Additional followed-up results: 7 11/03/2024 Orders Only [facility] JULIA Godinez [phone] Thelma Fatima FNP 11/03/2024 Telephone [facility] [place] [address] AkuaThelma young [facility] Critical Prosser level 11/03/2024 Travel 10/31/2024 Telephone [facility] [place] [address], [place], [facility] Chart Prep from Last 3 Months Immunizations Immunization Administration [...] 03/04/2008,01/27/2005 Meningococcal MCV4P ACYW-135 12/15/2020,08/02/19 16 Novel [id number], all formulations 04/22/2009 Pneumococcal Conjugate PCV 7 [...] 2:00 PM EST Office Visit [facility] OPTOMETRY [address] [place] [address] Katheryn Duran, OD [address] [place] [address] Health Maintenance Due Date Last Done Comments [...] Procedure Name Priority Date/Time Associated Diagnosis Comments TSH W/REFLEX TO FT4 Routine 01/15/2025 3 :20 PM EDT Acquired hypothyroidism HEPATIC FUNCTION PANEL Routine 12/11/2024 12:53 PM [...] Recently Relevant to Health Maintenance Results * TSH with Reflex to Free T4 (01/15/2025 3:20 PM EDT) Only the most recent of2 resultswithin the time period is included. TSH reflex Free T4 1.24 0.32 - 4.0 uIU/mL [facility] Blood 01/15/2025 3:20 PM EDT 01/15/2025 4:07 PM EDT us Willow Butterfield MD LAB BLOOD ORDERABLES Fin al Result [facility] [address] [place] [address] [phone] * (ABNORMAL) CBC auto differential (12/11/2024 12:53 PM EDT) Only the most recent of4 resultswithin the time period is included. White Blood Count 5.9 4.8 - 10.8 X10*3/uL [facility] Red Blood Count 4.89 4.60 - 5.80 X10*6/uL [facility] Hemoglobin 14.2 14.0 - 18.0 g/dl [facility] Hematocrit 42.0 42.0 - 52.0 % [facility] Mean Corpuscular Volume 85.9 80.0 - 98.0 fL [facility] Mean Corpuscular Hemoglobin 29.0 27.0 - 33.0 pg [facility] Mean Corpuscular HGB Conc 33.8 31.0 - 36.0 g/dl [facility] Red Cell Distribution Width 13.7 11.0 - 16.0 % [facility] Platelet Count 185 160 - 400 X10*3/uL [facility] Mean Platelet Volume 12.3 9.4 - 12.4 fL [facility] Neutrophils Percent Auto 36.8(L) 45 - 73 % [facility] Imm Gran Pct Auto 0.2 0.0 - 0.4 % [facility] Lymphocytes Percent Auto 46.1(H) 20 - 40 % [facility] Monocytes Percent Auto 9.9 2 - 11 % [facility] Eosinophils Percent Auto 6.1(H) 0 - 4 % [facility] Basophils Percent Auto 0.9 0 - 2 % [facility] NRBC Pct Auto 0.0 0.0 - 0.2 /100WBC [facility] Neutrophils Absolute Auto 2.2 2.0 - 8.3 x10*3/uL [facility] Imm Gran Abs Auto 0.01 0.00 - 0.03 X10*3/uL [facility] Lymphocytes Absolute Auto 2.7 1.2 - 4.9 X10*3/uL [facility] Monocytes Absolute Auto 0.6 0.1 - 1.2 X10*3/uL [facility] Eosinophils Absolute Auto 0.4 0.0 - 0.4 X10*3/uL [facility] Basophils Absolute Auto 0.1 0.0 - 0.2 X10*3/uL [facility] NRBC Abs Auto 0.000 0.0 - 0.012 X10*3/uL [facility] 12/11/2024 12:5 3 PM EDT 12/11/2024 12:53 PM EDT Generic External Data Provider LAB BLOOD ORDERAB LES Final Result Performing Organization Address City/[facility]/ZIP Co de Phone Number [facility] [address] [place] [phone] * (ABNORMAL) Prosser (12/11/2024 12:53 PM EDT) Only the most recent of6 resultswithin the time period is included. Prosser <0.10(L) 0.60 - 1.20 mmol/L [facility] 12/11/2024 12:5 3 PM EDT 12/11/2024 12:53 PM EDT Generic External Data Provider LAB BLOOD ORDERAB LES Final Result Performing Organization Address City/[facility] [[email or web address] Co de Phone Number [facility] [address] [place] [phone] * Valproic Acid Total (12/11/2024 12:53 PM EDT) Only the most recent of3 resultswithin the time period is included. Valproate 61.5 50.0 - 100.0 mcg/mL [facility] 12/11/2024 12:5 3 PM EDT 12/11/2024 12:53 PM EDT Generic External Data Provider LAB BLOOD ORDERAB LES Final Result Performing Organization Address [facility]/ZIP Co de Phone Number [facility] [address] [place] [phone] * Hepatic Function Panel (12/11/2024 12:53 PM EDT) Only the most recent of2 resultswithin the time period is included. Bilirubin, Direct <0.2 0.0 - 0.5 mg/dL [facility] 12/11/2024 12:5 3 PM EDT 12/11/2024 12:53 PM EDT Generic External Data Provider LAB BLOOD ORDERAB LES Final Result Performing Organization Address [facility] de Phone Number [facility] [address] [place] [phone] * (ABNORMAL) Comprehensive Metabolic Panel (12/11/2024 12:53 PM EDT) Only the most recent of4 resultswithin the time period is included. Sodium 146(H) 135 - 145 mmol/L [facility] Potassium 4.0 3.3 - 5.1 mmol/L [facility] Chloride 113(H) 96 - 108 mmol/L [facility] Carbon Dioxide 26 22 - 29 mmol/L [facility] Anion Gap 11(L) 12 - 20 [facility] Urea Nitrogen (BUN) 7(L) 9 - 16 mg/dL [facility] Creatinine, Serum 0.73 0.5 - 1.4 mg/dL [facility] Estimated Glomerular Filt Rate >60 [facility] Comment:Chronic Kidney Disea se: Estimated GFR < 60 mL/min/1.06d7Vafuyl Kidney Disease: Estimated GFR < 15 mL/min/1.73m2 Glucose 84 60 - 115 mg/dL [facility] Calcium 9.6 8.4 - 10.2 mg/dL [facility] Bilirubin, Total 0.2 0.0 - 1.0 mg/dL [facility] Aspartate Amino Transferase 31 5 - 37 U/L [facility] Alanine Aminotransferase 31 0 - 40 U/L [facility] Total Protein 6.9 6.5 - 8.0 g/dL [facility] Albumin Level 4.3 3.5 - 5.0 g/dL [facility] Alkaline Phosphatase 51 39 - 117 U/L [facility] 12/11/2024 12:5 3 PM EDT 12/11/2024 12:53 PM EDT Generic External Data Provider LAB BLOOD ORDERAB LES Final Result [facility] [address] [place] [phone] * POCT Urinalysis (12/09/2024 12:01 PM [...] CT PCR, Urine NOT DETECTED Not Detect. [facility] Comment:A not detected test result [...] NG PCR, Urine NOT DETECTED Not Detect. [facility] Comment:A not detected test result [...] DO LAB URINE ORDERABLES Final R esult [facility] [address] [place] [phone] * Culture, Urine, Routine (12/09/2024 11:45 AM EDT) Only the most recent of2 resultswithin the time period is included. Urine Urine specimen obtained by clean catch procedure / Unknown 12/09/2024 11:45 AM EDT 12/09/2024 5:22 PM EDT Comment:UACC Narrative [facility] - 12/11/2024 10:10 AM EDT Urine Culture No growth. Specimen Source: Urine clean catch us Niki Bar DO LAB MICROBIOLOGY - GENERAL O RDERABLES Final Result Performing Organization Address [facility] [[email or web address]] Co de Phone Number [facility] [address] [place] [phone] * Renal Panel w/Reflex (11/12/2024 3:28 PM EDT) Phosphorus 4.2 2.7 - 4.5 mg/dL [facility] 11/12/2024 3:28 PM EDT 11/12/2024 3:28 PM EDT Willow Butterfield MD LAB BLOOD ORDERABLES Fin al Result Performing Organization Address [facility] [[email or web address]] Co de Phone Number [facility] [address] [place] [phone] * T3, Free (11/12/2024 3:28 PM EDT) T3, Free 3.9 3.0 - 4.7 pg/mL [facility] Comment:THIS TEST WAS PERFOR MED AT:[facility] [place] [phone] CISNEROS MD 11/12/2024 3:28 PM EDT 11/12/2024 3:28 PM EDT us Willow Butterfield MD LAB BLOOD ORDERABLES Fin al Result Performing Organization Address [facility] [[email or web address]] Co de Phone Number [facility] [address] [place] [phone] * (ABNORMAL) TSH (11/12/2024 3:28 PM EDT) Thyroid Stimulating Hormone 4.67(H) 0.32 - 4.0 uIU/mL [facility] Comment:Note: A sustained TS H level above 2.5 uIU/mL may warrant further investigation. TSH 3rd Generation ([facility]) 11/12/2024 3:28 PM EDT 11/12/2024 3:28 PM EDT Willow Butterfield MD LAB BLOOD ORDERABLES Fin al Result Performing Organization Address City/[facility]/ZIP Co de Phone Number [facility] [address] [place] [phone] * T4, Free (11/12/2024 3:28 PM EDT) Only the most recent of2 resultswithin the time period is included. Free T4 (Free Thyroxine) 0.79 0.71 - 1.85 ng/dL [facility] 11/12/2024 3:28 PM EDT 11/12/2024 3:28 PM EDT Willow Butterfield MD LAB BLOOD ORDERABLES Fin al Result Performing Organization Address [facility] de Phone Number [facility] [address] [place] [phone] * (ABNORMAL) Basic Metabolic Panel (11/03/2024 9:09 PM EDT) Pathologist [facility] Sodium 141 135 - 145 mmol/L [facility] Potassium 3.7 3.3 - 5.1 mmol/L [facility] Chloride 110(H) 96 - 108 mmol/L [facility] Carbon Dioxide 22 22 - 29 mmol/L [facility] Anion Gap 13 12 - 20 [facility] Urea Nitrogen (BUN) 11 9 - 16 mg/dL [facility] Creatinine, Serum 1.15 0.5 - 1.4 mg/dL [facility] Creatinine Clr Calc Pharmacy 137.7 [facility] Comment:eGFR (calculated fro m the MDRD study equation) and eCrCl(calculated from the Cockcroft-Gault equation) are based ondifferent parameters and may not yield comparable results.If eCrCl result is absurd, please check patient'sheight/weight. Estimated Glomerular Filt Rate >60 [facility] Comment:Chronic Kidney Disea se: Estimated GFR < 60 mL/min/1.89i0Gsmxzg Kidney Disease: Estimated GFR < 15 mL/min/1.73m2 Glucose 112 60 - 115 mg/dL [facility] Calcium 9.5 8.4 - 10.2 mg/dL [facility] 11/03/2024 9:09 PM EDT 11/03/2024 9:12 PM EDT us Generic External Data Provider LAB BLOOD ORDERAB LES Final Result [facility] [address] [place] [phone] * Drug Monitoring, Panel 1, Screen, Urine (11/03/2024 7:19 PM EDT) Opiate Screen Urine Not Detected Not Detect [facility] Comment:Opiate cut-off is 30 0 ng/mL.Positive results are unconfirmed and should not be used fornon-medical purposes. Barbiturates, Urine Not Detected Not Detect [facility] Comment:Barbiturate cut-off is 200 ng/mL.Positive results are unconfirmed and should not be used fornon-medical purposes. Phencyclidine Screen Urine Not Detected Not Detect [facility] Comment:Phencyclidine cut-of f is 25 ng/mL.Positive results are unconfirmed and should not be used fornon-medical purposes. Amphetamine Screen Urine Not Detected Not Detect [facility] Comment:Amphetamine cut-off is 1000 ng/mL.Positive results are unconfirmed and should not be used fornon-medical purposes. Benzodiazepines Screen Urine Not Detected Not Detect [facility] Comment:Benzodiazepine cut-o ff is 200 ng/mL.Positive results are unconfirmed and should not be used fornon-medical purposes. Cocaine Screen Urine Not Detected Not Detect [facility] Comment:Cocaine cut-off is 3 00 ng/mL.Positive results are unconfirmed and should not be used fornon-medical purposes. Cannabinoid Screen Urine Not Detected Not Detect [facility] Comment:Cannabinoid cut-off is 50 ng/mL.Positive results are unconfirmed and should not be used fornon-medical purposes. Methadone Screen, Urine Not Detected Not Detect ng/mL [facility] Comment:Methadone cut-off is 300 ng/mL.Positive results are unconfirmed and should not be used fornon-medical purposes. FENTANYL URINE Not Detected Not Detect [facility] Comment:Fentanyl cut-off is 1 ng/mL.Positive results are unconfirmed and should not be used fornon-medical purposes. Oxycodone Urine Screen Not Detected Not Detect ng/mL [facility] Comment:Oxycodone cut-off is 100 ng/mL.Positive results are unconfirmed and should not be used fornon-medical purposes. Buprenorphine Screen Not Detected Not Detect ng/mL [facility] Comment:Buprenorphine cut-of f is 5 ng/mL.Positive results are unconfirmed and should not be used fornon-medical purposes. 11/03/2024 7:19 PM EDT 11/03/2024 7:23 PM EDT us Generic External Data Provider LAB URINE ORDERAB LES Final Result Performing Organization Address [facility]/ZIP Co de Phone Number [facility] [address] [place] [phone] * SST GOLD TOP TO HOLD (11/03/2024 6:16 PM EDT) Hold Gold See Note [facility] Comment:Specimen held untest ed for 24 hours; Call to requestChemistry testing. 11/03/2024 6:16 PM EDT 11/03/2024 6:31 PM EDT us Generic External Data Provider LAB BLOOD ORDERAB LES Final Result Performing Organization Address [facility]/ZIP Co de Phone Number [facility] [address] [place] [phone] [phone] * Magnesium (11/03/2024 6:16 PM EDT) Magnesium 2.1 1.6 - 2.6 mg/dL [facility] 11/03/2024 6:16 PM EDT 11/03/2024 6:21 PM EDT us Generic External Data Provider LAB BLOOD ORDERAB LES Final Result Performing Organization Address [facility] [[email or web address]] Co de Phone Number [facility] [address] [place] [address] [phone] * (ABNORMAL) Urinalysis, Complete, with Reflex to Culture (11/03/2024 11:08 AM EDT) Color Urine Yellow [facility] Appearance Urine Clear [facility] PH 8.0 5.0 - 9.0 [facility] Glucose Urine UA Negative Negative mg/dL [facility] Urine Blood Negative Negative [facility] Specific Maynard - Urine <=1.005 1.005 - 1.025 [facility] Urine Protein Trace Neg-Trace mg/dL [facility] Urine Ketones Negative Negative mg/dL [facility] Nitrite Urine Negative Negative [facility] Leukocyte Esterase Urine Moderate (2+)(A) Negative [facility] RBC Urine 0-2 0 - 2 /HPF [facility] Urine WBC 11-20(A) 0 - 5 /HPF [facility] Urine Squamous Epithelial Cell 0-2 0 - 2 /HPF [facility] Urine Bacteria None Seen None Seen [facility] Hyaline Casts, Urine 3-5 0 - 2 /LPF [facility] Urine 11/03/2024 11:0 8 AM EDT 11/03/2024 12:49 PM EDT Narrative [facility] - 11/03/2024 1:04 PM EDT Urine, Clean Catch [facility] LAB URINE ORDERABLES Final Re sult Performing Organization Address [facility] [[email or web address]] Co de Phone Number [facility] [address] [place] [address] [phone] * RPR (Monitor) with Reflex to??Titer (11/03/2024 11:08 AM EDT) RPR (Monitor) w/Refl Titer NON-REACTI VE NON-REACT JAX [facility] Comment:THIS TEST WAS PERFOR MED AT:[facility] [place] [phone] CISNEROS MD Rapid Plasma Reagin Ab Titer TNP [facility] Blood Venous blood specimen / Unknown 11/03/2024 11:08 AM EDT 11/03/2024 12:55 PM EDT [facility] LAB BLOOD ORDERABLES Final Re sult [facility] [address] [place] [phone] * HIV-1/2 Antigen and Antibodies, Fourth Generation, with Reflexes (11/03/2024 11:08 AM EDT) HIV AB/AG Nonreactive Nonreactive [facility] Comment:HIV-1 p24 Ag and/or HIV-1/HIV-2 Ab not detected.A test result that is nonreactive does not exclude thepossibility of exposure to or infection with HIV-1 and/orHIV-2. Nonreactive results in this assay for individualswith prior exposure to HIV-1 and/or HIV-2 may be due toantigen and antibody levels that are below the limit ofdetection of this assay.The clypd HIV Ag/Ab Combo assay result andsupplemental assay results should be interpreted inconjunction with the patient's clinical presentation,history and other laboratory results. If the results areinconsistent with clinical evidence, additional testing issuggested to confirm the result. Blood Venous blood specimen / Unknown 11/03/2024 11:08 AM EDT 11/03/2024 12:55 PM EDT [facility] LAB BLOOD ORDERABLES Final Re sult Performing Organization Address City/[facility]/ZIP Co de Phone Number [facility] [address] [place] [phone] * (ABNORMAL) Lipid Panel, Standard (11/03/2024 11:08 AM EDT) Triglycerides 221(H) <150 mg/dL [facility] Comment:Desirable Triglyceri de: less than 150 mg/dLBorderline High Triglyceride 150-199 mg/dLHigh Triglyceride: 200-499 mg/dLVery High Triglyceride: greater than or equal to 5OO mg/dL Cholesterol 158 <200 mg/dL [facility] Comment:Desirable Cholestero l: less than 200 mg/dLBorderline High Cholesterol: 200-239 mg/dLHigh Cholesterol: greater than 239 mg/dL LDL Cholesterol Calculated 96 <100 mg/dL [facility] Comment:Desirable LDL: less than 100 mg/dLNear Optimal/Above Optimal LDL: 110- 129 mg/dLBorderline High LDL: 130-159 mg/dLHigh LDL: 160-189 mg/dLVery High LDL: greater than or equal to 190 mg/dL HDL Cholesterol 18(L) >40 mg/dL [facility] Comment:Desirable HDL: great er than 40 mg/dL Note: This HDL assay may give artificially low results in patients with liver disease. Blood Venous blood specimen / Unknown 11/03/2024 11:08 AM EDT 11/03/2024 12:55 PM EDT [facility] LAB BLOOD ORDERABLES Final Re sult Performing Organization Address City/[facility]/ZIP Co de Phone Number [facility] [address] [place] [phone] * Hepatitis C Antibody with Reflex to HCV, RNA, Quantitative, Real-Time PCR (12/14/2023 12:34 PM EDT) Hepatitis C Antibody Nonreactive Nonreactive [facility] Comment:Antibodies to HCV no t detected; does not exclude early acuteHCV infection. Blood Venous blood specimen / Unknown 12/14/2023 12:34 PM EDT 12/14/2023 1:19 PM EDT [facility] LAB BLOOD ORDERABLES Final Re sult [facility] [address] [place] [phone] from Last 3 Months or Most Recently Relevant to Health Maintenance Insurance [facility] [place] [id number] Care Teams Regional Facilities Manager Relationship Specialty Start Date End Date Thelma Fatima [facility] [address] [place] [phone] PCP - General Family Medicine 12/14/23
--- OUTSIDE RECORDS SUMMARY | 2025-01-27 13:34 | XMS_ITS | Encounter Summary ---
Author Organization [facility] Address [address] [place] [address] Phone Care Team Providers Care Disc Pad Grinder Name Role Phone Julia Blood NP Primary Care Provider [phone] Encounter Details Date Type Department Care Team (Late st Contact Info) Description 02/01/2012 Documentation [facility] Family Medicine [address] [place], [place] [phone] Family Medicine, Physician [address], [place] [phone] Social History Tobacco Use Types Packs/Day Years [...] on filedocumented in this encounter Care Teams Disc Pad Grinder Relationship Specialty Start Date End Date Julia Blood NP [address] [place] [address] PCP - General Pediatrics 08/13/24 documented as of this encounter
--- OUTSIDE RECORDS SUMMARY | 2025-01-27 13:34 | XMS_ITS | Encounter Summary ---
Author Organization [employer] Address [address] [facility] 7t [place] [address] Care Team Providers Care Blood Bank Laboratory Technologist Name Role Phone [facility] Primary Care Provider [phone] Encounter Details Date Type Department Care Team (Late st Contact Info) Description 11/03/2024 Results Follow-Up [facility] [address] [place] [address] [facility] [address] [place] [address] [place], Valproic Acid Total, CBC auto differential, Additional followed-up results: 7 Social History Tobacco Use Types Packs/Day Years [...] [place] Trouble relaxing 0 11/03/2024 11:28 AM TEXT Zoraida Vasquez [place] Being so restless that [...] 1.63 and high TSH. I called listed #[phone] (spokewith Cira, home day care provider) and she tells me that lithium was [...] 2:00 PM EST Office Visit [facility] [address] [place] [address] Renee Katheryn, OD [address] [place] [address] documented as of this encounter Procedures Procedure Name Priority Date/Time Associated Diagnosis Comments TSH W/REFLEX TO FT4 Routine 01/15/2025 3:20 PM EDT Acquired hypothyroidism documented in this encounter Results * TSH with Reflex to Free T4 (01/15/2025 3:20 PM EDT) TSH reflex Free T4 1.24 0.32 - 4.0 uIU/mL [facility] Blood 01/15/2025 3:20 PM EDT 01/15/2025 4:07 PM EDT us Willow Butterfield MD LAB BLOOD ORDERABLES Fin al Result [facility] [address] [place] [address] [phone] documented in this encounter Visit Diagnoses Diagnosis Acquired hypothyroidism- Primary Unspecified hypothyroidism documented in this encounter Additional Health Concerns Assessment Noted Time PHQ-9 Depression Total Score: 0 03/21/19 25 2:22 PM EST documented as of this encounter Care Teams Blood Bank Laboratory Technologist Relationship Specialty Start Date End Date Thelma Fatima FNP [address] [place] [address] PCP - General Family Medicine 12/14/23 documented as of this encounter
--- OUTSIDE RECORDS SUMMARY | 2025-01-27 13:34 | XMS_ITS | Encounter Summary ---
Author Organization [facility] Address [address] [place] [address] Phone Care Team Providers Care Net Ui Developer Name Role Phone Julia Blood NP Primary Care Provider [phone] Encounter Details Date Type Department Care Team (Late st Contact Info) Description 11/02/2016 Conversion Encounter [facility] [address] [place] [address] Social History Tobacco Use Types Packs/Day Years [...] on filedocumented in this encounter Care Teams Net Ui Developer Relationship Specialty Start Date End Date Julia Blood NP [address] [place] [address] PCP - General Pediatrics 08/13/24 documented as of this encounter
--- OUTSIDE RECORDS SUMMARY | 2025-01-27 13:34 | XMS_ITS | Clinical Summary ---
Author Organization [facility] Address [address] [place] [address] Phone Care Team Providers Care Furnace Installer Name Role Phone Julia Blood NP Primary Care Provider [phone] Allergies No known active allergies Medications guanFACINE [...] Psychosocial stressors 06/18/2020 Overview (06/18/2020): Silvana from [facility] is calling on an active 51 A. Update given. 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 Zoloft & Tenex 08/2018: Pt now on Risperidone, tenex. Zoloft stopped 3 months ago & Risperadone was started . Melatonin for sleep 07/28/21: Psych admission for SI & Auditory command hallucinations 09/02/21: Pt discharged from the hospital yesterday. He was in the hospital for SI. Pt has an apt with [facility] 09/02/21. 09/06/21: [place] [facility] Assessment & Plan (05/15/2022 10:42 AM EST): Followed by Shyann Shell at [facility]. Patient is on risperidone, fluoxetine and guanfacine. To see new psych provider tomorrow Therapist = patient does not know if he sees anyone Assessment & Plan (12/15/2020 11:14 AM EDT): Sees Shyann Gonzalez Q 2-3 mos. Risperidone, tenex. & melatonin patient reports that [facility] does his metabolic labs yearly - he declined them today [place] [employer]. IEP in place. Does well Assessment & Plan (09/14/2019 10:37 AM EDT): Followed at [facility] by Shyann Shell She checks routine [...] EDT): In 45 day dx program at [facility] due to behavior issues. Doing better Supposed to go back to [place] but his Gmom does not want him to go back Seeing Shyann Shell monthly. On Tenex, zoloft & respiradone (added 2 months ago) No therapist while in 45 day program. Will reconnect when returns to [place] - sees therapist there from [facility] Immunizations Immunization Administration Dates Next Due [...] Completed 12/15/2020, 016 Procedures * Due to [facility] law, this organization might not be sharing sensitive test results. Procedure Name Priority Date/Time Associated Diagnosis Comments LIPID PANEL Routine 05/15/2022 11:30 AM EST BMI greater than 95% for age [Z68.54] HEMOGLOBIN A1C Routine 05/15/2022 11:30 AM EST BMI greater than 95% for age [Z68.54] from Last 3 Months or Most Recently Relevant to Health Maintenance Results * Due to [facility] law, this organization might not be sharing sensitive test results. * Hemoglobin A1c (05/15/2022 11:30 AM EST) Hemoglobin A1C 5.1 (4.0-5.6) % [facility] Comment: MONITORING: In known diabetic patients, hemoglobin [...] Supplement 1 Testing performed or reported by [facility], a Service of [address] [address] Jonn Kay MD, [employer] CLIA# [id number] Blood 05/15/2022 11:3 0 AM EST 05/15/2022 12:24 PM EST Kelley Arora MD LAB BLOOD ORDERABLES Final Resul t Performing Organization Address [facility] Co de Phone Number [facility] * (ABNORMAL) Lipid panel (05/15/2022 11:30 AM EST) [facility] Cholesterol, Total 145 (<170) MG/DL [facility] HDL 30(L) (>45) MG/DL [facility] Non-HDL Cholesterol 115 (<120) MG/DL [facility] Comment: Testing performed or reported by [facility], a Service of [facility], [address] [place] [address] Jonn Kay MD, [employer] CLIA# [id number] Blood 05/15/2022 11:3 0 AM EST 05/15/2022 12:24 PM EST Kelley Arora MD LAB BLOOD ORDERABLES Final Resul t Performing Organization Address City/[facility] Co de Phone Number [facility] from Last 3 Months or Most Recently Relevant to Health Maintenance Insurance [facility] NON PCC [facility] Care Teams Furnace Installer Relationship Specialty Start Date End Date Julia Blood NP [address] [place] [address] PCP - General Pediatrics 08/13/24
--- OUTSIDE RECORDS SUMMARY | 2025-01-27 13:34 | XMS_ITS | Encounter Summary ---
Author Organization [employer] Address [address] [facility] 7t [place] [address] Care Team Providers Care Family Specialist Name Role Phone Ak[facility] Primary Care Provider [phone] Reason for Visit * Reason Comments Med Refill Encounter Details Date Type Department Care Team ([facility] st Contact Info) Description 12/18/[address] [facility] [address] [place], [place] [phone] Willow Butterfield MD [address] [place], [place] [phone] Social History Tobacco Use Types Packs/Day Years [...] PM EST Office Visit [facility] [address] [place] [address] Tarka, Katheryn, OD [address] [place] [address] documented as of this encounter Visit Diagnoses Not on filedocumented in this encounter Additional Health Concerns Assessment Noted Time PHQ-9 Depression Total Score: 21 024 12:37 PM EDT documented as of this encounter Care Teams Family Specialist Relationship Specialty Start Date End Date Thelma Fatima FNP [address] [place] [address] PCP - General Family Medicine 12/14/23 documented as of this encounter
--- OUTSIDE RECORDS SUMMARY | 2025-01-27 13:35 | XMS_ITS | Encounter Summary ---
Author Organization [employer] Address [address] [facility] 7t [place] [address] Care Team Providers Care Food And Nutrition Supervisor Name Role Phone [facility] Primary Care Provider [phone] Reason for Visit * Reason Onset Date Comments Nurse Triage 03/14/2024 Encounter Details Date Type Department Care Team (Late st Contact Info) Description 03/14/2024 Telephone [facility] [address] [place], [place] [phone] [facility] [address] [place], [place] [phone] Nurse Triage Social History Tobacco Use Types [...] 2:45 PM EST Tc from provider manager financial planning Symptom: Earache Outcome: Schedule a same-day appointment or talk to a nurse or provider today Reason: Caller denied all higher acuity questions The caller accepted this outcome. documented in this encounter Plan of Treatment Upcoming Encounters Date Type Department Care Team (Late st Contact Info) Description 02/19/2025 2:00 PM EST Office Visit [facility] [address] [place] [address] TarKatheryn shannon, OD [address] [place] [address] documented as of this encounter Visit Diagnoses Not on filedocumented in this encounter Additional Health Concerns Assessment Noted Time PHQ-9 Depression Total Score: 21 024 12:37 PM EDT documented as of this encounter Care Teams Food And Nutrition Supervisor Relationship Specialty Start Date End Date Thelma Fatima FNP [address] [place] [address] PCP - General Family Medicine 12/14/23 documented as of this encounter
--- OUTSIDE RECORDS SUMMARY | 2025-01-27 13:35 | XMS_ITS | Encounter Summary ---
Author Organization [employer] Address [address] [facility] 7t [place] [address] Care Team Providers Care Associate Director Qa Name Role Phone Ak[facility] Primary Care Provider [phone] Reason for Visit * Reason Onset Date Comments Med Refill 02/25/2024 Encounter Details Date Type Department Care Team (Late st Contact Info) Description 02/25/2024 Refill [facility] [address] [place], [place] [phone] Virginia Box CNM [address] [place], [place] [phone] Social History Tobacco Use Types Packs/Day Years [...] PM EST Office Visit [facility] OPTOMET[facility] [address] [place] [address] Katheryn Duran, OD [address] [place] [address] documented as of this encounter Visit Diagnoses Not on filedocumented in this encounter Additional Health Concerns Assessment Noted Time PHQ-9 Depression Total Score: 21 024 12:37 PM EDT documented as of this encounter Care Teams Associate Director Qa Relationship Specialty Start Date End Date Thelma Fatima FNP [address] [place] [address] PCP - General Family Medicine 12/14/23 documented as of this encounter
--- OUTSIDE RECORDS SUMMARY | 2025-01-27 13:35 | XMS_ITS | Encounter Summary ---
Author Organization [employer] Address [address] [facility] 7t [place] [address] Care Team Providers Care Telecommunications Engineer Name Role Phone Ak[facility] Primary Care Provider Reason for Visit * Reason Comments Med Refill Encounter Details Date Type Department Care Team ([facility] st Contact Info) Description 01/18/2024 Refill [facility] [address] [place], [place] [phone] Willow Butterfield MD [address] [place], [place] [phone] Social History Tobacco Use Types Packs/Day Years [...] PM EST Office Visit [facility] [address] [place] [address] Tarka, Katheryn, OD [address] [place] [address] documented as of this encounter Visit Diagnoses Not on filedocumented in this encounter Additional Health Concerns Assessment Noted Time PHQ-9 Depression Total Score: 21 024 12:37 PM EDT documented as of this encounter Care Teams Telecommunications Engineer Relationship Specialty Start Date End Date Thelma Fatima FNP [address] [place] [address] PCP - General Family Medicine 12/14/23 documented as of this encounter
--- OUTSIDE RECORDS SUMMARY | 2025-01-27 13:35 | XMS_ITS | Encounter Summary ---
Author Organization [employer] Address [address] [facility] 7t [place] [address] Care Team Providers Care Turbine Operator Name Role Phone Ak[facility] Primary Care Provider [phone] Reason for Visit * Reason Comments Med Change Request Encounter Details Date Type Department Care Team ([facility] st Contact Info) Description 03/23/2024 Refill [facility] [address] [place], [place] [phone] Virginia Box CNM [address] [place], [place] [phone] Social History Tobacco Use Types Packs/Day Years [...] Description 02/19/2025 2:00 PM EST Office Visit [facility] OPT[facility] [address] [place] [address] Katheryn Duran, OD [address] [place] [address] documented as of this encounter Visit Diagnoses Not on filedocumented in this encounter Additional Health Concerns Assessment Noted Time PHQ-9 Depression Total Score: 0 03/21/19 25 2:22 PM EST documented as of this encounter Care Teams Turbine Operator Relationship Specialty Start Date End Date Thelma Fatima FNP [address] [place] [address] PCP - General Family Medicine 12/14/23 documented as of this encounter
[2025-01-27 13:44] LABS: MANUAL DIFF FLAG NO
[2025-01-27 13:49] LABS: Hematocrit 46.0 % (42.0-52.0); Hemoglobin 15.4 g/dl (14.0-18.0); Imm Gran Abs Auto 0.01 X10*3/uL (0.00-0.03); Imm Gran Pct Auto 0.1 % (0.0-0.4); Lymphocytes Absolute Auto 3.2 X10*3/uL (1.2-4.9); Mean Corpuscular HGB Conc 33.5 g/dl (31.0-36.0); Mean Corpuscular Hemoglobin 28.6 pg (27.0-33.0); Mean Corpuscular Volume 85.5 fL (80.0-98.0); NRBC Abs Auto 0.000 X10*3/uL (0.0-0.012); NRBC Pct Auto 0.0 /100WBC (0.0-0.2); Platelet Count 192 X10*3/uL (160-400); Red Blood Count 5.38 X10*6/uL (4.60-5.80); White Blood Count 7.2 X10*3/uL (4.8-10.8)
[2025-01-27 13:55] LABS: INTERNATIONAL NORM RATIO 1.0 (0.9-1.1); Prothrombin Time 12.6 SEC (11.2-13.5)
[2025-01-27 13:58] LABS: Partial Thromboplastin Time 34.3 SEC (26.7-34.1)
[2025-01-27 14:13] LABS: Lithium 0.16 mmol/L (0.60-1.20)
[2025-01-27 14:19] LABS: Alanine Aminotransferase 30 U/L (0-40); Albumin Level 4.3 g/dL (3.5-5.0); Alkaline Phosphatase 49 U/L (39-117); Anion Gap 10 (12-20); Aspartate Amino Transferase 31 U/L (5-37); Blood Urea Nitrogen 9 mg/dL (9-16); Calcium 9.5 mg/dL (8.4-10.2); Carbon Dioxide 25 mmol/L (22-29); Chloride 111 mmol/L (96-108); Estimated Glomerular Filt Rate > 60; Potassium 3.7 mmol/L (3.3-5.1); Sodium 142 mmol/L (135-145); Total Protein 7.1 g/dL (6.5-8.0)
[2025-01-27 14:22] LABS: Thyroid Stimulating Hormone 3.13 uIU/mL (0.32-4.0)
== END 2025-01-27 11:26 | disposition home or self-care (01) ==
LOC: HO.HMGCLDS 11:25
PROVIDERS: PCP Registered Nurse
DX: Z51.81 Encounter for therapeutic drug level monitoring (principal); F31.81 Bipolar II disorder
CPT/HCPCS: 36415; 80053; 80164; 80178; 82248; 84443; 85025; 85610; 85730

== ENCOUNTER 2025-02-11 13:02 | Outpatient (REF) | payer MEDICARE, MEDICAID, SELFPAY ==
--- OUTSIDE RECORDS SUMMARY | 2025-02-11 16:08 | XMS_ITS | Encounter Summary ---
Author Organization [employer] Address [address] [facility] 7t [place] [address] Care Team Providers Care Animal Technician Name Role Phone Akua [facility] Primary Care Provider [phone] Reason for Visit * Reason Comments Med Change Request Encounter Details Date Type Department Care Team ([facility] st Contact Info) Description 03/23/2024 Refill [facility] [address] [place], [place] [phone] Virginia Box CNM [address] [place], [place] [phone] Social History Tobacco Use Types Packs/Day Years [...] Description 02/19/2025 2:00 PM EST Office Visit [facility] [address] [place] [address] Katheryn Duran, OD [address] [place] [address] documented as of this encounter Visit Diagnoses Not on filedocumented in this encounter Additional Health Concerns Assessment Noted Time PHQ-9 Depression Total Score: 0 03/21/19 25 2:22 PM EST documented as of this encounter Care Teams Animal Technician Relationship Specialty Start Date End Date Thelma Fatima FNP [address] [place] [address] PCP - General Family Medicine 12/14/23 documented as of this encounter
--- OUTSIDE RECORDS SUMMARY | 2025-02-11 16:08 | XMS_ITS | Encounter Summary ---
Author Organization [facility] Address [address] [place] [address] Phone Care Team Providers Care Mining Machinery Assembler Name Role Phone Julia Blood NP Primary Care Provider [phone] Encounter Details Date Type Department Care Team (Late st Contact Info) Description 11/02/2016 Conversion Encounter [facility] [address] [place] [address] Social History Tobacco Use Types Packs/Day Years [...] on filedocumented in this encounter Care Teams Mining Machinery Assembler Relationship Specialty Start Date End Date Julia Blood NP [address] [place] [address] PCP - General Pediatrics 08/13/24 01/28/25 documented as of this encounter
--- OUTSIDE RECORDS SUMMARY | 2025-02-11 16:08 | XMS_ITS | Encounter Summary ---
Author Organization [email or web address] Address [address] [facility] 7t [place] [address] Care Team Providers Care Kitchen Food Assembler Name Role Phone Akua [facility] Primary Care Provider [phone] Reason for Visit * Reason Comments Med Refill Encounter Details Date Type Department Care Team ([facility] st Contact Info) Description 01/18/2024 Refill [facility] [address] [place], [place] [phone] Willow Butterfield MD 230 [place], [place] [phone] Social History Tobacco Use Types Packs/Day Years [...] PM EST Office Visit [facility] [address] [place] [address] Tarka, Katheryn, OD [address] [place] [address] documented as of this encounter Visit Diagnoses Not on filedocumented in this encounter Additional Health Concerns Assessment Noted Time PHQ-9 Depression Total Score: 21 024 12:37 PM EDT documented as of this encounter Care Teams Kitchen Food Assembler Relationship Specialty Start Date End Date Thelma Fatima FNP [address] [place] [address] PCP - General Family Medicine 12/14/23 documented as of this encounter
--- OUTSIDE RECORDS SUMMARY | 2025-02-11 16:08 | XMS_ITS | Encounter Summary ---
Author Organization [facility] Address [address] [place] [address] Phone Care Team Providers Care Industrial Education Teacher Name Role Phone Julia Blood NP Primary Care Provider [phone] Encounter Details Date Type Department Care Team (Late st Contact Info) Description 09/01/2015 Documentation [facility] Family Medicine [address] [place], [place] [phone] Family Medicine, Physician [address] [place], [place] [phone] Social History Tobacco Use Types Packs/Day Years [...] filedocumented in this encounter Care Teams Industrial Education Teacher Relationship Specialty Start Date End Date Julia Blood NP [address] [place] [address] PCP - General Pediatrics 08/13/24 01/28/25 documented as of this encounter
--- OUTSIDE RECORDS SUMMARY | 2025-02-11 16:08 | XMS_ITS | Clinical Summary ---
Author Organization [employer] Address [address] [place] [address] 7[address] [place] [address] Care Team Providers Care Core Maker Name Role Phone [facility] Primary Care Provider [phone] Allergies Active Allergy Reactions Criticality Noted Date Comments Blueberry Flavoring Agent (Non-Screening) Unknown 12/14/2023 Triana Unknown 12/14/2023 Fish Allergy Unknown 12/14/2023 [place] Extract Unknown 12/14/2023 Medications * This document [...] Encounters Date Type Department Care Team Description 01/27/2025 Orders Only GENERIC EXTERNAL DATA DEPARTMENT Provider, Generic External Data 01/26/2025 Telephone [facility] [address] [place] [address] Thelma Fatima FNP 12/12/2024 Results Follow-Up [facility] [address] [place] [phone] Willow Butterfield MD CBC auto differential, [place], Valproic Acid Total, Additional followed-up results: 2 12/11/2024 Orders Only GENERIC EXTERNAL DATA DEPARTMENT Provider, Generic External Data 12/09/2024 11:45 AM EDT Office Visit [facility] [address] [place] [address] Niki Bar DO Dysuria 12/09/2024 Travel 12/03/2024 Telephone [facility] [address] [place] [address] Thelma Fatima FNP Nurse Triage 12/01/2024 Telephone [facility] [address] [place] [address] Thelma Fatima FNP 11/21/2024 Telephone [facility] [address] [place] [address] Thelma Fatima FNP Care Coordination 11/20/2024 Telephone [facility] [address] [facility] [place] [address] GraftonThelma [facility] Telephone Call 11/19/2024 Results Follow-Up [facility] [place] [address] Willow Butterfield MD CBC auto differential, Comprehensive Metabolic Panel, Hepatic Function Panel, Additional followed-up results: 6 11/12/2024 Orders Only [facility] [place] [address] Willow Butterfield MD 11/12/2024 Telephone [facility] [place] [address] GraftonThelma [facility] Call Back Request from Last 3 Months Immunizations Immunization Administration [...] 03/04/2008,01/27/2005 Meningococcal MCV4P ACYW-135 12/15/2020,08/02/19 16 Novel [id number], all formulations 04/22/2009 Pneumococcal Conjugate PCV 7 [...] Description 02/19/2025 2:00 PM EST Office Visit [facility] [address] [place], [place] [phone] Katheryn Duran, OD [address] [place] [address] Health Maintenance Due Date Last Done Comments Disability Screening 2004 Meningococcal B Vaccine (1 of 2 - Standard) 2020 COVID-19 Vaccine (3 - season) 2024 09/24/2020, 09/03/2020 Influenza Vaccine (#1) 2024 , 12/15/2020, 02/04/2020, Additional history exists SDOH Screening 12/05/2024 12/06/2023 Family Planning (PISQ) 02/24/2025 02/25/2024 Depression Screening 03/21/2025 03/21/2024, 03/21/19 25 Alcohol/Substance Use Screening 11/03/2025 11/03/2024 Chlamydia and [...] Name Priority Date/Time Associated Diagnosis Comments TSH Routine 01/27/2025 11:33 AM EST HEPATIC FUNCTION PANEL Routine 01/27/2025 11:33 AM EST COMPREHENSIVE METABOLIC PANEL Routine 01/27/2025 11:33 AM EST VALPROIC ACID Routine 01/27/2025 11:33 AM EST LITHIUM Routine 01/27/2025 11:33 AM EST APTT Routine 01/27/2025 11:33 AM EST PROTHROMBIN TIME-INR Routine 01/27/2025 11:33 AM EST CBC WITH AUTO DIFFERENTIAL Routine 01/27/2025 11:33 AM EST TSH W/REFLEX TO FT4 Routine 01/15/2025 3 [...] AUTO DIFFERENTIAL Routine 11/12/2024 3:28 PM EDT HIV 1/2 ANTIGEN/ANTIBODY, FOURTH GENERATION W/RFL Routine 11/03/2024 11:08 AM EDT Encounter for screening for infections with a predominantly sexual mode of transmission LIPID PANEL, STANDARD Routine 11/03/2024 11:08 AM EDT Class 3 severe obesity due to excess calories with serious comorbidity and body mass index (BMI) of 40.0 to 44.9 in adult HEPATITIS C AB W/REFL TO HCV RNA, QN, PCR Routine 12/14/2023 12:34 PM EDT Screening for STD (sexually transmitted disease) from Last 3 Months or Most Recently Relevant to Health Maintenance Results * (ABNORMAL) CBC auto differential (01/27/2025 11:33 AM EST) Only the most recent of3 resultswithin the time period is included. White Blood Count 7.2 4.8 - 10.8 X10*3/uL [facility] Red Blood Count 5.38 4.60 - 5.80 X10*6/uL [facility] Hemoglobin 15.4 14.0 - 18.0 g/dl [facility] Hematocrit 46.0 42.0 - 52.0 % [facility] Mean Corpuscular Volume 85.5 80.0 - 98.0 fL [facility] Mean Corpuscular Hemoglobin 28.6 27.0 - 33.0 pg [facility] Mean Corpuscular HGB Conc 33.5 31.0 - 36.0 g/dl [facility] Red Cell Distribution Width 13.2 11.0 - 16.0 % [facility] Platelet Count 192 160 - 400 X10*3/uL [facility] Mean Platelet Volume 12.7(H) 9.4 - 12.4 fL [facility] Neutrophils Percent Auto 36.5(L) 45 - 73 % [facility] Imm Gran Pct Auto 0.1 0.0 - 0.4 % [facility] Lymphocytes Percent Auto 44.2(H) 20 - 40 % [facility] Monocytes Percent Auto 10.7 2 - 11 % [facility] Eosinophils Percent Auto 7.5(H) 0 - 4 % [facility] Basophils Percent Auto 1.0 0 - 2 % [facility] NRBC Pct Auto 0.0 0.0 - 0.2 /100WBC [facility] Neutrophils Absolute Auto 2.6 2.0 - 8.3 x10*3/uL [facility] Imm Gran Abs Auto 0.01 0.00 - 0.03 X10*3/uL [facility] Lymphocytes Absolute Auto 3.2 1.2 - 4.9 X10*3/uL [facility] Monocytes Absolute Auto 0.8 0.1 - 1.2 X10*3/uL [facility] Eosinophils Absolute Auto 0.5(H) 0.0 - 0.4 X10*3/uL [facility] Basophils Absolute Auto 0.1 0.0 - 0.2 X10*3/uL [facility] NRBC Abs Auto 0.000 0.0 - 0.012 X10*3/uL [facility] 01/27/2025 11:3 3 AM EST 01/27/2025 1:34 PM EST us Generic External Data Provider LAB BLOOD ORDERAB LES Final Result [facility] [address] [place] [address] [phone] * (ABNORMAL) Partial Thromboplastin Time, Activated (APTT) (01/27/2025 11:33 AM EST) Partial Thromboplastin Time 34.3(H) 26.7 - 34.1 SEC [facility] 01/27/2025 11:3 3 AM EST 01/27/2025 1:34 PM EST Generic External Data Provider LAB BLOOD ORDERAB LES Final Result Performing Organization Address City/[facility]/ZIP Co de Phone Number [facility] [address] [place] [phone] * Prothrombin Time-INR (01/27/2025 11:33 AM EST) Prothrombin Time 12.6 11.2 - 13.5 SEC [facility] INTERNATIONAL NORM RATIO 1.0 0.9 - 1.1 [facility] Comment:INTERNATIONAL NORMAL IZED RATIO (INR) REFERENCE RANGES Reference RangeFor patients not on anticoagulant therapy: 0.9 - 1.1INR ranges for oral anticoagulanttherapy:For prevention and treatment of venous thrombosis and pulmonary embolism: 2.0 - 3.0For acute myocardial infarction with aspirin therapy: 2.0 - 3.0For acute myocardial infarction without aspirin therapy: 3.0 - 4.0For patients with mechanical prosthetic heart valves: 2.5 - 3.5 01/27/2025 11:3 3 AM EST 01/27/2025 1:34 PM EST Generic External Data Provider LAB BLOOD ORDERAB LES Final Result Performing Organization Address City/[facility]/ZIP Co de Phone Number [facility] [address] [place] [phone] * TSH (01/27/2025 11:33 AM EST) Only the most recent of2 resultswithin the time period is included. Thyroid Stimulating Hormone 3.13 0.32 - 4.0 uIU/mL [facility] Comment:Note: A sustained TS H level above 2.5 uIU/mL may warrant further investigation. TSH 3rd Generation ([facility]) 01/27/2025 11:3 3 AM EST 01/27/2025 1:34 PM EST us Generic External Data Provider LAB BLOOD ORDERAB LES Final Result Performing Organization Address [facility]/ZIP Co de Phone Number [facility] [address] [place] [phone] * (ABNORMAL) [place] (01/27/2025 11:33 AM EST) Only the most recent of3 resultswithin the time period is included. [place] 0.16(L) 0.60 - 1.20 mmol/L [facility] 01/27/2025 11:3 3 AM EST 01/27/2025 1:34 PM EST us Generic External Data Provider LAB BLOOD ORDERAB LES Final Result Performing Organization Address [facility] Co de Phone Number [facility] [address] [place] [phone] * Valproic Acid Total (01/27/2025 11:33 AM EST) Only the most recent of3 resultswithin the time period is included. Valproate TNP 50.0 - 100.0 mcg/mL [facility] Comment:01/28/25 0946: * This is a corrected result * Valp previously reported as: 27.8 L mcg/mLCorrected results called to and read back by BELÉN Ojeda 0946 on 01/28/25 by NEVAEH. 01/27/2025 11:3 3 AM EST 01/27/2025 1:34 PM EST us Generic External Data Provider LAB BLOOD ORDERAB LES Edited Result - Final Performing Organization Address [facility] Co de Phone Number [facility] [address] [place] [phone] * Hepatic Function Panel (01/27/2025 11:33 AM EST) Only the most recent of3 resultswithin the time period is included. Bilirubin, Direct 0.1 0.0 - 0.5 mg/dL [facility] 01/27/2025 11:3 3 AM EST 01/27/2025 1:34 PM EST us Generic External Data Provider LAB BLOOD ORDERAB LES Final Result [facility] [address] [place] [address] [phone] * (ABNORMAL) Comprehensive Metabolic Panel (01/27/2025 11:33 AM EST) Only the most recent of3 resultswithin the time period is included. Sodium 142 135 - 145 mmol/L [facility] Potassium 3.7 3.3 - 5.1 mmol/L [facility] Chloride 111(H) 96 - 108 mmol/L [facility] Carbon Dioxide 25 22 - 29 mmol/L [facility] Anion Gap 10(L) 12 - 20 [facility] Urea Nitrogen (BUN) 9 9 - 16 mg/dL [facility] Creatinine, Serum 0.73 0.5 - 1.4 mg/dL [facility] Estimated Glomerular Filt Rate >60 [facility] Comment:Chronic Kidney Disea se: Estimated GFR < 60 mL/min/1.02d5Ujffti Kidney Disease: Estimated GFR < 15 mL/min/1.73m2 Glucose 77 60 - 115 mg/dL [facility] Calcium 9.5 8.4 - 10.2 mg/dL [facility] Bilirubin, Total 0.3 0.0 - 1.0 mg/dL [facility] Aspartate Amino Transferase 31 5 - 37 U/L [facility] Alanine Aminotransferase 30 0 - 40 U/L [facility] Total Protein 7.1 6.5 - 8.0 g/dL [facility] Albumin Level 4.3 3.5 - 5.0 g/dL [facility] Alkaline Phosphatase 49 39 - 117 U/L [facility] 01/27/2025 11:3 3 AM EST 01/27/2025 1:34 PM EST Generic External Data Provider LAB BLOOD ORDERAB LES Final Result Performing Organization Address [facility]/ZIP Co de Phone Number [facility] [address] [place] [phone] * TSH with Reflex to Free T4 (01/15/2025 3:20 PM EDT) Pathologist [facility] TSH reflex Free T4 1.24 0.32 - 4.0 uIU/mL [facility] Blood 01/15/2025 3:20 PM EDT 01/15/2025 4:07 PM EDT Willow Butterfield MD LAB BLOOD ORDERABLES Fin al Result Performing Organization Address [facility] Co de Phone Number [facility] [address] [place] [phone] * POCT Urinalysis (12/09/2024 12:01 PM EDT) Pathologist [facility] Color, UA Light Yellow Clarity, UA Clear [...] Gonorrhoeae, PCR, Urine (12/09/2024 12:00 PM EDT) Pathologist [facility] CT PCR, Urine NOT DETECTED Not Detect. [facility] Comment:A not detected test result [...] NG PCR, Urine NOT DETECTED Not Detect. [facility] Comment:A not detected test result [...] DO LAB URINE ORDERABLES Final R esult [facility] [address] [place] [phone] * Culture, Urine, Routine (12/09/2024 11:45 AM EDT) Urine Urine specimen obtained by clean catch procedure / Unknown 12/09/2024 11:45 AM EDT 12/09/2024 5:22 PM EDT Comment:[facility] N[facility]ative [facility] - 12/11/2024 10:10 AM EDT Urine Culture No growth. Specimen Source: Urine clean catch Niki Bar DO LAB MICROBIOLOGY - GENERAL O RDERABLES Final Result Performing Organization Address [facility] Co de Phone Number [facility] [address] [place] [phone] * Renal Panel w/Reflex (11/12/2024 3:28 PM EDT) Phosphorus 4.2 2.7 - 4.5 mg/dL [facility] 11/12/2024 3:28 PM EDT 11/12/2024 3:28 PM EDT Willow Butterfield MD LAB BLOOD ORDERABLES Fin al Result Performing Organization Address [facility] Phone Number [facility] [address] [place] [phone] * T3, Free (11/12/2024 3:28 PM EDT) T3, Free 3.9 3.0 - 4.7 pg/mL [facility] Comment:THIS TEST WAS PERFOR MED AT:[employer] [address] [id number] CISNEROS MD 11/12/2024 3:28 PM EDT 11/12/2024 3:28 PM EDT Willow Butterfield MD LAB BLOOD ORDERABLES Fin al Result Performing Organization Address [facility] Co de Phone Number [facility] [address] [place] [phone] * T4, Free (11/12/2024 3:28 PM EDT) Free T4 (Free Thyroxine) 0.79 0.71 - 1.85 ng/dL [facility] 11/12/2024 3:28 PM EDT 11/12/2024 3:28 PM EDT Willow Butterfield MD LAB BLOOD ORDERABLES Fin al Result Performing Organization Address [facility]/ZIP Co de Phone Number [facility] [address] [place] [phone] * HIV-1/2 Antigen and Antibodies, Fourth Generation, with Reflexes (11/03/2024 11:08 AM EDT) HIV AB/AG Nonreactive Nonreactive [facility] Comment:HIV-1 p24 Ag and/or HIV-1/HIV-2 Ab not detected.A test result that is nonreactive does not exclude thepossibility of exposure to or infection with HIV-1 and/orHIV-2. Nonreactive results in this assay for individualswith prior exposure to HIV-1 and/or HIV-2 may be due toantigen and antibody levels that are below the limit ofdetection of this assay.The [employer] HIV Ag/Ab Combo assay result andsupplemental assay results should be interpreted inconjunction with the patient's clinical presentation,history and other laboratory results. If the results areinconsistent with clinical evidence, additional testing issuggested to confirm the result. Blood Venous blood specimen / Unknown 11/03/2024 11:08 AM EDT 11/03/2024 12:55 PM EDT [facility] LAB BLOOD ORDERABLES Final Re sult Performing Organization Address [facility]/ZIP Co de Phone Number [facility] [address] [place] [phone] * (ABNORMAL) Lipid Panel, Standard (11/03/2024 11:08 AM EDT) Triglycerides 221(H) <150 mg/dL [facility] Comment:Desirable Triglyceri de: less than 150 mg/dLBorderline High Triglyceride 150-199 mg/dLHigh Triglyceride: 200-499 mg/dLVery High Triglyceride: greater than or equal to 5OO mg/dL Cholesterol 158 <200 mg/dL [facility] Comment:Desirable Cholestero l: less than 200 mg/dLBorderline High Cholesterol: 200-239 mg/dLHigh Cholesterol: greater than 239 mg/dL LDL Cholesterol Calculated 96 <100 mg/dL [facility] Comment:Desirable LDL: less than 100 mg/dLNear Optimal/Above Optimal LDL: 110- 129 mg/dLBorderline High LDL: 130-159 mg/dLHigh LDL: 160-189 mg/dLVery High LDL: greater than or equal to 190 mg/dL HDL Cholesterol 18(L) >40 mg/dL [facility] Comment:Desirable HDL: great er than 40 mg/dL Note: This HDL assay may give artificially low results in patients with liver disease. Blood Venous blood specimen / Unknown 11/03/2024 11:08 AM EDT 11/03/2024 12:55 PM EDT [facility] LAB BLOOD ORDERABLES Final Re sult Performing Organization Address [facility] de Phone Number [facility] [address] [place] [phone] * Hepatitis C Antibody with Reflex to HCV, RNA, Quantitative, Real-Time PCR (12/14/2023 12:34 PM EDT) Hepatitis C Antibody Nonreactive Nonreactive [facility] Comment:Antibodies to HCV no t detected; does not exclude early acuteHCV infection. Blood Venous blood specimen / Unknown 12/14/2023 12:34 PM EDT 12/14/2023 1:19 PM EDT [facility] LAB BLOOD ORDERABLES Final Re sult Performing Organization Address [facility] Co de Phone Number [facility] [address] [place] [address] [phone] from Last 3 Months or Most Recently Relevant to Health Maintenance Insurance [facility] [id number] Care Teams Core Maker Relationship Specialty Start Date End Date Thelma Fatima FNP [address] [place] [phone] PCP - General Family Medicine 12/14/23
--- OUTSIDE RECORDS SUMMARY | 2025-02-11 16:08 | XMS_ITS | Encounter Summary ---
Author Organization [employer] Address [address] [facility] 7t [place] [address] Care Team Providers Care Senior Internal Auditor Name Role Phone [facility] Primary Care Provider [phone] Reason for Visit * Reason Comments Med Refill Encounter Details Date Type Department Care Team ([facility] st Contact Info) Description 12/18/2023 Refill [facility] [address] [place], [place] [phone] Willow Butterfield MD [address] [place], [place] [phone] Social History Tobacco Use Types Packs/Day Years [...] PM EST Office Visit [facility] [address] [place] [address] Tarka, Katheryn, OD [address] [place] [address] documented as of this encounter Visit Diagnoses Not on filedocumented in this encounter Additional Health Concerns Assessment Noted Time PHQ-9 Depression Total Score: 21 024 12:37 PM EDT documented as of this encounter Care Teams Senior Internal Auditor Relationship Specialty Start Date End Date Thelma Fatima FNP [address] [place] [phone] PCP - General Family Medicine 12/14/23 documented as of this encounter
--- OUTSIDE RECORDS SUMMARY | 2025-02-11 16:08 | XMS_ITS | Encounter Summary ---
Author Organization [facility] Address [address] [place] [address] Phone Care Team Providers Care Call Center Agent Name Role Phone Julia Blood NP Primary Care Provider [phone] Encounter Details Date Type Department Care Team (Late st Contact Info) Description 02/01/2012 Documentation [facility] [address] [place], [place] [phone] Family Medicine, Physician [address] [place], [place] [phone] Social History Tobacco Use Types Packs/Day Years [...] on filedocumented in this encounter Care Teams Call Center Agent Relationship Specialty Start Date End Date Julia Blood NP [address] [place] [address] PCP - General Pediatrics 08/13/24 01/28/25 documented as of this encounter
--- OUTSIDE RECORDS SUMMARY | 2025-02-11 16:08 | XMS_ITS | Encounter Summary ---
Author Organization [employer] Address [address] [facility] 7t [place] [address] Care Team Providers Care Sales Agent Name Role Phone [facility] Primary Care Provider [phone] Reason for Visit * Reason Onset Date Comments Nurse Triage 03/14/2024 Encounter Details Date Type Department Care Team (Late st Contact Info) Description 03/14/2024 Telephone [facility] [address] [place], [place] [phone] [facility] [address] [place], [place] [phone] Nurse Triage Social History Tobacco Use Types [...] 2:45 PM EST Tc from provider manager farm Symptom: Earache Outcome: Schedule a same-day appointment or talk to a nurse or provider today Reason: Caller denied all higher acuity questions The caller accepted this outcome. documented in this encounter Plan of Treatment Upcoming Encounters Date Type Department Care Team (Late st Contact Info) Description 02/19/2025 2:00 PM EST Office Visit [facility] [address] [place] [address] TarKatheryn shannon, OD [address] [place] [address] documented as of this encounter Visit Diagnoses Not on filedocumented in this encounter Additional Health Concerns Assessment Noted Time PHQ-9 Depression Total Score: 21 024 12:37 PM EDT documented as of this encounter Care Teams Sales Agent Relationship Specialty Start Date End Date Thelma Fatima FNP [address] [place] [address] PCP - General Family Medicine 12/14/23 documented as of this encounter
--- OUTSIDE RECORDS SUMMARY | 2025-02-11 16:08 | XMS_ITS | Encounter Summary ---
Author Organization [employer] Address [address] [facility] 7t [place] [address] Care Team Providers Care Ward Attendant Name Role Phone [facility] Primary Care Provider [phone] Reason for Visit * Reason Onset Date Comments Med Refill 02/25/2024 Encounter Details Date Type Department Care Team (Late st Contact Info) Description 02/25/2024 Refill [facility] [address] [place], [place] [phone] Virginia Box CNM [address] [place], [place] [phone] Social History Tobacco Use Types Packs/Day Years [...] PM EST Office Visit [facility] [address] [place] [address] Katheryn Duran, OD [address] [place] [address] documented as of this encounter Visit Diagnoses Not on filedocumented in this encounter Additional Health Concerns Assessment Noted Time PHQ-9 Depression Total Score: 21 024 12:37 PM EDT documented as of this encounter Care Teams Ward Attendant Relationship Specialty Start Date End Date Thelma Fatima FNP [address] [place] [phone] PCP - General Family Medicine 12/14/23 documented as of this encounter
--- OUTSIDE RECORDS SUMMARY | 2025-02-11 16:08 | XMS_ITS | Clinical Summary ---
Author Organization [facility] Address [address] [place] [phone] Phone Care Team Providers Care Creel Hand Name Role Phone Unavailable Primary Care Provider Unavailabl e Allergies No known active allergies Medications guanFACINE [...] Psychosocial stressors 06/18/2020 Overview (06/18/2020): Silvana from [facility] is calling on an active 51 A. Update given. 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 Zoloft & Tenex 08/2018: Pt now on Risperidone, tenex. Zoloft stopped 3 months ago & Risperadone was started . Melatonin for sleep 07/28/21: Psych admission for SI & Auditory command hallucinations 09/02/21: Pt discharged from the hospital yesterday. He was in the hospital for SI. Pt has an apt with [facility] 09/02/21. 09/06/21: Admitted to [facility] Assessment & Plan (05/15/2022 10:42 AM EST): Followed by Shyann Shell at [facility]. Patient is on risperidone, fluoxetine and guanfacine. To see new psych provider tomorrow Therapist = patient does not know if he sees anyone Assessment & Plan (12/15/2020 11:14 AM EDT): Sees Shyann Gonzalez Q 2-3 mos. Risperidone, tenex. & melatonin patient reports that [facility] does his metabolic labs yearly - he declined them today [place] [employer] IEP in place. Does well Assessment & Plan (09/14/2019 10:37 AM EDT): Followed at [facility] by Shyann Shell She checks routine labs [...] EDT): In 45 day dx program at [employer] due to behavior issues. Doing better Supposed to go back to [place] but his Gmom does not want him to go back Seeing Shyann Shell monthly. On Tenex, zoloft & respiradone (added 2 months ago) No therapist while in 45 day program. Will reconnect when returns to [place] - sees therapist there from [facility] Immunizations Immunization Administration Dates Next Due DTaP [...] 01/27/2005 Hepatitis A Vaccines Completed 07/29/2014, 07/29/19 HPV Vaccines Completed 08/02/2016, 09/17, 08/02/2015 Meningococcal Vaccine Completed 12/15/2020, 016 Procedures * Due to [facility] law, this organization might not be sharing sensitive test results. Procedure Name Priority Date/Time Associated Diagnosis Comments LIPID PANEL Routine 05/15/2022 11:30 AM EST BMI greater than 95% for age [Z68.54] HEMOGLOBIN A1C Routine 05/15/2022 11:30 AM EST BMI greater than 95% for age [Z68.54] from Last 3 Months or Most Recently Relevant to Health Maintenance Results * Due to [facility] law, this organization might not be sharing sensitive test results. * Hemoglobin A1c (05/15/2022 11:30 AM EST) [facility] Hemoglobin A1C 5.1 (4.0-5.6) % [facility] Comment: MONITORING: In known diabetic patients, hemoglobin A1c targets should be discussed with health care provider. DIAGNOSTIC USE: The [place] Diabetes Association (ADA) and the World Health [...] Supplement 1 Testing performed or reported by [facility], a Service of [address] [address] Jonn Kay MD, [employer] CLIA# [id number] Blood 05/15/2022 11:3 0 AM EST 05/15/2022 12:24 PM EST Kelley Arora MD LAB BLOOD ORDERABLES Final Resul t Performing Organization Address [facility] Phone Number [facility] * (ABNORMAL) Lipid panel (05/15/2022 11:30 AM EST) [facility] Cholesterol, Total 145 (<170) MG/DL [facility] HDL 30(L) (>45) MG/DL [facility] Non-HDL Cholesterol 115 (<120) MG/DL [facility] Comment: Testing performed or reported by [facility], a Service of [facility], [address] [place] [address] Jonn Kay MD, [employer] IA# [id number] Blood 05/15/2022 11:3 0 AM EST 05/15/2022 12:24 PM EST Kelley Arora MD LAB BLOOD ORDERABLES Final Resul t Performing Organization Address City/[facility] de Phone Number [facility] from Last 3 Months or Most Recently Relevant to Health Maintenance Insurance [facility] NON PCC [facility] ALEXSANDRA O [facility] Address: [address] [address] [place] [address]
[2025-02-11 16:24] LABS: INTERNATIONAL NORM RATIO 1.0 (0.9-1.1); Prothrombin Time 12.7 SEC (11.2-13.5)
[2025-02-11 16:26] LABS: Partial Thromboplastin Time 36.1 SEC (26.7-34.1)
[2025-02-11 16:34] LABS: Imm Gran Abs Auto 0.02 X10*3/uL (0.00-0.03); Imm Gran Pct Auto 0.3 % (0.0-0.4); MANUAL DIFF FLAG SCAN; NRBC Abs Auto 0.000 X10*3/uL (0.0-0.012); NRBC Pct Auto 0.0 /100WBC (0.0-0.2); SCAN SMEAR FLAG 1
[2025-02-11 16:36] LABS: Hematocrit 44.0 % (42.0-52.0); Hemoglobin 14.7 g/dl (14.0-18.0); Lymphocytes Absolute Auto 2.8 X10*3/uL (1.2-4.9); Mean Corpuscular HGB Conc 33.4 g/dl (31.0-36.0); Mean Corpuscular Hemoglobin 28.7 pg (27.0-33.0); Mean Corpuscular Volume 85.8 fL (80.0-98.0); PLT CLUMP 1; Red Blood Count 5.13 X10*6/uL (4.60-5.80)
[2025-02-11 16:40] LABS: PLT ABN DIST 1
[2025-02-11 16:51] LABS: Alanine Aminotransferase 31 U/L (0-40); Albumin Level 4.2 g/dL (3.5-5.0); Alkaline Phosphatase 51 U/L (39-117); Anion Gap 12 (12-20); Aspartate Amino Transferase 37 U/L (5-37); Blood Urea Nitrogen 9 mg/dL (9-16); Calcium 9.2 mg/dL (8.4-10.2); Carbon Dioxide 24 mmol/L (22-29); Chloride 111 mmol/L (96-108); Estimated Glomerular Filt Rate > 60; Potassium 3.9 mmol/L (3.3-5.1); Sodium 143 mmol/L (135-145); Total Protein 6.8 g/dL (6.5-8.0)
[2025-02-11 17:09] LABS: Thyroid Stimulating Hormone 1.62 uIU/mL (0.32-4.0)
[2025-02-11 17:17] LABS: Platelet Count 189 X10*3/uL (160-400); White Blood Count 7.1 X10*3/uL (4.8-10.8)
[2025-02-11 17:28] LABS: Lithium 0.31 mmol/L (0.60-1.20)
== END 2025-02-11 13:03 | disposition home or self-care (01) ==
LOC: HO.HMGCLDS 13:02
PROVIDERS: PCP Registered Nurse
DX: Z51.81 Encounter for therapeutic drug level monitoring (principal); F31.81 Bipolar II disorder
CPT/HCPCS: 36415; 80053; 80164; 80178; 82248; 84443; 85025; 85610; 85730

== ENCOUNTER 2025-02-25 15:51 | Outpatient (REF) | payer MEDICARE, MEDICAID, SELFPAY ==
[2025-02-25 16:08] LABS: MANUAL DIFF FLAG NO
[2025-02-25 16:32] LABS: Hematocrit 47.2 % (42.0-52.0); Hemoglobin 15.8 g/dl (14.0-18.0); Imm Gran Abs Auto 0.01 X10*3/uL (0.00-0.03); Imm Gran Pct Auto 0.1 % (0.0-0.4); Lymphocytes Absolute Auto 3.3 X10*3/uL (1.2-4.9); Mean Corpuscular HGB Conc 33.5 g/dl (31.0-36.0); Mean Corpuscular Hemoglobin 28.4 pg (27.0-33.0); Mean Corpuscular Volume 84.7 fL (80.0-98.0); NRBC Abs Auto 0.000 X10*3/uL (0.0-0.012); NRBC Pct Auto 0.0 /100WBC (0.0-0.2); Platelet Count 222 X10*3/uL (160-400); Red Blood Count 5.57 X10*6/uL (4.60-5.80); White Blood Count 9.8 X10*3/uL (4.8-10.8)
[2025-02-25 17:15] LABS: Lithium 0.45 mmol/L (0.60-1.20)
[2025-02-25 17:30] LABS: Alanine Aminotransferase 24 U/L (0-40); Albumin Level 4.4 g/dL (3.5-5.0); Alkaline Phosphatase 55 U/L (39-117); Anion Gap 12 (12-20); Aspartate Amino Transferase 26 U/L (5-37); Blood Urea Nitrogen 7 mg/dL (9-16); Calcium 9.5 mg/dL (8.4-10.2); Carbon Dioxide 23 mmol/L (22-29); Chloride 109 mmol/L (96-108); Estimated Glomerular Filt Rate > 60; Potassium 4.0 mmol/L (3.3-5.1); Sodium 140 mmol/L (135-145); Total Protein 7.3 g/dL (6.5-8.0)
[2025-02-25 17:45] LABS: Thyroid Stimulating Hormone 2.48 uIU/mL (0.32-4.0)
--- OUTSIDE RECORDS SUMMARY | 2025-02-26 00:35 | XMS_ITS | Clinical Summary ---
Author Organization [employer] Address [address] [place] [address] [address] [place] [address] Care Team Providers Care Student Services Vice President Name Role Phone [facility] Primary Care Provider [phone] Allergies Active Allergy Reactions Criticality Noted Date Comments Blueberry Flavoring Agent (Non-Screening) Unknown 12/14/2023 Triana Unknown 12/14/2023 Fish Allergy Unknown 12/14/2023 [place] Extract Unknown 12/14/2023 Medications * This document [...] Encounters Date Type Department Care Team Description 02/25/2025 Orders Only GENERIC EXTERNAL DATA DEPARTMENT Provider, Generic External Data 02/19/2025 2:00 PM EST Office Visit [facility] [address] [place] [address] Tarka, Katheryn, OD Myopia, bilateral (Primary Dx) 02/19/2025 Travel 02/11/2025 Orders Only GENERIC EXTERNAL DATA DEPARTMENT Provider, Generic External Data 01/27/2025 Orders Only GENERIC EXTERNAL DATA DEPARTMENT Provider, Generic External Data 01/26/2025 Telephone [facility] [address] [place] [address] [facility] 12/12/2024 Results Follow-Up [facility] [address] [place] [address] Willow Butterfield MD CBC auto differential, Ferney, Valproic Acid Total, Additional followed-up results: 2 12/11/2024 Orders Only GENERIC EXTERNAL DATA DEPARTMENT Provider, Generic External Data 12/09/2024 11:45 AM EDT Office Visit [facility] [address] [place] [address] Niki Bar DO Dysuria 12/09/2024 Travel 12/03/2024 Telephone [facility] [address] [place] [phone] Thelma Fatima FNP Nurse Triage 12/01/2024 Telephone [facility] [address], [place] [phone] Thelma Fatima FNP from Last 3 Months Immunizations Immunization Administration [...] 03/04/2008,01/27/2005 Meningococcal MCV4P ACYW-135 12/15/2020,08/02/19 16 Novel [id number], all formulations 04/22/2009 Pneumococcal Conjugate PCV 7 [...] 12/09/2024 12:07 PM EDT Plan of Treatment Health Maintenance Due Date Last Done Comments Disability Screening 2004 Family Planning (PISQ) 01/22/2019 Meningococcal B Vaccine (1 of 2 - Standard) 2020 COVID-19 Vaccine (3 - season) 2024 09/24/2020, 09/03/2020 Influenza Vaccine (#1) 2024 , 12/15/2020, 02/04/2020, Additional history exists SDOH Screening 12/05/2024 12/06/2023 Depression Screening 03/21/2025 03/21/2024, 03/21/19 Alcohol/Substance Use Screening 11/03/2025 11/03/2024 Chlamydia and Gonorrhea Screening 12/09/2025 12/09/2024, 12/14/2023, 05/15/2022, Additional history exists Tobacco Screening 02/19/2026 02/19/2025 Lipid Panel 11/03/2029 11/03/2024, 12/14/2023 DTaP/Tdap/Td Vaccines [...] Priority Date/Time Associated Diagnosis Comments TSH Routine 02/25/2025 4:07 PM EST GLUCOSE Routine 02/25/2025 4:07 PM EST RENAL FUNCTION PANEL Routine 02/25/2025 4:07 PM EST HEPATIC FUNCTION PANEL Routine 02/25/2025 4:07 PM EST COMPREHENSIVE METABOLIC PANEL Routine 02/25/2025 4:07 PM EST VALPROIC ACID Routine 02/25/2025 4:07 PM EST LITHIUM Routine 02/25/2025 4:07 PM EST HEMOGLOBIN A1C Routine 02/25/2025 4:07 PM EST CBC WITH AUTO DIFFERENTIAL Routine 02/25/2025 4:07 PM EST VALPROIC ACID Routine 02/11/2025 1:13 PM EST LITHIUM Routine 02/11/2025 1:13 PM EST SLIDE REVIEW Routine 02/11/2025 1:13 PM EST CBC WITH AUTO DIFFERENTIAL Routine 02/11/2025 1:13 PM EST TSH Routine 02/11/2025 1:13 PM EST HEPATIC FUNCTION PANEL Routine 02/11/2025 1:13 PM EST COMPREHENSIVE METABOLIC PANEL Routine 02/11/2025 1:13 PM EST APTT Routine 02/11/2025 1:13 PM EST PROTHROMBIN TIME-INR Routine 02/11/2025 1:13 PM EST TSH Routine 01/27/2025 11:33 AM EST HEPATIC [...] ROUTINE Routine 12/09/2024 11:45 AM EDT Dysuria HIV 1/2 ANTIGEN/ANTIBODY, FOURTH GENERATION W/RFL Routine [...] Maintenance Results * (ABNORMAL) CBC auto differential (02/25/2025 4:07 PM EST) Only the most recent of4 resultswithin the time period is included. White Blood Count 9.8 4.8 - 10.8 X10*3/uL [facility] Red Blood Count 5.57 4.60 - 5.80 X10*6/uL [facility] Hemoglobin 15.8 14.0 - 18.0 g/dl [facility] Hematocrit 47.2 42.0 - 52.0 % [facility] Mean Corpuscular Volume 84.7 80.0 - 98.0 fL [facility] Mean Corpuscular Hemoglobin 28.4 27.0 - 33.0 pg [facility] Mean Corpuscular HGB Conc 33.5 31.0 - 36.0 g/dl [facility] Red Cell Distribution Width 12.5 11.0 - 16.0 % [facility] Platelet Count 222 160 - 400 X10*3/uL [facility] Mean Platelet Volume 12.6(H) 9.4 - 12.4 fL [facility] Neutrophils Percent Auto 50.7 45 - 73 % [facility] Imm Gran Pct Auto 0.1 0.0 - 0.4 % [facility] Lymphocytes Percent Auto 33.8 20 - 40 % [facility] Monocytes Percent Auto 8.4 2 - 11 % [facility] Eosinophils Percent Auto 6.5(H) 0 - 4 % [facility] Basophils Percent Auto 0.5 0 - 2 % [facility] NRBC Pct Auto 0.0 0.0 - 0.2 /100WBC [facility] Neutrophils Absolute Auto 5.0 2.0 - 8.3 x10*3/uL [facility] Imm Gran Abs Auto 0.01 0.00 - 0.03 X10*3/uL [facility] Lymphocytes Absolute Auto 3.3 1.2 - 4.9 X10*3/uL [facility] Monocytes Absolute Auto 0.8 0.1 - 1.2 X10*3/uL [facility] Eosinophils Absolute Auto 0.6(H) 0.0 - 0.4 X10*3/uL [facility] Basophils Absolute Auto 0.1 0.0 - 0.2 X10*3/uL [facility] NRBC Abs Auto 0.000 0.0 - 0.012 X10*3/uL [facility] 02/25/2025 4:07 PM EST 02/25/2025 4:07 PM EST us Generic External Data Provider LAB BLOOD ORDERAB LES Final Result [facility] [address] [place] [phone] * TSH (02/25/2025 4:07 PM EST) Only the most recent of3 resultswithin the time period is included. Thyroid Stimulating Hormone 2.48 0.32 - 4.0 uIU/mL [facility] Comment:TSH 3rd Generation ( [employer]) 02/25/2025 4:07 PM EST 02/25/2025 4:07 PM EST us Generic External Data Provider LAB BLOOD ORDERAB LES Final Result Performing Organization Address [facility] Co de Phone Number [facility] [address] [place] [phone] * Hemoglobin A1c (02/25/2025 4:07 PM EST) Hemoglobin A1c 4.9 <6.0 % [facility] Comment:Hemoglobin A1C Refer ence Range Adults: 4.8 - 6.0 % Non diabetic: < 6.0 % Goal: < 7.0 %Additional Action Suggested: > 8.0 %Note: Hemoglobin A1c results are invalid for patients with abnormal amounts of HbF. Blood transfusions may impact the HbA1c concentration in the patient sample. Estimated Average Glucose 94 mg/dL [facility] Comment:eAG = Estimated ave rage glucose which is %A1C expressed asaverage glucose, using the formula of the P9F-KdpxzlaYdkcyyk Glucose study (ADAG), Diabetes Care, Vol.31,#8,2007 02/25/2025 4:07 PM EST 02/25/2025 4:07 PM EST us Generic External Data Provider LAB BLOOD ORDERAB LES Final Result Performing Organization Address [facility] Co de Phone Number [facility] [address] [place] [phone] * Glucose (02/25/2025 4:07 PM EST) Glucose Fasting 83 60 - 99 mg/dL [facility] 02/25/2025 4:07 PM EST 02/25/2025 4:07 PM EST us Generic External Data Provider LAB BLOOD ORDERAB LES Final Result Performing Organization Address City/[facility] Co de Phone Number [facility] [address] [place] [phone] * (ABNORMAL) Ferney (02/25/2025 4:07 PM EST) Only the most recent of4 resultswithin the time period is included. Ferney 0.45(L) 0.60 - 1.20 mmol/L [facility] Comment:Last dose was taken on 02/25/25 at 0800. 02/25/2025 4:07 PM EST 02/25/2025 4:07 PM EST [facility] - 02/25/2025 5:15 PM EST [id number] Generic External Data Provider LAB BLOOD ORDERAB LES Final Result Performing Organization Address [facility] de Phone Number [facility] [address] [place] [phone] * Valproic Acid Total (02/25/2025 4:07 PM EST) Only the most recent of4 resultswithin the time period is included. Valproate 62.8 50.0 - 100.0 mcg/mL [facility] Comment:Last dose was taken on 02/25/25 at 0800. 02/25/2025 4:07 PM EST 02/25/2025 4:07 PM EST [facility] - 02/25/2025 5:20 PM EST [id number] Generic External Data Provider LAB BLOOD ORDERAB LES Final Result Performing Organization Address [facility] Co de Phone Number [facility] [address] [place] [phone] * Hepatic Function Panel (02/25/2025 4:07 PM EST) Only the most recent of4 resultswithin the time period is included. Bilirubin, Direct 0.1 0.0 - 0.5 mg/dL [facility] 02/25/2025 4:07 PM EST 02/25/2025 4:07 PM EST us Generic External Data Provider LAB BLOOD ORDERAB LES Final Result Performing Organization Address City/[facility]/ZIP Co de Phone Number [facility] [address] [place] [phone] * Renal Function Panel (02/25/2025 4:07 PM EST) Phosphorus 4.4 2.7 - 4.5 mg/dL [facility] 02/25/2025 4:07 PM EST 02/25/2025 4:07 PM EST us Generic External Data Provider LAB BLOOD ORDERAB LES Final Result Performing Organization Address [facility] Co ia Phone Number [facility] [address] [place] [phone] * (ABNORMAL) Comprehensive Metabolic Panel (02/25/2025 4:07 PM EST) Only the most recent of4 resultswithin the time period is included. Pathologist [facility] Sodium 140 135 - 145 mmol/L [facility] Potassium 4.0 3.3 - 5.1 mmol/L [facility] Chloride 109(H) 96 - 108 mmol/L [facility] Carbon Dioxide 23 22 - 29 mmol/L [facility] Anion Gap 12 12 - 20 [facility] Urea Nitrogen (BUN) 7(L) 9 - 16 mg/dL [facility] Creatinine, Serum 0.69 0.5 - 1.4 mg/dL [facility] Estimated Glomerular Filt Rate >60 [facility] Comment:Chronic Kidney Disea se: Estimated GFR < 60 mL/min/1.59p9Egbppx Kidney Disease: Estimated GFR < 15 mL/min/1.73m2 Glucose 83 60 - 115 mg/dL [facility] Calcium 9.5 8.4 - 10.2 mg/dL [facility] Bilirubin, Total 0.3 0.0 - 1.0 mg/dL [facility] Aspartate Amino Transferase 26 5 - 37 U/L [facility] Alanine Aminotransferase 24 0 - 40 U/L [facility] Total Protein 7.3 6.5 - 8.0 g/dL [facility] Albumin Level 4.4 3.5 - 5.0 g/dL [facility] Alkaline Phosphatase 55 39 - 117 U/L [facility] 02/25/2025 4:07 PM EST 02/25/2025 4:07 PM EST us Generic External Data Provider LAB BLOOD ORDERAB LES Final Result Performing Organization Address [facility] Co ia Phone Number [facility] [address] [place] [phone] * Slide Review (02/11/2025 1:13 PM EST) Slide Review VERIFIED [facility] 02/11/2025 1:13 PM EST 02/11/2025 4:09 PM EST Generic External Data Provider LAB BLOOD ORDERAB LES Final Result Performing Organization Address [facility] Phone Number [facility] [address] [place] [phone] * (ABNORMAL) Partial Thromboplastin Time, Activated (APTT) (02/11/2025 1:13 PM EST) Only the most recent of2 resultswithin the time period is included. Partial Thromboplastin Time 36.1(H) 26.7 - 34.1 SEC [facility] 02/11/2025 1:13 PM EST 02/11/2025 4:09 PM EST Generic External Data Provider LAB BLOOD ORDERAB LES Final Result Performing Organization Address [facility] Phone Number [facility] [address] [place] [phone] * Prothrombin Time-INR (02/11/2025 1:13 PM EST) Only the most recent of2 resultswithin the time period is included. Prothrombin Time 12.7 11.2 - 13.5 SEC [facility] INTERNATIONAL NORM RATIO 1.0 0.9 - 1.1 [facility] Comment:INTERNATIONAL NORMAL IZED RATIO (INR) REFERENCE RANGES Reference RangeFor patients not on anticoagulant therapy: 0.9 - 1.1INR ranges for oral anticoagulanttherapy:For prevention and treatment of venous thrombosis and pulmonary embolism: 2.0 - 3.0For acute myocardial infarction with aspirin therapy: 2.0 - 3.0For acute myocardial infarction without aspirin therapy: 3.0 - 4.0For patients with mechanical prosthetic heart valves: 2.5 - 3.5 02/11/2025 1:13 PM EST 02/11/2025 4:09 PM EST us Generic External Data Provider LAB BLOOD ORDERAB LES Final Result Performing Organization Address City/[facility]/ZIP Co de Phone Number [facility] [address] [place] [phone] * TSH with Reflex to Free T4 (01/15/2025 3:20 PM EDT) TSH reflex Free T4 1.24 0.32 - 4.0 uIU/mL [facility] Blood 01/15/2025 3:20 PM EDT 01/15/2025 4:07 PM EDT us Willow Butterfield MD LAB BLOOD ORDERABLES Fin al Result Performing Organization Address [facility]/ZIP Co de Phone Number [facility] [address] [place] [phone] * POCT Urinalysis (12/09/2024 12:01 PM [...] Urine 12/09/2024 12:0 1 PM EDT Niki Yosvany DO POINT OF CARE TEST ENTER/LOIS T ORDERABLES Final Result * Chlamydia/N. Gonorrhoeae, PCR, Urine (12/09/2024 12:00 PM EDT) CT PCR, Urine NOT DETECTED Not Detect. [facility] Comment:A not detected test result does [...] NG PCR, Urine NOT DETECTED Not Detect. [facility] Comment:A not detected test result does [...] EDT 12/09/2024 7:12 PM EDT N[facility] LAB URINE ORDERABLES Final R esult Performing Organization Address [facility]/ZIP Co de Phone Number [facility] [address] [place] [phone] * Culture, Urine, Routine (12/09/2024 11:45 AM EDT) Urine Urine specimen obtained by clean catch procedure / Unknown 12/09/2024 11:45 AM EDT 12/09/2024 5:22 PM EDT Comment:UACC Narrative [facility] - 12/11/2024 10:10 AM EDT Urine Culture No growth. Specimen Source: Urine clean catch Niki Bar DO LAB MICROBIOLOGY - GENERAL O RDERABLES Final Result Performing Organization Address [facility] de Phone Number [facility] [address] [place] [phone] * HIV-1/2 Antigen and Antibodies, Fourth Generation, with Reflexes (11/03/2024 11:08 AM EDT) HIV AB/AG Nonreactive Nonreactive [facility] Comment:HIV-1 p24 Ag and/or HIV-1/HIV-2 Ab not detected.A test result that is nonreactive does not exclude thepossibility of exposure to or infection with HIV-1 and/orHIV-2. Nonreactive results in this assay for individualswith prior exposure to HIV-1 and/or HIV-2 may be due toantigen and antibody levels that are below the limit ofdetection of this assay.The [email or web address] HIV Ag/Ab Combo assay result andsupplemental assay results should be interpreted inconjunction with the patient's clinical presentation,history and other laboratory results. If the results areinconsistent with clinical evidence, additional testing issuggested to confirm the result. Blood Venous blood specimen / Unknown 11/03/2024 11:08 AM EDT 11/03/2024 12:55 PM EDT [facility] LAB BLOOD ORDERABLES Final Re sult Performing Organization Address [facility] Co de Phone Number [facility] [address] [place] [phone] * (ABNORMAL) Lipid Panel, Standard (11/03/2024 11:08 AM EDT) Triglycerides 221(H) <150 mg/dL [facility] Comment:Desirable Triglyceri de: less than 150 mg/dLBorderline High Triglyceride 150-199 mg/dLHigh Triglyceride: 200-499 mg/dLVery High Triglyceride: greater than or equal to 5OO mg/dL Cholesterol 158 <200 mg/dL [facility] Comment:Desirable Cholestero l: less than 200 mg/dLBorderline High Cholesterol: 200-239 mg/dLHigh Cholesterol: greater than 239 mg/dL LDL Cholesterol Calculated 96 <100 mg/dL [facility] Comment:Desirable LDL: less than 100 mg/dLNear Optimal/Above Optimal LDL: 110- 129 mg/dLBorderline High LDL: 130-159 mg/dLHigh LDL: 160-189 mg/dLVery High LDL: greater than or equal to 190 mg/dL HDL Cholesterol 18(L) >40 mg/dL [facility] Comment:Desirable HDL: great er than 40 mg/dL Note: This HDL assay may give artificially low results in patients with liver disease. Blood Venous blood specimen / Unknown 11/03/2024 11:08 AM EDT 11/03/2024 12:55 PM EDT [facility] LAB BLOOD ORDERABLES Final Re sult Performing Organization Address [facility]/ZIP Co de Phone Number [facility] [address] [place] [phone] * Hepatitis C Antibody with Reflex to HCV, RNA, Quantitative, Real-Time PCR (12/14/2023 12:34 PM EDT) Hepatitis C Antibody Nonreactive Nonreactive [facility] Comment:Antibodies to HCV no t detected; does not exclude early acuteHCV infection. Blood Venous blood specimen / Unknown 12/14/2023 12:34 PM EDT 12/14/2023 1:19 PM EDT [facility] LAB BLOOD ORDERABLES Final Re sult [facility] [address] [place] [phone] [phone] from Last 3 Months or Most Recently Relevant to Health Maintenance Insurance [facility] [employer] MEDICARE Care Teams Student Services Vice President Relationship Specialty Start Date End Date Thelma Fatima FNP [address] [place] [phone] PCP - General Family Medicine 12/14/23
--- OUTSIDE RECORDS SUMMARY | 2025-02-26 00:36 | XMS_ITS | Encounter Summary ---
Author Organization [facility] Address [address] [place] [address] Phone Care Team Providers Care Bottom Liquor Attendant Name Role Phone Julia Blood NP Primary Care Provider [phone] Encounter Details Date Type Department Care Team (Late st Contact Info) Description 02/01/2012 Documentation [facility] [place] [address] [place], [place] [phone] Family Medicine, Physician [address] [place], [place] [phone] Social History Tobacco Use Types Packs/Day Years [...] on filedocumented in this encounter Care Teams Bottom Liquor Attendant Relationship Specialty Start Date End Date Julia Blood NP [address] [place] [address] PCP - General Pediatrics 08/13/24 01/28/25 documented as of this encounter
--- OUTSIDE RECORDS SUMMARY | 2025-02-26 00:36 | XMS_ITS | Encounter Summary ---
Author Organization [employer] Address [address] [facility] 7t [place] [address] Care Team Providers Care Teletype Technician Name Role Phone Akua [facility] Primary Care Provider [phone] Reason for Visit * Reason Comments Med Change Request Encounter Details Date Type Department Care Team ([facility] st Contact Info) Description 03/23/2024 Refill [facility] MEDICINE [address] [place], [place] [phone] Virginia Box CNM [address] [place], [place] [phone] Social History Tobacco Use Types Packs/Day Years [...] documented in this encounter Plan of Treatment Not on file documented as of this encounter Visit Diagnoses Not on filedocumented in this encounter Additional Health Concerns Assessment Noted Time PHQ-9 Depression Total Score: 0 03/21/19 25 2:22 PM EST documented as of this encounter Care Teams Teletype Technician Relationship Specialty Start Date End Date Thelma Fatima FNP [address] [place] [address] PCP - General Family Medicine 12/14/23 documented as of this encounter
--- OUTSIDE RECORDS SUMMARY | 2025-02-26 00:36 | XMS_ITS | Encounter Summary ---
Author Organization [facility] Address [address] [place] [address] Phone Care Team Providers Care Engineer Second Assistant Name Role Phone Julia Blood NP Primary Care Provider [phone] Encounter Details Date Type Department Care Team (Late st Contact Info) Description 09/01/2015 Documentation [facility] [place] [address] [place], [place] [phone] Family Medicine, Physician [address] [place], [place] [phone] Social History Tobacco Use Types Packs/Day Years [...] on filedocumented in this encounter Care Teams Engineer Second Assistant Relationship Specialty Start Date End Date Julia Blood NP [address] [place] [address] PCP - General Pediatrics 08/13/24 01/28/25 documented as of this encounter
--- OUTSIDE RECORDS SUMMARY | 2025-02-26 00:36 | XMS_ITS | Encounter Summary ---
Author Organization [employer] Address [address] [facility] 7t [place] [address] Care Team Providers Care Buckle Attaching Machine Operator Name Role Phone Akua [facility] Primary Care Provider [phone] Reason for Visit * Reason Comments Med Refill Encounter Details Date Type Department Care Team ([facility] st Contact Info) Description 12/18/2023 Refill [facility] [address] [place], [place] [phone] Willow Butterfield MD [address] [place], [place] [phone] Social History Tobacco Use Types Packs/Day Years [...] documented as of this encounter Care Teams Buckle Attaching Machine Operator Relationship Specialty Start Date End Date Thelma Fatima FNP [address] [place] [phone] PCP - General Family Medicine 12/14/23 documented as of this encounter
--- OUTSIDE RECORDS SUMMARY | 2025-02-26 00:36 | XMS_ITS | Clinical Summary ---
Author Organization [facility] Address [address] [place] [address] Phone Care Team Providers Care Passenger Locomotive Engineer Name Role Phone Unavailable Primary Care Provider [...] Psychosocial stressors 06/18/2020 Overview (06/18/2020): Silvana from [facility] is calling on an active 51 A. Update given. 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 Zoloft & Tenex 08/2018: Pt now on Risperidone, tenex. Zoloft stopped 3 months ago & Risperadone was started . Melatonin for sleep 07/28/21: Psych admission for SI & Auditory command hallucinations 09/02/21: Pt discharged from the hospital yesterday. He was in the hospital for SI. Pt has an apt with [facility] 09/02/21. 09/06/21: [facility] [facility] Assessment & Plan (05/15/2022 10:42 AM EST): Followed by Shyann Shell at [facility]. Patient is on risperidone, fluoxetine and guanfacine. To see new psych provider tomorrow Therapist = patient does not know if he sees anyone Assessment & Plan (12/15/2020 11:14 AM EDT): Sees Shyann Gonzalez Q 2-3 mos. Risperidone, tenex. & melatonin patient reports that [facility] does his metabolic labs yearly - he declined them today [place]. IEP in place. Does well Assessment & Plan (09/14/2019 10:37 AM EDT): Followed at [facility] by Shyann Shell She checks routine [...] EDT): In 45 day dx program at [place] [facility] due to behavior issues. Doing better Supposed to go back to [place] but his Gmom does not want him to go back Seeing Shyann Shell monthly. On Tenex, zoloft & respiradone (added 2 months ago) No therapist while in 45 day program. Will reconnect when returns to [place] - sees therapist there from [facility] Immunizations Immunization Administration Dates Next Due [...] Completed 12/15/2020, 016 Procedures * Due to [facility] law, this organization might not be sharing sensitive test results. Procedure Name Priority Date/Time Associated Diagnosis Comments LIPID PANEL Routine 05/15/2022 11:30 AM EST BMI greater than 95% for age [Z68.54] HEMOGLOBIN A1C Routine 05/15/2022 11:30 AM EST BMI greater than 95% for age [Z68.54] from Last 3 Months or Most Recently Relevant to Health Maintenance Results * Due to [facility] law, this organization might not be sharing sensitive test results. * Hemoglobin A1c (05/15/2022 11:30 AM EST) [facility] Hemoglobin A1C 5.1 (4.0-5.6) % [facility] Comment: MONITORING: In known diabetic patients, hemoglobin A1c targets should be discussed with health care provider. DIAGNOSTIC USE: The [place] Diabetes Association (ADA) and the World Health [...] Supplement 1 Testing performed or reported by [facility], a Service of [address] [address] Jonn Kay MD, Fabrication Supervisor CLIA# [id number] Blood 05/15/2022 11:3 0 AM EST 05/15/2022 12:24 PM EST Kelley Arora MD LAB BLOOD ORDERABLES Final Resul t Performing Organization Address [facility] Phone Number [facility] * (ABNORMAL) Lipid panel (05/15/2022 11:30 AM EST) [facility] Cholesterol, Total 145 (<170) MG/DL [facility] HDL 30(L) (>45) MG/DL [facility] Non-HDL Cholesterol 115 (<120) MG/DL [facility] Comment: Testing performed or reported by [facility], a Service of [facility], [address] [place] [id number] Jonn Kay MD, Fabrication Supervisor IA# [id number] Blood 05/15/2022 11:3 0 AM EST 05/15/2022 12:24 PM EST Kelley Arora MD LAB BLOOD ORDERABLES Final Resul t Performing Organization Address City/[facility] de Phone Number [facility] from Last 3 Months or Most Recently Relevant to Health Maintenance Insurance [facility] NON PCC [facility] [place] [facility] Address: [address] [address] [place] [address]
--- OUTSIDE RECORDS SUMMARY | 2025-02-26 00:36 | XMS_ITS | Encounter Summary ---
Author Organization [employer] Address [address] [facility] 7t [place] [address] Care Team Providers Care Core Cutter Name Role Phone [place] [facility] Primary Care Provider [phone] Encounter Details Date Type Department Care Team (Late st Contact Info) Description 02/25/2025 Orders Only GENERIC EXTERNAL DATA [...] on file documented as of this encounter Procedures Procedure Name Priority Date/Time Associated Diagnosis Comments CBC WITH AUTO DIFFERENTIAL Routine 02/25/2025 4:07 PM EST TSH Routine 02/25/2025 4:07 PM EST HEMOGLOBIN A1C Routine 02/25/2025 4:07 PM EST GLUCOSE Routine 02/25/2025 4:07 PM EST LITHIUM Routine 02/25/2025 4:07 PM EST VALPROIC ACID Routine 02/25/2025 4:07 PM EST HEPATIC FUNCTION PANEL Routine 4:07 PM EST RENAL FUNCTION PANEL Routine 02/25/2025 4:07 PM EST COMPREHENSIVE METABOLIC PANEL Routine 02/25/2025 4:07 PM EST documented in this encounter Results * TSH (02/25/2025 4:07 PM EST) Thyroid Stimulating Hormone 2.48 0.32 - 4.0 uIU/mL [facility] Comment:TSH 3rd Generation ( [facility]) 02/25/2025 4:07 PM EST 02/25/2025 4:07 PM EST Generic External Data Provider LAB BLOOD ORDERAB LES Final Result Performing Organization Address [facility] Phone Number [facility] [address] [place] [phone] * Glucose (02/25/2025 4:07 PM EST) [facility] Glucose Fasting 83 60 - 99 mg/dL [facility] 02/25/2025 4:07 PM EST 02/25/2025 4:07 PM EST Generic External Data Provider LAB BLOOD ORDERAB LES Final Result Performing Organization Address [facility] Phone Number [facility] [address] [place] [phone] * Renal Function Panel (02/25/2025 4:07 PM EST) Pathologist [facility] Phosphorus 4.4 2.7 - 4.5 mg/dL [facility] 02/25/2025 4:07 PM EST 02/25/2025 4:07 PM EST Generic External Data Provider LAB BLOOD ORDERAB LES Final Result Performing Organization Address [facility] de Phone Number [facility] [address] [place] [phone] * Hepatic Function Panel (02/25/2025 4:07 PM EST) Pathologist [facility] Bilirubin, Direct 0.1 0.0 - 0.5 mg/dL [facility] 02/25/2025 4:07 PM EST 02/25/2025 4:07 PM EST us Generic External Data Provider LAB BLOOD ORDERAB LES Final Result [facility] [address] [place] [phone] * (ABNORMAL) Comprehensive Metabolic Panel (02/25/2025 4:07 PM EST) Sodium 140 135 - 145 mmol/L [facility] Potassium 4.0 3.3 - 5.1 mmol/L [facility] Chloride 109(H) 96 - 108 mmol/L [facility] Carbon Dioxide 23 22 - 29 mmol/L [facility] Anion Gap 12 12 - 20 [facility] Urea Nitrogen (BUN) 7(L) 9 - 16 mg/dL [facility] Creatinine, Serum 0.69 0.5 - 1.4 mg/dL [facility] Estimated Glomerular Filt Rate >60 [facility] Comment:Chronic Kidney Disea se: Estimated GFR < 60 mL/min/[id number] Kidney Disease: Estimated GFR < 15 mL/min/1.73m2 Glucose 83 60 - 115 mg/dL [facility] Calcium 9.5 8.4 - 10.2 mg/dL [facility] Bilirubin, Total 0.3 0.0 - 1.0 mg/dL [facility] Aspartate Amino Transferase 26 5 - 37 U/L [facility] Alanine Aminotransferase 24 0 - 40 U/L [facility] Total Protein 7.3 6.5 - 8.0 g/dL [facility] Albumin Level 4.4 3.5 - 5.0 g/dL [facility] Alkaline Phosphatase 55 39 - 117 U/L [facility] 02/25/2025 4:07 PM EST 02/25/2025 4:07 PM EST us Generic External Data Provider LAB BLOOD ORDERAB LES Final Result [facility] [address] [place] [phone] * Valproic Acid Total (02/25/2025 4:07 PM EST) Valproate 62.8 50.0 - 100.0 mcg/mL [facility] Comment:Last dose was taken on 02/25/25 at 0800. 02/25/2025 4:07 PM EST 02/25/2025 4:07 PM EST [facility] - 02/25/2025 5:20 PM EST [id number] Generic External Data Provider LAB BLOOD ORDERAB LES Final Result Performing Organization Address City/[facility]/ZIP Co de Phone Number [facility] [address] [place] [phone] * (ABNORMAL) [place] (02/25/2025 4:07 PM EST) Pathologist [facility] Woodson 0.45(L) 0.60 - 1.20 mmol/L [facility] Comment:Last dose was taken on 02/25/25 at 0800. 02/25/2025 4:07 PM EST 02/25/2025 4:07 PM EST [facility] - 02/25/2025 5:15 PM EST [id number] Neighborhoods External Data Provider LAB BLOOD ORDERAB LES Final Result Performing Organization Address City/[facility] Co de Phone Number [facility] [address] [place] [phone] * Hemoglobin A1c (02/25/2025 4:07 PM EST) Hemoglobin A1c 4.9 <6.0 % [facility] Comment:Hemoglobin A1C Refer ence Range Adults: 4.8 - 6.0 % Non diabetic: < 6.0 % Goal: < 7.0 %Additional Action Suggested: > 8.0 %Note: Hemoglobin A1c results are invalid for patients with abnormal amounts of HbF. Blood transfusions may impact the HbA1c concentration in the patient sample. Estimated Average Glucose 94 mg/dL [facility] Comment:eAG = Estimated ave rage glucose which is %A1C expressed asaverage glucose, using the formula of the I2D-CpdqndbSqaiepp Glucose study (ADAG), Diabetes Care, Vol.31,#8,2007 02/25/2025 4:07 PM EST 02/25/2025 4:07 PM EST us Generic External Data Provider LAB BLOOD ORDERAB LES Final Result [facility] [address] [place] [phone] * (ABNORMAL) CBC auto differential (02/25/2025 4:07 PM EST) White Blood Count 9.8 4.8 - 10.8 X10*3/uL [facility] Red Blood Count 5.57 4.60 - 5.80 X10*6/uL [facility] Hemoglobin 15.8 14.0 - 18.0 g/dl [facility] Hematocrit 47.2 42.0 - 52.0 % [facility] Mean Corpuscular Volume 84.7 80.0 - 98.0 fL [facility] Mean Corpuscular Hemoglobin 28.4 27.0 - 33.0 pg [facility] Mean Corpuscular HGB Conc 33.5 31.0 - 36.0 g/dl [facility] Red Cell Distribution Width 12.5 11.0 - 16.0 % [facility] Platelet Count 222 160 - 400 X10*3/uL [facility] Mean Platelet Volume 12.6(H) 9.4 - 12.4 fL [facility] Neutrophils Percent Auto 50.7 45 - 73 % [facility] Imm Gran Pct Auto 0.1 0.0 - 0.4 % [facility] Lymphocytes Percent Auto 33.8 20 - 40 % [facility] Monocytes Percent Auto 8.4 2 - 11 % [facility] Eosinophils Percent Auto 6.5(H) 0 - 4 % [facility] Basophils Percent Auto 0.5 0 - 2 % [facility] NRBC Pct Auto 0.0 0.0 - 0.2 /100WBC [facility] Neutrophils Absolute Auto 5.0 2.0 - 8.3 x10*3/uL [facility] Imm Gran Abs Auto 0.01 0.00 - 0.03 X10*3/uL [facility] Lymphocytes Absolute Auto 3.3 1.2 - 4.9 X10*3/uL [facility] Monocytes Absolute Auto 0.8 0.1 - 1.2 X10*3/uL [facility] Eosinophils Absolute Auto 0.6(H) 0.0 - 0.4 X10*3/uL [facility] Basophils Absolute Auto 0.1 0.0 - 0.2 X10*3/uL [facility] NRBC Abs Auto 0.000 0.0 - 0.012 X10*3/uL [facility] 02/25/2025 4:07 PM EST 02/25/2025 4:07 PM EST us Generic External Data Provider LAB BLOOD ORDERAB LES Final Result Performing Organization Address City/State/[facility] Co de Phone Number [facility] [address] [place] [phone] documented in this encounter Visit Diagnoses Not on filedocumented in this encounter Additional Health Concerns Assessment Noted Time PHQ-9 Depression Total Score: 0 03/21/19 25 2:22 PM EST documented as of this encounter Care Teams Core Cutter Relationship Specialty Start Date End Date Thelma Fatima FNP [address] [place] [address] PCP - General Family Medicine 12/14/23 documented as of this encounter
--- OUTSIDE RECORDS SUMMARY | 2025-02-26 00:36 | XMS_ITS | Encounter Summary ---
Author Organization [employer] Address [address] [facility] 7t [place] [address] Care Team Providers Care Parachute Rigger Name Role Phone Akua [facility] Primary Care Provider [phone] Reason for Visit * Reason Comments Med Refill Encounter Details Date Type Department Care Team ([facility] st Contact Info) Description 01/18/2024 Refill [facility] MEDICINE [address] [place], [place] [phone] Willow Butterfield MD [address] [place], [place] [phone] Social History Tobacco Use Types Packs/Day Years [...] documented as of this encounter Care Teams Parachute Rigger Relationship Specialty Start Date End Date Thelma Fatima FNP [address] [place] [phone] PCP - General Family Medicine 12/14/23 documented as of this encounter
--- OUTSIDE RECORDS SUMMARY | 2025-02-26 00:36 | XMS_ITS | Encounter Summary ---
Author Organization [employer] Address [address] [facility] 7t [place] [address] Care Team Providers Care Pulpwood Contractor Name Role Phone Akua [facility] Primary Care Provider [phone] Reason for Visit * Reason Onset Date Comments Med Refill 02/25/2024 Encounter Details Date Type Department Care Team (Late st Contact Info) Description 02/25/2024 Refill [facility] MEDICINE [address] [place], [place] [phone] Virginia Box CNM [address] [place], [place] [phone] Social History Tobacco Use Types Packs/Day Years [...] documented as of this encounter Care Teams Pulpwood Contractor Relationship Specialty Start Date End Date Thelma Fatima FNP [address] [place] [phone] PCP - General Family Medicine 12/14/23 documented as of this encounter
--- OUTSIDE RECORDS SUMMARY | 2025-02-26 00:36 | XMS_ITS | Encounter Summary ---
Author Organization [facility] Address [address] [place] [address] Phone Care Team Providers Care Waste And Batting Waste Chopper Name Role Phone Julia Blood NP Primary Care Provider [phone] Encounter Details Date Type Department Care Team (Late st Contact Info) Description 11/02/2016 Conversion Encounter [facility] [address] [place] [address] Social History Tobacco Use Types Packs/Day Years [...] on filedocumented in this encounter Care Teams Waste And Batting Waste Chopper Relationship Specialty Start Date End Date Julia Blood NP [address] [place] [address] PCP - General Pediatrics 08/13/24 01/28/25 documented as of this encounter
--- OUTSIDE RECORDS SUMMARY | 2025-02-26 00:36 | XMS_ITS | Encounter Summary ---
Author Organization [employer] Address [address] [facility] 7t [place] [address] Care Team Providers Care Log Processor Operator Name Role Phone [facility] Primary Care Provider [phone] Reason for Visit * Reason Onset Date Comments Nurse Triage 03/14/2024 Encounter Details Date Type Department Care Team (Late st Contact Info) Description 03/14/[address] [facility] [address] [place], [place] [phone] [facility] [address] [place], [place] [phone] Nurse Triage Social History Tobacco Use Types [...] 2:45 PM EST Tc from provider manager air Symptom: Earache Outcome: Schedule a same-day appointment or talk to a nurse or provider today Reason: Caller denied all higher acuity questions The caller accepted this outcome. [phone] documented in this encounter Plan of Treatment Not on file documented as of this encounter Visit Diagnoses Not on filedocumented in this encounter Additional Health Concerns Assessment Noted Time PHQ-9 Depression Total Score: 21 024 12:37 PM EDT documented as of this encounter Care Teams Log Processor Operator Relationship Specialty Start Date End Date Thelma Fatima FNP [address] [place] [phone] PCP - General Family Medicine 12/14/23 documented as of this encounter
== END 2025-02-25 15:52 | disposition home or self-care (01) ==
LOC: HO.LAB 15:51
PROVIDERS: PCP Registered Nurse
DX: Z13.1 Encounter for screening for diabetes mellitus (principal); F31.81 Bipolar II disorder
CPT/HCPCS: 36415; 80053; 80069; 80164; 80178; 82248; 83036; 84100; 84443; 85025

== ENCOUNTER 2025-03-02 13:48 | Outpatient (AMB) | payer MEDICARE, MEDICAID, SELFPAY ==
[2025-03-02 14:24] VITALS: BP 118/80; PULSE 92; RESP 16; O2SAT 98; BMI 37.4
--- NOTE | 2025-03-02 14:24 | MHC.OFFVIS ---
Vital Signs 03/02/25 14:24 Height 5 ft 8 in Weight 246 lb BMI 37.4 BP 118/80 Blood Pressure Location Rt brachial Position Sitting Respiration 16 Pulse 92 Pulse Source Pulse Oximeter Pulse Oximetry (%) 98 Oxygen Delivery Method Room Air Intake Visit Reasons: 3M Blue Crabber Required: No Accompanied by: Other Relationship Allergies blueberry Allergy (Verified 03/02/25 14:25) Unknown liu (cherries) Allergy (Verified 03/02/25 14:25) Unknown fish derived (fish) Allergy (Verified 03/02/25 14:25) Unknown strawberry Allergy (Verified 03/02/25 14:25) Unknown HPI Comments Details: Himanshu is a 20-year-old male patient with a past medical history of mood disorder for which he is on a combination of lithium and valproic acid. He presents today for a follow up visit of tremor and possible seizure-like activity. At the time of his initial visit he presented with senior living staff member who provided most of the history. He has been experiencing a tremor for many years potentially slightly worse over the course of the last year or so. He has been recently on lithium for mood stabilization with toxic levels. This has been discontinued and hopes of the tremor when resolve however he did continue slightly with a tremor. He has also however on Depakote 150 mg daily prescribed for moods which can also contribute to tremor. He does not have any known family history of tremor. The tremor was more notable when he was doing things with his hands or family more anxious. It would resolve with rest. skilled nursing staff also had some concerns regarding him ?spacing out? and having some episodes of staring. It was sometimes difficult to get his attention during these episodes and Himanshu had a hard time recalling these events when they occur. He denied any shaking or abnormal movements during these events. Himanshu also did report awakening from sleep at times having had been his tongue. skilled nursing staff had also noted some intermittent episodes of urinary incontinence during the day. This was a new finding/behavior. There was no known history of seizure in his family that she is aware of. He can not recall if he had any traumatic history or prematurity. He does not recall any significant illnesses as a child or hospitalizations for acute illnesses that he is aware of. An EEG performed 12/02/2024 was mildly abnormal with 1 possible bifrontal sharp wave. I recommended a 48 hour study however this has not been completed yet in scheduled for 12/15/2024. I also ordered an MRI of the brain which was ordered as an open MRI per request with the patient. This was not completed as the patient learned when he arrived that he would have to take out his piercings and he did not wish to do that. Since the time of his last visit, he has not had any further staring events that he is aware of. The senior living staff member who he is accompanied by today also does not recall any staring events. Prior workup: Valproic acid level 11/12/2024: 79 Valproic acid level 12/11/2024: 61.5 Routine EEG 12/02/2024: Mildly abnormal EEG. One possible bifrontal sharp wave noted. Social: Currently living in a senior living Attends a school program during the week Denies use of alcohol Admits to intermittent use of marijuana Reports using nicotine gum but does not smoke tobacco PFSH Medical History PTSD (post-traumatic stress disorder) Seizures ADHD Review of Systems Const All systems reviewed & are unremarkable except as noted in HPI and below Physical Exam Exam Exam: PT declined physical exam Vital Signs: Last Vital Signs Pulse 92 03/02/25 14:24 Resp 16 03/02/25 14:24 BP 118/80 03/02/25 14:24 Pulse Ox 98 03/02/25 14:24 Oxygen Delivery Method Room Air 03/02/25 14:24 BMI result Body Mass Index 37.4 Const General: healthy appearing, no acute distress, alert and awake Psych Affect: Irritable affect present Attitude: Guarded attititude/behavior present and Refuses to answer (attititude/behavior) Assessment & Plan Assessment & Plan (1) Tremor: Code(s): R25.1 - Tremor, unspecified Category: Medical (2) Staring episodes: Code(s): R40.4 - Transient alteration of awareness Category: Medical Plan Himanshu is a 20-year-old male patient with a past medical history of mood disorder for which he is on a combination of lithium and valproic acid. He presents today for a follow up visit of tremor and possible seizure-like activity. Tremor may be attributed to use of antipsychotic medications including lithium and Depakote though not clear. Tremors not impacting his day-to-day. More concerning is the slightly abnormal EEG finding. Plan is to obtain a 48 hour ambulatory EEG however this is scheduled for 03/16/2025. The patient refused his MRI scan that was ordered due to the need of taking out his piercings. - 48hr ambulatory EEG scheduled 03/16/2025 -revisit need for imaging after EEG is completed. Could consider CT scan if patient is willing -Follow-up after EEG Coding Level of Care Code Est Pt Level 2 (14596) Diagnoses Tremor R25.1 Staring episodes R40.4
--- OUTSIDE RECORDS SUMMARY | 2025-03-02 20:02 | XMS_ITS | Encounter Summary ---
Author Organization [facility] Address [address] [place] [address] Phone Care Team Providers Care Editorial Cartoonist Name Role Phone Julia Blood NP Primary Care Provider [phone] Encounter Details Date Type Department Care Team (Late st Contact Info) Description 09/01/2015 Documentation [facility] [place] [address] [place], [place] [phone] Family Medicine, Physician [address] [place], [place] [address] Social History Tobacco Use Types Packs/Day Years [...] on filedocumented in this encounter Care Teams Editorial Cartoonist Relationship Specialty Start Date End Date Julia Blood NP [address] [place] [address] PCP - General Pediatrics 08/13/24 01/28/25 documented as of this encounter
--- OUTSIDE RECORDS SUMMARY | 2025-03-02 20:02 | XMS_ITS | Encounter Summary ---
Author Organization [employer] Address [address] [facility] 7t [place] [address] Care Team Providers Care Power Plant Superintendent Name Role Phone [facility] Primary Care Provider [phone] Reason for Visit * Reason Comments Med Refill Encounter Details Date Type Department Care Team ([facility] st Contact Info) Description 01/18/2024 Refill [facility] [address] [place], [place] [phone] Willow Butterfield MD [address] [place], [place] [phone] Social History Tobacco Use Types Packs/Day Years [...] documented as of this encounter Care Teams Power Plant Superintendent Relationship Specialty Start Date End Date Thelma Fatima FNP [address] [place] [phone] PCP - General Family Medicine 12/14/23 documented as of this encounter
--- OUTSIDE RECORDS SUMMARY | 2025-03-02 20:02 | XMS_ITS | Encounter Summary ---
Author Organization [employer] Address [address] [facility] [address] [place] [address] Care Team Providers Care Account Services Associate Name Role Phone [facility] Primary Care Provider [phone] Encounter Details Date Type Department Care Team [...] Stimulating Hormone 2.48 0.32 - 4.0 uIU/mL [facility] Comment:TSH 3rd Generation ( [employer]) 02/25/2025 4:07 PM EST 02/25/2025 4:07 PM EST Generic External Data Provider LAB BLOOD ORDERAB LES Final Result Performing Organization Address [facility] Phone Number [facility] [address] [place] [phone] * Glucose (02/25/2025 4:07 PM EST) [facility] Glucose Fasting 83 60 - 99 mg/dL [facility] 02/25/2025 4:07 PM EST 02/25/2025 4:07 PM EST Generic External Data Provider LAB BLOOD ORDERAB LES Final Result Performing Organization Address [facility] Phone Number [facility] [address] [place] [phone] * Renal Function Panel (02/25/2025 4:07 PM EST) Pathologist [facility] Phosphorus 4.4 2.7 - 4.5 mg/dL [facility] 02/25/2025 4:07 PM EST 02/25/2025 4:07 PM EST Generic External Data Provider LAB BLOOD ORDERAB LES Final Result Performing Organization Address [facility] de Phone Number [facility] [address] [place] [phone] * Hepatic Function Panel (02/25/2025 4:07 PM EST) Pathologist [facility] Bilirubin, Direct 0.1 0.0 - 0.5 mg/dL [facility] 02/25/2025 4:07 PM EST 02/25/2025 4:07 PM EST us Generic External Data Provider LAB BLOOD ORDERAB LES Final Result [facility] [address] [place] [phone] * (ABNORMAL) Comprehensive Metabolic Panel (02/25/2025 4:07 PM EST) Sodium 140 135 - 145 mmol/L [facility] Potassium 4.0 3.3 - 5.1 mmol/L [facility] Chloride 109(H) 96 - 108 mmol/L [facility] Carbon Dioxide 23 22 - 29 mmol/L [facility] Anion Gap 12 12 - 20 [facility] Urea Nitrogen (BUN) 7(L) 9 - 16 mg/dL [facility] Creatinine, Serum 0.69 0.5 - 1.4 mg/dL [facility] Estimated Glomerular Filt Rate >60 [facility] Comment:Chronic Kidney Disea se: Estimated GFR < 60 mL/min/1.38s0Enkyxk Kidney Disease: Estimated GFR < 15 mL/min/1.73m2 Glucose 83 60 - 115 mg/dL [facility] Calcium 9.5 8.4 - 10.2 mg/dL [facility] Bilirubin, Total 0.3 0.0 - 1.0 mg/dL [facility] Aspartate Amino Transferase 26 5 - 37 U/L [facility] Alanine Aminotransferase 24 0 - 40 U/L [facility] Total Protein 7.3 6.5 - 8.0 g/dL [facility] Albumin Level 4.4 3.5 - 5.0 g/dL [facility] Alkaline Phosphatase 55 39 - 117 U/L [facility] 02/25/2025 4:07 PM EST 02/25/2025 4:07 PM EST us Generic External Data Provider LAB BLOOD ORDERAB LES Final Result [facility] [address] [place] [phone] * Valproic Acid Total (02/25/2025 4:07 PM EST) Valproate 62.8 50.0 - 100.0 mcg/mL [facility] Comment:Last dose was taken on 02/25/25 at 0800. 02/25/2025 4:07 PM EST 02/25/2025 4:07 PM EST [facility] - 02/25/2025 5:20 PM EST [id number] Generic External Data Provider LAB BLOOD ORDERAB LES Final Result Performing Organization Address City/[facility]/ZIP Co de Phone Number [facility] [address] [place] [phone] * (ABNORMAL) [place] (02/25/2025 4:07 PM EST) Pathologist [facility] [place] 0.45(L) 0.60 - 1.20 mmol/L [facility] Comment:Last dose was taken on 02/25/25 at 0800. 02/25/2025 4:07 PM EST 02/25/2025 4:07 PM EST [facility] - 02/25/2025 5:15 PM EST [id number] [employer] External Data Provider LAB BLOOD ORDERAB LES Final Result Performing Organization Address City/[facility] Co de Phone Number [facility] [address] [place] [phone] * Hemoglobin A1c (02/25/2025 4:07 PM EST) Hemoglobin A1c 4.9 <6.0 % [facility] Comment:Hemoglobin A1C Refer ence Range Adults: 4.8 - 6.0 % Non diabetic: < 6.0 % Goal: < 7.0 %Additional Action Suggested: > 8.0 %Note: Hemoglobin A1c results are invalid for patients with abnormal amounts of HbF. Blood transfusions may impact the HbA1c concentration in the patient sample. Estimated Average Glucose 94 mg/dL [facility] Comment:eAG = Estimated ave rage glucose which is %A1C expressed asaverage glucose, using the formula of the [id number] Glucose study (ADAG), Diabetes Care, Vol.31,#8,2007 02/25/2025 4:07 PM EST 02/25/2025 4:07 PM EST us Generic External Data Provider LAB BLOOD ORDERAB LES Final Result [facility] [address] [place] [phone] * (ABNORMAL) CBC auto differential (02/25/2025 4:07 PM EST) White Blood Count 9.8 4.8 - 10.8 X10*3/uL [facility] Red Blood Count 5.57 4.60 - 5.80 X10*6/uL [facility] Hemoglobin 15.8 14.0 - 18.0 g/dl [facility] Hematocrit 47.2 42.0 - 52.0 % [facility] Mean Corpuscular Volume 84.7 80.0 - 98.0 fL [facility] Mean Corpuscular Hemoglobin 28.4 27.0 - 33.0 pg [facility] Mean Corpuscular HGB Conc 33.5 31.0 - 36.0 g/dl [facility] Red Cell Distribution Width 12.5 11.0 - 16.0 % [facility] Platelet Count 222 160 - 400 X10*3/uL [facility] Mean Platelet Volume 12.6(H) 9.4 - 12.4 fL [facility] Neutrophils Percent Auto 50.7 45 - 73 % [facility] Imm Gran Pct Auto 0.1 0.0 - 0.4 % [facility] Lymphocytes Percent Auto 33.8 20 - 40 % [facility] Monocytes Percent Auto 8.4 2 - 11 % [facility] Eosinophils Percent Auto 6.5(H) 0 - 4 % [facility] Basophils Percent Auto 0.5 0 - 2 % [facility] NRBC Pct Auto 0.0 0.0 - 0.2 /100WBC [facility] Neutrophils Absolute Auto 5.0 2.0 - 8.3 x10*3/uL [facility] Imm Gran Abs Auto 0.01 0.00 - 0.03 X10*3/uL [facility] Lymphocytes Absolute Auto 3.3 1.2 - 4.9 X10*3/uL [facility] Monocytes Absolute Auto 0.8 0.1 - 1.2 X10*3/uL [facility] Eosinophils Absolute Auto 0.6(H) 0.0 - 0.4 X10*3/uL [facility] Basophils Absolute Auto 0.1 0.0 - 0.2 X10*3/uL [facility] NRBC Abs Auto 0.000 0.0 - 0.012 X10*3/uL [facility] 02/25/2025 4:07 PM EST 02/25/2025 4:07 PM EST us Generic External Data Provider LAB BLOOD ORDERAB LES Final Result Performing Organization Address City/State/[facility] Co de Phone Number [facility] [address] [place] [phone] documented in this encounter Visit Diagnoses Not on filedocumented in this encounter Additional Health Concerns Assessment Noted Time PHQ-9 Depression Total Score: 0 03/21/19 25 2:22 PM EST documented as of this encounter Care Teams Account Services Associate Relationship Specialty Start Date End Date Thelma Fatima FNP [address] [place] [address] PCP - General Family Medicine 12/14/23 documented as of this encounter
--- OUTSIDE RECORDS SUMMARY | 2025-03-02 20:02 | XMS_ITS | Encounter Summary ---
Author Organization [employer] Address [address] [facility] [address] [place] [address] Care Team Providers Care Business Planner Name Role Phone [facility] Primary Care Provider [phone] Reason for Visit * Reason Comments Med Change Request Encounter Details Date Type Department Care Team ([facility] st Contact Info) Description 03/23/2024 Refill [facility] [address] [place], [place] [phone] Virginia Box CNM [address], [place] [phone] Social History Tobacco Use Types Packs/Day Years [...] documented as of this encounter Care Teams Business Planner Relationship Specialty Start Date End Date Thelma Fatima FNP [address] [place] [phone] PCP - General Family Medicine 12/14/23 documented as of this encounter
--- OUTSIDE RECORDS SUMMARY | 2025-03-02 20:02 | XMS_ITS | Encounter Summary ---
Author Organization [employer] Address [address] [facility] 7[address] [place] [address] Care Team Providers Care Political Researcher Name Role Phone Akua [facility] Primary Care Provider [phone] Reason for Visit * Reason Onset Date Comments Med Refill 02/25/2024 Encounter Details Date Type Department Care Team (Late st Contact Info) Description 02/25/2024 Refill [facility] [address] [place], [place] [phone] Virginia Box CNM [address] [place], [place] [phone] Social History Tobacco Use Types Packs/Day Years [...] documented as of this encounter Care Teams Political Researcher Relationship Specialty Start Date End Date Thelma Fatima FNP [address] [place] [phone] PCP - General Family Medicine 12/14/23 documented as of this encounter
--- OUTSIDE RECORDS SUMMARY | 2025-03-02 20:02 | XMS_ITS | Clinical Summary ---
Author Organization [employer] Address [address] [place] [address] 7[address] [place] [address] Care Team Providers Care Central Control Room Operator Name Role Phone [facility] Primary Care Provider Allergies Active Allergy Reactions Criticality Noted Date Comments Blueberry Flavoring Agent (Non-Screening) Unknown 12/14/2023 Triana Unknown 12/14/2023 Fish Allergy Unknown 12/14/2023 [place] Extract Unknown 12/14/2023 Medications * This document [...] Data 02/19/2025 2:00 PM EST Office Visit [facility] [address] [place] [address] Tarka, Katheryn, OD Myopia, bilateral (Primary Dx) 02/19/2025 Travel 02/11/2025 Orders Only GENERIC EXTERNAL DATA DEPARTMENT Provider, Generic External Data 01/27/2025 Orders Only GENERIC EXTERNAL DATA DEPARTMENT Provider, Generic External Data 01/26/2025 Telephone [facility] [address] [place] [address] [facility] 12/12/2024 Results Follow-Up [facility] [address] [place] [address] Willow Butterfield MD CBC auto differential, [place], Valproic Acid Total, Additional followed-up results: 2 12/11/2024 Orders Only GENERIC EXTERNAL DATA DEPARTMENT Provider, Generic External Data 12/09/2024 11:45 AM EDT Office Visit [facility] [address] [place] [address] Niki Bar DO Dysuria 12/09/2024 Travel 12/03/2024 Telephone [facility] [address] [place] [address] Thelma Fatima FNP Nurse Triage 12/01/2024 Telephone [facility] [address], [place] [phone] Thelma Fatima FNP from Last 3 Months [...] 03/04/2008,01/27/2005 Meningococcal MCV4P ACYW-135 12/15/2020,08/02/19 16 Novel [id number]-[id number], all formulations 04/22/2009 Pneumococcal Conjugate PCV 7 [...] Blood Count 9.8 4.8 - 10.8 X10*3/uL [facility] Red Blood Count 5.57 4.60 - 5.80 X10*6/uL [facility] Hemoglobin 15.8 14.0 - 18.0 g/dl [facility] Hematocrit 47.2 42.0 - 52.0 % [facility] Mean Corpuscular Volume 84.7 80.0 - 98.0 fL [facility] Mean Corpuscular Hemoglobin 28.4 27.0 - 33.0 pg [facility] Mean Corpuscular HGB Conc 33.5 31.0 - 36.0 g/dl [facility] Red Cell Distribution Width 12.5 11.0 - 16.0 % [facility] Platelet Count 222 160 - 400 X10*3/uL [facility] Mean Platelet Volume 12.6(H) 9.4 - 12.4 fL [facility] Neutrophils Percent Auto 50.7 45 - 73 % [facility] Imm Gran Pct Auto 0.1 0.0 - 0.4 % [facility] Lymphocytes Percent Auto 33.8 20 - 40 % [facility] Monocytes Percent Auto 8.4 2 - 11 % [facility] Eosinophils Percent Auto 6.5(H) 0 - 4 % [facility] Basophils Percent Auto 0.5 0 - 2 % [facility] NRBC Pct Auto 0.0 0.0 - 0.2 /100WBC [facility] Neutrophils Absolute Auto 5.0 2.0 - 8.3 x10*3/uL [facility] Imm Gran Abs Auto 0.01 0.00 - 0.03 X10*3/uL [facility] Lymphocytes Absolute Auto 3.3 1.2 - 4.9 X10*3/uL [facility] Monocytes Absolute Auto 0.8 0.1 - 1.2 X10*3/uL [facility] Eosinophils Absolute Auto 0.6(H) 0.0 - 0.4 X10*3/uL [facility] Basophils Absolute Auto 0.1 0.0 - 0.2 X10*3/uL [facility] NRBC Abs Auto 0.000 0.0 - 0.012 X10*3/uL [facility] 02/25/2025 4:07 PM EST 02/25/2025 4:07 PM EST us Generic External Data Provider LAB BLOOD ORDERAB LES Final Result [facility] [address] [place] [phone] * TSH (02/25/2025 4:07 PM EST) Only the most recent of3 resultswithin the time period is included. Thyroid Stimulating Hormone 2.48 0.32 - 4.0 uIU/mL [facility] Comment:TSH 3rd Generation ( [employer]) 02/25/2025 4:07 PM EST 02/25/2025 4:07 PM EST us Generic External Data Provider LAB BLOOD ORDERAB LES Final Result Performing Organization Address [facility] Co de Phone Number [facility] [address] [place] [phone] * Hemoglobin A1c (02/25/2025 4:07 PM EST) Hemoglobin A1c 4.9 <6.0 % [facility] Comment:Hemoglobin A1C Refer ence Range Adults: 4.8 - 6.0 % Non diabetic: < 6.0 % Goal: < 7.0 %Additional Action Suggested: > 8.0 %Note: Hemoglobin A1c results are invalid for patients with abnormal amounts of HbF. Blood transfusions may impact the HbA1c concentration in the patient sample. Estimated Average Glucose 94 mg/dL [facility] Comment:eAG = Estimated ave rage glucose which is %A1C expressed asaverage glucose, using the formula of the C0K-AlhoefcDmirwio Glucose study (ADAG), Diabetes Care, Vol.31,#8,2007 02/25/2025 4:07 PM EST 02/25/2025 4:07 PM EST us Generic External Data Provider LAB BLOOD ORDERAB LES Final Result Performing Organization Address [facility] Co de Phone Number [facility] [address] [place] [phone] * Glucose (02/25/2025 4:07 PM EST) Glucose Fasting 83 60 - 99 mg/dL [facility] 02/25/2025 4:07 PM EST 02/25/2025 4:07 PM EST us Generic External Data Provider LAB BLOOD ORDERAB LES Final Result Performing Organization Address City/[facility] Co de Phone Number [facility] [address] [place] [address] [phone] * (ABNORMAL) [place] (02/25/2025 4:07 PM EST) Only the most recent of4 resultswithin the time period is included. [place] 0.45(L) 0.60 - 1.20 mmol/L [facility] Comment:Last dose was taken on 02/25/25 at 0800. 02/25/2025 4:07 PM EST 02/25/2025 4:07 PM EST [facility] - 02/25/2025 5:15 PM EST [id number] Generic External Data Provider LAB BLOOD ORDERAB LES Final Result Performing Organization Address [facility] de Phone Number [facility] [address] [place] [phone] * Valproic Acid Total (02/25/2025 4:07 PM EST) Only the most recent of4 resultswithin the time period is included. Valproate 62.8 50.0 - 100.0 mcg/mL [facility] Comment:Last dose was taken on 02/25/25 at 0800. 02/25/2025 4:07 PM EST 02/25/2025 4:07 PM EST [facility] - 02/25/2025 5:20 PM EST [id number] Generic External Data Provider LAB BLOOD ORDERAB LES Final Result Performing Organization Address [facility] Co de Phone Number [facility] [address] [place] [phone] * Hepatic Function Panel (02/25/2025 4:07 PM EST) Only the most recent of4 resultswithin the time period is included. Bilirubin, Direct 0.1 0.0 - 0.5 mg/dL [facility] 02/25/2025 4:07 PM EST 02/25/2025 4:07 PM EST us Generic External Data Provider LAB BLOOD ORDERAB LES Final Result Performing Organization Address City/[facility]/ZIP Co de Phone Number [facility] [address] [place] [phone] * Renal Function Panel (02/25/2025 4:07 PM EST) Phosphorus 4.4 2.7 - 4.5 mg/dL [facility] 02/25/2025 4:07 PM EST 02/25/2025 4:07 PM EST us Generic External Data Provider LAB BLOOD ORDERAB LES Final Result Performing Organization Address [facility] Co tx Phone Number [facility] [address] [place] [phone] * (ABNORMAL) Comprehensive Metabolic Panel (02/25/2025 4:07 PM EST) Only the most recent of4 resultswithin the time period is included. Pathologist [facility] Sodium 140 135 - 145 mmol/L [facility] Potassium 4.0 3.3 - 5.1 mmol/L [facility] Chloride 109(H) 96 - 108 mmol/L [facility] Carbon Dioxide 23 22 - 29 mmol/L [facility] Anion Gap 12 12 - 20 [facility] Urea Nitrogen (BUN) 7(L) 9 - 16 mg/dL [facility] Creatinine, Serum 0.69 0.5 - 1.4 mg/dL [facility] Estimated Glomerular Filt Rate >60 [facility] Comment:Chronic Kidney Disea se: Estimated GFR < 60 mL/min/1.89d7Qctejs Kidney Disease: Estimated GFR < 15 mL/min/1.73m2 Glucose 83 60 - 115 mg/dL [facility] Calcium 9.5 8.4 - 10.2 mg/dL [facility] Bilirubin, Total 0.3 0.0 - 1.0 mg/dL [facility] Aspartate Amino Transferase 26 5 - 37 U/L [facility] Alanine Aminotransferase 24 0 - 40 U/L [facility] Total Protein 7.3 6.5 - 8.0 g/dL [facility] Albumin Level 4.4 3.5 - 5.0 g/dL [facility] Alkaline Phosphatase 55 39 - 117 U/L [facility] 02/25/2025 4:07 PM EST 02/25/2025 4:07 PM EST us Generic External Data Provider LAB BLOOD ORDERAB LES Final Result Performing Organization Address [facility] Co tx Phone Number [facility] [address] [place] [phone] * Slide Review (02/11/2025 1:13 PM EST) Slide Review VERIFIED [facility] 02/11/2025 1:13 PM EST 02/11/2025 4:09 PM EST Generic External Data Provider LAB BLOOD ORDERAB LES Final Result Performing Organization Address [facility] Phone Number [facility] [address] [place] [phone] * (ABNORMAL) Partial Thromboplastin Time, Activated (APTT) (02/11/2025 1:13 PM EST) Only the most recent of2 resultswithin the time period is included. Partial Thromboplastin Time 36.1(H) 26.7 - 34.1 SEC [facility] 02/11/2025 1:13 PM EST 02/11/2025 4:09 PM EST Generic External Data Provider LAB BLOOD ORDERAB LES Final Result Performing Organization Address [facility] Phone Number [facility] [address] [place] [phone] * Prothrombin Time-INR (02/11/2025 1:13 PM EST) Only the most recent of2 resultswithin the time period is included. Prothrombin Time 12.7 11.2 - 13.5 SEC [facility] INTERNATIONAL NORM RATIO 1.0 0.9 - 1.1 [facility] Comment:INTERNATIONAL NORMAL IZED RATIO (INR) [...] ORDERAB LES Final Result Performing Organization Address City/[facility]/ZIP Co de Phone Number [facility] [address] [place] [phone] * TSH with Reflex to Free T4 (01/15/2025 3:20 PM EDT) TSH reflex Free T4 1.24 0.32 - 4.0 uIU/mL [facility] Blood 01/15/2025 3:20 PM EDT 01/15/2025 4:07 PM EDT us Willow Butterfield MD LAB BLOOD ORDERABLES Fin al Result Performing Organization Address [facility]/ZIP Co de Phone Number [facility] [address] [place] [phone] * POCT Urinalysis (12/09/2024 12:01 PM [...] CT PCR, Urine NOT DETECTED Not Detect. [facility] Comment:A not detected test result [...] NG PCR, Urine NOT DETECTED Not Detect. [facility] Comment:A not detected test result [...] EDT 12/09/2024 7:12 PM EDT Niki Bar YEOXIN VMall LAB URINE ORDERABLES Final R esult Performing Organization Address [facility]/ZIP Co de Phone Number [facility] [address] [place] [phone] * Culture, Urine, Routine (12/09/2024 11:45 AM EDT) Urine Urine specimen obtained by clean catch procedure / Unknown 12/09/2024 11:45 AM EDT 12/09/2024 5:22 PM EDT Comment:UACC Narrative [facility] - 12/11/2024 10:10 AM EDT Urine Culture No growth. Specimen Source: Urine clean catch Niki Bar DO LAB MICROBIOLOGY - GENERAL O RDERABLES Final Result Performing Organization Address [facility] de Phone Number [facility] [address] [place] [phone] * HIV-1/2 Antigen and Antibodies, Fourth Generation, with Reflexes (11/03/2024 11:08 AM EDT) HIV AB/AG Nonreactive Nonreactive [facility] Comment:HIV-1 p24 Ag and/or HIV-1/HIV-2 Ab not detected.A test result that is nonreactive does not exclude thepossibility of exposure to or infection with HIV-1 and/orHIV-2. Nonreactive results in this assay for individualswith prior exposure to HIV-1 and/or HIV-2 may be due toantigen and antibody levels that are below the limit ofdetection of this assay.[facility] HIV Ag/Ab Combo assay result andsupplemental assay results should be interpreted inconjunction with the patient's clinical presentation,history and other laboratory results. If the results areinconsistent with clinical evidence, additional testing issuggested to confirm the result. Blood Venous blood specimen / Unknown 11/03/2024 11:08 AM EDT 11/03/2024 12:55 PM EDT [facility] LAB BLOOD ORDERABLES Final Re sult Performing Organization Address [facility] Co de Phone Number [facility] [address] [place] [phone] * (ABNORMAL) Lipid Panel, Standard (11/03/2024 11:08 AM EDT) Triglycerides 221(H) <150 mg/dL [facility] Comment:Desirable Triglyceri de: less than 150 mg/dLBorderline High Triglyceride 150-199 mg/dLHigh Triglyceride: 200-499 mg/dLVery High Triglyceride: greater than or equal to 5OO mg/dL Cholesterol 158 <200 mg/dL [facility] Comment:Desirable Cholestero l: less than 200 mg/dLBorderline High Cholesterol: 200-239 mg/dLHigh Cholesterol: greater than 239 mg/dL LDL Cholesterol Calculated 96 <100 mg/dL [facility] Comment:Desirable LDL: less than 100 mg/dLNear Optimal/Above Optimal LDL: 110- 129 mg/dLBorderline High LDL: 130-159 mg/dLHigh LDL: 160-189 mg/dLVery High LDL: greater than or equal to 190 mg/dL HDL Cholesterol 18(L) >40 mg/dL [facility] Comment:Desirable HDL: great er than 40 mg/dL Note: This HDL assay may give artificially low results in patients with liver disease. Blood Venous blood specimen / Unknown 11/03/2024 11:08 AM EDT 11/03/2024 12:55 PM EDT [facility] LAB BLOOD ORDERABLES Final Re sult Performing Organization Address [facility]/ZIP Co de Phone Number [facility] [address] [place] [phone] * Hepatitis C Antibody with Reflex to HCV, RNA, Quantitative, Real-Time PCR (12/14/2023 12:34 PM EDT) Hepatitis C Antibody Nonreactive Nonreactive [facility] Comment:Antibodies to HCV no t detected; does not exclude early acuteHCV infection. Blood Venous blood specimen / Unknown 12/14/2023 12:34 PM EDT 12/14/2023 1:19 PM EDT [facility] LAB BLOOD ORDERABLES Final Re sult [facility] [address] [place] [phone] from Last 3 Months or Most Recently Relevant to Health Maintenance Insurance [facility] STANDARD MEDICARE Care Teams Central Control Room Operator Relationship Specialty Start Date End Date Thelma Fatima FNP [address] [place] [phone] PCP - General Family Medicine 12/14/23
--- OUTSIDE RECORDS SUMMARY | 2025-03-02 20:02 | XMS_ITS | Encounter Summary ---
Author Organization [employer] Address [address] [facility] [address] [place] [address] Care Team Providers Care Specialties Operator Name Role Phone [facility] Primary Care Provider [phone] Reason for Visit * Reason Comments Med Refill Encounter Details Date Type Department Care Team ([facility] st Contact Info) Description 12/18/2023 Refill [facility] [address], [place] [phone] Willow Butterfield MD [address], [place] [phone] Social History Tobacco Use Types Packs/Day Years [...] documented as of this encounter Care Teams Specialties Operator Relationship Specialty Start Date End Date Thelma Fatima FNP [address] [place] [phone] PCP - General Family Medicine 12/14/23 documented as of this encounter
--- OUTSIDE RECORDS SUMMARY | 2025-03-02 20:02 | XMS_ITS | Encounter Summary ---
Author Organization [facility] Address [address] [place] [address] Phone Care Team Providers Care Supervisor Microbiology Technologists Name Role Phone Julia Blood NP Primary Care Provider [phone] Encounter Details Date Type Department Care Team (Late st Contact Info) Description 11/02/2016 Conversion Encounter [facility] [address] [place] [address] Social History Tobacco Use Types Packs/Day Years [...] on filedocumented in this encounter Care Teams Supervisor Microbiology Technologists Relationship Specialty Start Date End Date Julia Blood NP [address] [place] [address] PCP - General Pediatrics 08/13/24 01/28/25 documented as of this encounter
--- OUTSIDE RECORDS SUMMARY | 2025-03-02 20:02 | XMS_ITS | Encounter Summary ---
Author Organization [facility] Address [address] [place] [address] Phone Care Team Providers Care Soil Sampler Name Role Phone Julia Blood NP Primary Care Provider [phone] Encounter Details Date Type Department Care Team (Late st Contact Info) Description 02/01/2012 Documentation [facility] Medicine [address] [place], [place] [phone] Family Medicine, Physician [address], [place] [phone] Social History Tobacco Use Types Packs/Day Years [...] on filedocumented in this encounter Care Teams Soil Sampler Relationship Specialty Start Date End Date Julia Blood NP [address] [place] [address] PCP - General Pediatrics 08/13/24 01/28/25 documented as of this encounter
--- OUTSIDE RECORDS SUMMARY | 2025-03-02 20:02 | XMS_ITS | Clinical Summary ---
Author Organization [facility] Address [address] [place] [phone] Phone Care Team Providers Care Licensing Representative Name Role Phone Unavailable Primary Care [...] Psychosocial stressors 06/18/2020 Overview (06/18/2020): Silvana from [facility] is calling on an active 51 A. Update given. 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 Zoloft & Tenex 08/2018: Pt now on Risperidone, tenex. Zoloft stopped 3 months ago & Risperadone was started . Melatonin for sleep 07/28/21: Psych admission for SI & Auditory command hallucinations 09/02/21: Pt discharged from the hospital yesterday. He was in the hospital for SI. Pt has an apt with [facility] 09/02/21. 09/06/21: [facility] Assessment & Plan (05/15/2022 10:42 AM EST): Followed by Shyann Shell at [facility]. Patient is on risperidone, fluoxetine and guanfacine. To see new psych provider tomorrow Therapist = patient does not know if he sees anyone Assessment & Plan (12/15/2020 11:14 AM EDT): Sees Shyann Gonzalez Q 2-3 mos. Risperidone, tenex. & melatonin patient reports that [facility] does his metabolic labs yearly - he declined them today [place] [employer] IEP in place. Does well Assessment & Plan (09/14/2019 10:37 AM EDT): Followed at [facility] by Shyann Shell She checks routine [...] EDT): In 45 day dx program at [employer] [facility] due to behavior issues. Doing better Supposed to go back to [place] but his Gmom does not want him to go back Seeing Shyann Shell monthly. On Tenex, zoloft & respiradone (added 2 months ago) No therapist while in 45 day program. Will reconnect when returns to [place] - sees therapist there from [facility] Immunizations Immunization Administration Dates Next Due [...] Completed 12/15/2020, 016 Procedures * Due to [facility] law, this organization might not be sharing sensitive test results. Procedure Name Priority Date/Time Associated Diagnosis Comments LIPID PANEL Routine 05/15/2022 11:30 AM EST BMI greater than 95% for age [Z68.54] HEMOGLOBIN A1C Routine 05/15/2022 11:30 AM EST BMI greater than 95% for age [Z68.54] from Last 3 Months or Most Recently Relevant to Health Maintenance Results * Due to [facility] law, this organization might not be sharing sensitive test results. * Hemoglobin A1c (05/15/2022 11:30 AM EST) [facility] Hemoglobin A1C 5.1 (4.0-5.6) % [facility] Comment: MONITORING: In known diabetic patients, hemoglobin A1c targets should be discussed with health care provider. DIAGNOSTIC USE: The [place] Diabetes [employer] (ADA) and the World Health [...] Supplement 1 Testing performed or reported by [facility], a Service of [address] [address] Jonn Kay MD, In House [facility] CLIA# [id number] Blood 05/15/2022 11:3 0 AM EST 05/15/2022 12:24 PM EST Kelley Arora MD LAB BLOOD ORDERABLES Final Resul t Performing Organization Address [facility] Phone Number [facility] * (ABNORMAL) Lipid panel (05/15/2022 11:30 AM EST) [facility] Cholesterol, Total 145 (<170) MG/DL [facility] HDL 30(L) (>45) MG/DL [facility] Non-HDL Cholesterol 115 (<120) MG/DL [facility] Comment: Testing performed or reported by [facility], a Service of [facility], [address] [place] [address] Jonn Kay MD, In House [facility] IA# [id number] Blood 05/15/2022 11:3 0 AM EST 05/15/2022 12:24 PM EST Kelley Arora MD LAB BLOOD ORDERABLES Final Resul t Performing Organization Address City/[facility] de Phone Number [facility] from Last 3 Months or Most Recently Relevant to Health Maintenance Insurance [facility] NON PCC [facility] [employer] [facility] Address: [address] [address] [place] [address]
--- OUTSIDE RECORDS SUMMARY | 2025-03-02 20:02 | XMS_ITS | Encounter Summary ---
Author Organization [employer] Address [address] [facility] 7t [place] [address] Care Team Providers Care Community Service Manager Name Role Phone [facility] Primary Care Provider [phone] Reason for Visit * Reason Onset Date Comments Nurse Triage 03/14/2024 Encounter Details Date Type Department Care Team (Late st Contact Info) Description 03/14/2024 Telephone [facility] MED[facility] [address] [place], [place] [phone] [facility] [address] [place], [place] [phone] Nurse Triage Social History Tobacco Use Types [...] 03/14/2024 2:45 PM EST 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
== END 2025-03-02 14:34 | disposition home or self-care (01) ==
LOC: HO.HSM 13:49
PROVIDERS: PCP Internal Medicine; Visit Provider Nurse Practitioner
DX: R25.1 Tremor, unspecified (principal); R40.4 Transient alteration of awareness
CPT/HCPCS: 99212

== ENCOUNTER → 2025-03-02 13:48 | Outpatient (BNVA) | payer MEDICARE, MEDICAID, SELFPAY | PROVIDERS: PCP Internal Medicine; Visit Provider Nurse Practitioner | DX: R25.1 Tremor, unspecified (principal); R40.4 Transient alteration of awareness; Z79.899 Other long term (current) drug therapy | CPT/HCPCS: 99212 ==

== ENCOUNTER 2025-03-16 08:33 | Outpatient (REF) | payer MEDICARE, MEDICAID, SELFPAY ==
--- OUTSIDE RECORDS SUMMARY | 2025-03-16 08:36 | XMS_ITS | Encounter Summary ---
Author Organization [employer] Address 75 [facility] 7t [place] [address] Care Team Providers Care Marketing Pr Intern Name Role Phone Akua [facility] Primary Care Provider [phone] Reason for Visit * Reason Comments Med Refill Encounter Details Date Type Department Care Team ([facility] st Contact Info) Description 12/18/2023 Refill [facility] MED[facility]INE [address] [place], [place] [phone] Willow Butterfield MD [address] [place], [place] [phone] Social History Tobacco Use Types Packs/Day Years [...] documented as of this encounter Care Teams Marketing Pr Intern Relationship Specialty Start Date End Date Thelma Fatima FNP [address] [place] [phone] PCP - General Family Medicine 12/14/23 documented as of this encounter
--- OUTSIDE RECORDS SUMMARY | 2025-03-16 08:36 | XMS_ITS | Encounter Summary ---
Author Organization [employer] Address 75 [facility] 7t [place] [address] Care Team Providers Care Dietary Aide Cook Name Role Phone Akua [facility] Primary Care Provider Reason for Visit * Reason Comments Med Refill Encounter Details Date Type Department Care Team ([facility] st Contact Info) Description 01/18/2024 Refill [facility] MEDICINE [address] [place], [place] [phone] Willow Butterfield MD 230 [place], [place] [phone] Social History Tobacco Use Types Packs/Day Years [...] documented as of this encounter Care Teams Dietary Aide Cook Relationship Specialty Start Date End Date Thelma Fatima FNP [address] [place] [phone] PCP - General Family Medicine 12/14/23 documented as of this encounter
--- OUTSIDE RECORDS SUMMARY | 2025-03-16 08:36 | XMS_ITS | Encounter Summary ---
Author Organization [facility] Address [address] [place] [address] Phone Care Team Providers Care Administrative Associate Name Role Phone Julia Blood NP Primary Care Provider [phone] Encounter Details Date Type Department Care Team (Late st Contact Info) Description 02/01/2012 Documentation [facility] Family Medicine [address] [place], [place] [phone] Family Medicine, Physician [address] [place], [place] [phone] Social History Tobacco Use Types Packs/Day Years [...] on filedocumented in this encounter Care Teams Administrative Associate Relationship Specialty Start Date End Date Julia Blood NP [address] [place] [address] PCP - General Pediatrics 08/13/24 01/28/25 documented as of this encounter
--- OUTSIDE RECORDS SUMMARY | 2025-03-16 08:36 | XMS_ITS | Encounter Summary ---
Author Organization [employer] Address 75 [facility] 7t [place] [address] Care Team Providers Care Metal Coater Name Role Phone Akua [facility] Primary Care Provider [phone] Reason for Visit * Reason Onset Date Comments Med Refill 02/25/2024 Encounter Details Date Type Department Care Team (Late st Contact Info) Description 02/25/2024 Refill [facility] MEDICINE [address] [place], [place] [phone] Virginia Box CNM [address] [place], [place] [phone] Social History Tobacco Use Types Packs/Day Years [...] as of this encounter Care Teams Metal Coater Relationship Specialty Start Date End Date Thelma Fatima FNP [address] [place] [phone] PCP - General Family Medicine 12/14/23 documented as of this encounter
--- OUTSIDE RECORDS SUMMARY | 2025-03-16 08:36 | XMS_ITS | Encounter Summary ---
Author Organization [employer] Address 75 [facility] 7t [place] [address] Care Team Providers Care Corrections Cadet Name Role Phone Akua [facility] Primary Care Provider [phone] Reason for Visit * Reason Comments Med Change Request Encounter Details Date Type Department Care Team ([facility] st Contact Info) Description 03/23/2024 Refill [facility] MEDICINE [address] [place], [place] [phone] Virginia Box CNM [address] [place], [place] [phone] Social History Tobacco Use Types Packs/Day Years [...] documented as of this encounter Care Teams Corrections Cadet Relationship Specialty Start Date End Date Thelma Fatima FNP [address] [place] [phone] PCP - General Family Medicine 12/14/23 documented as of this encounter
--- OUTSIDE RECORDS SUMMARY | 2025-03-16 08:36 | XMS_ITS | Encounter Summary ---
Author Organization [facility] Address [address] [place] [address] Phone Care Team Providers Care Sample Supervisor Name Role Phone Julia Blood NP Primary Care Provider [phone] Encounter Details Date Type Department Care Team (Late st Contact Info) Description 11/02/2016 Conversion Encounter [facility] [address] [place] [address] Social History Tobacco Use Types Packs/Day Years [...] on filedocumented in this encounter Care Teams Sample Supervisor Relationship Specialty Start Date End Date Julia Blood NP [address] [place] [address] PCP - General Pediatrics 08/13/24 01/28/25 documented as of this encounter
--- OUTSIDE RECORDS SUMMARY | 2025-03-16 08:36 | XMS_ITS | Clinical Summary ---
Author Organization [employer] Address [address] [place] [address] 7t [place] [address] Care Team Providers Care Life Insurance Specialist Name Role Phone [place] [facility] Primary Care Provider [phone] Allergies Active Allergy Reactions Criticality Noted Date Comments Blueberry Flavoring Agent (Non-Screening) Unknown 12/14/2023 Triana Unknown 12/14/2023 Fish Allergy Unknown 12/14/2023 [place] Extract Unknown 12/14/2023 Medications * This document [...] Data 02/19/2025 2:00 PM EST Office Visit [facility] OPTOMETRY [address] [place] [address] Katheryn Duran, OD Myopia, bilateral (Primary Dx) 02/19/2025 Travel 02/11/2025 Orders Only GENERIC EXTERNAL DATA DEPARTMENT Provider, Generic External Data 01/27/2025 Orders Only GENERIC EXTERNAL DATA DEPARTMENT Provider, Generic External Data 01/26/2025 Telephone [facility] MEDICINE [address] [place], [place] [phone] [place] FNP from Last 3 Months Immunizations Immunization [...] 03/04/2008,01/27/2005 Meningococcal MCV4P ACYW-135 12/15/2020,08/02/19 16 Novel [id number], all formulations 04/22/2009 Pneumococcal Conjugate PCV 7 [...] 01/15/2025 3 :20 PM EDT Acquired hypothyroidism CHLAMYDIA/TRICHOMONAS /NEISSERIA GONORRHOEAE, PCR, URINE Routine 12/09/2024 12:00 PM EDT Dysuria HIV 1/2 ANTIGEN/ANTIBODY, FOURTH GENERATION [...] Blood Count 9.8 4.8 - 10.8 X10*3/uL [facility] Red Blood Count 5.57 4.60 - 5.80 X10*6/uL [facility] Hemoglobin 15.8 14.0 - 18.0 g/dl [facility] Hematocrit 47.2 42.0 - 52.0 % [facility] Mean Corpuscular Volume 84.7 80.0 - 98.0 fL [facility] Mean Corpuscular Hemoglobin 28.4 27.0 - 33.0 pg [facility] Mean Corpuscular HGB Conc 33.5 31.0 - 36.0 g/dl [facility] Red Cell Distribution Width 12.5 11.0 - 16.0 % [facility] Platelet Count 222 160 - 400 X10*3/uL [facility] Mean Platelet Volume 12.6(H) 9.4 - 12.4 fL [facility] Neutrophils Percent Auto 50.7 45 - 73 % [facility] Imm Gran Pct Auto 0.1 0.0 - 0.4 % [facility] Lymphocytes Percent Auto 33.8 20 - 40 % [facility] Monocytes Percent Auto 8.4 2 - 11 % [facility] Eosinophils Percent Auto 6.5(H) 0 - 4 % [facility] Basophils Percent Auto 0.5 0 - 2 % [facility] NRBC Pct Auto 0.0 0.0 - 0.2 /100WBC [facility] Neutrophils Absolute Auto 5.0 2.0 - 8.3 x10*3/uL [facility] Imm Gran Abs Auto 0.01 0.00 - 0.03 X10*3/uL [facility] Lymphocytes Absolute Auto 3.3 1.2 - 4.9 X10*3/uL [facility] Monocytes Absolute Auto 0.8 0.1 - 1.2 X10*3/uL [facility] Eosinophils Absolute Auto 0.6(H) 0.0 - 0.4 X10*3/uL [facility] Basophils Absolute Auto 0.1 0.0 - 0.2 X10*3/uL [facility] NRBC Abs Auto 0.000 0.0 - 0.012 X10*3/uL [facility] 02/25/2025 4:07 PM EST 02/25/2025 4:07 PM EST us Generic External Data Provider LAB BLOOD ORDERAB LES Final Result Performing Organization Address [facility] Co de Phone Number [facility] [address] [place] [phone] * TSH (02/25/2025 4:07 PM EST) Only the most recent of3 resultswithin the time period is included. Thyroid Stimulating Hormone 2.48 0.32 - 4.0 uIU/mL [facility] Comment:TSH 3rd Generation ( [employer]) 02/25/2025 4:07 PM EST 02/25/2025 4:07 PM EST us Generic External Data Provider LAB BLOOD ORDERAB LES Final Result Performing Organization Address [facility] Phone Number [facility] [address] [place] [address] [phone] * Hemoglobin A1c (02/25/2025 4:07 PM EST) Hemoglobin A1c 4.9 <6.0 % [facility] Comment:Hemoglobin A1C Refer ence Range Adults: 4.8 - 6.0 % Non diabetic: < 6.0 % Goal: < 7.0 %Additional Action Suggested: > 8.0 %Note: Hemoglobin A1c results are invalid for patients with abnormal amounts of HbF. Blood transfusions may impact the HbA1c concentration in the patient sample. Estimated Average Glucose 94 mg/dL [facility] Comment:eAG = Estimated ave rage glucose which is %A1C expressed asaverage glucose, using the formula of the C7T-WjqdzwoAsrunyk Glucose study (ADAG), Diabetes Care, Vol.31,#8,Oct. 2007 02/25/2025 4:07 PM EST 02/25/2025 4:07 PM EST us Generic External Data Provider LAB BLOOD ORDERAB LES Final Result Performing Organization Address [facility] Co de Phone Number [facility] [address] [place] [phone] * Glucose (02/25/2025 4:07 PM EST) Glucose Fasting 83 60 - 99 mg/dL [facility] 02/25/2025 4:07 PM EST 02/25/2025 4:07 PM EST us Generic External Data Provider LAB BLOOD ORDERAB LES Final Result Performing Organization Address [facility]/ZIP Co de Phone Number [facility] [address] [place] [address] [phone] * (ABNORMAL) [place] (02/25/2025 4:07 PM EST) Only the most recent of3 resultswithin the time period is included. Pathologist [facility] [place] 0.45(L) 0.60 - 1.20 mmol/L [facility] Comment:Last dose was taken on 02/25/25 at 0800. 02/25/2025 4:07 PM EST 02/25/2025 4:07 PM EST Narrative [facility] - 02/25/2025 5:15 PM EST [id number] Generic External Data Provider LAB BLOOD ORDERAB LES Final Result Performing Organization Address [facility] de Phone Number [facility] [address] [place] [address] [phone] * Valproic Acid Total (02/25/2025 4:07 PM EST) Only the most recent of3 resultswithin the time period is included. Valproate 62.8 50.0 - 100.0 mcg/mL [facility] Comment:Last dose was taken on 02/25/25 at 0800. 02/25/2025 4:07 PM EST 02/25/2025 4:07 PM EST Narrative [facility] - 02/25/2025 5:20 PM EST [id number] Generic External Data Provider LAB BLOOD ORDERAB LES Final Result Performing Organization Address [facility]/ZIP Co de Phone Number [facility] [address] [place] [phone] * Hepatic Function Panel (02/25/2025 4:07 PM EST) Only the most recent of3 resultswithin the time period is included. Bilirubin, Direct 0.1 0.0 - 0.5 mg/dL [facility] 02/25/2025 4:07 PM EST 02/25/2025 4:07 PM EST Generic External Data Provider LAB BLOOD ORDERAB LES Final Result Performing Organization Address [facility] Co de Phone Number [facility] [address] [place] [address] [phone] * Renal Function Panel (02/25/2025 4:07 PM EST) Pathologist [facility] Phosphorus 4.4 2.7 - 4.5 mg/dL [facility] 02/25/2025 4:07 PM EST 02/25/2025 4:07 PM EST Generic External Data Provider LAB BLOOD ORDERAB LES Final Result Performing Organization Address [facility] Co de Phone Number [facility] [address] [place] [address] [phone] * (ABNORMAL) Comprehensive Metabolic Panel (02/25/2025 4:07 PM EST) Only the most recent of3 resultswithin the time period is included. Sodium 140 135 - 145 mmol/L [facility] Potassium 4.0 3.3 - 5.1 mmol/L [facility] Chloride 109(H) 96 - 108 mmol/L [facility] Carbon Dioxide 23 22 - 29 mmol/L [facility] Anion Gap 12 12 - 20 [facility] Urea Nitrogen (BUN) 7(L) 9 - 16 mg/dL [facility] Creatinine, Serum 0.69 0.5 - 1.4 mg/dL [facility] Estimated Glomerular Filt Rate >60 [facility] Comment:Chronic Kidney Disea se: Estimated GFR < 60 mL/min/1.11u0Drigyb Kidney Disease: Estimated GFR < 15 mL/min/1.73m2 Glucose 83 60 - 115 mg/dL [facility] Calcium 9.5 8.4 - 10.2 mg/dL [facility] Bilirubin, Total 0.3 0.0 - 1.0 mg/dL [facility] Aspartate Amino Transferase 26 5 - 37 U/L [facility] Alanine Aminotransferase 24 0 - 40 U/L [facility] Total Protein 7.3 6.5 - 8.0 g/dL [facility] Albumin Level 4.4 3.5 - 5.0 g/dL [facility] Alkaline Phosphatase 55 39 - 117 U/L [facility] 02/25/2025 4:07 PM EST 02/25/2025 4:07 PM EST us Generic External Data Provider LAB BLOOD ORDERAB LES Final Result Performing Organization Address [facility]/ZIP Co de Phone Number [facility] [address] [place] [address] [phone] * Slide Review (02/11/2025 1:13 PM EST) Slide Review VERIFIED [facility] 02/11/2025 1:13 PM EST 02/11/2025 4:09 PM EST us Generic External Data Provider LAB BLOOD ORDERAB LES Final Result Performing Organization Address [facility]/ZIP Co de Phone Number [facility] [address] [place] [address] [phone] * (ABNORMAL) Partial Thromboplastin Time, Activated (APTT) (02/11/2025 1:13 PM EST) Only the most recent of2 resultswithin the time period is included. Partial Thromboplastin Time 36.1(H) 26.7 - 34.1 SEC [facility] 02/11/2025 1:13 PM EST 02/11/2025 4:09 PM EST us Generic External Data Provider LAB BLOOD ORDERAB LES Final Result Performing Organization Address [facility] de Phone Number [facility] [address] [place] [address] [phone] * Prothrombin Time-INR (02/11/2025 1:13 PM EST) Only the most recent of2 resultswithin the time period is included. Prothrombin Time 12.7 11.2 - 13.5 SEC [facility] INTERNATIONAL NORM RATIO 1.0 0.9 - 1.1 [facility] Comment:INTERNATIONAL NORMAL IZED RATIO (INR) [...] ORDERAB LES Final Result Performing Organization Address [facility] de Phone Number [facility] [address] [place] [address] [phone] * TSH with Reflex to Free T4 (01/15/2025 3:20 PM EDT) TSH reflex Free T4 1.24 0.32 - 4.0 uIU/mL [facility] Blood 01/15/2025 3:20 PM EDT 01/15/2025 4:07 PM EDT us Willow Butterfield MD LAB BLOOD ORDERABLES Fin al Result Performing Organization Address [facility] Co de Phone Number [facility] [address] [place] [address] [phone] * Chlamydia/N. Gonorrhoeae, PCR, Urine (12/09/2024 12:00 PM EDT) CT PCR, Urine NOT DETECTED Not Detect. [facility] Comment:A not detected test result [...] NG PCR, Urine NOT DETECTED Not Detect. [facility] Comment:A not detected test result [...] ORDERABLES Final R esult Performing Organization Address [facility]/ZIP Co de Phone Number [facility] [address] [place] [phone] * HIV-1/2 Antigen and Antibodies, Fourth Generation, with Reflexes (11/03/2024 11:08 AM EDT) HIV AB/AG Nonreactive Nonreactive [facility] Comment:HIV-1 p24 Ag and/or HIV-1/HIV-2 Ab not detected.A test result that is nonreactive does not exclude thepossibility of exposure to or infection with HIV-1 and/orHIV-2. Nonreactive results in this assay for individualswith prior exposure to HIV-1 and/or HIV-2 may be due toantigen and antibody levels that are below the limit ofdetection of this assay.The [place] HIV Ag/Ab Combo assay result andsupplemental assay results should be interpreted inconjunction with the patient's clinical presentation,history and other laboratory results. If the results areinconsistent with clinical evidence, additional testing issuggested to confirm the result. Blood Venous blood specimen / Unknown 11/03/2024 11:08 AM EDT 11/03/2024 12:55 PM EDT [facility] LAB BLOOD ORDERABLES Final Re sult [facility] [address] [place] [address] [phone] * (ABNORMAL) Lipid Panel, Standard (11/03/2024 11:08 AM EDT) Triglycerides 221(H) <150 mg/dL [facility] Comment:Desirable Triglyceri de: less than 150 mg/dLBorderline High Triglyceride 150-199 mg/dLHigh Triglyceride: 200-499 mg/dLVery High Triglyceride: greater than or equal to 5OO mg/dL Cholesterol 158 <200 mg/dL [facility] Comment:Desirable Cholestero l: less than 200 mg/dLBorderline High Cholesterol: 200-239 mg/dLHigh Cholesterol: greater than 239 mg/dL LDL Cholesterol Calculated 96 <100 mg/dL [facility] Comment:Desirable LDL: less than 100 mg/dLNear Optimal/Above Optimal LDL: 110- 129 mg/dLBorderline High LDL: 130-159 mg/dLHigh LDL: 160-189 mg/dLVery High LDL: greater than or equal to 190 mg/dL HDL Cholesterol 18(L) >40 mg/dL [facility] Comment:Desirable HDL: great er than 40 mg/dL Note: This HDL assay may give artificially low results in patients with liver disease. Blood Venous blood specimen / Unknown 11/03/2024 11:08 AM EDT 11/03/2024 12:55 PM EDT [facility] LAB BLOOD ORDERABLES Final Re sult Performing Organization Address [facility] Co de Phone Number [facility] [address] [place] [phone] * Hepatitis C Antibody with Reflex to HCV, RNA, Quantitative, Real-Time PCR (12/14/2023 12:34 PM EDT) Hepatitis C Antibody Nonreactive Nonreactive [facility] Comment:Antibodies to HCV no t detected; does not exclude early acuteHCV infection. Blood Venous blood specimen / Unknown 12/14/2023 12:34 PM EDT 12/14/2023 1:19 PM EDT [facility] LAB BLOOD ORDERABLES Final Re sult Performing Organization Address [facility] Co de Phone Number [facility] [address] [place] [address] [phone] from Last 3 Months or Most Recently Relevant to Health Maintenance Insurance [facility] [employer] Care Teams Life Insurance Specialist Relationship Specialty Start Date End Date Thelma Fatima FNP [address] [place] [phone] PCP - General Family Medicine 12/14/23
--- OUTSIDE RECORDS SUMMARY | 2025-03-16 08:36 | XMS_ITS | Clinical Summary ---
Author Organization [facility] Address [address] [place] [address] Phone Care Team Providers Care Systems Integrator Name Role Phone Unavailable Primary Care Provider [...] Psychosocial stressors 06/18/2020 Overview (06/18/2020): Silvana from [facility] is calling on an active 51 A. Update given. 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 Zoloft & Tenex 08/2018: Pt now on Risperidone, tenex. Zoloft stopped 3 months ago & Risperadone was started . Melatonin for sleep 07/28/21: Psych admission for SI & Auditory command hallucinations 09/02/21: Pt discharged from the hospital yesterday. He was in the hospital for SI. Pt has an apt with [facility] 09/02/21. 09/06/21: Admitted to [facility] Assessment & Plan (05/15/2022 10:42 AM EST): Followed by Shyann Shell at [facility]. Patient is on risperidone, fluoxetine and guanfacine. To see new psych provider tomorrow Therapist = patient does not know if he sees anyone Assessment & Plan (12/15/2020 11:14 AM EDT): Sees Shyann Gonzalez Q 2-3 mos. Risperidone, tenex. & melatonin patient reports that [facility] does his metabolic labs yearly - he declined them today [place] [employer]. IEP in place. Does well Assessment & Plan (09/14/2019 10:37 AM EDT): Followed at [facility] by Shyann Shell She checks routine labs [...] EDT): In 45 day dx program at [place] [facility] due to behavior issues. Doing better Supposed to go back to [place] but his Gmom does not want him to go back Seeing Shyann Shell monthly. On Tenex, zoloft & respiradone (added 2 months ago) No therapist while in 45 day program. Will reconnect when returns to [place] - sees therapist there from [facility] Immunizations Immunization Administration Dates Next Due DTaP [...] Completed 12/15/2020, 016 Procedures * Due to [facility] law, this organization might not be sharing sensitive test results. Procedure Name Priority Date/Time Associated Diagnosis Comments LIPID PANEL Routine 05/15/2022 11:30 AM EST BMI greater than 95% for age [Z68.54] HEMOGLOBIN A1C Routine 05/15/2022 11:30 AM EST BMI greater than 95% for age [Z68.54] from Last 3 Months or Most Recently Relevant to Health Maintenance Results * Due to [facility] law, this organization might not be sharing sensitive test results. * Hemoglobin A1c (05/15/2022 11:30 AM EST) [facility] Hemoglobin A1C 5.1 (4.0-5.6) % [facility] Comment: MONITORING: In known diabetic patients, hemoglobin A1c targets should be discussed with health care provider. DIAGNOSTIC USE: The [place] Diabetes [employer] (ADA) and the World Health [...] Supplement 1 Testing performed or reported by [facility], a Service of [address] [address] Jonn Kay MD, Radiator Core Tester CLIA# [id number] Blood 05/15/2022 11:3 0 AM EST 05/15/2022 12:24 PM EST Kelley Arora MD LAB BLOOD ORDERABLES Final Resul t Performing Organization Address [facility] Phone Number [facility] * (ABNORMAL) Lipid panel (05/15/2022 11:30 AM EST) [facility] Cholesterol, Total 145 (<170) MG/DL [facility] HDL 30(L) (>45) MG/DL [facility] Non-HDL Cholesterol 115 (<120) MG/DL [facility] Comment: Testing performed or reported by [facility], a Service of [facility], [address] [place] [address] Jonn Kay MD, Radiator Core Tester IA# [id number] Blood 05/15/2022 11:3 0 AM EST 05/15/2022 12:24 PM EST Kelley Arora MD LAB BLOOD ORDERABLES Final Resul t Performing Organization Address City/[facility] de Phone Number [facility] from Last 3 Months or Most Recently Relevant to Health Maintenance Insurance [facility] NON PCC [facility] ALEXSANDRA O [facility] Address: [address] [address] [place] [address]
--- OUTSIDE RECORDS SUMMARY | 2025-03-16 08:36 | XMS_ITS | Encounter Summary ---
Author Organization [employer] Address [address] [facility] 7t [place] [address] Care Team Providers Care Bar Machine Operator Production Name Role Phone [facility] Primary Care Provider [phone] Reason for Visit * Reason Onset Date Comments Nurse Triage 03/14/2024 Encounter Details Date Type Department Care Team (Late st Contact Info) Description 03/14/2024 Telephone [facility] MEDICINE [address] [place], [place] [phone] [facility] [address] [place], [place] [phone] Nurse Triage Social History Tobacco Use Types [...] 03/14/2024 2:45 PM EST Tc from provider graphics manager Symptom: Earache Outcome: Schedule a same-day appointment or talk to a nurse or provider today Reason: Caller denied all higher acuity questions The caller accepted this outcome. [phone] documented in this encounter Plan of Treatment Not on file documented as of this encounter Visit Diagnoses Not on filedocumented in this encounter Additional Health Concerns Assessment Noted Time PHQ-9 Depression Total Score: 21 024 12:37 PM EDT documented as of this encounter Care Teams Bar Machine Operator Production Relationship Specialty Start Date End Date Thelma Fatima FNP [address] [place] [address] PCP - General Family Medicine 12/14/23 documented as of this encounter
--- OUTSIDE RECORDS SUMMARY | 2025-03-16 08:36 | XMS_ITS | Encounter Summary ---
Author Organization [facility] Address [address] [place] [address] Phone Care Team Providers Care Diving Fisher Name Role Phone Julia Blood NP Primary Care Provider [phone] Encounter Details Date Type Department Care Team (Late st Contact Info) Description 09/01/2015 Documentation [facility] Family Medicine [address] [place], [place] [phone] Family Medicine, Physician [address] [place], [place] [address] Social History Tobacco Use Types Packs/Day Years [...] on filedocumented in this encounter Care Teams Diving Fisher Relationship Specialty Start Date End Date Julia Blood NP [address] [place] [address] PCP - General Pediatrics 08/13/24 01/28/25 documented as of this encounter
--- NOTE | 2025-03-16 08:38 | EEG_ITS ---
48 Hour Ambulatory EEG History: Patient has been experiencing a tremor for many years potentially slightly worse over the course of the last year or so. He has been recently on lithium for mood stabilization with toxic levels. This has been discontinued and hopes of the tremor when resolve however he did continue slightly with a tremor. He has also however on Depakote 150 mg daily prescribed for moods which can also contribute to tremor. He does not have any known family history of tremor. The tremor was more notable when he was doing things with his hands or family more anxious. It would resolve with rest. [facility] staff also had some concerns regarding him ?spacing out? and having some episodes of staring. It was sometimes difficult to get his attention during these episodes and Himanshu had a hard time recalling these events when they occur. He denied any shaking or abnormal movements during these events. Himanshu also did report awakening from sleep at times having had bitten his tongue. [facility] staff had also noted some intermittent episodes of urinary incontinence during the day. An EEG performed 12/02/2024 was mildly abnormal with 1 possible bifrontal sharp wave. Medication: acetaminophen, clonidine, clozapine, divalproex, docusate sodium, hydroxyzine pamoate, lithium carbonate, mirtazapine, polyethylene glycol Technical description:? Behavioral state: cooperative State of Consciousness: awake and sleep Skull defect: none Sedation: none Handedness: right Duration of study: 48 hours Last Event: unknown Diary entries / Symptoms: Patient did not report any symptoms on either day of recording ? Description: This is a 16 channel 48 hour ambulatory EEG. Patient kept diarrhea of each day but did not report any seizure-like activity. Each day of EEG was separately reviewed and included wakefulness and sleep. Background EEG rhythm during wakefulness was symmetric alpha posteriorly and lower amplitude fast anteriorly. Patient transitioned into different stages of sleep during both days. During 1st day of tracing, 1 possible sharp wave complex was noted to originating from right hemisphere. Otherwise no definite abnormal finding was noted. Impression: Mildly abnormal EEG with the right hemispheric finding. Patient's with partial to complex partial seizures may have this type of findings. [facility]
== END 2025-03-16 08:34 | disposition home or self-care (01) ==
LOC: HO.NEURO 08:33
PROVIDERS: PCP Registered Nurse; Visit Provider Nurse Practitioner
DX: R40.4 Transient alteration of awareness (principal); R25.1 Tremor, unspecified
CPT/HCPCS: 95700; 95708

== ENCOUNTER → 2025-03-16 08:38 | Outpatient (BNV) | payer MEDICARE, MEDICAID, SELFPAY | PROVIDERS: PCP Registered Nurse; Visit Provider Psychiatry & Neurology Neurology | DX: R25.1 Tremor, unspecified (principal) | CPT/HCPCS: 95721 ==

== ENCOUNTER 2025-03-17 10:07 | Outpatient (REF) | payer MEDICARE, MEDICAID, SELFPAY ==
[2025-03-17 10:52] LABS: Hematocrit 48.3 % (42.0-52.0); Hemoglobin 16.2 g/dl (14.0-18.0); Imm Gran Abs Auto 0.03 X10*3/uL (0.00-0.03); Imm Gran Pct Auto 0.3 % (0.0-0.4); Lymphocytes Absolute Auto 3.3 X10*3/uL (1.2-4.9); Mean Corpuscular HGB Conc 33.5 g/dl (31.0-36.0); Mean Corpuscular Hemoglobin 28.2 pg (27.0-33.0); Mean Corpuscular Volume 84.0 fL (80.0-98.0); NRBC Abs Auto 0.000 X10*3/uL (0.0-0.012); NRBC Pct Auto 0.0 /100WBC (0.0-0.2); Red Blood Count 5.75 X10*6/uL (4.60-5.80)
[2025-03-17 10:56] LABS: Platelet Count 195 X10*3/uL (160-400); White Blood Count 9.8 X10*3/uL (4.8-10.8)
[2025-03-17 11:57] LABS: Alanine Aminotransferase 15 U/L (0-40); Albumin Level 4.3 g/dL (3.5-5.0); Alkaline Phosphatase 58 U/L (39-117); Anion Gap 11 (12-20); Aspartate Amino Transferase 20 U/L (5-37); Blood Urea Nitrogen 8 mg/dL (9-16); Calcium 9.1 mg/dL (8.4-10.2); Carbon Dioxide 25 mmol/L (22-29); Chloride 111 mmol/L (96-108); Estimated Glomerular Filt Rate > 60; Potassium 4.0 mmol/L (3.3-5.1); Sodium 143 mmol/L (135-145); Total Protein 7.2 g/dL (6.5-8.0)
[2025-03-17 11:59] LABS: Free T4 (Free Thyroxine) 0.91 ng/dL (0.71-1.85); Thyroid Stimulating Hormone 2.72 uIU/mL (0.32-4.0)
[2025-03-17 12:06] LABS: Lithium 0.80 mmol/L (0.60-1.20)
--- OUTSIDE RECORDS SUMMARY | 2025-03-17 13:25 | XMS_ITS | Encounter Summary ---
Author Organization [facility] Address [address] [facility] 7t [place] [address] Care Team Providers Care Steam Turbine Assembler Name Role Phone [facility] Primary Care Provider Reason for Visit * Reason Comments Med Refill Encounter Details Date Type Department Care Team ([facility] st Contact Info) Description 01/18/2024 Refill [facility] MEDICINE [address] [place], [place] [phone] Willow Butterfield MD [address] [place], [place] [phone] Social History Tobacco Use Types Packs/Day Years [...] documented as of this encounter Care Teams Steam Turbine Assembler Relationship Specialty Start Date End Date Thelma Fatima FNP [address] [place] [address] PCP - General Family Medicine 12/14/23 documented as of this encounter
--- OUTSIDE RECORDS SUMMARY | 2025-03-17 13:25 | XMS_ITS | Encounter Summary ---
Author Organization [facility] Address [address] [place] [address] Phone Care Team Providers Care Executive Account Manager Name Role Phone Julia Blood NP Primary Care Provider [phone] Encounter Details Date Type Department Care Team (Late st Contact Info) Description 09/01/2015 Documentation [facility] [place] Medicine [address] [place], [place] [phone] Family Medicine, Physician [address] [place], [place] [address] Social History Tobacco Use Types Packs/Day Years [...] on filedocumented in this encounter Care Teams Executive Account Manager Relationship Specialty Start Date End Date Julia Blood NP [address] [place] [address] PCP - General Pediatrics 08/13/24 01/28/25 documented as of this encounter
--- OUTSIDE RECORDS SUMMARY | 2025-03-17 13:25 | XMS_ITS | Encounter Summary ---
Author Organization [employer] Address [address] [facility] 7t [place] [address] Care Team Providers Care Salesperson Used Cars Name Role Phone [facility] Primary Care Provider [phone] Reason for Visit * Reason Onset Date Comments Nurse Triage 03/14/2024 Encounter Details Date Type Department Care Team (Late st Contact Info) Description 03/14/2024 Telephone [facility] MEDICINE [address] [place], [place] [phone] [facility] [address] [place], [place] [phone] Nurse Triage Social History Tobacco Use Types [...] 03/14/2024 2:45 PM EST Tc from provider sanitation manager Symptom: Earache Outcome: Schedule a same-day appointment or talk to a nurse or provider today Reason: Caller denied all higher acuity questions The caller accepted this outcome. [phone] documented in this encounter Plan of Treatment Not on file documented as of this encounter Visit Diagnoses Not on filedocumented in this encounter Additional Health Concerns Assessment Noted Time PHQ-9 Depression Total Score: 21 024 12:37 PM EDT documented as of this encounter Care Teams Salesperson Used Cars Relationship Specialty Start Date End Date Thelma Fatima FNP [address] [place] [address] PCP - General Family Medicine 12/14/23 documented as of this encounter
--- OUTSIDE RECORDS SUMMARY | 2025-03-17 13:25 | XMS_ITS | Encounter Summary ---
Author Organization [facility] Address [address] [place] [address] Phone Care Team Providers Care Allocation Analyst Name Role Phone Julia Blood NP Primary Care Provider [phone] Encounter Details Date Type Department Care Team (Late st Contact Info) Description 11/02/2016 Conversion Encounter [facility] [address] [place] [address] Social History Tobacco Use Types Packs/Day Years [...] on filedocumented in this encounter Care Teams Allocation Analyst Relationship Specialty Start Date End Date Julia Blood NP [address] [place] [address] PCP - General Pediatrics 08/13/24 01/28/25 documented as of this encounter
--- OUTSIDE RECORDS SUMMARY | 2025-03-17 13:25 | XMS_ITS | Encounter Summary ---
Author Organization [employer] Address [address] [facility] 7t [place] [address] Care Team Providers Care Professor Of Industrial Technology Name Role Phone [facility] Primary Care Provider [phone] Reason for Visit * Reason Onset Date Comments Med Refill 02/25/2024 Encounter Details Date Type Department Care Team (Late st Contact Info) Description 02/25/2024 Refill [facility] MEDICINE [address] [place], [place] [phone] Virginia Box CNM [address] [place], [place] [phone] Social History Tobacco Use Types Packs/Day Years [...] documented as of this encounter Care Teams Professor Of Industrial Technology Relationship Specialty Start Date End Date Thelma Fatima FNP [address] [place] [address] PCP - General Family Medicine 12/14/23 documented as of this encounter
--- OUTSIDE RECORDS SUMMARY | 2025-03-17 13:25 | XMS_ITS | Encounter Summary ---
Author Organization [facility] Address [address] [place] [address] Phone Care Team Providers Care Bolt Cutter Name Role Phone Julia Blood NP Primary Care Provider [phone] Encounter Details Date Type Department Care Team (Late st Contact Info) Description 02/01/[address] [facility] Family Medicine [address] [place], [place] [phone] Family Medicine, Physician [address] [place], [place] [phone] Social History Tobacco Use Types Packs/Day Years [...] on filedocumented in this encounter Care Teams Bolt Cutter Relationship Specialty Start Date End Date Julia Blood NP [address] [place] [address] PCP - General Pediatrics 08/13/24 01/28/25 documented as of this encounter
--- OUTSIDE RECORDS SUMMARY | 2025-03-17 13:25 | XMS_ITS | Clinical Summary ---
Author Organization [facility] Address [address] [place] [address] Phone Care Team Providers Care Supervisor Hard Candy Name Role Phone Unavailable Primary Care Provider [...] Psychosocial stressors 06/18/2020 Overview (06/18/2020): Silvana from [facility] is calling on an active 51 A. Update given. 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 Zoloft & Tenex 08/2018: Pt now on Risperidone, tenex. Zoloft stopped 3 months ago & Risperadone was started . Melatonin for sleep 07/28/21: Psych admission for SI & Auditory command hallucinations 09/02/21: Pt discharged from the hospital yesterday. He was in the hospital for SI. Pt has an apt with [facility] 09/02/21. 09/06/21: Admitted to [facility] Assessment & Plan (05/15/2022 10:42 AM EST): Followed by Shyann Shell at [facility]. Patient is on risperidone, fluoxetine and guanfacine. To see new psych provider tomorrow Therapist = patient does not know if he sees anyone Assessment & Plan (12/15/2020 11:14 AM EDT): Sees Shyann Gonzalez Q 2-3 mos. Risperidone, tenex. & melatonin patient reports that [facility] does his metabolic labs yearly - he declined them today [place] [employer]. IEP in place. Does well Assessment & Plan (09/14/2019 10:37 AM EDT): Followed at [facility] by Shyann Shell She checks routine [...] EDT): In 45 day dx program at [place] [facility] due to behavior issues. Doing better Supposed to go back to [place] but his Gmom does not want him to go back Seeing Shyann Shell monthly. On Tenex, zoloft & respiradone (added 2 months ago) No therapist while in 45 day program. Will reconnect when returns to [place] - sees therapist there from [facility] Immunizations Immunization Administration Dates Next Due [...] Completed 12/15/2020, 016 Procedures * Due to [facility] law, this organization might not be sharing sensitive test results. Procedure Name Priority Date/Time Associated Diagnosis Comments LIPID PANEL Routine 05/15/2022 11:30 AM EST BMI greater than 95% for age [Z68.54] HEMOGLOBIN A1C Routine 05/15/2022 11:30 AM EST BMI greater than 95% for age [Z68.54] from Last 3 Months or Most Recently Relevant to Health Maintenance Results * Due to [facility] law, this organization might not be sharing sensitive test results. * Hemoglobin A1c (05/15/2022 11:30 AM EST) [facility] Hemoglobin A1C 5.1 (4.0-5.6) % [facility] Comment: MONITORING: In known diabetic patients, [...] Supplement 1 Testing performed or reported by [facility], a Service of [address] [address] Jonn Kay MD, Caustic Purification Operator CLIA# [id number] Blood 05/15/2022 11:3 0 AM EST 05/15/2022 12:24 PM EST Kelley Arora MD LAB BLOOD ORDERABLES Final Resul t Performing Organization Address [facility] Phone Number [facility] * (ABNORMAL) Lipid panel (05/15/2022 11:30 AM EST) [facility] Cholesterol, Total 145 (<170) MG/DL [facility] HDL 30(L) (>45) MG/DL [facility] Non-HDL Cholesterol 115 (<120) MG/DL [facility] Comment: Testing performed or reported by [facility], a Service of [facility], [address] [place] [address] Jonn Kay MD, Caustic Purification Operator IA# [id number] Blood 05/15/2022 11:3 0 AM EST 05/15/2022 12:24 PM EST Kelley Arora MD LAB BLOOD ORDERABLES Final Resul t Performing Organization Address City/[facility] de Phone Number [facility] from Last 3 Months or Most Recently Relevant to Health Maintenance Insurance [facility] NON PCC [facility] A[place] O [facility] Address: [address] [address] [place] [address]
--- OUTSIDE RECORDS SUMMARY | 2025-03-17 13:25 | XMS_ITS | Clinical Summary ---
Author Organization [employer] Address [address] [place] [address] 7[address] [place] [address] Care Team Providers Care Matchbook Assembler Name Role Phone [facility] Primary Care Provider [phone] Allergies Active Allergy Reactions Criticality Noted Date Comments Blueberry Flavoring Agent (Non-Screening) Unknown 12/14/2023 Triana Unknown 12/14/2023 Fish Allergy Unknown 12/14/2023 Wheatland Extract Unknown 12/14/2023 Medications * This document [...] Data 02/19/2025 2:00 PM EST Office Visit [facility] [address] [place] [address] Katheryn Duran, OD Myopia, bilateral (Primary Dx) 02/19/2025 Travel 02/11/2025 Orders Only GENERIC EXTERNAL DATA DEPARTMENT Provider, Generic External Data 01/27/2025 Orders Only GENERIC EXTERNAL DATA DEPARTMENT Provider, Generic External Data 01/26/[address] [facility] [address] [place], [place] [phone] VeronaThelma FNP from Last 3 Months Immunizations Immunization [...] 03/04/2008,01/27/2005 Meningococcal MCV4P [id number]-135 12/15/2020,08/02/19 16 Novel [id number], all formulations 04/22/2009 Pneumococcal Conjugate PCV 7 [...] Blood Count 9.8 4.8 - 10.8 X10*3/uL [facility] Red Blood Count 5.57 4.60 - 5.80 X10*6/uL [facility] Hemoglobin 15.8 14.0 - 18.0 g/dl [facility] Hematocrit 47.2 42.0 - 52.0 % [facility] Mean Corpuscular Volume 84.7 80.0 - 98.0 fL [facility] Mean Corpuscular Hemoglobin 28.4 27.0 - 33.0 pg [facility] Mean Corpuscular HGB Conc 33.5 31.0 - 36.0 g/dl [facility] Red Cell Distribution Width 12.5 11.0 - 16.0 % [facility] Platelet Count 222 160 - 400 X10*3/uL [facility] Mean Platelet Volume 12.6(H) 9.4 - 12.4 fL [facility] Neutrophils Percent Auto 50.7 45 - 73 % [facility] Imm Gran Pct Auto 0.1 0.0 - 0.4 % [facility] Lymphocytes Percent Auto 33.8 20 - 40 % [facility] Monocytes Percent Auto 8.4 2 - 11 % [facility] Eosinophils Percent Auto 6.5(H) 0 - 4 % [facility] Basophils Percent Auto 0.5 0 - 2 % [facility] NRBC Pct Auto 0.0 0.0 - 0.2 /100WBC [facility] Neutrophils Absolute Auto 5.0 2.0 - 8.3 x10*3/uL [facility] Imm Gran Abs Auto 0.01 0.00 - 0.03 X10*3/uL [facility] Lymphocytes Absolute Auto 3.3 1.2 - 4.9 X10*3/uL [facility] Monocytes Absolute Auto 0.8 0.1 - 1.2 X10*3/uL [facility] Eosinophils Absolute Auto 0.6(H) 0.0 - 0.4 X10*3/uL [facility] Basophils Absolute Auto 0.1 0.0 - 0.2 X10*3/uL [facility] NRBC Abs Auto 0.000 0.0 - 0.012 X10*3/uL [facility] 02/25/2025 4:07 PM EST 02/25/2025 4:07 PM EST us Generic External Data Provider LAB BLOOD ORDERAB LES Final Result Performing Organization Address City/[facility] Co de Phone Number [facility] [address] [place] [phone] * TSH (02/25/2025 4:07 PM EST) Only the most recent of3 resultswithin the time period is included. Thyroid Stimulating Hormone 2.48 0.32 - 4.0 uIU/mL [facility] Comment:TSH 3rd Generation ( [employer] [facility]) 02/25/2025 4:07 PM EST 02/25/2025 4:07 PM EST us Generic External Data Provider LAB BLOOD ORDERAB LES Final Result Performing Organization Address [facility] Phone Number [facility] [address] [place] [phone] * Hemoglobin A1c (02/25/2025 4:07 PM EST) Hemoglobin A1c 4.9 <6.0 % [facility] Comment:Hemoglobin A1C Refer ence Range Adults: 4.8 - 6.0 % Non diabetic: < 6.0 % Goal: < 7.0 %Additional Action Suggested: > 8.0 %Note: Hemoglobin A1c results are invalid for patients with abnormal amounts of HbF. Blood transfusions may impact the HbA1c concentration in the patient sample. Estimated Average Glucose 94 mg/dL [facility] Comment:eAG = Estimated ave rage glucose which is %A1C expressed asaverage glucose, using the formula of the K2U-FzcnfleLlewpgl Glucose study (ADAG), Diabetes Care, Vol.31,#8,Oct. 2007 02/25/2025 4:07 PM EST 02/25/2025 4:07 PM EST us Generic External Data Provider LAB BLOOD ORDERAB LES Final Result Performing Organization Address [facility] Co de Phone Number [facility] [address] [place] [phone] * Glucose (02/25/2025 4:07 PM EST) Glucose Fasting 83 60 - 99 mg/dL [facility] 02/25/2025 4:07 PM EST 02/25/2025 4:07 PM EST us Generic External Data Provider LAB BLOOD ORDERAB LES Final Result Performing Organization Address City/[facility]/ZIP Co de Phone Number [facility] [address] [place] [phone] * (ABNORMAL) [place] (02/25/2025 4:07 PM EST) Only the most recent of3 resultswithin the time period is included. Pathologist [facility] [place] 0.45(L) 0.60 - 1.20 mmol/L [facility] Comment:Last dose was taken on 02/25/25 at 0800. 02/25/2025 4:07 PM EST 02/25/2025 4:07 PM EST Narrative [facility] - 02/25/2025 5:15 PM EST [id number] Generic External Data Provider LAB BLOOD ORDERAB LES Final Result Performing Organization Address [facility] de Phone Number [facility] [address] [place] [phone] * Valproic Acid Total (02/25/2025 4:07 PM EST) Only the most recent of3 resultswithin the time period is included. Valproate 62.8 50.0 - 100.0 mcg/mL [facility] Comment:Last dose was taken on 02/25/25 at 0800. 02/25/2025 4:07 PM EST 02/25/2025 4:07 PM EST Narrative [facility] - 02/25/2025 5:20 PM EST [id number] Generic External Data Provider LAB BLOOD ORDERAB LES Final Result Performing Organization Address City/[facility]/ZIP Co de Phone Number [facility] [address] [place] [phone] * Hepatic Function Panel (02/25/2025 4:07 PM EST) Only the most recent of3 resultswithin the time period is included. Bilirubin, Direct 0.1 0.0 - 0.5 mg/dL [facility] 02/25/2025 4:07 PM EST 02/25/2025 4:07 PM EST Generic External Data Provider LAB BLOOD ORDERAB LES Final Result Performing Organization Address [facility] Co de Phone Number [facility] [address] [place] [phone] * Renal Function Panel (02/25/2025 4:07 PM EST) Pathologist [facility] Phosphorus 4.4 2.7 - 4.5 mg/dL [facility] 02/25/2025 4:07 PM EST 02/25/2025 4:07 PM EST Generic External Data Provider LAB BLOOD ORDERAB LES Final Result Performing Organization Address [facility] Co de Phone Number [facility] [address] [place] [phone] * (ABNORMAL) Comprehensive Metabolic Panel (02/25/2025 4:07 PM EST) Only the most recent of3 resultswithin the time period is included. Sodium 140 135 - 145 mmol/L [facility] Potassium 4.0 3.3 - 5.1 mmol/L [facility] Chloride 109(H) 96 - 108 mmol/L [facility] Carbon Dioxide 23 22 - 29 mmol/L [facility] Anion Gap 12 12 - 20 [facility] Urea Nitrogen (BUN) 7(L) 9 - 16 mg/dL [facility] Creatinine, Serum 0.69 0.5 - 1.4 mg/dL [facility] Estimated Glomerular Filt Rate >60 [facility] Comment:Chronic Kidney Disea se: Estimated GFR < 60 mL/min/[id number] Kidney Disease: Estimated GFR < 15 mL/min/1.73m2 Glucose 83 60 - 115 mg/dL [facility] Calcium 9.5 8.4 - 10.2 mg/dL [facility] Bilirubin, Total 0.3 0.0 - 1.0 mg/dL [facility] Aspartate Amino Transferase 26 5 - 37 U/L [facility] Alanine Aminotransferase 24 0 - 40 U/L [facility] Total Protein 7.3 6.5 - 8.0 g/dL [facility] Albumin Level 4.4 3.5 - 5.0 g/dL [facility] Alkaline Phosphatase 55 39 - 117 U/L [facility] 02/25/2025 4:07 PM EST 02/25/2025 4:07 PM EST us Generic External Data Provider LAB BLOOD ORDERAB LES Final Result Performing Organization Address [facility]/ZIP Co de Phone Number [facility] [address] [place] [phone] * Slide Review (02/11/2025 1:13 PM EST) Slide Review VERIFIED [facility] 02/11/2025 1:13 PM EST 02/11/2025 4:09 PM EST us Generic External Data Provider LAB BLOOD ORDERAB LES Final Result Performing Organization Address [facility]/ZIP Co de Phone Number [facility] [address] [place] [phone] * (ABNORMAL) Partial Thromboplastin Time, Activated (APTT) (02/11/2025 1:13 PM EST) Only the most recent of2 resultswithin the time period is included. Partial Thromboplastin Time 36.1(H) 26.7 - 34.1 SEC [facility] 02/11/2025 1:13 PM EST 02/11/2025 4:09 PM EST us Generic External Data Provider LAB BLOOD ORDERAB LES Final Result Performing Organization Address [facility] de Phone Number [facility] [address] [place] [phone] * Prothrombin Time-INR (02/11/2025 1:13 PM EST) Only the most recent of2 resultswithin the time period is included. Prothrombin Time 12.7 11.2 - 13.5 SEC [facility] INTERNATIONAL NORM RATIO 1.0 0.9 - 1.1 [facility] Comment:INTERNATIONAL NORMAL IZED RATIO (INR) [...] ORDERAB LES Final Result Performing Organization Address [facility] de Phone Number [facility] [address] [place] [phone] * TSH with Reflex to Free T4 (01/15/2025 3:20 PM EDT) TSH reflex Free T4 1.24 0.32 - 4.0 uIU/mL [facility] Blood 01/15/2025 3:20 PM EDT 01/15/2025 4:07 PM EDT us Willow Butterfield MD LAB BLOOD ORDERABLES Fin al Result Performing Organization Address [facility] Co de Phone Number [facility] [address] [place] [phone] * Chlamydia/N. Gonorrhoeae, PCR, Urine (12/09/2024 12:00 PM EDT) CT PCR, Urine NOT DETECTED Not Detect. [facility] Comment:A not detected test [...] NG PCR, Urine NOT DETECTED Not Detect. [facility] Comment:A not detected test [...] ORDERABLES Final R esult Performing Organization Address [facility]/ZIP Co de Phone Number [facility] [address] [place] [phone] * HIV-1/2 Antigen and Antibodies, Fourth Generation, with Reflexes (11/03/2024 11:08 AM EDT) HIV AB/AG Nonreactive Nonreactive [facility] Comment:HIV-1 p24 Ag and/or HIV-1/HIV-2 Ab not detected.A test result that is nonreactive does not exclude thepossibility of exposure to or infection with HIV-1 and/orHIV-2. Nonreactive results in this assay for individualswith prior exposure to HIV-1 and/or HIV-2 may be due toantigen and antibody levels that are below the limit ofdetection of this assay.The [employer] HIV Ag/Ab Combo assay result andsupplemental assay results should be interpreted inconjunction with the patient's clinical presentation,history and other laboratory results. If the results areinconsistent with clinical evidence, additional testing issuggested to confirm the result. Blood Venous blood specimen / Unknown 11/03/2024 11:08 AM EDT 11/03/2024 12:55 PM EDT [facility] LAB BLOOD ORDERABLES Final Re sult [facility] [address] [place] [phone] * (ABNORMAL) Lipid Panel, Standard (11/03/2024 11:08 AM EDT) Triglycerides 221(H) <150 mg/dL [facility] Comment:Desirable Triglyceri de: less than 150 mg/dLBorderline High Triglyceride 150-199 mg/dLHigh Triglyceride: 200-499 mg/dLVery High Triglyceride: greater than or equal to 5OO mg/dL Cholesterol 158 <200 mg/dL [facility] Comment:Desirable Cholestero l: less than 200 mg/dLBorderline High Cholesterol: 200-239 mg/dLHigh Cholesterol: greater than 239 mg/dL LDL Cholesterol Calculated 96 <100 mg/dL [facility] Comment:Desirable LDL: less than 100 mg/dLNear Optimal/Above Optimal LDL: 110- 129 mg/dLBorderline High LDL: 130-159 mg/dLHigh LDL: 160-189 mg/dLVery High LDL: greater than or equal to 190 mg/dL HDL Cholesterol 18(L) >40 mg/dL [facility] Comment:Desirable HDL: great er than 40 mg/dL Note: This HDL assay may give artificially low results in patients with liver disease. Blood Venous blood specimen / Unknown 11/03/2024 11:08 AM EDT 11/03/2024 12:55 PM EDT [facility] LAB BLOOD ORDERABLES Final Re sult Performing Organization Address [facility] Co de Phone Number [facility] [address] [place] [phone] * Hepatitis C Antibody with Reflex to HCV, RNA, Quantitative, Real-Time PCR (12/14/2023 12:34 PM EDT) Hepatitis C Antibody Nonreactive Nonreactive [facility] Comment:Antibodies to HCV no t detected; does not exclude early acuteHCV infection. Blood Venous blood specimen / Unknown 12/14/2023 12:34 PM EDT 12/14/2023 1:19 PM EDT [facility] LAB BLOOD ORDERABLES Final Re sult Performing Organization Address [facility] Co de Phone Number [facility] [address] [place] [phone] from Last 3 Months or Most Recently Relevant to Health Maintenance Insurance [facility] [employer] Care Teams Matchbook Assembler Relationship Specialty Start Date End Date Thelma Fatima FNP [address] [place] [phone] PCP - General Family Medicine 12/14/23
--- OUTSIDE RECORDS SUMMARY | 2025-03-17 13:25 | XMS_ITS | Encounter Summary ---
Author Organization [employer] Address [address] [facility] [address] [place] [address] Care Team Providers Care Dye Reel Operator Helper Name Role Phone [facility] Primary Care Provider Reason for Visit * Reason Comments Med Change Request Encounter Details Date Type Department Care Team ([facility] st Contact Info) Description 03/23/2024 Refill [facility] [address] [place], [place] [phone] Virginia Box CNM [address] [place], [place] [phone] Social History Tobacco Use Types Packs/Day Years [...] documented as of this encounter Care Teams Dye Reel Operator Helper Relationship Specialty Start Date End Date Thelma Fatima FNP [address] [place] [phone] PCP - General Family Medicine 12/14/23 documented as of this encounter
--- OUTSIDE RECORDS SUMMARY | 2025-03-17 13:25 | XMS_ITS | Encounter Summary ---
Author Organization [employer] Address [address] [facility] [address] [place] [address] Care Team Providers Care Rn Plastic Surgery Name Role Phone Ak[facility] Primary Care Provider [phone] Reason for Visit * Reason Comments Med Refill Encounter Details Date Type Department Care Team ([facility] st Contact Info) Description 12/18/2023 Refill [facility] [address] [place], [place] [phone] Willow Butterfield MD [address] [place], [place] [phone] Social History Tobacco Use Types Packs/Day Years [...] documented as of this encounter Care Teams Rn Plastic Surgery Relationship Specialty Start Date End Date Thelma Fatima FNP [address] [place] [phone] PCP - General Family Medicine 12/14/23 documented as of this encounter
[2025-03-18 02:25] LABS: Follicle Stimulating Hormone 3.7 mIU/mL (1.4-12.8)
== END 2025-03-17 10:08 | disposition home or self-care (01) ==
LOC: HO.LABR 10:07
PROVIDERS: PCP Registered Nurse
DX: Z51.81 Encounter for therapeutic drug level monitoring (principal); Z13.1 Encounter for screening for diabetes mellitus; F31.81 Bipolar II disorder
CPT/HCPCS: 36415; 80053; 80069; 80164; 80178; 82248; 83001; 83036; 84100; 84439; 84443; 84481; 85025